=== PATIENT | male | born 1965 | race Caucasian/White ===

== ENCOUNTER 2017-06-17 10:42 | Emergency (ER) | payer MEDICAID, SELFPAY ==
[2017-06-17 10:42] VITALS: BP 152/118; PULSE 89; RESP 16; TEMP 37; O2SAT 98; BMI 34.9
[2017-06-17 10:58] VITALS: PULSE 87; RESP 18; O2SAT 98
--- NOTE | 2017-06-17 10:58 | RAD_ITS ---
STUDY: X-RAY CHEST REASON FOR EXAM: Male, 52 years old. Dizziness and shortness of breath. Syncopal episodes. TECHNIQUE: AP and lateral views of the chest. COMPARISON: Comparison is made with prior study dated April 23, 2017. FINDINGS: EKG electrodes are seen. The lungs are clear and expanded. There is no demonstrated pleural abnormality. There is borderline cardiomegaly. Normal mediastinum and shoaib. Normal visualized pulmonary arteries. Normal visualized aortic arch and descending thoracic aorta. Normal visualized thoracic spine. Normal visualized ribs, clavicles, and shoulders. There is no demonstrated abnormality of the visualized soft tissue structures of the upper abdomen. RAD/Chest 1 View (Portable) IMPRESSION: Borderline cardiomegaly. The lungs are clear. Electronically Signed: Francisco Javier Lockhart MD at 11:30 EST Tel [phone], Service support ,
--- NOTE | 2017-06-17 10:58 | CT_ITS ---
STUDY: CT BRAIN WITHOUT CONTRAST REASON FOR EXAM: Male, 52 years old. Syncope. Dizziness. RADIATION DOSAGE (If Supplied By Facility): CTDIvol = ( 44.99 ) mGy, DLP = ( 812.98 ) mGycm TECHNIQUE: Transaxial CT imaging of the brain was performed without administration of intravenous contrast material. Individualized dose optimization techniques were used for this CT. COMPARISON: Comparison is made with prior study dated November 29, 2016. FINDINGS: Normal soft tissue structures. Normal calvarium. Normal size ventricles and extra-axial spaces for the patient's age. Normal white matter tracts of the cerebral hemispheres. Normal basal ganglia and thalami. Normal brainstem. Normal cerebellum. There is no intracranial hemorrhage. There are no findings of an acute ischemic infarction. Normal visualized paranasal sinuses. CT/Brain/Head without Contrast IMPRESSION: Normal unenhanced CT scan of the brain. Electronically Signed: Francisco Javier Lockhart MD at 12:18 EST Tel [phone], Service support ,
--- NOTE | 2017-06-17 10:59 | EKG12_ITS ---
Test Reason : Blood Pressure : / mmHG Vent. Rate : 089 BPM Atrial Rate : 089 BPM P-R Int : 100 ms QRS Dur : 122 ms QT Int : 374 ms P-R-T Axes : 018 -36 032 degrees QTc Int : 455 ms Sinus rhythm with short SC Left axis deviation Left ventricular hypertrophy with QRS widening Abnormal ECG Confirmed by GEETHA CHAN ([id number]), advertising editor MILTON SANCHEZ ([id number]) on 06/22/2017 1:45:50 PM Referred By: ANI Confirmed By:GEETHA CHAN
[2017-06-17 11:06] LABS: Bedside Glucose 111 mg/dL (70-110)
[2017-06-17 11:17] VITALS: BP 140/90; BP 141/88; BP 145/96; PULSE 82; PULSE 85; PULSE 92
[2017-06-17 11:24] LABS: Absolute Lymphocyte Count 2.34 X10^3/ul (0.83-4.51); Absolute Neutrophil Count 3.3 X10^3/uL (2.0-7.7); Basophil# 0.03 X10^3/uL; Basophil% 0.4 % (0-1); Eosinophil# 0.19 X10^3/uL; Eosinophils% 2.8 % (0-5); Hemoglobin 11.9 g/dl (13.0-16.5); Lymphocyte # 2.34 X10^3/ul (4.0); Lymphocyte % 34.5 % (19-41); Mean Corp Hgb Conc 31.3 g/gl (32-36); Mean Platelet Vol. 8.8 fl (6.2-12.0); Monocyte# 0.93 X10^3/uL; Monocyte% 13.7 % (0-10); Neutrophil # 3.29 X10^3/uL (2.7-7.7); Neutrophil % 48.5 % (47-70); Platelet Count 386 K/mm3 (150-450); RBC Distribution Width CV 14.9 % (11.6-14.6); RBC Distribution Width SD 45.3 fl (35.1-43.9); Red Blood Count 4.58 M/mm3 (4.6-6.2); White Blood Count 6.8 K/mm3 (4.4-11.0)
[2017-06-17 11:25] LABS: POSITIVE COUNT NO; POSITIVE DIFFERENTIAL NO; POSITIVE MORPHOLOGY NO
[2017-06-17 11:37] LABS: Anion Gap 9 (5-15); BUN 15 mg/dL (7-18); BUN/Creat Ratio 16.7 RATIO (10-20); Calcium,Total 8.8 mg/dL (8.5-10.1); Chloride 104 mmol/L (98-107); EST Glomerular Filtration Rate 94 mL/min (>60); Est Glom Filt Rate - Afr Amer 114 mL/min (>60); Estimated Creatinine Clearance 91.83 ml/min; Glucose 104 mg/dL (74-106); Potassium 3.4 mmol/L (3.5-5.1); Sodium Level 141 mmol/L (136-145)
[2017-06-17] MEDS: 0.9% Normal Saline 1,000 ML 150 ML IV (12:45)
--- NOTE | 2017-06-17 12:45 | ED.RN ---
SCANNING NOT WORKING. STRAIGHTEDGE WORKER AWARE.
[2017-06-17 13:18] VITALS: BP 135/81; PULSE 92; RESP 28; O2SAT 96
--- NOTE | 2017-06-17 13:41 | ED.VISSUMM ---
- ER Visit Summary Date of Service: 06/17/17 Chief Complaint: [Syncope] History of Present Illness: The patient is a 52 M [presents to the emergency department with complaint of syncope that occurred today. Patient was going to Dr. Lucio's office to get allergy shots. Patient remembers getting out of the cab and feeling lightheaded and dizzy. Patient was able to go in and sit down and get his shot however after trying to stand he again felt dizzy and passed out for a short time. Patient was caught by 1 of the nurses therefore he did not injure himself. Patient was sent to the ER for further evaluation. Patient does state that he has been not feeling well for the last 2-3 days with cough and congestion and body aches. Patient denies recent travel or surgery. Patient does have a history of coronary artery disease and tells me that he had 4 stents placed a few months ago. Patient states that he has had some nondescript chest discomfort off-and-on for the last week. Patient is currently on Xarelto for history of PEs. Patient states that he has had multiple syncopal episodes over the last couple years he has passed out over 30 times and has had multiple admissions for this and workups.] Physical Examination: [HEENT-PERRLA, EOMI. Cranial nerves II through XII grossly intact. TMs clear. Mucous membranes moist. No adenopathy. Cardiovascular-regular rate and rhythm without murmur or ectopy Lungs-clear to auscultation, chest wall stable without crepitus or subcu emphysema Abdomen-normoactive bowel sounds, soft, nontender, no rebound or rigidity, no peritoneal signs. Neuro dnjg-amdjqn-osal and heel sanders testing within normal limits, negative Romberg, negative for drift, fundi benign Extremities-intact ?4, normal range of motion, normal pulses, atraumatic] Test Results]-orthostatic vital signs were negative. CBC with differential showed a white blood cell count of 6.8, hemoglobin 11.9, hematocrit 38, platelets 386. Chemistries unremarkable. Troponin was 0.03. EKG obtained showed sinus rhythm with rate of 89 bpm with some LVH noted. Chest x-ray was clear. CT scan of the brain without contrast showed nothing acute. Phenobarbital level was 3.0. Emergency Department Course and Treatment: [Patient was given gentle hydration in the emergency department.] Treatment Plan: [Discharged to home in stable condition and patient advised to push fluids. I suspect given some of his symptomatology of cough and runny nose as well as body aches patient may have a viral upper respiratory infection.] Disposition: [Discharged to home in stable condition]. Patient advised to follow-up with primary care physician within next 3-5 days. Patient advised to return if persistent syncopal episodes, chest pain, or condition should worsen in any way. Impression: [Syncope-etiology uncertain-recurrent URI] This note was generated with [employer] dictation software. It may contain incorrect words, spelling, and punctuation that were not noted in review of the chart prior to signing ED Disposition - Plan for ED Patient: Chief Complaint: Syncope Referrals: Robert Hollis DO [Primary Care Provider] -
--- NOTE | 2017-06-17 13:48 | ED.DCSUM_ITS ---
- ER Visit Summary Date of Service: 06/17/17 Chief Complaint: [Syncope] History of Present Illness: The patient is a 52 M [presents to the emergency department with complaint of syncope that occurred today. Patient was going to Dr. Lucio's office to get allergy shots. Patient remembers getting out of the cab and feeling lightheaded and dizzy. Patient was able to go in and sit down and get his shot however after trying to stand he again felt dizzy and passed out for a short time. Patient was caught by 1 of the nurses therefore he did not injure himself. Patient was sent to the ER for further evaluation. Patient does state that he has been not feeling well for the last 2-3 days with cough and congestion and body aches. Patient denies recent travel or surgery. Patient does have a history of coronary artery disease and tells me that he had 4 stents placed a few months ago. Patient states that he has had some nondescript chest discomfort off-and-on for the last week. Patient is currently on Xarelto for history of PEs. Patient states that he has had multiple syncopal episodes over the last couple years he has passed out over 30 times and has had multiple admissions for this and workups.] Physical Examination: [HEENT-PERRLA, EOMI. Cranial nerves II through XII grossly intact. TMs clear. Mucous membranes moist. No adenopathy. Cardiovascular-regular rate and rhythm without murmur or ectopy Lungs-clear to auscultation, chest wall stable without crepitus or subcu emphysema Abdomen-normoactive bowel sounds, soft, nontender, no rebound or rigidity, no peritoneal signs. Neuro wlla-wznwgk-kvtf and heel sanders testing within normal limits, negative Romberg, negative for drift, fundi benign Extremities-intact ?4, normal range of motion, normal pulses, atraumatic] Test Results]-orthostatic vital signs were negative. CBC with differential showed a white blood cell count of 6.8, hemoglobin 11.9, hematocrit 38, platelets 386. Chemistries unremarkable. Troponin was 0.03. EKG obtained showed sinus rhythm with rate of 89 bpm with some LVH noted. Chest x-ray was clear. CT scan of the brain without contrast showed nothing acute. Phenobarbital level was 3.0. Emergency Department Course and Treatment: [Patient was given gentle hydration in the emergency department.] Treatment Plan: [Discharged to home in stable condition and patient advised to push fluids. I suspect given some of his symptomatology of cough and runny nose as well as body aches patient may have a viral upper respiratory infection. ] Disposition: [Discharged to home in stable condition]. Patient advised to follow-up with primary care physician within next 3-5 days. Patient advised to return if persistent syncopal episodes, chest pain, or condition should worsen in any way. Impression: [Syncope-etiology uncertain-recurrent URI] This note was generated with [employer] dictation software. It may contain incorrect words, spelling, and punctuation that were not noted in review of the chart prior to signing ED Disposition - Plan for ED Patient: Chief Complaint: Syncope Referrals: Robert Hollis DO [Primary Care Provider] -
--- NOTE | 2017-06-17 13:48 | ED.DEP ---
ED Disposition - Plan for ED Patient: Chief Complaint: Syncope Instructions: ED Fainting Unkn Cause, ED URI Viral Referrals: Robert Hollis DO [Primary Care Provider] - 3-5 Days
[2017-06-17 13:54] VITALS: BP 137/87; PULSE 80; RESP 14; O2SAT 98
== END 2017-06-17 13:55 | disposition home or self-care (01) ==
PROVIDERS: Emergency Provider Emergency Medicine; Family Provider Family Medicine; PCP Family Medicine
DX: R55 Syncope and collapse (principal); J06.9 Acute upper respiratory infection, unspecified; I25.10 Atherosclerotic heart disease of native coronary artery without angina pectoris; J45.909 Unspecified asthma, uncomplicated; Z79.01 Long term (current) use of anticoagulants; Z79.899 Other long term (current) drug therapy; Z86.73 Personal history of transient ischemic attack (TIA), and cerebral infarction without residual deficits; Z86.711 Personal history of pulmonary embolism; Z95.5 Presence of coronary angioplasty implant and graft
CPT/HCPCS: 70450; 71045; 80048; 80184; 82962; 84484; 85025; 87804; 93005; 96360; 99285; J7030; A4216

== ENCOUNTER → 2017-07-22 10:26 | Outpatient (CLI) | payer MEDICAID, SELFPAY ==
--- NOTE | 2017-07-22 10:27 | RAD_ITS ---
STUDY: X-RAY - LUMBAR SPINE REASON FOR EXAM: Male, 52 years old. Left-sided back pain. TECHNIQUE: 3 view(s) of the lumbar spine were obtained. COMPARISON: None FINDINGS: Normal lumbar lordosis. There is no substantial scoliosis. Bilateral pars defects of L5. 7 mm anterolisthesis of L5 on S1. Normal vertebral bodies and endplates. Moderate degenerative disc disease and loss of disc height at L5-S1. Other disks are normal. The soft tissue structures are unremarkable. RAD/Lumbar Spine 2 or 3 Views IMPRESSION: Bilateral pars defects of L5 and anterolisthesis of L5 on S1. Degenerative disc disease at L5-S1. Electronically Signed: Raghu Rivas MD at 16:52 EDT , Service support ,
== END ==
PROVIDERS: Family Provider Family Medicine; PCP Internal Medicine; Visit Provider Internal Medicine
DX: M54.9 Dorsalgia, unspecified (principal); G89.29 Other chronic pain
CPT/HCPCS: 72100

== ENCOUNTER 2017-07-22 11:00 | Emergency (ER) | payer MEDICAID, SELFPAY ==
[2017-07-22 11:01] VITALS: BP 162/86; PULSE 89; RESP 18; TEMP 37.2; O2SAT 97; BMI 34.2
--- NOTE | 2017-07-22 11:03 | RAD_ITS ---
STUDY: X-RAY CHEST REASON FOR EXAM: Male, 52 years old. Syncopal episode. Hypertension. TECHNIQUE: Single AP portable view of the chest. COMPARISON: 06/17/2017 FINDINGS: Lungs are mildly hypoinflated. Lungs are clear. There is no demonstrated pleural abnormality. There is mild cardiac enlargement. Normal mediastinum and shoaib. Normal visualized pulmonary arteries. Normal visualized aortic arch and descending thoracic aorta. There are diffuse degenerative changes of the visualized thoracic spine. There is degenerative osteoarthritis of the bilateral shoulders. There is no demonstrated abnormality of the visualized soft tissue structures of the upper abdomen. RAD/Chest 1 View (Portable) IMPRESSION: Hypoinflated lungs which are clear. Electronically Signed: Renzo Galdamez DO at 11:23 EDT Tel , Service support ,
--- NOTE | 2017-07-22 11:03 | EKG12_ITS ---
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 Rate : 091 BPM Atrial Rate : 091 BPM P-R Int : 142 ms QRS Dur : 122 ms QT Int : 382 ms P-R-T Axes : 067 -39 075 degrees QTc Int : 469 ms Normal sinus rhythm Left axis deviation Nonspecific ST abnormality Abnormal ECG Confirmed by AYAN CLINE, PONCHO ([id number]), editor in chief newspaper MILTON SANCHEZ ([id number]) on 07/26/2017 1:16:08 PM Referred By: AN/CRISSY Confirmed By:PONCHO BOTELLO MD
[2017-07-22 11:15] VITALS: O2SAT 95
--- NOTE | 2017-07-22 11:19 | ED.RN ---
NIECE CORAL KRAFT NOTIFIED OF PT ADMISSION TO ED FROM RADIOLOGY. THIS FAMILY MEMBER IS PT POA, AND NOTIFICATION WAS MADE AT REQUEST OF PT.
[2017-07-22 11:21] LABS: Absolute Lymphocyte Count 2.39 X10^3/ul (0.83-4.51); Absolute Neutrophil Count 3.6 X10^3/uL (2.0-7.7); Basophil# 0.06 X10^3/uL; Basophil% 0.8 % (0-1); Eosinophil# 0.27 X10^3/uL; Eosinophils% 3.6 % (0-5); Hemoglobin 11.2 g/dl (13.0-16.5); Lymphocyte # 2.39 X10^3/ul (4.0); Mean Corpuscular Hgb 26.9 pg (27.0-32.0); Mean Corpuscular Volume 84.1 fL (80-94); Mean Platelet Vol. 9.3 fl (6.2-12.0); Monocyte# 1.11 X10^3/uL; Monocyte% 14.9 % (0-10); Neutrophil # 3.63 X10^3/uL (2.7-7.7); Neutrophil % 48.6 % (47-70); Platelet Count 411 K/mm3 (150-450); RBC Distribution Width CV 14.4 % (11.6-14.6); RBC Distribution Width SD 43.4 fl (35.1-43.9); Red Blood Count 4.16 M/mm3 (4.6-6.2); White Blood Count 7.5 K/mm3 (4.4-11.0)
[2017-07-22] MEDS: 0.9% Normal Saline 1,000 ML 150 ML IV (11:24)
--- NOTE | 2017-07-22 11:25 | ED.DCSUM_ITS ---
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 radiology history of same for years History of Present Illness: The patient is a 52 M [] has a long history of chronic intermittent dizzy spells, seizure disorder, chronic back pain and leg pain related to prior injury to the back and lower leg, he was in radiology obtaining outpatient lumbar spine x-ray that procedure was done he was sitting at the side of the cot complaint the brass instrument repair technician that he was dizzy so they laid him down call the code team who found him with normal vital signs awake and alert the patient had no LOC did not injure his body or strike anything as technologist were with him throughout. The patient reports he has had these spells chronically he has been extensively evaluated with prior scans blood tests other imaging tests etc. they are not related to his seizure disorder and no clear diagnosis has been established. He did not have a seizure today he assures me and nor did the technologist see any seizure activity he has no description of tongue biting or incontinence he is currently back to his baseline He has chronic back pain his doctors wanted to check the status of his lumbar spine and that is why the lumbar spine test xray was ordered Physical Examination: [] ENT exam is unremarkable no nystagmus the neck is supple the lungs are clear the heart tones are unremarkable abdomen soft nontender is moving all 4 extremities he has chronic pain to the low lumbar back and leg this is related to his chronic condition he did not injure himself anyway by his history and history of technologist who were in the room with him Test Results: [] The patient has had prior evaluation for the dizziness to include prior CT of head negative and cardiology evaluation including nuclear stress test that were negative for workup of the chronic dizziness Emergency Department Course and Treatment: []ekg sinus rhythm no injury pattern we will obtain screening labs NIH is 0 there is no signs of stroke or seizure we will will also check his Dilantin and phenobarbital levels but he states she has been taking them appropriately he has not had a seizure recently Since evaluation here including EKG x-ray labs are unremarkable preliminary review by myself of lumbar spine films show nothing acute Patient's vital signs have remained stable I had a long conversation with him these dizzy spells or chronic, indicates he is taking Dilantin and phenobarbital levels are both 0 he will take those when he gets home, in addition he will follow-up with his family doctors for further management of the chronic dizzy spells he is comfortable with discharge and this plan Treatment Plan: [] Disposition: [] STable home Impression: [] Recurrent dizzy spells etiology unclear history of chronic lumbar back pain This note was generated with Smartzer dictation software. It may contain incorrect words, spelling, and punctuation that were not noted in review of the chart prior to signing ED Disposition - Plan for ED Patient: Chief Complaint: Syncope Referrals: Jennifer Elizondo MD [Primary Care Provider] -
[2017-07-22 11:26] LABS: POSITIVE COUNT NO; POSITIVE DIFFERENTIAL NO; POSITIVE MORPHOLOGY NO
[2017-07-22 11:38] LABS: Anion Gap 7 (5-15); BUN 18 mg/dL (7-18); Calcium,Total 8.4 mg/dL (8.5-10.1); Chloride 107 mmol/L (98-107); Creatinine, Serum 0.86 mg/dL (0.70-1.30); EST Glomerular Filtration Rate 99 mL/min (>60); Est Glom Filt Rate - Afr Amer 120 mL/min (>60); Glucose 111 mg/dL (74-106); Potassium 3.6 mmol/L (3.5-5.1); Sodium Level 142 mmol/L (136-145)
[2017-07-22 11:51] LABS: BNP,B-Type NATRIURETIC PEPTIDE 14.5 pg/mL (0-100)
[2017-07-22 11:52] LABS: Phenytoin (Dilantin) Level < 0.4 mL (10.0-20.0)
[2017-07-22 13:20] VITALS: BP 150/88; PULSE 80; RESP 16; O2SAT 94
--- NOTE | 2017-07-22 13:43 | ED.DEP ---
ED Disposition - Plan for ED Patient: Chief Complaint: Syncope Instructions: ED Fainting Unkn Cause Referrals: Jennifer Elizondo MD [Primary Care Provider] -
[2017-07-22 14:21] VITALS: BP 144/71; PULSE 87; RESP 16; O2SAT 97
--- NOTE | 2017-07-22 14:24 | ED.RN ---
PT DOES NOT HAVE TRANSPORTATION, [facility] CONTACTED TO TRANSPORT PT HOME.
== END 2017-07-22 14:27 | disposition home or self-care (01) ==
PROVIDERS: Emergency Provider Emergency Medicine; Family Provider Internal Medicine; PCP Internal Medicine
DX: R42 Dizziness and giddiness (principal); G89.29 Other chronic pain; M54.5 Low back pain; G40.909 Epilepsy, unspecified, not intractable, without status epilepticus; Z79.01 Long term (current) use of anticoagulants; Z79.899 Other long term (current) drug therapy
CPT/HCPCS: 71045; 72100; 80048; 80184; 80185; 83880; 84484; 85025; 93005; 96360; 96361; 99284; J7030; A4216

== ENCOUNTER 2017-09-13 17:12 | Observation (INO) | payer MEDICAID, SELFPAY ==
[2017-09-13] VITALS (8 sets, daily range): BP systolic 128–161; BP diastolic 77–113; PULSE 84–108; RESP 15–18; TEMP 36.4–37.2; O2SAT 94–98; BMI 34.8; BMI 34.7
--- NOTE | 2017-09-13 17:18 | ED.RN ---
PT USES A CANE TO AMBULATE.
--- NOTE | 2017-09-13 17:48 | EKG12_ITS ---
Test Reason : DIZZINESS Blood Pressure : / mmHG Vent. Rate : 096 BPM Atrial Rate : 096 BPM P-R Int : 142 ms QRS Dur : 116 ms QT Int : 346 ms P-R-T Axes : 042 -47 038 degrees QTc Int : 437 ms Normal sinus rhythm Left anterior fascicular block Abnormal ECG Confirmed by KATERIN CLINE, ZABRINA ([id number]), manager editorial MILTON SANCHEZ ([id number]) on 09/17/2017 10:24:41 AM Referred By: MARIO Confirmed By:ZABRINA CONKLIN MD
--- NOTE | 2017-09-13 17:48 | RAD_ITS ---
STUDY: X-RAY - LUMBAR SPINE REASON FOR EXAM: Male, 52 years old. Weakness, dizziness TECHNIQUE: 3 view(s) of the lumbar spine were obtained. COMPARISON: None FINDINGS: There is a 5 mm anterolisthesis of L5 on S1. There is no substantial scoliosis. There is a normal alignment of the vertebrae. Normal vertebral bodies and endplates. Probable L5 pars defects. Degenerative disc disease L5-S1. The soft tissue structures are unremarkable. RAD/Lumbar Spine 2 or 3 Views IMPRESSION: Grade 1 anterior listhesis of L5 on S1. Degenerative disc disease L5-S1. 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 Electronically Signed: Norris Monge DO at 19:12 EDT , Service support ,
[2017-09-13 18:31] LABS: Absolute Lymphocyte Count 2.45 X10^3/ul (0.83-4.51); Absolute Neutrophil Count 3.7 X10^3/uL (2.0-7.7); Basophil# 0.04 X10^3/uL; Basophil% 0.5 % (0-1); Eosinophil# 0.17 X10^3/uL; Eosinophils% 2.3 % (0-5); Hematocrit 41.2 % (40-54); Hemoglobin 12.8 g/dl (13.0-16.5); Lymphocyte # 2.45 X10^3/ul (4.0); Lymphocyte % 33.1 % (19-41); Mean Corp Hgb Conc 31.1 g/gl (32-36); Mean Corpuscular Hgb 26.2 pg (27.0-32.0); Mean Corpuscular Volume 84.4 fL (80-94); Mean Platelet Vol. 9.1 fl (6.2-12.0); Monocyte# 1.03 X10^3/uL; Monocyte% 13.9 % (0-10); Neutrophil % 50.1 % (47-70); Platelet Count 405 K/mm3 (150-450); RBC Distribution Width CV 15.2 % (11.6-14.6); RBC Distribution Width SD 46.6 fl (35.1-43.9); Red Blood Count 4.88 M/mm3 (4.6-6.2); White Blood Count 7.4 K/mm3 (4.4-11.0)
[2017-09-13 18:32] LABS: POSITIVE COUNT NO; POSITIVE DIFFERENTIAL NO; POSITIVE MORPHOLOGY NO
--- NOTE | 2017-09-13 18:50 | RAD_ITS ---
STUDY: X-RAY CHEST REASON FOR EXAM: Male, 52 years old. Weakness, dizziness, near syncopal episode TECHNIQUE: Frontal and lateral views of the chest. COMPARISON: 07/22/2017 FINDINGS: The lungs are clear and expanded. There is no demonstrated pleural abnormality. Normal size heart. Normal mediastinum and shoaib. Normal visualized pulmonary arteries. Normal visualized aortic arch and descending thoracic aorta. Normal visualized thoracic spine. Normal visualized ribs, clavicles, and shoulders. There is no demonstrated abnormality of the visualized soft tissue structures of the upper abdomen. RAD/Chest PA and Lateral IMPRESSION: No acute cardiopulmonary disease. Electronically Signed: Norris Monge DO at 19:10 EDT , Service support ,
--- NOTE | 2017-09-13 19:21 | HP.PCM_ITS ---
Problem List (1) Syncope and collapse Status: Acute (2) Chest pain Status: Acute Qualifiers: Chest pain type: unspecified Qualified Code(s): R07.9 - Chest pain, unspecified (3) Hypertension Status: Chronic Qualifiers: Hypertension type: essential hypertension Qualified Code(s): I10 - Essential (primary) hypertension (4) Chronic back pain Status: Chronic Qualifiers: Back pain location: back pain in unspecified location Back pain laterality : unspecified Qualified Code(s): M54.9 - Dorsalgia, unspecified; G89.29 - Other chronic pain (5) CVA (cerebral vascular accident) Status: Chronic Qualifiers: CVA mechanism: unspecified Qualified Code(s): I63.9 - Cerebral infarction, unspecified (6) Major depression Status: Chronic Qualifiers: Major depression recurrence: unspecified whether recurrent Active/ Remission status: remission status unspecified Qualified Code(s): F32.9 - Major depressive disorder, single episode, unspecified (7) Lichen simplex chronicus Status: Chronic (8) Anxiety Status: Chronic (9) Pulmonary nodule Status: Chronic (10) Chronic headache Status: Chronic (11) GERD (gastroesophageal reflux disease) Status: Chronic Qualifiers: Esophagitis presence: esophagitis presence not specified Qualified Code(s) : K21.9 - Gastro-esophageal reflux disease without esophagitis (12) Allergic rhinitis Status: Chronic Qualifiers: Allergic rhinitis trigger: unspecified Allergic rhinitis seasonality: unspecified seasonality Qualified Code(s): J30.9 - Allergic rhinitis, unspecified (13) JANELL (obstructive sleep apnea) Status: Chronic (14) Personality disorder Status: Chronic (15) Pulmonary nodules/lesions, multiple Status: Chronic Comment: on CT in June 2015 (16) Seizure disorder Status: Chronic (17) Asthma Status: Chronic Qualifiers: Asthma severity: unspecified severity Asthma persistence: unspecified Asthma complication type: unspecified Qualified Code(s): J45.909 - Unspecified asthma, uncomplicated (18) Restless legs syndrome (RLS) Status: Chronic (19) Pulmonary embolism Status: Chronic Qualifiers: Chronicity: unspecified Acute cor pulmonale presence: without acute cor pulmonale History of Present Illness Date of Admission: 09/13/17 Chief Complaint: Chest pain, Near Syncope The patient is a 52 y/o M w PMHx: HTN, HLD, Asthma, GERD, Allergic Rhinitis, Chronic Back Pain, Known Pulmonary Nodules, Anxiety and Depression/Personality disorder, Obesity, Hx PE, Chronic LH/Dizziness w/ Frequent Near Syncope complaint who presents to the [facility] ED on 09/13/17 with history of increased episodes of lightheadedness and dizziness w/ near syncope w/ now new onset substernal chest tightness without radiation and sensation of sharp needles with events, perhaps worse w/ exertional attempts, but occurs independent also of activity, rates 10/10 when occurs with associated nausea without emesis and diaphoresis. In the ED work-up included T 97.5, heart rate 103, BP 120/96, respiratory rate 15, 94% on room air, positive orthostatic vital signs, CBC with WBC 7.4, hemoglobin 12.8, platelet 405 with increased mono percent otherwise no market shift, pending repeat BMP as initial unusable, chest x-ray with chronic changes. Past Medical History Past Medical History (Chronic Problems): Chronic Problems (Last Reviewed 08/26/17 @ 09:33 by Tamela Paula) History of left heart catheterization (Chronic ~04/14/17) Normal Coronary Arteries @ [facility] Hypertension (Chronic) Generalized hypopigmentation of skin (Chronic) Chronic back pain (Chronic) CVA (cerebral vascular accident) (Chronic) Major depression (Chronic) Paresthesia (Chronic) Hypomagnesemia (Chronic) Lichen simplex chronicus (Chronic) Anxiety (Chronic) Pulmonary nodule (Chronic) Chronic headache (Chronic) GERD (gastroesophageal reflux disease) (Chronic) Hypersomnia (Chronic) Allergic rhinitis (Chronic) Right lumbar radiculopathy (Chronic) Alcohol abuse (Chronic) JANELL (obstructive sleep apnea) (Chronic) Dyspnea on exertion (Chronic) Abnormal chest CT (Chronic) Personality disorder (Chronic) Pulmonary nodules/lesions, multiple (Chronic) on CT in June 2015 Herniated cervical disc without myelopathy (Chronic) Seizure disorder (Chronic) Asthma (Chronic) Restless legs syndrome (RLS) (Chronic) Insomnia (Chronic) Episode of syncope (Chronic) Pulmonary embolism (Chronic) Anxiety disorder (Chronic) Allergies aspirin Allergy (Verified 09/13/17 17:14) Hives Penicillins Allergy (Verified 09/13/17 17:14) Swelling Home Medications: Ambulatory Orders Medication Instructions Recorded Clonazepam [Klonopin] 1 mg PO DAILY 05/05/16 Hydroxychloroquine [Plaquenil] 200 mg PO DAILY 05/05/16 Levetiracetam [Keppra Xr] 500 mg PO DAILY 05/05/16 Omeprazole [Prilosec] 20 mg PO BID 05/05/16 Phenobarbital 16.2 mg PO BID 05/05/16 Rivaroxaban [Xarelto] 15 mg PO DAILY 05/05/16 Ropinirole HCl [Requip Xl] 2 mg PO BID 05/05/16 Trazodone HCl 50 mg PO QHS 05/05/16 Emollient Combination No.101 454 gm TP PRN PRN 11/29/16 [Ceramax] Acetaminophen [Tylenol Extra 500 mg PO Q6H 04/23/17 Strength] Docusate Sodium [Colace] 100 mg PO DAILY 04/23/17 sodium chloride 0.65 % nasal spray 3 spray INTRANASAL Q1-4H PRN #104 06/23/17 aerosol ml mirtazapine 30 mg tablet 30 mg PO QHS 07/09/17 Furosemide [Lasix] 20 mg PO DAILY 07/22/17 Lisinopril [Zestril] 10 mg PO DAILY 07/22/17 ipratropium 20 mcg-albuterol 100 2 puff INHALATION DAILY #4 g 08/26/17 mcg/actuation mist for inhalation mometasone-formoterol HFA 200 2 puff INHALATION DAILY #8.8 g 08/26/17 mcg-5 mcg/actuation aerosol inhaler albuterol sulfate HFA 90 1 puff INHALATION Q4H PRN PRN #6.7 08/28/17 mcg/actuation aerosol inhaler g Surgical History: - - Appendectomy, left hip repair status post fall with fracture, severe head lacerations with notable stitching performed, left hand surgery. Psychiatric History: Anxiety, Depression, - - Unclear personality disorder noted in history. Lives: With Family - Patient notes he lives with his aunt. Smoking Status: Never smoker Tobacco Use: Non-smoker Alcohol: None - Patient denies any history of alcohol or current alcohol use although alcohol abuse is listed in his history prior but adamantly denies. Drugs: None - *Family History Maternal History Items: Heart Disease, Hypertension Paternal History Items: Unknown - Patient notes that his father left when he was 8 weeks- year-old and does not know any of his medical history. Review of Systems Constitutional: Reports: Malaise, Weakness, Fatigue. Denies: Chills, Fever, Weight Change HEENT: Denies: Head Aches, Sinus Congestion, Sinus Drainage Cardiovascular: Reports: Chest Pain, Chest Tightness, Light Headedness, Syncope. Denies: Edema, Heaviness, Palpitations Respiratory: Reports: Shortness of Breath, Shortness of breath at rest, Shortness of breath upon exertion. Denies: Cough, Sputum production Gastrointestinal: Reports: Nausea. Denies: Abdominal Pain, Vomiting Genitourinary: Reports: Dysuria - Notes chronic mild discomfort with urination ongoing for several years. Musculoskeletal: Reports: Back Pain. Denies: Joint Pain, Joint Tenderness Skin: Denies: Rash, Wounds Neurological: Denies: Numbness, Tingling, Focal weakness Psychiatric: Reports: Anxiety, Depression. Denies: Homicidal Ideations, Suicidal Ideations Hematologic/ Lymphatic: Denies: Easy Bruising, Easy Bleeding VTE Information - Inpt Only VTE Present on Admission: No VTE Mechan Device Prophylaxis: SCD's VTE Pharm Prophylaxis ordered?: Yes Patient Problems: Active and Suspected Problems (Last Reviewed 08/26/17 @ 09:33 by Tamela Paula) Chest pain (Acute) Subjective: Seated upright in the ED bed, no acute distress, no current chest discomfort or lightheadedness. Objective: Physical Examination: General: awake, alert, oriented x 3 and cooperative, seated upright in the ED bed in no apparent distress. Skin: normal color, turgor, no icterus, cyanosis, noted hypopigmented regions on skin. HEENT: AT/NC, EOMI, PERRLA, MMM, no carotid bruits or JVD noted. Lungs: Diminished breath sounds, greater bilateral bases, moderate effort, no rales, ronchi or wheezing. Heart: Regular rate and rhythm; no gallop, rub audible. Abdomen: soft, obese, NTTP, ND, normal BS, no HSM. Extremities: no cyanosis, clubbing, mild nonpitting ankle edema. Neurological: patient awake, alert, oriented x 3; cognitive function intact; pupils equally reactive to light and accomodation; cranial nerves II-XII grossly normal, moving all 4 extremities, no focal deficits, strength mild to moderately globally decreased secondary to acute presentation. Psychiatric: affect appears flat, no acute evidence of depressive or anxiety feelings. - Physical Exam Vital Signs Temp Pulse Resp BP Pulse Ox 97.5 F L 88 18 143/77 H 96 09/13/17 17:14 09/13/17 17:54 09/13/17 17:17 09/13/17 17:54 09/13/17 17:53 Oxygen Delivery Method Room Air Weight: 229 lb 4.492 oz Body Mass Index (BMI) 34.8 Finger Stick Blood Glucose 92 Laboratory Tests Past 24 Hrs 09/13/17 09/13/17 09/13/17 16:04 16:04 18:40 WBC 7.4 RBC 4.88 Hgb 12.8 L Hct 41.2 MCV 84.4 MCH 26.2 L MCHC 31.1 L RDW 15.2 H RDW Differential 46.6 H Plt Count 405 MPV 9.1 Immature Gran % (Auto) 0.100 Neut % (Auto) 50.1 Lymph % (Auto) 33.1 [place] % (Auto) 13.9 H Eos % (Auto) 2.3 Baso % (Auto) 0.5 Absolute Neuts (auto) 3.7 Absolute Lymphs (auto) 2.45 Total Counted Not Reportable Sodium Cancelled Pending Potassium Cancelled Pending Chloride Cancelled Pending Carbon Dioxide Cancelled Pending Anion Gap Cancelled Pending BUN Cancelled Pending Creatinine Cancelled Pending Estim Creat Clear Calc Cancelled Est GFR (MDRD) Af Amer Cancelled Pending Est GFR (MDRD) Non-Af Cancelled Pending BUN/Creatinine Ratio Cancelled Pending Glucose Cancelled Pending Calcium Cancelled Pending Troponin I Cancelled Pending Assessment/Plan Active and Suspected Problems (Last Reviewed 08/26/17 @ 09:33 by Tamela Paula) Chest pain (Acute) The patient is a 52 y/o M w PMHx: HTN, HLD, Asthma, GERD, Allergic Rhinitis, Chronic Back Pain, Known Pulmonary Nodules, Anxiety and Depression/Personality disorder, Obesity, Hx PE, Chronic LH/Dizziness w/ Frequent Near Syncope complaint who presents to the [facility] ED on 09/13/17 with history of increased episodes of lightheadedness and dizziness w/ near syncope w/ now new onset substernal chest tightness without radiation and sensation of sharp needles with events, perhaps worse w/ exertional attempts, but occurs independent also of activity, rates 10/10 when occurs with associated nausea without emesis and diaphoresis. (1) Acute on Chronic Near Syncope w/ concurrent Chest Pain: Unclear etiology, likely contributed to secondary to his orthostasis, also notable long-term near syncope history, most recent stress testing 2016 unremarkable and most recent ECHO 2014. EKG in ED w/ sinus rhythm without evidence of acute ischemia, CXR w/ no acute cardiopulmonary findings, initial trop pending as initial lab draw failed, repeat now pending. Will admit to PCU, place on a monitored bed to assure no acute myocardial infarction with serial cardiac enzymes and EKGs. Will maintain on fall precautions, given + admission orthostatic continue hydration and repeat AM orthostatic VS, plan AM stress testing if enzymes remain unremarkable, also obtain ECHO. Mag pending. FLP in AM. Hives allergy with ASA. (2) Chronic Asthma/COPD: ATC duonebs, PRN albuterol, HOB, IS parameters. (3) Hypertension: Continue home regimen including lisinopril, hold Lasix given orthostasis and add back once appropriate, PRN hydralazine. (4) Hyperlipidemia: Not on regimen, AM FLP. (5) Anxiety and Depression/Unclear Personality Disorder: Maintain on home Klonopin, mirtazapine and trazodone regimen. (6) Seizure Disorder: Maintain on home regimen phenobarbital and Keppra with pending level. (7) Obesity: Weight loss and lifestyle changes encouraged. (8) RLS: Maintain on home requip regimen. (9) GERD: PPI. (10) Hx PE: Maintain on home xarelto regimen. (11) ? Hx CVA: Unclear history, ASA allergy, maintain on xarelto, not on statin w/ pending FLP, maintain on ACEI, holding lasix as noted above. (12) DVT Prophylaxis: SCDs, xarelto. Code Visit OBSV E&M: [id number] Initial observation care L3
[2017-09-13 19:26] LABS: Anion Gap 8 (5-15); BUN 17 mg/dL (7-18); Calcium,Total 9.3 mg/dL (8.5-10.1); Chloride 105 mmol/L (98-107); Creatinine, Serum 0.95 mg/dL (0.70-1.30); EST Glomerular Filtration Rate 88 mL/min (>60); Est Glom Filt Rate - Afr Amer 107 mL/min (>60); Glucose 85 mg/dL (74-106); Potassium 4.1 mmol/L (3.5-5.1); Sodium Level 141 mmol/L (136-145)
[2017-09-13 19:34] LABS: Bacteria 0 SEEN /hpf (None Seen); Mucous, Urine 0 SEEN /hpf (<or=2+); Red Blood Cells-Urine 0 SEEN /hpf (0-5); Squamous Epithelial Cells - UA 0 SEEN /hpf (0-5); White Blood Cells 0 SEEN /hpf (0-5)
--- NOTE | 2017-09-13 19:37 | ED.VISSUMM ---
- ER Visit Summary Date of Service: 09/13/17 Chief Complaint: Multiple complaints History of Present Illness: The patient is a 52 M who actually presents with multiple complaints. He states that over the last week he has had intermittent chest tightness and shortness of breath. He has a nonproductive cough. He also complains of intermittently feeling lightheaded and dizzy. He describes this as a near syncope. He has a history of recurrent syncope with multiple prior evaluations for this. He also complains of dysuria urinary frequency and suprapubic abdominal pain. He complains of lower back pain with radiation down both legs as well as numbness down both legs. He has a history of chronic back pain with degenerative disc disease follows with pain management and has had prior epidural injections. Physical Examination: Afebrile vitals unremarkable Moist mucous membranes Heart regular rhythm tachycardia Lungs are clear Abdomen soft nontender nondistended Extremities nontender normal strength and sensation 2+ dorsalis pedis pulses Test Results: EKG shows sinus rhythm at a rate of 96 with a left anterior fascicular block. CBC BMP normal. Urinalysis pending. Troponin negative. Chest x-ray shows no acute process. Lumbar x-rays show grade 1 anterior listhesis of L5 on S1 as well as a probable bilateral L5 pars defect. Emergency Department Course and Treatment: Patient's back pain with radiculopathy is chronic in nature. In regards to his dizziness near syncope this is also a chronic recurrent issue. However when he has presented with syncope previously he has not complained of chest pain or shortness of breath. Given that he does have a history of coronary disease with prior stenting I did feel he needed a cardiac rule out. He was discussed with the hospitalist and admitted. Treatment Plan: [] Disposition: Admit Impression: Chest pain Dysuria Near syncope Lumbar radiculopathy This note was generated with [employer] dictation software. It may contain incorrect words, spelling, and punctuation that were not noted in review of the chart prior to signing ED Disposition - Plan for ED Patient: Chief Complaint: Dizziness Referrals: Jennifer Elizondo MD [Primary Care Provider] -
[2017-09-13 19:51] LABS: Color, Urine Straw (Yellow); Glucose, Dipstick Normal (Normal); Ketone-Dipstick Negative (Negative); Leukocyte Esterase-Dipstick Negative /ul (Negative); Nitrite-Dipstick Negative (Negative); Occult Blood-Urine Negative /ul (Negative); Protein-Dipstick Negative (Negative); Urine Bilirubin Dipstick Negative (Negative); Urine Clarity Clear (Clear); Urine Urobilinogen Normal (Normal)
[2017-09-13 21:52] LABS: Magnesium 2.2 mg/dL (1.6-2.6)
[2017-09-13 22:03] LABS: AST(SGOT) 14 U/L (15-37); Alanine Aminotransfer ALT/SGPT 29 U/L (16-61); Albumin, Serum 3.9 g/dL (3.2-5.0); Alkaline Phosphatase 69 U/L (45-117); Bilirubin, Direct 0.05 mg/dL (0.00-0.30); Globulin 4.1 g/dL (2.2-4.2)
[2017-09-13] MEDS: 0.9% Normal Saline 1,000 ML 125 ML IV (22:16)
[2017-09-13] MEDS: Pantoprazole Sodium 20 MG Tablet PO (23:09)
[2017-09-13] MEDS: traZODone 50 MG Tablet PO (23:09)
[2017-09-13] MEDS: Pramipexole Di-HCl 1 MG Tablet PO (23:09)
[2017-09-13] MEDS: Mirtazapine 30 MG Tablet PO (23:10)
[2017-09-13] MEDS: Morphine 4 MG/ML Syringe IV (23:18)
[2017-09-14] VITALS (9 sets, daily range): BP systolic 112–141; BP diastolic 67–81; PULSE 71–90; RESP 16–18; TEMP 36.4–36.6; O2SAT 93–99
[2017-09-14] MEDS: Morphine 4 MG/ML Syringe IV (03:34)
--- NOTE | 2017-09-14 04:00 | EKG12_ITS ---
Test Reason : AM Blood Pressure : / mmHG Vent. Rate : 076 BPM Atrial Rate : 076 BPM P-R Int : 152 ms QRS Dur : 118 ms QT Int : 396 ms P-R-T Axes : 044 -42 035 degrees QTc Int : 445 ms Normal sinus rhythm Left axis deviation LAHB Abnormal ECG When compared with ECG of 13-SEP-2017 20:56, MANUAL COMPARISON REQUIRED, DATA IS UNCONFIRMED Confirmed by GEETHA CHAN ([id number]), international editorial producer MILTON SANCHEZ ([id number]) on 10/06/2017 7:05:45 PM Referred By: ROBBIN Confirmed By:GEETHA CHAN
--- NOTE | 2017-09-14 04:43 | CPS ---
pt declines use of our cpap unit for this evening. RN notified.
[2017-09-14 05:06] LABS: Hematocrit 37.4 % (40-54); Hemoglobin 11.9 g/dl (13.0-16.5); Mean Corp Hgb Conc 31.8 g/gl (32-36); Mean Corpuscular Hgb 26.8 pg (27.0-32.0); Mean Corpuscular Volume 84.2 fL (80-94); Mean Platelet Vol. 9.1 fl (6.2-12.0); Platelet Count 386 K/mm3 (150-450); RBC Distribution Width CV 14.9 % (11.6-14.6); RBC Distribution Width SD 45.2 fl (35.1-43.9); Red Blood Count 4.44 M/mm3 (4.6-6.2); Scan Indicated on CBC? Y/N NO; White Blood Count 7.5 K/mm3 (4.4-11.0)
[2017-09-14 05:15] LABS: International Normalized Ratio 1.1; Prothrombin Time (Protime)PT. 14.6 SECONDS (11.7-14.9)
[2017-09-14 05:16] LABS: Partial Thromboplast Time 27.4 Seconds (24.1-36.2)
[2017-09-14 05:30] LABS: Anion Gap 8 (5-15); BUN 17 mg/dL (7-18); BUN/Creat Ratio 20.1 RATIO (10-20); Calcium,Total 8.5 mg/dL (8.5-10.1); Chloride 107 mmol/L (98-107); Cholesterol 174 mg/dL (200); Creatinine, Serum 0.84 mg/dL (0.70-1.30); EST Glomerular Filtration Rate 101 mL/min (>60); Est Glom Filt Rate - Afr Amer 122 mL/min (>60); Estimated Creatinine Clearance 98.39 ml/min; Glucose 113 mg/dL (74-106); High Density Lipoprotein 54 mg/dL; Potassium 4.1 mmol/L (3.5-5.1); Sodium Level 143 mmol/L (136-145); Triglycerides 111 mg/dL; Very Low Density Lipoprotein 22 mg/dL (5-40)
[2017-09-14] MEDS: Lisinopril 10 MG Tablet PO (05:49)
[2017-09-14] MEDS: 0.9% Normal Saline 1,000 ML 125 ML IV (05:49)
--- NOTE | 2017-09-14 05:55 | ECHOD_ITS ---
Reason For Study: SOB Procedure This was a 2D Doppler, Color Flow transthoracic echocardiogram. The exam was of fair technical quality due to body habitus. The study was technically difficult. Contrast injection was performed. Exam performed portable in patient room. Left Ventricle Normal LV size. Left ventricular systolic function is normal. The estimated ejection fraction is 60 %. Transmitral doppler flow suggestive of impaired relaxation of left ventricle. No regional wall motion abnormalities noted. Right Ventricle Normal RV size. Normal systolic function. Atria Normal left atrium. Normal right atrium. No doppler evidence for ASD. Mitral Valve There is no mitral annular calcification. Normal mitral valve. Trivial mitral valve insufficiency. Tricuspid Valve Normal tricuspid valve. Trivial tricuspid valve insufficiency. Right ventricular systolic pressure estimated to be 25 mmHg. Aortic Valve Trisinus/trileaflet aortic valve. Normal aortic valve. Pulmonic Valve The pulmonic valve is not well visualized. Great Vessels Normal sized aortic root. Pericardium/Pleural No pericardial effusion. Medication Diluted definity 2ml given slow IV push to enhance endocardial definition. MMode/2D Measurements & Calculations LVIDd: 5.3 cm IVSd: 1.2 cm Ao root diam: 3.4 cm LVIDs: 3.5 cm LVPWd: 1.2 cm LA dimension: 3.8 cm FS: 34.3 % Doppler Measurements & Calculations MV E max tim: 60.1 cm/sec Lat Peak E' Tim: 6.3 cm/sec Med Peak E' Tim: 5.8 cm/sec MV A max tim: 80.7 cm/sec E/E' lat: 9.5 E/E' med: 10.3 MV E/A: 0.74 Ao V2 max: 138.8 cm/sec LV V1 max: 125.6 cm/sec PA V2 max: 116.4 cm/sec Ao max P.7 mmHg LV V1 max P.3 mmHg TR max tim: 236.0 cm/sec TR max P.3 mmHg Interpretation Summary The study was technically difficult. Contrast injection was performed. Left ventricular systolic function is normal. The estimated ejection fraction is 60 %. Trivial mitral valve insufficiency. Trivial tricuspid valve insufficiency. Right ventricular systolic pressure estimated to be 25 mmHg. Transmitral doppler flow suggestive of impaired relaxation of left ventricle Ordering Physician: Loly Gonzalez Referring Physician: Caro Rodriguez Performed By: Tika Hooper RDCS
[2017-09-14] MEDS: Pantoprazole Sodium 20 MG Tablet PO (10:41)
[2017-09-14] MEDS: Docusate Sodium 100 MG Capsule PO (10:41)
[2017-09-14] MEDS: clonazePAM 1 MG Tablet PO (10:41)
[2017-09-14] MEDS: Pramipexole Di-HCl 1 MG Tablet PO (10:41)
[2017-09-14] MEDS: levETIRAcetam 250 MG Tablet PO (10:41)
[2017-09-14] MEDS: oxyCODONE 5 MG Tablet PO (10:43)
[2017-09-14] MEDS: Acetaminophen 325 MG Tablet 650 MG PO (10:44)
--- NOTE | 2017-09-14 10:51 | STRESSREP ---
Stress Test Report Date: 09/14/2017 Procedure: Pharmacologic stress nuclear imaging study Indications: Chest pain Consent: Per the patient Procedure: The patient underwent pharmacologic (Regadenoson) evaluation with a peak heart rate of 113 beats per minute (67 predicted maximal heart rate) and a peak blood pressure of 130/90 mmHg. The baseline ECG demonstrated normal sinus rhythm. The peak pharmacologic ECG demonstrated no obvious ECG changes. There were no cardiac dysrhythmias pretest, during pharmacologic infusion, or recovery. There was no complaint of chest discomfort during pharmacologic infusion or recovery. The examination was discontinued secondary to completion of protocol. Impression: 1. Pharmacologic (Regadenoson) evaluation 2. Peak pharmacologic ECG with no obvious ECG changes. 3. No cardiac dysrhythmias pretest, during pharmacologic infusion, or recovery 4. Nuclear images pending Myocardial perfusion imaging study: Technique: The patient was injected with 13.9 millicuries of technetium 99m Cardiolite and subsequently rest SPECT Cardiolite nuclear imaging was obtained in the horizontal long, vertical long, and short axis views. The patient underwent pharmacologic (Regadenoson) evaluation with a peak heart rate of 113 beats per minute (67 % percent predicted maximal heart rate) and a peak blood pressure of 130/90 mmHg. The patient was injected with 45 millicuries of technetium 99m Cardiolite and subsequently stress SPECT Cardiolite nuclear imaging was obtained in the horizontal long, vertical long, and short axis views. A gated Cardiolite study at peak stress was obtained. Interpretation: Rest and stress SPECT Cardiolite nuclear imaging status post realignment, normalization, and attenuation correction demonstrate relative uniform tracer uptake and myocardial perfusion appearing within normal limits. There is end systolic thickening and brightening. The gated Cardiolite study demonstrates myocardial thickening and inward wall motion. The reported LVEF is 64 %. Impression: 1. Rest and stress SPECT Cardiolite nuclear imaging demonstrate relative uniform tracer uptake and myocardial perfusion appearing within normal limits. 2. The gated Cardiolite study reports an LVEF of 64%. This note was generated with [employer]rada[employer] software. It may contain incorrect words, spelling, and punctuation that were not noted in checking the note before signing.
[2017-09-14] MEDS: Hydroxychloroquine 200 MG Tablet PO (12:45)
[2017-09-14] MEDS: Rivaroxaban 15 MG Tablet PO (12:45)
[2017-09-14] MEDS: Ipratropium/Albuterol Sulfate 3 ML AMPUL.NEB INHALATION (12:55)
--- NOTE | 2017-09-14 14:35 | PCM.DC ---
- Discharge Diagnoses Current Active Problems: Current Active and Chronic Problems (Last Reviewed 08/26/17 @ 09:33 by Tamela Paula) Chest pain (Acute) You will use the following diet at home:: Cardiac - <2 g sodium daily, low cholesterol low fat Your food should be the consistency of: Regular Your liquids should be the consistency of: Regular/Thin Discharge Activity: Return to Normal Activity Additional Instructions: stop baclofen Allergies/Adverse Reactions: Allergies aspirin Allergy (Verified 09/13/17 17:14) Hives Penicillins Allergy (Verified 09/13/17 17:14) Swelling Medications to take at Discharge Clonazepam [Klonopin] 1 mg PO DAILY 05/05/16 Hydroxychloroquine [Plaquenil] 200 mg PO DAILY 05/05/16 Levetiracetam [Keppra Xr] 500 mg PO DAILY 05/05/16 Omeprazole [Prilosec] 20 mg PO BID 05/05/16 Phenobarbital 16.2 mg PO BID 05/05/16 Rivaroxaban [Xarelto] 15 mg PO DAILY 05/05/16 Ropinirole HCl [Requip Xl] 2 mg PO BID 05/05/16 Trazodone HCl 50 mg PO QHS 05/05/16 Emollient Combination No.101 [Ceramax] 454 gm TP PRN PRN 11/29/16 Acetaminophen [Tylenol Extra Strength] 500 mg PO Q6H 04/23/17 Docusate Sodium [Colace] 100 mg PO DAILY 04/23/17 sodium chloride 0.65 % nasal spray aerosol 3 spray INTRANASAL Q1-4H PRN #104 ml 06/23/17 mirtazapine 30 mg tablet 30 mg PO QHS 07/09/17 Furosemide [Lasix] 20 mg PO DAILY 07/22/17 Lisinopril [Zestril] 10 mg PO DAILY 07/22/17 ipratropium 20 mcg-albuterol 100 mcg/actuation mist for inhalation 2 puff INHALATION DAILY #4 g 08/26/17 mometasone-formoterol HFA 200 mcg-5 mcg/actuation aerosol inhaler 2 puff INHALATION DAILY #8.8 g 08/26/17 albuterol sulfate HFA 90 mcg/actuation aerosol inhaler 1 puff INHALATION Q4H PRN PRN #6.7 g 08/28/17 Primary Care Physician: Jennifer Elizondo MD [Primary Care Provider] - Please follow up with your Primary Care Physician in: 1-2 weeks
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
== END 2017-09-14 14:38 | disposition home or self-care (01) ==
LOC: ED 19:40 → PCU 19:49
PROVIDERS: Family Medicine; Admitting Provider Family Medicine; Emergency Provider Emergency Medicine; Family Provider Internal Medicine; PCP Internal Medicine; Visit Provider Internal Medicine
DX: R07.89 Other chest pain (principal); R06.02 Shortness of breath; R55 Syncope and collapse; J44.9 Chronic obstructive pulmonary disease, unspecified; I10 Essential (primary) hypertension; E78.5 Hyperlipidemia, unspecified; K21.9 Gastro-esophageal reflux disease without esophagitis; G25.81 Restless legs syndrome; G40.909 Epilepsy, unspecified, not intractable, without status epilepticus; F41.9 Anxiety disorder, unspecified; F32.9 Major depressive disorder, single episode, unspecified; G47.33 Obstructive sleep apnea (adult) (pediatric); G89.29 Other chronic pain; M54.9 Dorsalgia, unspecified; L28.0 Lichen simplex chronicus; R91.1 Solitary pulmonary nodule; Z79.01 Long term (current) use of anticoagulants; Z79.899 Other long term (current) drug therapy; Z86.711 Personal history of pulmonary embolism; E66.9 Obesity, unspecified; Z68.34 Body mass index [BMI] 34.0-34.9, adult; Z71.3 Dietary counseling and surveillance
CPT/HCPCS: 36415; 71046; 72100; 78452; 80048; 80061; 80076; 80184; 81001; 83735; 84484; 85025; 85027; 85610; 85730; 93005; 93017; 93306; 94640; 96361; 96374; 96376; 97162; 97165; 97802; 99218; 99284; A9500; J7030; Q9957; A4216; G0378; J2785

== ENCOUNTER → 2017-10-19 12:17 | Outpatient (CLI) | payer MEDICAID, SELFPAY ==
--- NOTE | 2017-10-19 12:25 | RAD_ITS ---
STUDY: X-RAY - PELVIS AND LEFT HIP REASON FOR EXAM: Male, 52 years old. Pain history of prior surgery TECHNIQUE: Radiological exam, hip, unilateral, with pelvis when performed; 2 or 3 views. COMPARISON: November 29, 2016 FINDINGS: There is a non-specific bowel gas pattern. Normal visualized soft tissue structures. Normal bilateral iliac wings, sacroiliac joints and visualized sacrum. Normal bilateral superior and inferior pubic rami. Normal pubic symphysis. Normal bilateral ischial tuberosities. There are postsurgical changes status post open reduction internal fixation of old intratrochanteric fracture with fracture fragments in anatomic alignment and position. No change since prior study RAD/Hip 2-3 Views with Pelvis IMPRESSION: Status post ORIF intertrochanteric fracture.. If pain persists MRI may be helpful for further evaluation Electronically Signed: Christiano Wyatt MD at 22:56 EDT , Service support ,
== END ==
PROVIDERS: Family Provider Internal Medicine; PCP Internal Medicine; Visit Provider Nurse Practitioner Family
DX: M25.552 Pain in left hip (principal)
CPT/HCPCS: 73502

== ENCOUNTER → 2017-12-07 09:48 | Outpatient (CLI) | payer MEDICAID, SELFPAY ==
--- NOTE | 2017-12-07 14:19 | PFT ---
INTRODUCTION: The patient is a 52-year-old male that presents for pulmonary function testing secondary to a diagnosis of asthma. Respiratory therapy reports good patient effort. Bronchodilators were used during testing. INTERPRETATION: Forced expiration spirometry demonstrates no evidence of a large airways obstructive ventilatory defect. There is no significant response to aerosolized bronchodilators. Spirograms are of good quality and plateau normally. Body plethysmography was performed and reveals lung volumes to be within normal limits. Diffusing capacity by single breath CO is within normal limits at 81% of predicted. The patient's TLC and DLCO have both improved since PFTs were last completed in 2017. IMPRESSION: These pulmonary function studies are grossly within normal limits.
== END ==
PROVIDERS: Family Provider Internal Medicine; PCP Internal Medicine; Visit Provider Internal Medicine Critical Care Medicine
DX: J45.909 Unspecified asthma, uncomplicated (principal)
CPT/HCPCS: 94060; 94726; 94729

== ENCOUNTER → 2017-12-09 10:38 | Outpatient (CLI) | payer MEDICAID, SELFPAY ==
[2017-12-09 11:26] VITALS: PULSE 77; PULSE 89; PULSE 91; PULSE 92; PULSE 94; O2SAT 97; O2SAT 98
--- NOTE | 2017-12-09 11:35 | CPS ---
Mr. muhammad used a cane for support . He rested from 132 into test until 2 mins then again at 414 to 435. He did not take his inhalers today. I felt he was not as short of breath as he told me.
--- NOTE | 2017-12-10 07:39 | PCM.PSN.6M ---
PSN 6 Minute Walk Test - 6 Minute Walk Test 6 Minute Walk Test: 6 Minute Walk Test PSN:6-Minute Walk Test Start: 12/09/17 11:24 Freq: Status: Active Protocol: [id number].6MINW Document 12/09/17 11:26 FR (Rec: 12/09/17 11:40 FR [id number]) 6 Minute Walk Test Date Performed 12/09/17 Time Performed 11:00 Height 5 ft 8 in Weight: 224 lb Weight in Pounds 224.0 lbs Assistive device used: Cane Pre-test Oxygen Delivery Method Room Air Pulse Ox (%) 97 Pulse Rate (60-100 beats/min) 77 Dyspnea Cely Scale (0-10) 7 Exertion Cely Scale (6-20) 13 1st minute Oxygen Delivery Method Room Air Pulse Ox (%) 98 Pulse Rate (60-100 beats/min) 91 Number of Rests Taken 1 2nd minute Oxygen Delivery Method Room Air Pulse Ox (%) 98 Pulse Rate (60-100 beats/min) 91 3rd minute Oxygen Delivery Method Room Air Pulse Ox (%) 98 Pulse Rate (60-100 beats/min) 91 4th minute Oxygen Delivery Method Room Air Pulse Ox (%) 97 Pulse Rate (60-100 beats/min) 94 5th minute Oxygen Delivery Method Room Air Pulse Ox (%) 97 Pulse Rate (60-100 beats/min) 89 Number of Rests Taken 1 6th minute Oxygen Delivery Method Room Air Pulse Ox (%) 98 Pulse Rate (60-100 beats/min) 92 Dyspnea Cely Scale (0-10) 6.5 Exertion Cely Scale (6-20) 12 Post-test Oxygen Delivery Method Room Air Pulse Ox (%) 98 Pulse Rate (60-100 beats/min) 77 Full Laps Walked 10 Partial Lap, Number of Tiles Walked 18 Total Distance Walked (ft) 608 12/09/17 11:35 Cardiopulmonary Services by Reina Hardy Mr. muhammad used a cane for support . He rested from 132 into test until 2 mins then again at 414 to 435. He did not take his inhalers today. I felt he was not as short of breath as he told me. Initialized on 12/09/17 11:35 - END OF NOTE - Interpretation Interpretation: The patient ambulated 680 feet over the course of 6 minutes beginning on room air with the use of a cane. The patient did take several breaks throughout the test, which likely decreases the sensitivity of detecting exertional hypoxia. Pretesting oxygen saturation was noted to be 97% on room air. With ambulation, the raffi oxygen saturation was 97%. There was no significant exertional oxygen desaturation. - Recommendations Recommendations: There is no indication for the use of supplemental oxygen at this time. However, multiple breaks taken during testing may decrease the sensitivity for detecting exertional hypoxia.
== END ==
PROVIDERS: Family Provider Internal Medicine; PCP Internal Medicine; Visit Provider Internal Medicine Critical Care Medicine
DX: J45.909 Unspecified asthma, uncomplicated (principal)
CPT/HCPCS: 94761

== ENCOUNTER → 2018-01-14 09:27 | Outpatient (CLI) | payer MEDICAID, SELFPAY ==
[2018-01-14 10:52] LABS: BNP,B-Type NATRIURETIC PEPTIDE 2.6 pg/mL (0-100)
== END ==
PROVIDERS: Family Provider Family Medicine; PCP Family Medicine; Visit Provider Nurse Practitioner Family
DX: R06.09 Other forms of dyspnea (principal)
CPT/HCPCS: 36415; 83880

== ENCOUNTER → 2018-02-04 10:16 | Outpatient (CLI) | payer MEDICAID, SELFPAY | PROVIDERS: Family Provider Family Medicine; PCP Family Medicine; Visit Provider Family Medicine | DX: R73.01 Impaired fasting glucose (principal); M47.16 Other spondylosis with myelopathy, lumbar region; Z51.81 Encounter for therapeutic drug level monitoring | CPT/HCPCS: 36415; 83036 ==

== ENCOUNTER 2018-03-31 14:00 | Outpatient (RCR) | payer MEDICAID, SELFPAY ==
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
--- NOTE | 2018-03-31 14:20 | HP.PTDCSUM ---
HP - PT D/C Summary It has been my pleasure to treat LORENZA LEWIS under orders from SRI GrantC, for the diagnosis of DEGENERATION OF DISC INTERVERTBRAL,STENOSIS,LEFT HIP PAIN for a total of 25 visit(s). Discharge Date: 03/31/18 Please see the following information for a summary of their discharge status. - Subjective Subjective: Doing better less pain - Pain Bilateral Back Pain Intensity (Out of 10): 2 Left Hip Pain Intensity (Out of 10): 2 R Hip Pain Intensity (Out of 10): 2 - Overall Improvement % Improvement: 60 - Objective Objective/Function: POSTURE: mild foward posture. GAIT: reciprocal pattern normal gigi. MMT: quads/hams/hip 4/5,ankle 4/5. LUMBAR ROM: flexion min loss,min/mod loss extension. side glides min. -SLR - Goals Goal 1:: Independant with Aquatic PT Goal Progress: Goal Met Goal 2:: Decrease pain hip and back by 60% or greater to improve function with ADL'S Goal Progress: Goal Met Goal 3:: Patient incraese strength BLE by 1/2 grade to improve function with ADL'S Goal Progress: Goal Met Goal 4:: Patient improve lumbar owestry score by 5-10 points to improve QOL. Goal Progress: Goal Met Goal 5:: Patient improve ability to perform ADL'S and husework tasks with min limiations Goal Progress: Goal Met Goal 6:: Patient ambulate further distance in community with less pain greater tnan 15 min Goal Progress: Progressing - Plan Plan: D/C - D/C Information If there are questions or concerns regarding this patient's physical therapy, please feel free to call me at [phone]. Thank you for the referral of this patient. Sincerely, Fermin Valdivia, PT,
== END 2018-03-31 19:00 | disposition home or self-care (01) ==
LOC: PT 14:00
PROVIDERS: Family Provider Internal Medicine; PCP Internal Medicine; Visit Provider Nurse Practitioner Family
DX: M51.37 Other intervertebral disc degeneration, lumbosacral region (principal); M48.07 Spinal stenosis, lumbosacral region; M54.17 Radiculopathy, lumbosacral region; M47.817 Spondylosis without myelopathy or radiculopathy, lumbosacral region; M46.96 Unspecified inflammatory spondylopathy, lumbar region; M25.552 Pain in left hip
CPT/HCPCS: 97113; 97162; 97530

== ENCOUNTER 2018-04-06 15:09 | Emergency (ER) | payer MEDICAID, SELFPAY ==
[2018-04-06 15:10] VITALS: BP 159/92; PULSE 101; RESP 18; TEMP 36.3; O2SAT 95; BMI 34.0
--- NOTE | 2018-04-06 15:30 | CT_ITS ---
STUDY: CT BRAIN WITHOUT CONTRAST REASON FOR EXAM: Male, 53 years old. Numbness. RADIATION DOSAGE (If Supplied By Facility): CTDIvol = ( 60.81 ) mGy, DLP = ( 1044.28 ) mGycm TECHNIQUE: Transaxial CT imaging of the brain was performed without administration of intravenous contrast material. Individualized dose optimization techniques were used for this CT. COMPARISON: June 17, 2017. FINDINGS: Normal soft tissue structures. Normal calvarium. Normal size ventricles and extra-axial spaces for the patient's age. Normal white matter tracts of the cerebral hemispheres. Normal basal ganglia and thalami. Normal brainstem. Normal cerebellum. There is no intracranial hemorrhage. There are no findings of an acute ischemic infarction. Normal visualized paranasal sinuses. CT/Brain/Head without Contrast IMPRESSION: Normal unenhanced CT scan of the brain. There is no interval change. Electronically Signed: Ede Araiza DO at 16:17 EST Tel [phone], Service support ,
--- NOTE | 2018-04-06 15:30 | EKG12_ITS ---
Test Reason : CP Blood Pressure : / mmHG Vent. Rate : 097 BPM Atrial Rate : 097 BPM P-R Int : 148 ms QRS Dur : 120 ms QT Int : 366 ms P-R-T Axes : 054 -64 037 degrees QTc Int : 464 ms Normal sinus rhythm Left anterior fascicular block Cannot rule out Inferior infarct , age undetermined Abnormal ECG Confirmed by AYAN CLINE, PONCHO ([id number]), fashion editor MILTON SANCHEZ ([id number]) on 04/08/2018 9:13:21 AM Referred By: DANIEL Confirmed By:PONCHO BOTELLO MD
[2018-04-06 15:58] LABS: Absolute Lymphocyte Count 2.49 X10^3/ul (0.83-4.51); Absolute Neutrophil Count 4.7 X10^3/uL (2.0-7.7); Basophil# 0.05 X10^3/uL; Basophil% 0.6 % (0-1); Eosinophil# 0.32 X10^3/uL; Eosinophils% 3.6 % (0-5); Lymphocyte # 2.49 X10^3/ul (4.0); Lymphocyte % 28.2 % (19-41); Mean Corp Hgb Conc 31.6 g/gl (32-36); Mean Corpuscular Hgb 28.4 pg (27.0-32.0); Mean Corpuscular Volume 89.8 fL (80-94); Monocyte% 14.7 % (0-10); Neutrophil # 4.66 X10^3/uL (2.7-7.7); Neutrophil % 52.8 % (47-70); Platelet Count 389 K/mm3 (150-450); RBC Distribution Width CV 14.1 % (11.6-14.6); Red Blood Count 4.23 M/mm3 (4.6-6.2); White Blood Count 8.8 K/mm3 (4.4-11.0)
[2018-04-06 16:00] LABS: POSITIVE COUNT NO; POSITIVE DIFFERENTIAL NO; POSITIVE MORPHOLOGY NO
--- NOTE | 2018-04-06 16:00 | RAD_ITS ---
STUDY: X-RAY CHEST REASON FOR EXAM: Male, 53 years old. Weeks. Shortness of breath. Comment tingling in the left side of the chest. Dizziness. History of [place] and seizure disorder. TECHNIQUE: PA and lateral views of the chest. COMPARISON: September 13, 2017. FINDINGS: Telemetry wires overlie the chest. There is mildly decreased inspiratory effort with minimal bibasilar atelectasis. No focal consolidation or mass. There is no demonstrated pleural abnormality. There is borderline cardiomegaly. Normal mediastinum and shoaib. Normal visualized pulmonary arteries. Normal visualized aortic arch and descending thoracic aorta. Normal visualized thoracic spine. Normal visualized ribs, clavicles, and shoulders. There is no demonstrated abnormality of the visualized soft tissue structures of the upper abdomen. RAD/Chest PA and Lateral IMPRESSION: Borderline cardiomegaly with bibasilar atelectasis. There is no other interval change. Electronically Signed: Ede Araiza DO at 16:23 EST Tel [phone], Service support ,
[2018-04-06] MEDS: 0.9% Normal Saline 1,000 ML 1000 ML IV (16:16)
[2018-04-06 16:17] VITALS: BP 130/66; BP 137/76; PULSE 87; PULSE 89
[2018-04-06 16:17] LABS: ALB/GLOB Ratio 0.9 RATIO (0.9-2.4); AST(SGOT) 27 U/L (15-37); Alanine Aminotransfer ALT/SGPT 31 U/L (16-61); Albumin, Serum 3.5 g/dL (3.2-5.0); Alkaline Phosphatase 51 U/L (45-117); Anion Gap 8 (5-15); BUN 20 mg/dL (7-18); BUN/Creat Ratio 18.7 RATIO (10-20); Calcium,Total 8.4 mg/dL (8.5-10.1); Chloride 104 mmol/L (98-107); Creatinine, Serum 1.07 mg/dL (0.70-1.30); EST Glomerular Filtration Rate 77 mL/min (>60); Est Glom Filt Rate - Afr Amer 93 mL/min (>60); Estimated Creatinine Clearance 76.36 ml/min; Glucose 134 mg/dL (74-106); Potassium 3.9 mmol/L (3.5-5.1); Protein, Total 7.5 g/dL (6.4-8.2); Sodium Level 138 mmol/L (136-145)
--- NOTE | 2018-04-06 16:41 | ED.VISSUMM ---
- ER Visit Summary Date of Service: 04/06/18 Chief Complaint: Lightheadedness. History of Present Illness: The patient is a [address] Hollis. He reports that he feels lightheaded and dizzy. He has a difficult time differentiating between vertigo and lightheadedness. States this started at 5:00 this morning. Is increased with standing. He has not passed out. On review of systems he complains of chills, chest pain, shortness of breath, cough for the past 3-4 days, dysuria for a while frequency, generalized weakness. And paresthesias in his arms and legs bilaterally left greater than right. Physical Examination: Vitals: Stable. Afebrile. General: Well-nourished and well-developed. Head: Normocephalic atraumatic. Neck: Supple, no lymphadenopathy. No JVD. Nontender. Cardiovascular: Regular rate and rhythm. No murmurs. Respiratory: No respiratory distress. Clear to auscultation bilaterally. Abdominal: Soft, mild diffuse tenderness palpation, nondistended, normal bowel sounds. No guarding, rebound, or peritoneal signs. Back: Nontender. Extremities: Nontender, no edema. Skin: Normal color, no rash. Neurologic: Alert and oriented ?3. Cranial nerves II through XII are intact. Normal strength and sensation. Psych: Depressed affect. Test Results: EKG is sinus at 97 with a left anterior fascicular block. Its unchanged from August of this year. Troponin is negative. UA is normal. Chem-7 more for CO2 of 20, glucose 134, calcium 8.4. CBC is more for an H&H 12.03.0, monocytes 15. Phenobarbital level is 4.9. Influenza is negative. Chest x-ray shows borderline cardiomegaly with bibasilar atelectasis. CT brain is normal. Emergency Department Course and Treatment: Reviewing the patient's prior visits. It appears she was admitted for something very similar to this in August. At that time he had a negative stress echo. He had a heart catheterization in March that was negative. He was given Antivert p.o. and feels much improved. Treatment Plan: Patient be discharged with Antivert. Instructed follow-up his primary care physician 1-2 days not improving. Return to the emergency department for any worsening symptoms. Disposition: To home in improved and stable condition. Impression: 1. Vertigo. This note was generated with [employer] dictation software. It may contain incorrect words, spelling, and punctuation that were not noted in review of the chart prior to signing ED Disposition - Plan for ED Patient: Disposition: Home or Assisted Living Chief Complaint: Weakness Instructions: ED Dizziness [facility] Prescriptions: Meclizine HCl [Antivert] 25 mg PO 4X/DAY PRN PRN #20 tablet PRN Reason: Dizziness Referrals: Robert Hollis [Primary Care Provider] - 1-2 Days if not improving
[2018-04-06 16:55] LABS: Bacteria 0 SEEN /hpf (None Seen); Mucous, Urine 0 SEEN /hpf (<or=2+)
[2018-04-06] MEDS: Meclizine HCl 25 MG Tablet 50 MG PO (16:55)
[2018-04-06 17:03] LABS: Color, Urine Yellow (Yellow); Glucose, Dipstick Normal (Normal); Ketone-Dipstick Negative (Negative); Leukocyte Esterase-Dipstick Negative /ul (Negative); Nitrite-Dipstick Negative (Negative); Occult Blood-Urine Negative /ul (Negative); Protein-Dipstick Negative (Negative); Urine Bilirubin Dipstick Negative (Negative); Urine Clarity Clear (Clear); Urine Urobilinogen Normal (Normal)
[2018-04-06 17:37] VITALS: BP 130/84; PULSE 83; RESP 20; O2SAT 97
[2018-04-06 17:38] LABS: Red Blood Cells-Urine 0-5 SEEN /hpf (0-5); Squamous Epithelial Cells - UA 0-5 SEEN /hpf (0-5); Transitional Epithelial - Ur 0 SEEN /hpf (0-5)
[2018-04-06 17:39] LABS: White Blood Cells 0-5 SEEN /hpf (0-5)
[2018-04-06 18:12] VITALS: BP 129/74; PULSE 82; RESP 18; TEMP 36.6; O2SAT 97
--- OUTSIDE RECORDS SUMMARY | 2018-05-23 21:07 | XMS RPT_ITS ---
:1965 Author Organization OHIP Support Name Relationship Address Phone SOVEL, LEWIS Unavailable Unavailable Unavailable SOVEL, LEWIS Unavailable Unavailable Unavailable SOVEL, LEWIS Unavailable Unavailable Unavailable SOVEL, LEWIS Unavailable Unavailable Unavailable D Unavailable Unavailable Unavailable SOVEL, LEWIS Unavailable [address] + [place] [address] KRAFT, CORAL Unavailable [address] + [place] [address] D Unavailable Unavailable Unavailable SOVEL, LEWIS Unavailable [address] + [place] [address] KRAFT, CORAL Unavailable [address] + [place] [address] SOVEL, LEWIS Unavailable Unavailable Unavailable SOVEL, LEWIS Unavailable Unavailable Unavailable SOVEL, LEWIS Unavailable Unavailable Unavailable SOVEL, LEWIS Unavailable Unavailable Unavailable D Unavailable Unavailable Unavailable SOVEL, LEWIS Unavailable [address] + [place] [address] KRAFT, CORAL Unavailable [address] + [place] [address] D Unavailable Unavailable Unavailable SOVEL, LEWIS Unavailable [address] + [place] [address] KRAFT, CORAL Unavailable [address] [address] [address] + [place] [address] D Unavailable Unavailable Unavailable SOVEL, LEWIS Unavailable [address] + [place] [address] KRAFT, CORAL Unavailable [address] + [place] [address] D Unavailable Unavailable Unavailable SOVEL, LEWIS Unavailable [address] + [place] [address] KRAFT, CORAL Unavailable [address] + [place] [address] D Unavailable Unavailable Unavailable SOVEL, LEWIS Unavailable [address] + [place] [address] KRAFT, CORAL Unavailable [address] + [place] [address] D Unavailable Unavailable Unavailable SOVEL, LEWIS Unavailable [address] + [place] [address] KRAFT, CORAL Unavailable [address] + [place] [address] D Unavailable Unavailable Unavailable SOVEL, LEWIS Unavailable [address] + [place] [address] KRAFT, CORAL Unavailable [address] + [place] [address] D Unavailable Unavailable Unavailable SOVEL, LEWIS Unavailable [address] + [place] [address] KRAFT, CORAL Unavailable [address] + [place] [address] D Unavailable Unavailable Unavailable SOVEL, LEWIS Unavailable [address] + [place] [address] KRAFT, CORAL Unavailable [address] + [place] [address] D Unavailable Unavailable Unavailable SOVEL, LEWIS Unavailable [address] + [place] [address] KRAFT, CORAL Unavailable [address] + [place] [address] D Unavailable Unavailable Unavailable SOVEL, LEWIS Unavailable [address] + [place] [address] KRAFT, CORAL Unavailable [address] + [place] [address] D Unavailable Unavailable Unavailable SOVEL, LEWIS Unavailable [address] + [place] [address] KRAFT, CORAL Unavailable [address] + [place] [address] D Unavailable Unavailable Unavailable SOVEL, LEWIS Unavailable [address] + [place] [address] KRAFT, CORAL Unavailable [address] + [place] [address] D Unavailable Unavailable Unavailable SOVEL, LEWIS Unavailable [address] + [place] [address] KRAFT, CORAL Unavailable [address] + [place] [address] D Unavailable Unavailable Unavailable SOVEL, LEWIS Unavailable [address] + [place] [address] KRAFT, CORAL Unavailable [address] + [place] [address] D Unavailable Unavailable Unavailable SOVEL, LEWIS Unavailable [address] + [place] [address] KRAFT, CORAL Unavailable [address] + [place] [address] D Unavailable Unavailable Unavailable SOVEL, LEWIS Unavailable [address] + [place] [address] KRAFT, CORAL Unavailable [address] + [place] [address] D Unavailable Unavailable Unavailable SOVEL, LEWIS Unavailable [address] + [place] [address] KRAFT, CORAL Unavailable [address] + [place] [address] D Unavailable Unavailable Unavailable SOVEL, LEWIS Unavailable [address] + [place] [address] KRAFT, CORAL Unavailable [address] + [place] [address] D Unavailable Unavailable Unavailable SOVEL, LEWIS Unavailable [address] + [place] [address] KRAFT, CORAL Unavailable [address] + [place] [address] D Unavailable Unavailable Unavailable SOVEL, LEWIS Unavailable [address] + [place] [address] KRAFT, CORAL Unavailable [address] + [place] [address] D Unavailable Unavailable Unavailable SOVEL, LEWIS Unavailable [address] + [place] [address] KRAFT, CORAL Unavailable [address] + [place] [address] D Unavailable Unavailable Unavailable SOVEL, LEWIS Unavailable [address] + [place] [address] RKAFT, CORAL Unavailable [address] + [place] [address] D Unavailable Unavailable Unavailable SOVEL, LEWIS Unavailable [address] + [place] [address] KRAFT, CORAL Unavailable [address] + [place] [address] D Unavailable Unavailable Unavailable SOVEL, LEWIS Unavailable [address] + [place] [address] KRAFT, CORAL Unavailable [address] + [place] [address] WALKER SHAR Unavailable Unavailable + D Unavailable Unavailable Unavailable SOVEL, LEWIS Unavailable [address] + [place] [address] KRAFT, CORAL Unavailable [address] + [place] [address] D Unavailable Unavailable Unavailable SOVEL, LEWIS Unavailable [address] + [place] [address] KRAFT, CORAL Unavailable [address] + [place] [address] Care Team Providers Name Role Phone MD TRION JAMES Attending Unavailable [facility] Referring Unavailable [facility] Primary Care Unavailable TRINO JAMES Attending Unavailable CHRISTINA BEY) Attending Unavailable CHRISTINA BEY) Referring Unavailable CHRISTINA BEY) Attending Unavailable CHRISTINA BEY) Referring Unavailable CHRISTINA BEY) Attending Unavailable CHRISTINA BEY) Referring Unavailable Martha Perdomo Attending Unavailable *SELF, REFERRED Referring Unavailable UNKNOWN, PCP Primary Care Unavailable Dr. Steffi Beaver Attending Unavailable Martha Perdomo Referring Unavailable UNKNOWN, PCP Primary Care Unavailable YADIRA LUND Attending Unavailable *SELF, REFERRED Referring Unavailable UNKNOWN, PCP Primary Care Unavailable Martha Perdomo Attending Unavailable *SELF, REFERRED Referring Unavailable UNKNOWN, PCP Primary Care Unavailable Pravin Pollard Attending Unavailable Oleghe, Efewongbe Primary Care Unavailable Bunny, Robert Primary Care Unavailable Bridget Cao Attending Unavailable Cole Berkowitz Attending Unavailable Bunny, Robert Referring Unavailable Oleghe, Efewongbe Attending Unavailable Bunny, Robert Primary Care Unavailable Oleghe, Efewongbe Referring Unavailable Zulema Membreno Attending Unavailable Javier Gutierrez Attending Unavailable Ubnny, Robert Referring Unavailable Bunny, Robert Primary Care Unavailable Rajiv Gilman Attending Unavailable Bunny, Robert Primary Care Unavailable Oleghe, Efewongbe Attending Unavailable Bunny, Robert Primary Care Unavailable Janeth Linares Attending Unavailable Oleghe, Efewongbe Primary Care Unavailable Robert Hayward HARP REGULATOR-C Attending Unavailable Oleghe, Efewongbe Referring Unavailable Oleghe, Efewongbe Attending Unavailable Bunny, Robert Referring Unavailable Oleghe, Efewongbe Attending Unavailable Oleghe, Efewongbe Referring Unavailable Oleghe, Efewongbe Primary Care Unavailable Lisa, Loly Admitting Unavailable Christopher Pyle Attending Unavailable Loly Gonzalez Attending Unavailable Oleghe, Efewongbe Primary Care Unavailable Loly Gonzalez Admitting Unavailable Oleghe, Efewongbe Primary Care Unavailable Christopher Pyle Consulting Unavailable Christopher Pyle Attending Unavailable Oleghe, Efewongbe Attending Unavailable Oleghe, Efewongbe Referring Unavailable Oleghe, Efewongbe Primary Care Unavailable Daniel Orellana Attending Unavailable Ariana Oglesby HARP REGULATOR-C Attending Unavailable Ariana Oglesby HARP REGULATOR-C Referring Unavailable Oleghe, Efewongbe Primary Care Unavailable Radha Portillo Attending Unavailable Daniel Orellana Attending Unavailable Daniel Lange Referring Unavailable Oleghe, Efewongbe Attending Unavailable Oleghe, Efewongbe Referring Unavailable Oleghe, Efewongbe Primary Care Unavailable Cole Berkowitz Attending Unavailable Woo, Cole Referring Unavailable Oleghe, Efewongbe Primary Care Unavailable [place] Attending Unavailable Woo, Cole Referring Unavailable Oleghe, Efewongbe Primary Care Unavailable Prebish, Ariana HARP REGULATOR-C Attending Unavailable Prebish, Ariana HARP REGULATOR-C Referring Unavailable Oleghe, Efewongbe Primary Care Unavailable Concetta Troncoso Attending Unavailable Robert Hollis Referring Unavailable Esau Tate D.O. Attending Unavailable [place]oo[place] Referring Unavailable Esau Tate D.O. Attending Unavailable Cole Berkowitz Referring Unavailable Christina Camejo Attending Unavailable Oleghe, Efewongbe Referring Unavailable Christina Camejo Attending Unavailable BunnyRobert islas Primary Care Unavailable Robert Hollis Attending Unavailable BunnyRobert islas Primary Care Unavailable PROBLEMS PROBLEMS DATE TYPE CONDITION / CODE ATTENDING STATUS SOURCE 04/01/2018 Unknown M51.37 - Other Prebish, Ariana Active [place] intervertebral disc HARP REGULATOR-C Community degeneration, Hospital lumbosacral region / Repository M51.37(ICD-10) 02/04/2018 Unknown R73.01 - Impaired Robert Hollis Active [facility] [facility] fasting glucose / Community R73.01(ICD-10) Hospital Repository 02/04/2018 Unknown Z51.81 - Encounter Robert Hollis Active [facility] [facility] for therapeutic drug Community level monitoring / Hospital Z51.81(ICD-10) Repository 02/04/2018 Unknown 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 Community uncomplicated / Hospital J45.909(ICD-10) Repository 10/19/2017 Unknown M25.552 - Pain in Prebish, Ariana Active [facility] left hip / HARP REGULATOR-C Community M25.552(ICD-10) Hospital Repository 10/18/2017 Unknown R07.9 - Chest pain, [place], Active [place] unspecified / Daniel Community R07.9(ICD-10) Hospital Repository 10/26/2017 Unknown I10 - Essential [place], Active [facility] [facility] (primary) [facility] hypertension / Hospital I10(ICD-10) Repository 10/26/2017 Unknown R07.89 - Other chest [place], Active [place] pain / [facility] R07.89(ICD-10) Hospital Repository 10/26/2017 Unknown R06.02 - Shortness [place], Active [place] of breath / [facility] R06.02(ICD-10) Hospital Repository 10/26/2017 Unknown R55 - Syncope and [place], Active [place] collapse / [facility] R55(ICD-10) Hospital Repository 07/14/2017 Unknown Z79.899 - Other long Matt, [place] Active [place] term (current) drug [facility] therapy / Hospital Z79.899(ICD-10) Repository 07/09/2017 Unknown M54.9 - Dorsalgia, Oleghe, Active [place] unspecified / [facility] M54.9(ICD-10) Hospital Repository 07/09/2017 Unknown G89.29 - Other Oleghe, Active [place] chronic pain / [facility] G89.29(ICD-10) Hospital Repository 07/09/2017 Unknown M54.5 - Low back Oleghe, Active [place] pain / M54.5(ICD-10) [facility] Hospital Repository 06/23/2017 Unknown G47.33 - Obstructive WooCole [place] Active [place] sleep apnea (adult) Community (pediatric) / Hospital G47.33(ICD-10) Repository 06/23/2017 Unknown R04.0 - Epistaxis / Cole Berkowitz Active [place] R04.0(ICD-10) [facility] Hospital Repository 12/07/2016 Active Atherosclerotic TRINO JAMES Active [facility] Other [place] coronary [place] artery without Repository angina pectoris / I25.10(ICD-10) 12/07/2016 Active Syncope and collapse TRINO JAMES Active [facility] / R55(ICD-10) Clinic Other [place] Repository 08/03/2014 Active Cerebral infarction, TRINO JAMES Active [facility] unspecified / Clinic Other I63.9(ICD-10) [place] Repository 08/03/2014 Active Essential (primary) JAMES, TRINO Active [place] hypertension / Clinic Other I10(ICD-10) [place] Repository 06/01/2017 Active Mixed hyperlipidemia TRINO JAMES Active [place] / E78.2(ICD-10) Clinic Other [place] Repository 06/01/2017 Active Unspecified TRINO JAMES Active [place] convulsions / Clinic Other R56.9(ICD-10) [place] Repository 06/01/2017 Active Obstructive sleep ERIKA TRINO Active [place] apnea (adult) Clinic Other (pediatric) / [place] G47.33(ICD-10) Repository 06/01/2017 Active 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 Cardiovascular Services [address] [place] [address] 12 Lead EKG 04/06/18 1522 MR#: [id number] Acct: [id number] Name: LORENZA CORREA Rep #: [id number] : 1965 53 From: Javier Gutierrez MD Attending Dr: Status: DEP ER Ordering Dr: Rajiv Gilman MD Date: 04/06/18 Location: ED Sex: M C Admitted: Test Reason : CP Blood Pressure : / mmHG Vent. Rate : 097 BPM Atrial Rate : 097 BPM P-R Int : 148 ms QRS Dur : 120 ms QT Int : 366 ms P-R-T Axes : 054 -64 037 degrees QTc Int : 464 ms Normal sinus rhythm Left anterior fascicular block Cannot rule out Inferior infarct , age undetermined Abnormal ECG Confirmed by JAVIER GUTIERREZ MD ([id number]), fashion editor MILTON SANCHEZ ([id number]) on 04/08/2018 9:13:21 AM Referred By: SL Confirmed By:JAVIER GUTIERREZ MD 04/08/18 0913 Date Javier Gutierrez MD CC: Robert Hollis; Robert Hollis DO; Rajiv Gilman MD Signed EMERGENCY DEPARTMENT Observed: 04/07/2018 Status: F Source: EXETER SUMMARY 1:05 AM [facility] REPOSITORY [facility] Medical Records Department [address] [place] [address] Emergency Department Summary 04/06/18 1641 MR#: [id number] Acct: [id number] Name: LORENZA CORREA Rep #: [id number] : 1965 53 From: Rajiv Gilman MD PCP: Robert Hollis Status: DEP ER - ER Visit Summary Date of Service: 04/06/18 Chief Complaint: Lightheadedness. History of Present Illness: The patient is a [address] Hollis. He reports that he feels lightheaded and dizzy. He has a difficult time differentiating between vertigo and lightheadedness. States this started at 5:00 this morning. Is increased with standing. He has not passed out. On review of systems he complains of chills, chest pain, shortness of breath, cough for the past 3-4 days, dysuria for a while frequency, generalized weakness. And paresthesias in his arms and legs bilaterally left greater than right. Physical Examination: Vitals: Stable. Afebrile. General: Well-nourished and well-developed. Head: Normocephalic atraumatic. Neck: Supple, no lymphadenopathy. No JVD. Nontender. Cardiovascular: Regular rate and rhythm. No murmurs. Respiratory: No respiratory distress. Clear to auscultation bilaterally. Abdominal: Soft, mild diffuse tenderness palpation, nondistended, normal bowel sounds. No guarding, rebound, or peritoneal signs. Back: Nontender. Extremities: Nontender, no edema. Skin: Normal color, no rash. Neurologic: Alert and oriented 3. Cranial nerves II through XII are intact. Normal strength and sensation. Psych: Depressed affect. Test Results: EKG is sinus at 97 with a left anterior fascicular block. Its unchanged from August of this year. Troponin is negative. UA is normal. Chem- 7 more for CO2 of 20, glucose 134, calcium 8.4. CBC is more for an H AND H 12.03.0, monocytes 15. Phenobarbital level is 4.9. Influenza is negative. Chest x-ray shows borderline cardiomegaly with bibasilar atelectasis. CT brain is normal. Emergency Department Course and Treatment: Reviewing the patient's prior visits. It appears she was admitted for something very similar to this in August. At that time he had a negative stress echo. He had a heart catheterization in March that was negative. He was given Antivert p.o. and feels much improved. Treatment Plan: Patient be discharged with Antivert. Instructed follow-up his primary care physician 1-2 days not improving. Return to the emergency department for any worsening symptoms. Disposition: To home in improved and stable condition. Impression: 1. Vertigo. This note was generated with [employer] dictation software. It may contain incorrect words, spelling, and punctuation that were not noted in review of the chart prior to signing ED Disposition - Plan for ED Patient: Disposition: Home or Assisted Living Chief Complaint: Weakness Instructions: ED Dizziness [facility] Prescriptions: Meclizine HCl [Antivert] 25 mg PO 4X/DAY PRN PRN #20 tablet PRN Reason: Dizziness Referrals: Robert Hollis [Primary Care Provider] - 1-2 Days if not improving What to do if you have Problems For any increased pain, shortness of breath, bleeding, nausea or vomiting, chest pain, or any unexpected problems, contact your Primary Care Provider. Call [facility] ([phone]) or report to the closest Emergency Room. Call 911 if necessary. 04/07/18 0105 <Electronically signed by Rajiv Gilman MD> Date Rajiv Gilman MD Cosigner Signature (If Indicated): Date CC: Robert Hollis; Robert Hollis DO URINALYSIS, COMPLETE Collected: 04/06/2018 Status: F Source: EXETER 4:50 PM [facility] REPOSITORY Order Comment: How was Urine Obtained? CLEAN CATCH TYPE CODE TESTS RESULT OUT OF REFERENCE UNITS RANGE LAB L400.3000 Yellow COLOR Normal Yellow LAB L400.3050 Clear CLARITY Normal Clear LAB L400.3200 Normal mg/dl GLUCOSE, UR Normal Normal LAB L400.3300 Negative mg/dL BILIRUBIN Normal URINE Negative LAB L400.3400 Negative mg/dl KETONE UR Normal Negative LAB L400.3465 1.002-1.030 SP.GR. Normal DIPSTX 1.010 LAB L400.3550 5.0 - 8.0 pH UR Normal 7.0 LAB L400.3600 Negative mg/dl PROT DIPSTX Normal Negative LAB L400.3700 Normal mg/dl UROBILI Normal Normal LAB L400.3750 Negative NITRITE UR Normal Negative LAB L400.3780 Negative /ul OCCULT Normal BLOOD-UR Negative LAB L400.3800 Negative /ul LEUK Normal ESTERASE Negative LAB L400.4050 0-5 /hpf WBC Normal 0-5 SEEN LAB L400.4100 0-5 /hpf RBC-UA Normal 0-5 SEEN LAB L400.4150 0-5 /hpf SQUAM EPI Normal 0-5 SEEN LAB L400.4300 None Seen /hpf BACTERIA Normal 0 SEEN LAB L400.4350 <or=2+ /hpf MUCUS, Normal URINE 0 SEEN LAB L400.4200 0-5 /hpf Normal TRANSITIONAL EP 0 SEEN Performed By: #### L400.0001 #### [facility] [address] [place], [place], [id number] Observed: 04/06/2018 Status: F Source: [place] INFLUENZA A+B (RAPID 3:44 PM [facility]) REPOSITORY FLU A/B Rapid Negative test results should be confirmed by culture. Order Rapid Viral Culture for Influenzae A+B ([id number]) if clinically indicated. Influenza Ag, Direct Presumptive NEGATIVE for Influenza A/B Antigen (See Note) Performed By: #### M101.0101 #### [facility] [address] [place], [place], [address] BRAIN/HEAD WITHOUT Observed: 04/06/2018 Status: F Source: [place] CONTRAST 3:32 PM [facility] REPOSITORY [facility] Imaging Services [address] [place] [address] Brain/Head without Contrast MR#: [id number] Acct: [id number] Name: LORENZA CORREA Rep #: [id number] : 1965 M 53 From: Ede Araiza DO PCP: Robert Hollis Status: REG ER Study: Brain/Head without Contrast Date of Exam: 04/06/18 Exam# [id number] Ordering Dr: Rajiv Gilman MD STUDY: CT BRAIN WITHOUT CONTRAST REASON FOR EXAM: Male, 53 years old. Numbness. RADIATION DOSAGE (If Supplied By Facility): CTDIvol = ( 60.81 ) mGy, DLP = ( 1044.28 ) mGycm TECHNIQUE: Transaxial CT imaging of the brain was performed without administration of intravenous contrast material. Individualized dose optimization techniques were used for this CT. COMPARISON: June 17, 2017. FINDINGS: Normal soft tissue structures. Normal calvarium. Normal size ventricles and extra-axial spaces for the patient's age. Normal white matter tracts of the cerebral hemispheres. Normal basal ganglia and thalami. Normal brainstem. Normal cerebellum. There is no intracranial hemorrhage. There are no findings of an acute ischemic infarction. Normal visualized paranasal sinuses. CT/Brain/Head without Contrast IMPRESSION: Normal unenhanced CT scan of the brain. There is no interval change. Electronically Signed: Ede Araiza DO at 16:17 EST Tel [phone], Service support , CC: Robert Hollis; Rajiv Gilman MD Ecdis N Navigation Operator: Signed CHEST PA AND LATERAL Observed: 04/06/2018 Status: F Source: [place] 3:32 PM [facility]PITAL REPOSITORY [facility] Imaging Services [address] [place] [address] Chest PA and Lateral MR#: [id number] Acct: [id number] Name: LORENZA CORREA Rep #: [id number] : 1965 M 53 From: Ede Araiza DO PCP: Robert Hollis Status: REG ER Study: Chest PA and Lateral Date of Exam: 04/06/18 Exam# [id number] Ordering Dr: Rajiv Gilman MD STUDY: X-RAY CHEST REASON FOR EXAM: Male, 53 years old. Weeks. Shortness of breath. Comment tingling in the left side of the chest. Dizziness. History of [place] and seizure disorder. TECHNIQUE: PA and lateral views of the chest. COMPARISON: September 13, 2017. FINDINGS: Telemetry wires overlie the chest. There is mildly decreased inspiratory effort with minimal bibasilar atelectasis. No focal consolidation or mass. There is no demonstrated pleural abnormality. There is borderline cardiomegaly. Normal mediastinum and shoaib. Normal visualized pulmonary arteries. Normal visualized aortic arch and descending thoracic aorta. Normal visualized thoracic spine. Normal visualized ribs, clavicles, and shoulders. There is no demonstrated abnormality of the visualized soft tissue structures of the upper abdomen. RAD/Chest PA and Lateral IMPRESSION: Borderline cardiomegaly with bibasilar atelectasis. There is no other interval change. Electronically Signed: Ede Araiza DO at 16:23 EST Tel [phone], Service support , CC: Robert Hollis; Rajiv Gilman MD Ecdis N Navigation Operator: Signed CBC W/DIFF, AUTOMATED Collected: 04/06/2018 Status: F Source: [place] 3:25 PM [facility] REPOSITORY TYPE CODE TESTS RESULT OUT OF RANGE REFERENCE UNITS LAB L100.1000 4.4-11.0 K/mm3 Normal WBC 8.8 LAB L100.1200 4.6-6.2 M/mm3 Low RBC 4.23 LAB L100.1300 13.0-16.5 g/dl Low HGB 12.0 LAB L100.1400 40-54 % Low HCT 38.0 LAB L100.1500 80-94 fL Normal MCV 89.8 LAB L100.1600 27.0-32.0 pg Normal MCH 28.4 LAB L100.1700 32-36 g/gl Low MCHC 31.6 LAB L100.1810 11.6-14.6 % Normal RDW CV 14.1 LAB L100.1820 35.1-43.9 fl High RDW SD 46.0 LAB L100.1900 150-450 K/mm3 Normal PLT 389 LAB L100.2000 6.2-12.0 fl Normal MPV 9.0 LAB L100.2100 47-70 % Normal NEUT% 52.8 LAB L100.2200 19-41 % Normal LY% 28.2 LAB L100.2300 0-10 % High MONO% 14.7 LAB L100.2400 0-5 % Normal EO% 3.6 LAB L100.2500 0-1 % Normal BASO% 0.6 LAB L100.2550 0.0-0.9 % Normal IM GRAN % 0.100 Result Comment: IG% - Immature Granulocytes (promyelocytes, myelocytes and metamyelocytes) > 1% indicates that a LEFT SHIFT is Present. LAB L100.2620 2.0-7.7 X10 3/uL Normal Absolute Neut 4.7 LAB L100.2720 0.83-4.51 X10 3/ul Normal Absolute Lymph 2.49 Performed By: #### L100.0100 #### [facility] [address] [place], [address] COMPREHENSIVE METABOLIC Collected: 04/06/2018 Status: F Source: [facility] 3:25 PM [facility] REPOSITORY TYPE CODE TESTS RESULT OUT OF RANGE REFERENCE UNITS LAB L501.0100 74-106 mg/dL High GLU 134 Result Comment: Fasting Glucose result greater than or equal to 126 mg/dL suggests DIABETES MELLITUS per A.D.A. criteria. Please note revised GLUCOSE reference range effective 2017. LAB L501.1000 7-18 mg/dL High BUN 20 LAB L501.1100 0.70-1.30 mg/dL Normal CREAT,SERUM 1.07 Result Comment: The validity of the calculated GFR AND GFRAA in patients over 70 years has not been determined. Clinical correlation is essential. LAB L501.1110 >60 mL/min Normal EST GFR 77 Result Comment: Non- GFR Calc LAB L501.1115 >60 mL/min Normal EST GFR - AA 93 Result Comment: GFR Calc LAB L501.1255 ml/min Normal Estimated CRCL 76.36 LAB L501.1300 10-20 RATIO Normal BUN/CRE 18.7 LAB L501.1500 6.4-8. g/dL Normal 2 T PROT 7.5 LAB L501.1800 3.2-5. g/dL Normal 0 ALB 3.5 LAB L501.1950 2.2-4. g/dL Normal 2 GLOB 4.0 LAB L501.2000 0.9-2. RATIO Normal 4 A/G 0.9 LAB L501.2200 8.5-10 mg/dL Low .1 CA 8.4 LAB L501.4100 15-37 U/L Normal AST 27 Result Comment: Moderate Hemolysis, Result may be falsely increased. LAB L501.4305 45-117 U/L Normal ALK P 51 LAB L501.4405 16-61 U/L Normal ALT 31 LAB L501.4600 0.20-1.00 mg/dL Normal T BILI 0.20 LAB L501.5300 136-145 mmol/L Normal NA 138 LAB L501.5600 3.5-5.1 mmol/L Normal K 3.9 Result Comment: Moderate Hemolysis, Result may be falsely increased. LAB L501.5900 98-107 mmol/L Normal CL 104 LAB L501.6100 21.0-32.0 mmol/L Normal CO2 26.0 LAB L501.6200 5-15 Normal 8 GAP Performed By: #### L500.4050, L501.4010 #### [facility] [address] [place], [address] TROPONIN-I Collected: 04/06/2018 Status: F Source: [place] 3:25 PM [facility] REPOSITORY TYPE CODE TESTS RESULT OUT OF RANGE REFERENCE UNITS LAB L501.4010 <0.045 ng/mL Normal < 0.015 TROPONIN-I Result Comment: TROPONIN-I EXPECTED VALUES <0.045 Negative 0.045 - 0.590 Consistent with Cardiac Damage > OR = 0.600 Critical Value Not every elevated troponin is indicative of AZ. These values should be used with clinical judgement in examining the patient's clinical picture for diagnosis. To establish a diagnosis of AZ versus myocardial injury, there must be a demonstrated rise and/or fall in the troponin values, in addition to ischemic symptoms, EKG changes, new regional wall motion abnormality, and/or angiographical evidence. PLEASE NOTE: REFERENCE RANGES EDITED 17 Performed By: #### L500.4050, L501.4010 #### [facility] [address] [place], [address] PHENOBARBITAL Collected: 04/06/2018 Status: F Source: [place] 3:25 PM [facility] REPOSITORY TYPE CODE TESTS RESULT OUT OF REFERENCE UNITS RANGE LAB L501.8500 10.0-40.0 ug/mL Low PHENOBARB 4.9 Performed By: #### L501.8500 #### [facility] [address] [place], [address] PT D/C SUMMARY (1) Observed: 03/31/2018 Status: F Source: [place] 3:00 PM [facility] REPOSITORY [facility] [facility] [place], [place] [id number] Fax REHABILITATION SERVICES DISCHARGE SUMMARY MR#: [id number] Acct: [id number] Name: LORENZA CORREA Rep #: [id number] : 1965 53 From: Fermin Valdivia PT, Cert. T, OCS Referring Dr.: Ariana Oglesby Status: REG RCR Insurance: [facility] SELF PAY INSURANCE HP - PT D/C Summary It has been my pleasure to treat LORENZA CORREA under orders from JULIETH Grant, for the diagnosis of DEGENERATION OF DISC INTERVERTBRAL,STENOSIS,LEFT HIP PAIN for a total of 25 visit(s). Discharge Date: 03/31/18 Please see the following information for a summary of their discharge status. - Subjective Subjective: Doing better less pain - Pain Bilateral Back Pain Intensity (Out of 10): 2 Left Hip Pain Intensity (Out of 10): 2 R Hip Pain Intensity (Out of 10): 2 - Overall Improvement % Improvement: 60 - Objective Objective/Function: POSTURE: mild foward posture. GAIT: reciprocal pattern normal gigi. MMT: quads/hams/hip 4/5,ankle 4/5. LUMBAR ROM: flexion min loss,min/mod loss extension. side glides min. -SLR - Goals Goal 1:: Independant with Aquatic PT Goal Progress: Goal Met Goal 2:: Decrease pain hip and back by 60% or greater to improve function with ADL'S Goal Progress: Goal Met Goal 3:: Patient incraese strength BLE by 1/2 grade to improve function with ADL'S Goal Progress: Goal Met Goal 4:: Patient improve lumbar owestry score by 5-10 points to improve QOL. Goal Progress: Goal Met Goal 5:: Patient improve ability to perform ADL'S and husework tasks with min limiations Goal Progress: Goal Met Goal 6:: Patient ambulate further distance in community with less pain greater tnan 15 min Goal Progress: Progressing - Plan Plan: D/C - D/C Information If there are questions or concerns regarding this patient's physical therapy, please feel free to call me at [phone]. Thank you for the referral of this patient. Sincerely, Fermin Valdivia PT, <Electronically signed by Fermin Valdivia PT, Cert. MDT, OCS> 03/31/18 1500 CC: Jennifer Elizondo MD; Ariana CLANCY Prebish LIU Signed DERMATOPATHOLOGY Observed: 03/30/2018 Status: F Source: [place] 12:00 AM [facility] REPOSITORY Pathologist: STEFFI BEAVER MD Date of Procedure: 03/30/2018 Date Received: 03/31/2018 Date Reported 04/01/2018 Submitting Physician: MARTHA PERDOMO CNP Location: [facility] FINAL DIAGNOSIS SKIN, RIGHT THIGH, PUNCH BIOPSY: PSORIASIFORM HYPERPLASIA, SEE NOTE. Note: Microscopic examination reveals a specimen that extends into the subcutaneous fat. There is fairly diffuse parakeratosis with serum crust. There is moderate regular acanthosis of the epidermis with diminishment of the granular layer, thinning of the suprapapillary plate and dilation of the superficial dermal blood vessels with a mild perivascular lymphocytic infiltrate. These findings are suggestive of psoriasis or a psoriasiform keratosis. Nummular dermatitis is less likely. Electronically Signed Out by STEFFI BEAVER M.D. Electronically Signed Out By STEFFI BEAVER MD/[facility] Clinical History: Nummular Eczema vs BP vs ACLE. Punch Biopsy. ([facility]). Specimens Submitted As: A: SKIN, RIGHT THIGH Gross Description: Received in formalin is a rivera-brown, cylindrical piece of skin measuring [id number]. The specimen is inked and embedded in toto. dcp/03/31/2018 Performed By: #### D #### Dermatopathology DERMATOPATHOLOGY Observed: 03/30/2018 Status: F Source: [place] 12:00 [facility] REPOSITORY Pathologist: OG ELIZABETH MD Date of Procedure: 03/30/2018 Date Received: 03/31/2018 Date Reported Submitting Physician: MARTHA PERDOMO CNP Location: [facility] FINAL DIAGNOSIS Addendum/Procedures: Immunofluorescence Date Ordered: 03/30/2018 Status: Signed Out Date Complete: 04/04/2018 Date Reported: 04/05/2018 Interpretation NEGATIVE DIRECT IMMUNOFLUORESCENCE TO ALL REACTANTS USED. Results-Comments Multiple cryostat-cut sections are stained with FITC-conjugated antisera specific for IgG, IgM,IgA, C3, and fibrinogen. Electronically Signed Out By OG ELIZABETH MD/[facility] By the signature on this report, the individual or group listed as making the Final Interpretation/Diagnosis certifies that they have reviewed this case. Clinical History: Nummular eczema vs. BP vs. ACLE. Punch Biopsy Specimens Submitted As: A: SKIN, RIGHT THIGH Gross Description: {Not Entered} ink/04/04/2018 Performed By: #### D #### Dermatopathology PROGRESS Observed: 03/09/2018 Status: COMPLETED Source: [place] 12:55 PM [facility] REPOSITORY HNO ID: [id number] Author: Christina Bey Service: (none) Author Type: Physician Type: Progress Notes Filed: 03/09/2018 1:17 PM Note Text: Department of Dermatology Christina Bey MD 03/09/2018 Last visit in Dermatology: 12/01/2017 Assessment/Plan Problem List Items Addressed This Visit None Visit Diagnoses Atopic neurodermatitis - Primary Relevant Medications dupilumab (DUPIXENT) 300 mg/2 mL injection dupilumab (DUPIXENT) 300 mg/2 mL injection Little response to Eucrisa, topical steroids (betamethasone diproprionate, clobetasol, fluocinonide), intralesional steroids, calcipotriene and tacrolimus This is quite severe and persistent. Discussed treatment options. Signed Prescriptions Disp Refills dupilumab (DUPIXENT) 300 mg/2 mL injection 3 Syringe 0 Sig: Inject subcutaneously 2 syringes on day 1, then inject 1 syringe on day 14. dupilumab (DUPIXENT) 300 mg/2 mL injection 2 Syringe 11 Sig: Inject 2 mL subcutaneously every 2 weeks. Follow-up as noted below or as needed. Chief Complaint: Patient presents with: Follow Up: atopic neurodermatitis Subjective and Objective HPI: Lorenza Correa is a 53 year old male who presents for: F/u atopic neurodermatitis -- not much improvement with the addition of the Eucrisa. Still pruritic, still sometimes gets serous exudate. Distributed on the bilateral upper extremities and bilateral thighs, scalp and chest, abdomen. Hx of asthma, bronchitis, seasonal allergies, and multiple rashes/sensitive skin as a child. Lesions of particular concern?: No. PAST MEDICAL HISTORY Diagnosis Date - Abdominal pain - Asthma - Coronary artery disease - Epilepsy ([facility]) Lifelong - Esophagitis, unspecified - Family history of epilepsy - GERD (gastroesophageal reflux disease) - HTN (hypertension) 08/03/2014 - AZ (myocardial infarction) ([facility]) 2008 - disorder - Seizures ([facility]) - Stroke ([facility]) - Syncope - Traumatic brain injury ([facility]) Current Outpatient Prescriptions on File Prior to Visit: crisaborole (EUCRISA) 2 % oint Apply 1 application to affected area twice daily. betamethasone dipropionate 0.05 % ointment Apply 1 application to affected area once daily. calcipotriene (DOVONEX) 0.005 % oint Apply 1 application to affected area once daily. ketoconazole (NIZORAL) 2 % shampoo Apply 1 application to affected area once daily as needed. For the scalp azithromycin (ZITHROMAX) 250 mg tablet clonazePAM (KLONOPIN) 1 mg tablet STOOL SOFTENER 100 mg capsule fludrocortisone (FLORINEF) 0.1 mg tablet promethazine (PHENERGAN) 25 mg tablet predniSONE (DELTASONE) 20 mg tablet Benzonatate 200 mg capsule Take 200 mg by mouth once daily. doxycycline monohydrate (MONODOX) 100 mg capsule Take 100 mg by mouth once daily. NYAMYC powder SUMAtriptan (IMITREX) 100 mg tablet Take 100 mg by mouth as needed. tacrolimus (PROTOPIC) 0.1 % ointment Apply 1 application to affected area twice daily. Capsaicin (ARTHRITIS PAIN RELIEF) 0.1 % crea Apply 1 application to affected area twice daily. Use this cream to selected few itching areas as directed. gabapentin (NEURONTIN) 800 mg tablet Take 800 mg by mouth once daily. hydroxychloroquine (PLAQUENIL) 200 mg tablet Take 200 mg by mouth twice daily. COMBIVENT RESPIMAT 20-100 mcg/actuation mist levETIRAcetam ER (KEPPRA XR) 750 mg 24 hr tablet metoprolol tartrate, short acting, (LOPRESSOR) 25 mg tablet Take 25 mg by mouth once daily. DULERA 200-5 mcg/actuation inhaler PHENobarbital 16.2 mg tablet Take 16.2 mg by mouth twice daily. XARELTO 15 mg tablet Take 15 mg by mouth once daily. rOPINIRole (REQUIP) 2 mg tablet Take 2 mg by mouth once daily. traZODone (DESYREL) 50 mg tablet oxyCODONE-acetaminophen (PERCOCET) 5-325 mg tablet Take 1- 2 tablets every 4-6 hours as needed for pain mupirocin (BACTROBAN) 2 % cream Apply 1 application to affected area twice daily. emollient combination no.101 (CERAMAX) crea Apply 1 application to affected area twice daily. triamcinolone acetonide (KENALOG) 0.1 % cream APPLY TO ITCHY AREAS ON BODY TWICE DAILY WEDNESDAY THROUGH WEDNESDAY WITH WEEKENDS OFF hydrocortisone 2.5 % cream Apply to itchy areas on face twice a day Wednesday - Wednesday and weekends off omeprazole (PRILOSEC) 20 mg capsule Take 1 capsule by mouth twice daily. hydrOXYzine HCl (ATARAX) 10 mg tablet Take 1 tablet at bedtime as needed for itching clonazePAM (KLONOPIN) 0.5 mg tablet Take 1 tablet by mouth twice daily. OLANZapine (ZYPREXA) 2.5 mg tablet Take 2.5 mg by mouth daily at bedtime. metoprolol succinate XL, long acting, (TOPROL XL) 25 mg 24 hr tablet Take 25 mg by mouth once daily. MESALAMINE (ASACOL HD ORAL) Take 800 mg by mouth twice daily as needed. divalproex DR (DEPAKOTE) 500 mg EC tablet Take 1 tablet by mouth once daily. busPIRone (BUSPAR) 15 mg tablet Take 1 tablet by mouth twice daily as needed (headache/migraine). albuterol 90 mcg/actuation Aero Inhale 2 Puffs as instructed twice daily. mesalamine (ASACOL) 400 mg EC tablet Take 1 tablet by mouth four times daily. No current facility-administered medications on file prior to visit. ROS: General: Does the patient feel generally well? Yes Skin: Any other skin lesions of concern? No Any other ongoing rashes or itching? No Physical Exam: The patient appeared generally well. No acute distress and non-toxic. Alert and oriented. Positive findings: Plaques of excoriated, acute and subacute eczematous dermatitis: Superior chest, right abdomen, left lateral elbow, right lateral elbow, right thigh. TNTC white scars at sites of previous inflammation. Moderate erythema and scaling of the face, forehead and scalp. The remainder of the exam was otherwise unremarkable and included: scalp, face, eyes and eyelids, lips, neck and chest, abdomen, bilateral upper extremities, bilateral lower extremities. Intake information obtained by Deanna Obrien LPN Attending signature: Christina Bey MD This note is completed at 1:12 PM on 03/09/2018 and reflects the services provided at the time of the appointment. I agree with the Chief Complaint, ROS, and Past Histories independently gathered by the clinical fire support specialist and the remaining scribed note accurately describes my personal service to the patient. CNOV Observed: 03/09/2018 Status: COMPLETED Source: [place] 12:45 PM [facility] RE[facility] Office Visit (DERM[facility]) LORENZA CORREA ([id number]) 1965 M Date Time Provider Department 03/09/18 12:45 PM CHRISTINA BEY During your visit today, we recorded the following information about you: Christina Bey MD 03/09/2018 1:17 PM Signed Department of Dermatology Christina Bey MD 03/09/2018 Last visit in Dermatology: 12/01/2017 Assessment/Plan Problem List Items Addressed This Visit None Visit Diagnoses Atopic neurodermatitis - Primary Relevant Medications dupilumab (DUPIXENT) 300 mg/2 mL injection dupilumab (DUPIXENT) 300 mg/2 mL injection Little response to Eucrisa, topical steroids (betamethasone diproprionate, clobetasol, fluocinonide), intralesional steroids, calcipotriene and tacrolimus This is quite severe and persistent. Discussed treatment options. Signed Prescriptions Disp Refills dupilumab (DUPIXENT) 300 mg/2 mL injection 3 Syringe 0 Sig: Inject subcutaneously 2 syringes on day 1, then inject 1 syringe on day 14. dupilumab (DUPIXENT) 300 mg/2 mL injection 2 Syringe 11 Sig: Inject 2 mL subcutaneously every 2 weeks. Follow-up as noted below or as needed. Chief Complaint: Patient presents with: Follow Up: atopic neurodermatitis Subjective and Objective HPI: Lorenza Correa is a 53 year old male who presents for: F/u atopic neurodermatitis -- not much improvement with the addition of the Eucrisa. Still pruritic, still sometimes gets serous exudate. Distributed on the bilateral upper extremities and bilateral thighs, scalp and chest, abdomen. Hx of asthma, bronchitis, seasonal allergies, and multiple rashes/sensitive skin as a child. Lesions of particular concern?: No. PAST MEDICAL HISTORY Diagnosis Date - Abdominal pain - Asthma - Coronary artery disease - Epilepsy ([facility]) Lifelong - Esophagitis, unspecified - Family history of epilepsy - GERD (gastroesophageal reflux disease) - HTN (hypertension) 08/03/2014 - AZ (myocardial infarction) ([facility]) 2008 - disorder - Seizures ([facility]) - Stroke ([facility]) - Syncope - Traumatic brain injury ([facility]) Current Outpatient Prescriptions on File Prior to Visit: crisaborole (EUCRISA) 2 % oint Apply 1 application to affected area twice daily. betamethasone dipropionate 0.05 % ointment Apply 1 application to affected area once daily. calcipotriene (DOVONEX) 0.005 % oint Apply 1 application to affected area once daily. ketoconazole (NIZORAL) 2 % shampoo Apply 1 application to affected area once daily as needed. For the scalp azithromycin (ZITHROMAX) 250 mg tablet clonazePAM (KLONOPIN) 1 mg tablet STOOL SOFTENER 100 mg capsule fludrocortisone (FLORINEF) 0.1 mg tablet promethazine (PHENERGAN) 25 mg tablet predniSONE (DELTASONE) 20 mg tablet Benzonatate 200 mg capsule Take 200 mg by mouth once daily. doxycycline monohydrate (MONODOX) 100 mg capsule Take 100 mg by mouth once daily. NYAMYC powder SUMAtriptan (IMITREX) 100 mg tablet Take 100 mg by mouth as needed. tacrolimus (PROTOPIC) 0.1 % ointment Apply 1 application to affected area twice daily. Capsaicin (ARTHRITIS PAIN RELIEF) 0.1 % crea Apply 1 application to affected area twice daily. Use this cream to selected few itching areas as directed. gabapentin (NEURONTIN) 800 mg tablet Take 800 mg by mouth once daily. hydroxychloroquine (PLAQUENIL) 200 mg tablet Take 200 mg by mouth twice daily. COMBIVENT RESPIMAT 20-100 mcg/actuation mist levETIRAcetam ER (KEPPRA XR) 750 mg 24 hr tablet metoprolol tartrate, short acting, (LOPRESSOR) 25 mg tablet Take 25 mg by mouth once daily. DULERA 200-5 mcg/actuation inhaler PHENobarbital 16.2 mg tablet Take 16.2 mg by mouth twice daily. XARELTO 15 mg tablet Take 15 mg by mouth once daily. rOPINIRole (REQUIP) 2 mg tablet Take 2 mg by mouth once daily. traZODone (DESYREL) 50 mg tablet oxyCODONE-acetaminophen (PERCOCET) 5-325 mg tablet Take 1- 2 tablets every 4-6 hours as needed for pain mupirocin (BACTROBAN) 2 % cream Apply 1 application to affected area twice daily. emollient combination no.101 (CERAMAX) crea Apply 1 application to affected area twice daily. triamcinolone acetonide (KENALOG) 0.1 % cream APPLY TO ITCHY AREAS ON BODY TWICE DAILY WEDNESDAY THROUGH WEDNESDAY WITH WEEKENDS OFF hydrocortisone 2.5 % cream Apply to itchy areas on face twice a day Wednesday - Wednesday and weekends off omeprazole (PRILOSEC) 20 mg capsule Take 1 capsule by mouth twice daily. hydrOXYzine HCl (ATARAX) 10 mg tablet Take 1 tablet at bedtime as needed for itching clonazePAM (KLONOPIN) 0.5 mg tablet Take 1 tablet by mouth twice daily. OLANZapine (ZYPREXA) 2.5 mg tablet Take 2.5 mg by mouth daily at bedtime. metoprolol succinate XL, long acting, (TOPROL XL) 25 mg 24 hr tablet Take 25 mg by mouth once daily. MESALAMINE (ASACOL HD ORAL) Take 800 mg by mouth twice daily as needed. divalproex DR (DEPAKOTE) 500 mg EC tablet Take 1 tablet by mouth once daily. busPIRone (BUSPAR) 15 mg tablet Take 1 tablet by mouth twice daily as needed (headache/migraine). albuterol 90 mcg/actuation Aero Inhale 2 Puffs as instructed twice daily. mesalamine (ASACOL) 400 mg EC tablet Take 1 tablet by mouth four times daily. No current facility-administered medications on file prior to visit. ROS: General: Does the patient feel generally well? Yes Skin: Any other skin lesions of concern? No Any other ongoing rashes or itching? No Physical Exam: The patient appeared generally well. No acute distress and non-toxic. Alert and oriented. Positive findings: Plaques of excoriated, acute and subacute eczematous dermatitis: Superior chest, right abdomen, left lateral elbow, right lateral elbow, right thigh. TNTC white scars at sites of previous inflammation. Moderate erythema and scaling of the face, forehead and scalp. The remainder of the exam was otherwise unremarkable and included: scalp, face, eyes and eyelids, lips, neck and chest, abdomen, bilateral upper extremities, bilateral lower extremities. Intake information obtained by Deanna Obrien LPN Attending signature: Christina Bey MD This note is completed at 1:12 PM on 03/09/2018 and reflects the services provided at the time of the appointment. I agree with the Chief Complaint, ROS, and Past Histories independently gathered by the clinical fire support specialist and the remaining scribed note accurately describes my personal service to the patient. Referring Provider: CHRISTINA BEY [[id number]] Allergies As of Date: 03/09/2018 Noted Allergy Reaction ASA (SALICYLATES) 11/23/2005 4 - Hives 7 - Swelling PENICILLINS 11/23/2005 7 - Swelling Date Reviewed: 03/09/2018 Reviewed by: Deanna Obrien LPN - Fully Assessed Reason for Visit: Follow Up [171] Cmt: atopic neurodermatitis Primary Visit Diagnosis:Atopic neurodermatitis [L20.81] Order(s):dupilumab (DUPIXENT) 300 mg/2 mL injectionInject subcutaneously 2 syringes on day 1, then inject 1 syringe on day 14.Disp: 3 SyringeRfl: 0 dupilumab (DUPIXENT) 300 mg/2 mL injectionInject 2 mL subcutaneously every 2 weeks.Disp: 2 SyringeRfl: 11 Prescriptions as of 03/09/2018 Sig: DUPILUMAB 300 MG/2 ML SUBCUTA* Inject subcutaneously 2 syrin* DUPILUMAB 300 MG/2 ML SUBCUTA* Inject 2 mL subcutaneously ev* CRISABOROLE 2 % TOPICAL OINTM* Apply 1 application to affect* BETAMETHASONE DIPROPIONATE 0.* Apply 1 application to affect* CALCIPOTRIENE 0.005 % TOPICAL* Apply 1 application to affect* KETOCONAZOLE 2 % SHAMPOO Apply 1 application to affect* AZITHROMYCIN 250 MG TABLET CLONAZEPAM 1 MG TABLET STOOL SOFTENER 100 MG CAPSULE FLUDROCORTISONE 0.1 MG TABLET PROMETHAZINE 25 MG TABLET PREDNISONE 20 MG TABLET BENZONATATE 200 MG CAPSULE Take 200 mg by mouth once nicholas* DOXYCYCLINE MONOHYDRATE 100 M* Take 100 mg by mouth once nicholas* NYAMYC 100,000 UNIT/GRAM TOPI* SUMATRIPTAN 100 MG TABLET Take 100 mg by mouth as neede* TACROLIMUS 0.1 % TOPICAL OINT* Apply 1 application to affect* CAPSAICIN 0.1 % TOPICAL CREAM Apply 1 application to affect* GABAPENTIN 800 MG TABLET Take 800 mg by mouth once nicholas* HYDROXYCHLOROQUINE 200 MG TAB* Take 200 mg by mouth twice da* COMBIVENT RESPIMAT 20 MCG-100* LEVETIRACETAM ER 750 MG TABLE* METOPROLOL TARTRATE 25 MG TAB* Take 25 mg by mouth once delma* DULERA 200 MCG-5 MCG/ACTUATIO* PHENOBARBITAL 16.2 MG TABLET Take 16.2 mg by mouth twice d* XARELTO 15 MG TABLET Take 15 mg by mouth once delma* ROPINIROLE 2 MG TABLET Take 2 mg by mouth once daily. TRAZODONE 50 MG TABLET OXYCODONE-ACETAMINOPHEN 5 MG-* Take 1-2 tablets every 4-6 ho* MUPIROCIN 2 % TOPICAL CREAM Apply 1 application to affect* EMOLLIENT COMBINATION NO.101 * Apply 1 application to affect* TRIAMCINOLONE ACETONIDE 0.1 %* APPLY TO ITCHY AREAS ON BODY * HYDROCORTISONE 2.5 % TOPICAL * Apply to itchy areas on face * OMEPRAZOLE 20 MG CAPSULE,FIORDALIZA* Take 1 capsule by mouth twice* HYDROXYZINE HCL 10 MG TABLET Take 1 tablet at bedtime as n* CLONAZEPAM 0.5 MG TABLET Take 1 tablet by mouth twice * OLANZAPINE 2.5 MG TABLET Take 2.5 mg by mouth daily at* METOPROLOL SUCCINATE ER 25 MG* Take 25 mg by mouth once delma* ASACOL HD ORAL Take 800 mg by mouth twice da* DIVALPROEX 500 MG TABLET,FIORDALIZA* Take 1 tablet by mouth once d* BUSPIRONE 15 MG TABLET Take 1 tablet by mouth twice * ALBUTEROL 90 MCG/ACTUATION AE* Inhale 2 Puffs as instructed * MESALAMINE 400 MG TABLET,FIORDALIZA* Take 1 tablet by mouth four t* Problem List As Of Date 03/09/2018 Noted Resolved Dysphagia, unspecified [R13.10] INVALID FOR* Esophagitis, unspecified [K20.9] INVALID FOR* Acute gastritis without mention of hemorrhage [*INVALID FOR* Seizure disorder [G40.909] INVALID FOR* Anxiety [F41.9] INVALID FOR* Headache [R51] INVALID FOR* More... Chronic migraine [G43.709] INVALID FOR* Chronic daily headache [R51] INVALID FOR* Medication overuse headache [G44.40] INVALID FOR* Abdominal pain [R10.9] HTN (hypertension) [I10] INVALID FOR* Asthma [J45.909] INVALID FOR* Stroke (cerebrum) (HCC) [I63.9] INVALID FOR* Abdominal pain, unspecified site [R10.9] INVALID FOR* Syncope [R55] [place] (myocardial infarction) (HCC) [I21.9] INVALID FOR* Coronary artery disease [I25.10] Prescriptions ordered this encounter Disp Refills Start End DUPILUMAB 300 MG/2 ML SUBCUTANEOUS S* 3 Sy* 0 03/09/2018 Cmt: Initiation dose. Sig: Inject subcutaneously 2 syringes on day 1, then inject 1 syringe on day 14. DUPILUMAB 300 MG/2 ML SUBCUTANEOUS S* 2 Sy* 11 03/09/2018 Route: SUBCUTANEOUS Sig: Inject 2 mL subcutaneously every 2 weeks. Disposition: Return in about 3 months (around 06/09/2018) for EST appt or , MD USE appt -- f/u atopic dermatitis. Follow-up and Disposition History Recorded Encounter Status:Closed by CHRISTINA BEY MD on 03/09/18 HEMOGLOBIN A1C Collected: 02/04/2018 Status: F Source: ALBERTO 10:19 AM [facility] REPOSITORY TYPE CODE TESTS RESULT OUT OF RANGE REFERENCE UNITS LAB L501.9985 4.2-6.3 % Normal HGB A1C 6.0 Performed By: #### L501.9985 #### [facility] [place], [address] MISCELLANEOUS LAB Collected: 02/04/2018 Status: F Source: ALBERTO PROCEDURE 10:19 AM [facility] REPOSITORY Order Comment: Test(s) Ordered: [id number] TYPE CODE TESTS RESULT OUT OF RANGE REFERENCE UNITS LAB L801.1541 Normal [facility] TEST Result Comment: TEST RESULT UNITS REF INTERVAL Drug Screen 16 w/Conf, WB AMPHETAMINES, [place] Negative ng/mL Cutoff:50 BARBITURATES, IA ++POSITIVE++ ug/mL Cutoff:0.1 BENZODIAZEPINES, [place] Negative ng/mL Cutoff:20 COCAINE/METABOLITE,IA Negative ng/mL Cutoff:25 PHENCYCLIDINE, IA Negative ng/mL Cutoff:8 THC (MARIJUANA) MTB,IA Negative ng/mL Cutoff:5 OPIATES, IA Negative ng/mL Cutoff:5 OXYCODONES, IA Negative ng/mL Cutoff:5 METHADONE, IA Negative ng/mL Cutoff:25 FENTANYL, IA Negative ng/mL Cutoff:1.0 BUPRENORPHINE, IA Negative ng/mL Cutoff:1.0 PROPOXYPHENE, IA Negative ng/mL Cutoff:50 MEPERIDINE, IA Negative ng/mL Cutoff:100 TRAMADOL, IA Negative ng/mL Cutoff:50 GABAPENTIN, IA Negative ug/mL Cutoff:1.0 CARISOPRODOL, IA Negative ug/mL Cutoff:0.5 This test was developed and its performance characteristics determined by [facility]. It has not been cleared or approved by the Food and Drug Administration. BARBITURATES,MS,WB/SP RFX Barbiturates Confirmation Positive Amobarbital Negative ug/mL Butabarbital Negative ug/mL Butalbital Negative ug/mL Pentobarbital Negative ug/mL Phenobarbital 1.4 ug/mL Secobarbital Negative ug/mL Confirmation threshold: 0.2 ug/mL TESTING PERFORMED AT [facility]. ORIGINAL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 Difficulty, ear pain, nose bleed, mouth pain, nasal congestion, nasal discharge, post nasal drip, sinus pain, sinus pressure, sore throat or other Cardio Cardiovascular: Positive edema Location: lower extremity (+1); negative chest pain, chest pain at rest, chest pain with activity, irregular heart rhythm, shortness of breath when lying down, palpitations, murmur or other Resp Respiratory: Positive as per HPI, shortness of breath, wheezing, cough cough: Positive productive color: Positive yellow and chest tightness; negative pain with cough, chest congestion, pain on inspiration, inhalers, increase use of rescue inhalers, snoring, apnea or other Gastro Gastrointestional: Positive loose stool; negative bloody stools, change in appetite, difficulty swallowing, reflux, hematemesis, melena stool, constipation or other Genitourinary: Negative blood in urine, nocturia, pain with urination or other Musc Musculoskeletal: Negative body pain, back pain, neck pain or other Skin/Breast Skin/Breast: Negative dry skin, itching, rash, unusual bruising, breast lump or other Neuro Neurological: Negative restless legs, confusion, weakness or other Psych Psychocological: Negative abnormal sleep pattern, anxiety, thoughts of hurting self/others, hopelessness or other Lymph Lymphatic: Negative easy bleeding, easy bruising, swollen lymph nodes or other Exam Const Constitutional: Positive conversant, cooperative, in no acute respiratory distress, healthy appearing, well developed, well nourished and good hygiene Head Head: Positive normocephalic and atraumatic; negative cyanosis of lips/distal nose Eyes Eye: Positive clear conjunctiva; negative nystagmus or scleral abnormality Ears Ear: Positive hearing normal; negative hard of hearing Nose Nose: Positive external nose normal; negative epistaxis Mouth Mouth: Positive oral mucosae normal and poor dentition; negative post nasal drip or oral thrush present Neck Neck: Positive normal visual inspection, full ROM and trachea midline; negative lymphadenopathy, JVD or tender Chest Wall Chest: Positive normal inspection of the chest and symmetric chest movement; negative increased A/P diameter Resp lung sounds: Positive clear to auscultation, good air exchange, normal expiratory time and normal respiratory effort; negative diminished, wheezes, rhonchi, rales, dullness to percussion or wheeze present on forced exhalation Cardio Cardiac: Positive regular rate and regular rhythm; negative murmur GI GI: Positive normal to inspection; negative distended Genitourinary: Positive deferred Musc Musculoskeletal: Positive ROM normal and using an assistive device for ambulation (cane); negative kyphosis or scoliosis Skin Pulmonary Skin Exam: Positive intact; negative rash Pulses Pulse: Yes radial pulses present Extremities Extremities: Yes capillary refill normal, No clubbing, Yes edema Location: lower extremity (+1) location: Bilateral Neuro Neurologic: Yes conversant, Yes understands questions, Yes cooperative Lymph Lymphatic: No lymphadenopathy Psych Appearance: Positive grossly normal, eye contact and well kempt Mental Status: Positive mental status grossly normal Affect: Positive normal affect Coding Level of Care Code Off vis,est,level 3 Diagnoses Asthma, unspecified asthma severity, unspecified whether complicated, unspecified whether persistent J45.909 Asthma severity: unspecified severity Asthma complication type: unspecified Asthma persistence: unspecified JANELL (obstructive sleep apnea) G47.33 12/15/17 1011 <Electronically signed by Concetta CLANCY> Date Concetta CLANCY Cosigner Signature: Date (if applicable) CC: Robert Hollis DO 6 MINUTE WALK TEST Observed: 12/10/2017 Status: F Source: [place] 7:41 AM [facility] REPOSITORY [facility] Pulmonary Services/Neurology [address] [place] [address] MR#: [id number] Acct: [id number] Name: LORENZA CORREA Rep #: [id number] : 1965 52 From: Esau Tate DO Referring Dr: Cole Berkowitz MD Date: Ordering Dr: Sex: M C Location: PSN PSN 6 Minute Walk Test - 6 Minute Walk Test 6 Minute Walk Test: 6 Minute Walk Test PSN:6-Minute Walk Test Start: 12/09/17 11:24 Freq: Status: Active Protocol: [id number] Document 12/09/17 11:26 FR (Rec: 12/09/17 11:40 FR [id number]) 6 Minute Walk Test Date Performed 12/09/17 Time Performed 11:00 Height 5 ft 8 in Weight: 224 lb Weight in Pounds 224.0 lbs Assistive device used: Cane Pre-test Oxygen Delivery Method Room Air Pulse Ox (%) 97 Pulse Rate (60-100 beats/min) 77 Dyspnea Cely Scale (0-10) 7 Exertion Cely Scale (6-20) 13 1st minute Oxygen Delivery Method Room Air Pulse Ox (%) 98 Pulse Rate (60-100 beats/min) 91 Number of Rests Taken 1 2nd minute Oxygen Delivery Method Room Air Pulse Ox (%) 98 Pulse Rate (60-100 beats/min) 91 3rd minute Oxygen Delivery Method Room Air Pulse Ox (%) 98 Pulse Rate (60-100 beats/min) 91 4th minute Oxygen Delivery Method Room Air Pulse Ox (%) 97 Pulse Rate (60-100 beats/min) 94 5th minute Oxygen Delivery Method Room Air Pulse Ox (%) 97 Pulse Rate (60-100 beats/min) 89 Number of Rests Taken 1 6th minute Oxygen Delivery Method Room Air Pulse Ox (%) 98 Pulse Rate (60-100 beats/min) 92 Dyspnea Cely Scale (0-10) 6.5 Exertion Cely Scale (6-20) 12 Post-test Oxygen Delivery Method Room Air Pulse Ox (%) 98 Pulse Rate (60-100 beats/min) 77 Full Laps Walked 10 Partial Lap, Number of Tiles Walked 18 Total Distance Walked (ft) 608 12/09/17 11:35 Cardiopulmonary Services by Reina Hardy Mr. correa used a cane for support . He rested from 132 into test until 2 mins then again at 414 to 435. He did not take his inhalers today. I felt he was not as short of breath as he told me. Initialized on 12/09/17 11:35 - END OF NOTE - Interpretation Interpretation: The patient ambulated 680 feet over the course of 6 minutes beginning on room air with the use of a cane. The patient did take several breaks throughout the test, which likely decreases the sensitivity of detecting exertional hypoxia. Pretesting oxygen saturation was noted to be 97% on room air. With ambulation, the raffi oxygen saturation was 97%. There was no significant exertional oxygen desaturation. - Recommendations Recommendations: There is no indication for the use of supplemental oxygen at this time. However, multiple breaks taken during testing may decrease the sensitivity for detecting exertional hypoxia. 12/10/17 0741 <Electronically signed by Esau Tate DO> Date Esau Tate DO CC: Date Dictated: 12/10/17 0739 Date Transcribed: 12/10/17738 Ecdis N Navigation Operator: Esau Tate DO Signed PULMONARY FUNCTION Observed: 12/07/2017 Status: F Source: EXETER TEST 2:21 PM [facility] REPOSITORY [facility] Pulmonary Services/Neurology [address] [place] [address] MR#: [id number] Acct: [id number] Name: LORENZA CORREA Rep #: [id number] : 1965 52 From: Esau Tate DO Referring Dr: Cole Berkowitz MD Status: REG CLI Ordering Dr: Date: Location: [facility] Sex: M C INTRODUCTION: The patient is a 52-year-old male that presents for pulmonary function testing secondary to a diagnosis of asthma. Respiratory therapy reports good patient effort. Bronchodilators were used during testing. INTERPRETATION: Forced expiration spirometry demonstrates no evidence of a large airways obstructive ventilatory defect. There is no significant response to aerosolized bronchodilators. Spirograms are of good quality and plateau normally. Body plethysmography was performed and reveals lung volumes to be within normal limits. Diffusing capacity by single breath CO is within normal limits at 81% of predicted. The patient's TLC and DLCO have both improved since PFTs were last completed in 2017. IMPRESSION: These pulmonary function studies are grossly within normal limits. 12/07/17 1421 <Electronically signed by Esau Tate DO> Date Esau Tate DO CC: Cole Berkowitz MD; Jennifer Elizondo MD Date Dictated: 12/07/17 141 Date Transcribed: 12/07/171418 Ecdis N Navigation Operator: JOSE Signed CNOV Observed: 12/01/2017 Status: COMPLETED Source: [place] [address]:20 PM [facility] REPOSITORY Office Visit (DERMST) LORENZA CORREA ([id number]) 1965 M Date Time Provider Department 12/01/17 1:20 PM CHRISTINA BEY) DERMST During your visit today, we recorded the following information about you: Christina Bey MD 12/19/2017 3:43 PM Signed Department of Dermatology Christina Bey MD 12/01/2017 Last visit in Dermatology: 08/25/2017 Assessment/Plan Problem List Items Addressed This Visit None Visit Diagnoses Atopic neurodermatitis - Primary Administrations This Visit triamcinolone acetonide 40 mg injection (KENALOG 40) Admin Date 12/01/2017 Action Given Dose 30 mg Route INTRALESIONAL Administered By Christina Camarillo) Sotero Signed Prescriptions Disp Refills crisaborole (EUCRISA) 2 % oint 60 g 3 Sig: Apply 1 application to affected area twice daily. triamcinolone acetonide 40 mg injection (KENALOG 40) Follow-up as noted below or as needed. Chief Complaint: Patient presents with: Follow Up: sores on legs, and arms, and back of neck- no improvement Subjective and Objective HPI: Lorenza Correa is a 52 year old male who presents for: followup of sores on the neck, bilateral upper extremities, bilateral lower extremities. No change from previous visit with the Dovonex and betamethasone dipropionate. The scalp might be a little better with the use of Nizoral shampoo. No inciting factors. No associated Symptoms. Lesions of particular concern?: No. PAST MEDICAL HISTORY Diagnosis Date - Abdominal pain - Asthma - Coronary artery disease - Epilepsy (HCC) Lifelong - Esophagitis, unspecified - Family history of epilepsy - GERD (gastroesophageal reflux disease) - HTN (hypertension) 08/03/2014 - [place] (myocardial infarction) ([facility]) 2008 - disorder - Seizures ([facility]) - Stroke ([facility]) - Syncope - Traumatic brain injury ([facility]) Current Outpatient Prescriptions on File Prior to Visit: betamethasone dipropionate 0.05 % ointment Apply 1 application to affected area once daily. calcipotriene (DOVONEX) 0.005 % oint Apply 1 application to affected area once daily. ketoconazole (NIZORAL) 2 % shampoo Apply 1 application to affected area once daily as needed. For the scalp azithromycin (ZITHROMAX) 250 mg tablet clonazePAM (KLONOPIN) 1 mg tablet STOOL SOFTENER 100 mg capsule fludrocortisone (FLORINEF) 0.1 mg tablet promethazine (PHENERGAN) 25 mg tablet predniSONE (DELTASONE) 20 mg tablet Benzonatate 200 mg capsule Take 200 mg by mouth once daily. doxycycline monohydrate (MONODOX) 100 mg capsule Take 100 mg by mouth once daily. NYAMYC powder SUMAtriptan (IMITREX) 100 mg tablet Take 100 mg by mouth as needed. tacrolimus (PROTOPIC) 0.1 % ointment Apply 1 application to affected area twice daily. Capsaicin (ARTHRITIS PAIN RELIEF) 0.1 % crea Apply 1 application to affected area twice daily. Use this cream to selected few itching areas as directed. gabapentin (NEURONTIN) 800 mg tablet Take 800 mg by mouth once daily. hydroxychloroquine (PLAQUENIL) 200 mg tablet Take 200 mg by mouth twice daily. COMBIVENT RESPIMAT 20-100 mcg/actuation mist levETIRAcetam ER (KEPPRA XR) 750 mg 24 hr tablet metoprolol tartrate, short acting, (LOPRESSOR) 25 mg tablet Take 25 mg by mouth once daily. DULERA 200-5 mcg/actuation inhaler PHENobarbital 16.2 mg tablet Take 16.2 mg by mouth twice daily. XARELTO 15 mg tablet Take 15 mg by mouth once daily. rOPINIRole (REQUIP) 2 mg tablet Take 2 mg by mouth once daily. traZODone (DESYREL) 50 mg tablet oxyCODONE-acetaminophen (PERCOCET) 5-325 mg tablet Take 1- 2 tablets every 4-6 hours as needed for pain mupirocin (BACTROBAN) 2 % cream Apply 1 application to affected area twice daily. emollient combination no.101 (CERAMAX) crea Apply 1 application to affected area twice daily. triamcinolone acetonide (KENALOG) 0.1 % cream APPLY TO ITCHY AREAS ON BODY TWICE DAILY WEDNESDAY THROUGH WEDNESDAY WITH WEEKENDS OFF hydrocortisone 2.5 % cream Apply to itchy areas on face twice a day Wednesday - Wednesday and weekends off omeprazole (PRILOSEC) 20 mg capsule Take 1 capsule by mouth twice daily. hydrOXYzine HCl (ATARAX) 10 mg tablet Take 1 tablet at bedtime as needed for itching clonazePAM (KLONOPIN) 0.5 mg tablet Take 1 tablet by mouth twice daily. OLANZapine (ZYPREXA) 2.5 mg tablet Take 2.5 mg by mouth daily at bedtime. metoprolol succinate XL, long acting, (TOPROL XL) 25 mg 24 hr tablet Take 25 mg by mouth once daily. MESALAMINE (ASACOL HD ORAL) Take 800 mg by mouth twice daily as needed. divalproex DR (DEPAKOTE) 500 mg EC tablet Take 1 tablet by mouth once daily. busPIRone (BUSPAR) 15 mg tablet Take 1 tablet by mouth twice daily as needed (headache/migraine). albuterol 90 mcg/actuation Aero Inhale 2 Puffs as instructed twice daily. mesalamine (ASACOL) 400 mg EC tablet Take 1 tablet by mouth four times daily. furosemide (LASIX) 40 mg tablet Take 40 mg by mouth twice daily. No current facility-administered medications on file prior to visit. ROS: General: Does the patient feel generally well? Yes Skin: Any other skin lesions of concern? No Any other ongoing rashes or itching? No Physical Exam: The patient appeared generally well. No acute distress and non-toxic. Alert and oriented. Positive findings: Multiple excoriated nodules on bilateral upper extremities, distal legs, posterior neck. No active vesicles or pustules noted. The remainder of the exam was otherwise unremarkable and included: head, eyes and eyelids, lips, neck, back, chest, abdomen, bilateral upper extremities, bilateral lower extremities Procedure/Biopsy today: No. Patient intake questions wee completed by Horacio Lynch LPN. Attending signature: Christina Bey MD This note is completed at 3:42 PM on 12/19/2017 and reflects the services provided at the time of the appointment. I agree with the Chief Complaint, ROS, and Past Histories independently gathered by the clinical fire support specialist and the remaining scribed note accurately describes my personal service to the patient. Referring Provider: CHRISTINA BEY) [[id number]] Allergies As of Date: 12/01/2017 Noted Allergy Reaction ASA (SALICYLATES) 11/23/2005 4 - Hives 7 - Swelling PENICILLINS 11/23/2005 7 - Swelling Date Reviewed: 12/01/2017 Reviewed by: Horacio Lynch LPN - Fully Assessed Reason for Visit: Follow Up [171] Cmt: sores on legs, and arms, and back of neck- no improvement Primary Visit Diagnosis:Atopic neurodermatitis [L20.81] Order(s):crisaborole (EUCRISA) 2 % ointApply 1 application to affected area twice daily.Disp: 60 gRfl: 3 [] triamcinolone acetonide 40 mg injection (KENALOG 40)Disp: Rfl: Prescriptions as of 12/01/2017 Sig: BETAMETHASONE DIPROPIONATE 0.* Apply 1 application to affect* CALCIPOTRIENE 0.005 % TOPICAL* Apply 1 application to affect* KETOCONAZOLE 2 % SHAMPOO Apply 1 application to affect* AZITHROMYCIN 250 MG TABLET CLONAZEPAM 1 MG TABLET STOOL SOFTENER 100 MG CAPSULE FLUDROCORTISONE 0.1 MG TABLET PROMETHAZINE 25 MG TABLET PREDNISONE 20 MG TABLET BENZONATATE 200 MG CAPSULE Take 200 mg by mouth once nicholas* DOXYCYCLINE MONOHYDRATE 100 M* Take 100 mg by mouth once nicholas* NYAMYC 100,000 UNIT/GRAM TOPI* SUMATRIPTAN 100 MG TABLET Take 100 mg by mouth as neede* TACROLIMUS 0.1 % TOPICAL OINT* Apply 1 application to affect* CAPSAICIN 0.1 % TOPICAL CREAM Apply 1 application to affect* GABAPENTIN 800 MG TABLET Take 800 mg by mouth once nicholas* HYDROXYCHLOROQUINE 200 MG TAB* Take 200 mg by mouth twice da* COMBIVENT RESPIMAT 20 MCG-100* LEVETIRACETAM ER 750 MG TABLE* METOPROLOL TARTRATE 25 MG TAB* Take 25 mg by mouth once delma* DULERA 200 MCG-5 MCG/ACTUATIO* PHENOBARBITAL 16.2 MG TABLET Take 16.2 mg by mouth twice d* XARELTO 15 MG TABLET Take 15 mg by mouth once delma* ROPINIROLE 2 MG TABLET Take 2 mg by mouth once daily. TRAZODONE 50 MG TABLET OXYCODONE-ACETAMINOPHEN 5 MG-* Take 1-2 tablets every 4-6 ho* MUPIROCIN 2 % TOPICAL CREAM Apply 1 application to affect* EMOLLIENT COMBINATION NO.101 * Apply 1 application to affect* TRIAMCINOLONE ACETONIDE 0.1 %* APPLY TO ITCHY AREAS ON BODY * HYDROCORTISONE 2.5 % TOPICAL * Apply to itchy areas on face * OMEPRAZOLE 20 MG CAPSULE,FIORDALIZA* Take 1 capsule by mouth twice* HYDROXYZINE HCL 10 MG TABLET Take 1 tablet at bedtime as n* CLONAZEPAM 0.5 MG TABLET Take 1 tablet by mouth twice * OLANZAPINE 2.5 MG TABLET Take 2.5 mg by mouth daily at* METOPROLOL SUCCINATE ER 25 MG* Take 25 mg by mouth once delma* ASACOL HD ORAL Take 800 mg by mouth twice da* DIVALPROEX 500 MG TABLET,FIORDALIZA* Take 1 tablet by mouth once d* BUSPIRONE 15 MG TABLET Take 1 tablet by mouth twice * ALBUTEROL 90 MCG/ACTUATION AE* Inhale 2 Puffs as instructed * MESALAMINE 400 MG TABLET,FIORDALIZA* Take 1 tablet by mouth four t* CRISABOROLE 2 % TOPICAL OINTM* Apply 1 application to affect* Problem List As Of Date 12/01/2017 Noted Resolved Dysphagia, unspecified [R13.10] INVALID FOR* Esophagitis, unspecified [K20.9] INVALID FOR* Acute gastritis without mention of hemorrhage [*INVALID FOR* Seizure disorder [G40.909] INVALID FOR* Anxiety [F41.9] INVALID FOR* Headache [R51] INVALID FOR* More... Chronic migraine [G43.709] INVALID FOR* Chronic daily headache [R51] INVALID FOR* Medication overuse headache [G44.40] INVALID FOR* Abdominal pain [R10.9] HTN (hypertension) [I10] INVALID FOR* Asthma [J45.909] INVALID FOR* Stroke (cerebrum) ([facility]) [I63.9] INVALID FOR* Abdominal pain, unspecified site [R10.9] INVALID FOR* Syncope [R55] [place] (myocardial infarction) ([facility]) [I21.9] INVALID FOR* Coronary artery disease [I25.10] Prescriptions ordered this encounter Disp Refills Start End TRIAMCINOLONE ACETONIDE 10 MG/ML TYLER* 12/01/2017 12/01/2017 Route: INTRALESIONA CRISABOROLE 2 % TOPICAL OINTMENT 60 g 3 12/01/2017 Route: TOPICAL Sig: Apply 1 application to affected area twice daily. TRIAMCINOLONE ACETONIDE 40 MG/ML TYLER* 12/01/2017 12/01/2017 Route: INTRALESIONA Medications Discontinued During This Encounter furosemide (LASIX) 40 mg tablet 10/20/2016 12/01/2017 Class: Historical Med Route: ORAL Sig: Take 40 mg by mouth twice daily. Disc: Reason for discontinue is not on file. triamcinolone acetonide 20 mg inject* 12/01/2017 12/01/2017 Route: INTRALESIONAL Sig: Disc: Reason for discontinue is not on file. Disposition: Return in about 3 months (around 03/03/2018) for follow up- MD use or access slot. Follow-up and Disposition History Recorded Encounter Status:Closed by CHRISTINA BEY MD on 12/19/17 PROGRESS Observed: 12/01/2017 Status: COMPLETED Source: [place] 1:08 PM [facility] REPOS[facility] O ID: [id number] Author: Christina Camarillo) Sotero Service: (none) Author Type: Physician Type: Progress Notes Filed: 12/19/2017 3:43 PM Note Text: Department of Dermatology Christina Bey MD 12/01/2017 Last visit in Dermatology: 08/25/2017 Assessment/Plan Problem List Items Addressed This Visit None Visit Diagnoses Atopic neurodermatitis - Primary Administrations This Visit triamcinolone acetonide 40 mg injection (KENALOG 40) Admin Date 12/01/2017 Action Given Dose 30 mg Route INTRALESIONAL Administered By Christina Camarillo) Sotero Signed Prescriptions Disp Refills crisaborole (EUCRISA) 2 % oint 60 g 3 Sig: Apply 1 application to affected area twice daily. triamcinolone acetonide 40 mg injection (KENALOG 40) Follow-up as noted below or as needed. Chief Complaint: Patient presents with: Follow Up: sores on legs, and arms, and back of neck- no improvement Subjective and Objective HPI: Lorenza Correa is a 52 year old male who presents for: followup of sores on the neck, bilateral upper extremities, bilateral lower extremities. No change from previous visit with the Dovonex and betamethasone dipropionate. The scalp might be a little better with the use of Nizoral shampoo. No inciting factors. No associated Symptoms. Lesions of particular concern?: No. PAST MEDICAL HISTORY Diagnosis Date - Abdominal pain - Asthma - Coronary artery disease - Epilepsy ([facility]) Lifelong - Esophagitis, unspecified - Family history of epilepsy - GERD (gastroesophageal reflux disease) - HTN (hypertension) 08/03/2014 - [place] (my[place] infarction) ([facility]) 2008 - disorder - Seizures ([facility]) - Stroke ([facility]) - Syncope - Traumatic brain injury ([facility]) Current Outpatient Prescriptions on File Prior to Visit: betamethasone dipropionate 0.05 % ointment Apply 1 application to affected area once daily. calcipotriene (DOVONEX) 0.005 % oint Apply 1 application to affected area once daily. ketoconazole (NIZORAL) 2 % shampoo Apply 1 application to affected area once daily as needed. For the scalp azithromycin (ZITHROMAX) 250 mg tablet clonazePAM (KLONOPIN) 1 mg tablet STOOL SOFTENER 100 mg capsule fludrocortisone (FLORINEF) 0.1 mg tablet promethazine (PHENERGAN) 25 mg tablet predniSONE (DELTASONE) 20 mg tablet Benzonatate 200 mg capsule Take 200 mg by mouth once daily. doxycycline monohydrate (MONODOX) 100 mg capsule Take 100 mg by mouth once daily. NYAMYC powder SUMAtriptan (IMITREX) 100 mg tablet Take 100 mg by mouth as needed. tacrolimus (PROTOPIC) 0.1 % ointment Apply 1 application to affected area twice daily. Capsaicin (ARTHRITIS PAIN RELIEF) 0.1 % crea Apply 1 application to affected area twice daily. Use this cream to selected few itching areas as directed. gabapentin (NEURONTIN) 800 mg tablet Take 800 mg by mouth once daily. hydroxychloroquine (PLAQUENIL) 200 mg tablet Take 200 mg by mouth twice daily. COMBIVENT RESPIMAT 20-100 mcg/actuation mist levETIRAcetam ER (KEPPRA XR) 750 mg 24 hr tablet metoprolol tartrate, short acting, (LOPRESSOR) 25 mg tablet Take 25 mg by mouth once daily. DULERA 200-5 mcg/actuation inhaler PHENobarbital 16.2 mg tablet Take 16.2 mg by mouth twice daily. XARELTO 15 mg tablet Take 15 mg by mouth once daily. rOPINIRole (REQUIP) 2 mg tablet Take 2 mg by mouth once daily. traZODone (DESYREL) 50 mg tablet oxyCODONE-acetaminophen (PERCOCET) 5-325 mg tablet Take 1- 2 tablets every 4-6 hours as needed for pain mupirocin (BACTROBAN) 2 % cream Apply 1 application to affected area twice daily. emollient combination no.101 (CERAMAX) crea Apply 1 application to affected area twice daily. triamcinolone acetonide (KENALOG) 0.1 % cream APPLY TO ITCHY AREAS ON BODY TWICE DAILY WEDNESDAY THROUGH WEDNESDAY WITH WEEKENDS OFF hydrocortisone 2.5 % cream Apply to itchy areas on face twice a day Wednesday - Wednesday and weekends off omeprazole (PRILOSEC) 20 mg capsule Take 1 capsule by mouth twice daily. hydrOXYzine HCl (ATARAX) 10 mg tablet Take 1 tablet at bedtime as needed for itching clonazePAM (KLONOPIN) 0.5 mg tablet Take 1 tablet by mouth twice daily. OLANZapine (ZYPREXA) 2.5 mg tablet Take 2.5 mg by mouth daily at bedtime. metoprolol succinate XL, long acting, (TOPROL XL) 25 mg 24 hr tablet Take 25 mg by mouth once daily. MESALAMINE (ASACOL HD ORAL) Take 800 mg by mouth twice daily as needed. divalproex DR (DEPAKOTE) 500 mg EC tablet Take 1 tablet by mouth once daily. busPIRone (BUSPAR) 15 mg tablet Take 1 tablet by mouth twice daily as needed (headache/migraine). albuterol 90 mcg/actuation Aero Inhale 2 Puffs as instructed twice daily. mesalamine (ASACOL) 400 mg EC tablet Take 1 tablet by mouth four times daily. furosemide (LASIX) 40 mg tablet Take 40 mg by mouth twice daily. No current facility-administered medications on file prior to visit. ROS: General: Does the patient feel generally well? Yes Skin: Any other skin lesions of concern? No Any other ongoing rashes or itching? No Physical Exam: The patient appeared generally well. No acute distress and non-toxic. Alert and oriented. Positive findings: Multiple excoriated nodules on bilateral upper extremities, distal legs, posterior neck. No active vesicles or pustules noted. The remainder of the exam was otherwise unremarkable and included: head, eyes and eyelids, lips, neck, back, chest, abdomen, bilateral upper extremities, bilateral lower extremities Procedure/Biopsy today: No. Patient intake questions wee completed by Horacio Lynch LPN. Attending signature: Christina Bey MD This note is completed at 3:42 PM on 12/19/2017 and reflects the services provided at the time of the appointment. I agree with the Chief Complaint, ROS, and Past Histories independently gathered by the clinical fire support specialist and the remaining scribed note accurately describes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 pharmacologic infusion, or recovery. There was no complaint of chest discomfort during pharmacologic infusion or recovery. The examination was discontinued secondary to completion of protocol. Impression: 1. Pharmacologic (Regadenoson) evaluation 2. Peak pharmacologic ECG with no obvious ECG changes. 3. No cardiac dysrhythmias pretest, during pharmacologic infusion, or recovery 4. Nuclear images pending Myocardial perfusion imaging study: Technique: The patient was injected with 13.9 millicuries of technetium 99m Cardiolite and subsequently rest SPECT Cardiolite nuclear imaging was obtained in the horizontal long, vertical long, and short axis views. The patient underwent pharmacologic (Regadenoson) evaluation with a peak heart rate of 113 beats per minute (67 % percent predicted maximal heart rate) and a peak blood pressure of 130/90 mmHg. The patient was injected with 45 millicuries of technetium 99m Cardiolite and subsequently stress SPECT Cardiolite nuclear imaging was obtained in the horizontal long, vertical long, and short axis views. A gated Cardiolite study at peak stress was obtained. Interpretation: Rest and stress SPECT Cardiolite nuclear imaging status post realignment, normalization, and attenuation correction demonstrate relative uniform tracer uptake and myocardial perfusion appearing within normal limits. There is end systolic thickening and brightening. The gated Cardiolite study demonstrates myocardial thickening and inward wall motion. The reported LVEF is 64 %. Impression: 1. Rest and stress SPECT Cardiolite nuclear imaging demonstrate relative uniform tracer uptake and myocardial perfusion appearing within normal limits. 2. The gated Cardiolite study reports an LVEF of 64%. This note was generated with Fusion [employer] software. It may contain incorrect words, spelling, and punctuation that were not noted in checking the note before signing. 09/14/17 1056 <Electronically signed by Daniel Orellana MD> Date Daniel Orellana MD CC: Christopher Pyle MD; Jennifer Elizondo MD Date Dictated: 09/14/171050 Date Transcribed: 09/14/171050 Ecdis N Navigation Operator: PM Signed CBC-COMPLETE BLOOD CNT Collected: 09/14/2017 Status: F Source: ALBERTO NO DIFF 4:49 AM [facility] REPOSITORY TYPE CODE TESTS RESULT OUT OF RANGE REFERENCE UNITS LAB L100.1000 4.4-11.0 K/mm3 Normal WBC 7.5 LAB L100.1200 4.6-6.2 M/mm3 Low RBC 4.44 LAB L100.1300 13.0-16.5 g/dl Low HGB 11.9 LAB L100.1400 40-54 % Low HCT 37.4 LAB L100.1500 80-94 fL Normal MCV 84.2 LAB L100.1600 27.0-32.0 pg Low MCH 26.8 LAB L100.1700 32-36 g/gl Low MCHC 31.8 LAB L100.1810 11.6-14.6 % High RDW CV 14.9 LAB L100.1820 35.1-43.9 fl High RDW SD 45.2 LAB L100.1900 150-450 K/mm3 Normal PLT 386 LAB L100.2000 6.2-12.0 fl Normal MPV 9.1 Performed By: #### L100.0500 #### [facility] [address] [place], [address] PROTHROMBIN TIME W/INR Collected: 09/14/2017 Status: F Source: ALBERTO 4:49 AM [facility] REPOSITORY TYPE CODE TESTS RESULT OUT OF RANGE REFERENCE UNITS LAB L300.4150 11.7-14.9 SECONDS Normal PROTIME 14.6 LAB L300.4200 Normal INR 1.1 Performed By: #### L300.3900, L300.4310 #### [facility] [address] [place], [place], [address] PARTIAL THROMBOPLAST Collected: 09/14/2017 Status: F Source: ALBERTO TIME 4:49 AM [facility] REPOSITORY TYPE CODE TESTS RESULT OUT OF RANGE REFERENCE UNITS LAB L300.4310 24.1-36.2 Seconds Normal PTT 27.4 Performed By: #### L300.3900, L300.4310 #### [facility] [address] [place], [address] BASIC METABOLIC Collected: 09/14/2017 Status: F Source: ALBERTO PROFILE (BMP) 4:49 AM [facility] REPOSITORY TYPE CODE TESTS RESULT OUT OF RANGE REFERENCE UNITS LAB L501.0100 74-106 mg/dL High GLU 113 Result Comment: Fasting Glucose result from 100 to 125 mg/dL suggests IMPAIRED HOMEOSTASIS per A.D.A. criteria. Please note revised GLUCOSE reference range effective 2017. LAB L501.1000 7-18 mg/dL Normal BUN 17 LAB L501.1100 0.70-1.30 mg/dL Normal CREAT,SERUM 0.84 Result Comment: The validity of the calculated GFR AND GFRAA in patients over 70 years has not been determined. Clinical correlation is essential. LAB L501.1110 >60 mL/min Normal EST GFR 101 Result Comment: Non- GFR Calc LAB L501.1115 >60 mL/min Normal EST GFR - AA 122 Result Comment: GFR Calc LAB L501.1255 ml/min Normal Estimated CRCL 98.39 LAB L501.1300 10-20 RATIO High BUN/CRE 20.1 LAB L501.2200 8.5-10 mg/dL Normal .1 CA 8.5 LAB L501.5300 136-14 mmol/L Normal 5 NA 143 LAB L501.5600 3.5-5. mmol/L Normal 1 K 4.1 Result Comment: Slight Hemolysis, Result may be falsely increased. LAB L501.5900 98-107 mmol/L Normal CL 107 LAB L501.6100 21.0-32.0 mmol/L Normal CO2 28.0 LAB L501.6200 5-15 Normal 8 GAP Performed By: #### L500.2500, L500.4100 #### [facility] [address] [place], [address] LIPID PROFILE Collected: 09/14/2017 Status: F Source: ALBERTO 4:49 AM [facility] REPOSITORY TYPE CODE TESTS RESULT OUT OF RANGE REFERENCE UNITS LAB L501.4900 200 mg/dL Normal CHOL 174 Result Comment: <200 mg/dL Desirable 200-240 mg/dL Borderline >240 mg/dL High Risk LAB L501.5000 mg/dL Normal TRIG 111 Result Comment: The drugs N-Acetylcysteine and Metamizole may falsely depress this assay. Serum Triglycerides Reference Interval Normal <150 mg/dL Borderline high 150 - 199 mg/dL High 200 - 499 mg/dL Very High > or = 500 mg/dL LAB L501.6400 mg/dL Normal HDL 54 Result Comment: The drugs N-Acetylcysteine and Metamizole may falsely depress this assay. Reference Range HDL <40 mg/dL Low HDL Cholesterol HDL >or= 60 mg/dL High HDL Cholesterol LAB L501.6500 0-130 mg/dL Normal LDL 98 LAB L501.6600 5-40 mg/dL Normal VLDL 22 Performed By: #### L500.2500, L500.4100 #### [facility] [address] [place], [address] TROPONIN-I Collected: 09/14/2017 Status: F Source: ALBERTO 1:10 AM [facility] REPOSITORY Order Comment: 'TROP' Serial specimen #1, #2 or #3: 3 'TROP' Serial specimen #1, #2, #3, or #4: 3 TYPE CODE TESTS RESULT OUT OF RANGE REFERENCE UNITS LAB L501.4010 <0.045 ng/mL Normal 0.032 TROPONIN-I Result Comment: TROPONIN-I EXPECTED VALUES <0.045 Negative 0.045 - 0.590 Consistent with Cardiac Damage > OR = 0.600 Critical Value Not every elevated troponin is indicative of AZ. These values should be used with clinical judgement in examining the patient's clinical picture for diagnosis. To establish a diagnosis of AZ versus myocardial injury, there must be a demonstrated rise and/or fall in the troponin values, in addition to ischemic symptoms, EKG changes, new regional wall motion abnormality, and/or angiographical evidence. PLEASE NOTE: REFERENCE RANGES EDITED 17 Performed By: #### L501.4010 #### [facility] [address] [place], [address] PHENOBARBITAL Collected: 09/13/2017 Status: F Source: EXETER 10:10 PM [facility] REPOSITORY TYPE CODE TESTS RESULT OUT OF REFERENCE UNITS RANGE LAB L501.8500 10.0-40.0 ug/mL Low PHENOBARB 2.5 Performed By: #### L501.8500 #### [facility] [address] [place], [address] TROPONIN-I Collected: 09/13/2017 Status: F Source: EXETER 10:10 PM [facility] REPOSITORY Order Comment: 'TROP' Serial specimen #1, #2 or #3: 2 'TROP' Serial specimen #1, #2, #3, or #4: 2 TYPE CODE TESTS RESULT OUT OF RANGE REFERENCE UNITS LAB L501.4010 <0.045 ng/mL Normal 0.037 TROPONIN-I Result Comment: TROPONIN-I EXPECTED VALUES <0.045 Negative 0.045 - 0.590 Consistent with Cardiac Damage > OR = 0.600 Critical Value Not every elevated troponin is indicative of AZ. These values should be used with clinical judgement in examining the patient's clinical picture for diagnosis. To establish a diagnosis of AZ versus myocardial injury, there must be a demonstrated rise and/or fall in the troponin values, in addition to ischemic symptoms, EKG changes, new regional wall motion abnormality, and/or angiographical evidence. PLEASE NOTE: REFERENCE RANGES EDITED 17 Performed By: #### L501.4010 #### [facility] [address] [place], [address] EMERGENCY DEPARTMENT Observed: 09/13/2017 Status: F Source: EXETER SUMMARY 7:39 PM [facility] REPOSITORY [facility] Medical Records Department [address] [place] [address] Emergency Department Summary 09/13/171936 MR#: [id number] Acct: [id number] Name: LORENZA CORREA Rep #: [id number] : 1965 52 From: Sohan Pedraza MD PCP: Jennifer Elizondo MD Status: REG ER - ER Visit Summary Date of Service: 09/13/17 Chief Complaint: Multiple complaints History of Present Illness: The patient is a 52 M who actually presents with multiple complaints. He states that over the last week he has had intermittent chest tightness and shortness of breath. He has a nonproductive cough. He also complains of intermittently feeling lightheaded and dizzy. He describes this as a near syncope. He has a history of recurrent syncope with multiple prior evaluations for this. He also complains of dysuria urinary frequency and suprapubic abdominal pain. He complains of lower back pain with radiation down both legs as well as numbness down both legs. He has a history of chronic back pain with degenerative disc disease follows with pain management and has had prior epidural injections. Physical Examination: Afebrile vitals unremarkable Moist mucous membranes Heart regular rhythm tachycardia Lungs are clear Abdomen soft nontender nondistended Extremities nontender normal strength and sensation 2+ dorsalis pedis pulses Test Results: EKG shows sinus rhythm at a rate of 96 with a left anterior fascicular block. CBC BMP normal. Urinalysis pending. Troponin negative. Chest x-ray shows no acute process. Lumbar x-rays show grade 1 anterior listhesis of L5 on S1 as well as a probable bilateral L5 pars defect. Emergency Department Course and Treatment: Patient's back pain with radiculopathy is chronic in nature. In regards to his dizziness near syncope this is also a chronic recurrent issue. However when he has presented with syncope previously he has not complained of chest pain or shortness of breath. Given that he does have a history of coronary disease with prior stenting I did feel he needed a cardiac rule out. He was discussed with the hospitalist and admitted. Treatment Plan: [] Disposition: Admit Impression: Chest pain Dysuria Near syncope Lumbar radiculopathy This note was generated with Fusion [employer] software. It may contain incorrect words, spelling, and punctuation that were not noted in review of the chart prior to signing ED Disposition - Plan for ED Patient: Chief Complaint: Dizziness Referrals: Jennifer Elizondo MD [Primary Care Provider] - What to do if you have Problems For any increased pain, shortness of breath, bleeding, nausea or vomiting, chest pain, or any unexpected problems, contact your Primary Care Provider. Call [facility] ([phone]) or report to the closest Emergency Room. Call 911 if necessary. 09/13/171938 <Electronically signed by Sohan Pedraza MD> Date Sohan Pedraza MD Cosigner Signature (If Indicated): Date CC: Jennifer Elizondo MD HISTORY AND PHYSICAL Observed: 09/13/2017 Status: F Source: EXETER EXAM 7:29 PM [facility] REPOSITORY [facility] Medical Records Department [address] [place] [address] History and Physical 09/13/17 190 MR#: [id number] Acct: [id number] Name: LORENZA CORREA Rep #: [id number] : 1965 52 From: Loly Gonzalez PCP: Jennifer Elizondo MD Status: REG ER Y Location: ED Problem List (1) Syncope and collapse Status: Acute (2) Chest pain Status: Acute Qualifiers: Chest pain type: unspecified Qualified Code(s): R07.9 - Chest pain, unspecified (3) Hypertension Status: Chronic Qualifiers: Hypertension type: essential hypertension Qualified Code(s): I10 - Essential (primary) hypertension (4) Chronic back pain Status: Chronic Qualifiers: Back pain location: back pain in unspecified location Back pain laterality: unspecified Qualified Code(s): M54.9 - Dorsalgia, unspecified; G89.29 - Other chronic pain (5) CVA (cerebral vascular accident) Status: Chronic Qualifiers: CVA mechanism: unspecified Qualified Code(s): I63.9 - Cerebral infarction, unspecified (6) Major depression Status: Chronic Qualifiers: Major depression recurrence: unspecified whether recurrent Active/Remission status: remission status unspecified Qualified Code(s): F32.9 - Major depressive disorder, single episode, unspecified (7) Lichen simplex chronicus Status: Chronic (8) Anxiety Status: Chronic (9) Pulmonary nodule Status: Chronic (10) Chronic headache Status: Chronic (11) GERD (gastroesophageal reflux disease) Status: Chronic Qualifiers: Esophagitis presence: esophagitis presence not specified Qualified Code(s): K21.9 - Gastro-esophageal reflux disease without esophagitis (12) Allergic rhinitis Status: Chronic Qualifiers: Allergic rhinitis trigger: unspecified Allergic rhinitis seasonality: unspecified seasonality Qualified Code(s): J30.9 - Allergic rhinitis, unspecified (13) JANELL (obstructive sleep apnea) Status: Chronic (14) Personality disorder Status: Chronic (15) Pulmonary nodules/lesions, multiple Status: Chronic Comment: on CT in June 2015 (16) Seizure disorder Status: Chronic (17) Asthma Status: Chronic Qualifiers: Asthma severity: unspecified severity Asthma persistence: unspecified Asthma complication type: unspecified Qualified Code(s): J45.909 - Unspecified asthma, uncomplicated (18) Restless legs syndrome (RLS) Status: Chronic (19) Pulmonary embolism Status: Chronic Qualifiers: Chronicity: unspecified Acute cor pulmonale presence: without acute cor pulmonale History of Present Illness Date of Admission: 09/13/17 Chief Complaint: Chest pain, Near Syncope The patient is a 52 y/o M w PMHx: HTN, HLD, Asthma, GERD, Allergic Rhinitis, Chronic Back Pain, Known Pulmonary Nodules, Anxiety and Depression/Personality disorder, Obesity, Hx PE, Chronic LH/Dizziness w/ Frequent Near Syncope complaint who presents to the [facility] ED on 09/13/17 with history of increased episodes of lightheadedness and dizziness w/ near syncope w/ now new onset substernal chest tightness without radiation and sensation of sharp needles with events, perhaps worse w/ exertional attempts, but occurs independent also of activity, rates 10/10 when occurs with associated nausea without emesis and diaphoresis. In the ED work-up included T 97.5, heart rate 103, BP 120/96, respiratory rate 15, 94% on room air, positive orthostatic vital signs, CBC with WBC 7.4, hemoglobin 12.8, platelet 405 with increased mono percent otherwise no market shift, pending repeat BMP as initial unusable, chest x-ray with chronic changes. Past Medical History Past Medical History (Chronic Problems): Chronic Problems (Last Reviewed 08/26/17 @ 09:33 by Tamela Paula) History of left heart catheterization (Chronic 04/14/17) Normal Coronary Arteries @ [facility] Hypertension (Chronic) Generalized hypopigmentation of skin (Chronic) Chronic back pain (Chronic) CVA (cerebral vascular accident) (Chronic) Major depression (Chronic) Paresthesia (Chronic) Hypomagnesemia (Chronic) Lichen simplex chronicus (Chronic) Anxiety (Chronic) Pulmonary nodule (Chronic) Chronic headache (Chronic) GERD (gastroesophageal reflux disease) (Chronic) Hypersomnia (Chronic) Allergic rhinitis (Chronic) Right lumbar radiculopathy (Chronic) Alcohol abuse (Chronic) JANELL (obstructive sleep apnea) (Chronic) Dyspnea on exertion (Chronic) Abnormal chest CT (Chronic) Personality disorder (Chronic) Pulmonary nodules/lesions, multiple (Chronic) on CT in June 2015 Herniated cervical disc without myelopathy (Chronic) Seizure disorder (Chronic) Asthma (Chronic) Restless legs syndrome (RLS) (Chronic) Insomnia (Chronic) Episode of syncope (Chronic) Pulmonary embolism (Chronic) Anxiety disorder (Chronic) Allergies aspirin Allergy (Verified 09/13/17 17:14) Hives Penicillins Allergy (Verified 09/13/17 17:14) Swelling Home Medications: Ambulatory Orders Medication Instructions Recorded Clonazepam [Klonopin] 1 mg PO DAILY 05/05/16 Hydroxychloroquine [Plaquenil] 200 mg PO DAILY 05/05/16 Levetiracetam [Keppra Xr] 500 mg PO DAILY 05/05/16 Surgical History: - - Appendectomy, left hip repair status post fall with fracture, severe head lacerations with notable stitching performed, left hand surgery. Psychiatric History: Anxiety, Depression, - - Unclear personality disorder noted in history. Lives: With Family - Patient notes he lives with his aunt. Smoking Status: Never smoker Tobacco Use: Non-smoker Alcohol: None - Patient denies any history of alcohol or current alcohol use although alcohol abuse is listed in his history prior but adamantly denies. Drugs: None - *Family History Maternal History Items: Heart Disease, Hypertension Paternal History Items: Unknown - Patient notes that his father left when he was 7 [id number] and does not know any of his medical history. Review of Systems Constitutional: Reports: Malaise, Weakness, Fatigue. Denies: Chills, Fever, Weight Change HEENT: Denies: Head Aches, Sinus Congestion, Sinus Drainage Cardiovascular: Reports: Chest Pain, Chest Tightness, Light Headedness, Syncope. Denies: Edema, Heaviness, Palpitations Respiratory: Reports: Shortness of Breath, Shortness of breath at rest, Shortness of breath upon exertion. Denies: Cough, Sputum production Gastrointestinal: Reports: Nausea. Denies: Abdominal Pain, Vomiting Genitourinary: Reports: Dysuria - Notes chronic mild discomfort with urination ongoing for several years. Musculoskeletal: Reports: Back Pain. Denies: Joint Pain, Joint Tenderness Skin: Denies: Rash, Wounds Neurological: Denies: Numbness, Tingling, Focal weakness Psychiatric: Reports: Anxiety, Depression. Denies: Homicidal Ideations, Suicidal Ideations Hematologic/ Lymphatic: Denies: Easy Bruising, Easy Bleeding VTE Information - Inpt Only VTE Present on Admission: No VTE Mechan Device Prophylaxis: SCD's VTE Pharm Prophylaxis ordered?: Yes Patient Problems: Active and Suspected Problems (Last Reviewed 08/26/17 @ 09:33 by Tamela Paula) Chest pain (Acute) Subjective: Seated upright in the ED bed, no acute distress, no current chest discomfort or lightheadedness. Objective: Physical Examination: General: awake, alert, oriented x 3 and cooperative, seated upright in the ED bed in no apparent distress. Skin: normal color, turgor, no icterus, cyanosis, noted hypopigmented regions on skin. HEENT: AT/NC, EOMI, PERRLA, MMM, no carotid bruits or JVD noted. Lungs: Diminished breath sounds, greater bilateral bases, moderate effort, no rales, ronchi or wheezing. Heart: Regular rate and rhythm; no gallop, rub audible. Abdomen: soft, obese, NTTP, ND, normal BS, no HSM. Extremities: no cyanosis, clubbing, mild nonpitting ankle edema. Neurological: patient awake, alert, oriented x 3; cognitive function intact; pupils equally reactive to light and accomodation; cranial nerves II-XII grossly normal, moving all 4 extremities, no focal deficits, strength mild to moderately globally decreased secondary to acute presentation. Psychiatric: affect appears flat, no acute evidence of depressive or anxiety feelings. - Physical Exam Vital Signs Temp Pulse Resp BP Pulse Ox 97.5 F L 88 18 143/77 H 96 09/13/17 17:14 09/13/17 17:54 09/13/17 17:17 09/13/17 17:54 09/13/17 17:53 Oxygen Delivery Method Room Air Weight: 229 lb 4.492 oz Body Mass Index (BMI) 34.8 Finger Stick Blood Glucose 92 Laboratory Tests Past 24 Hrs WBC 7.4 RBC 4.88 Hgb 12.8 L Hct 41.2 MCV 84.4 MCH 26.2 L MCHC 31.1 L RDW 15.2 H RDW Differential 46.6 H Assessment/Plan Active and Suspected Problems (Last Reviewed 08/26/17 @ 09:33 by Tamela Paula) Chest pain (Acute) The patient is a 52 y/o M w PMHx: HTN, HLD, Asthma, GERD, Allergic Rhinitis, Chronic Back Pain, Known Pulmonary Nodules, Anxiety and Depression/Personality disorder, Obesity, Hx PE, Chronic LH/Dizziness w/ Frequent Near Syncope complaint who presents to the [facility] ED on 09/13/17 with history of increased episodes of lightheadedness and dizziness w/ near syncope w/ now new onset substernal chest tightness without radiation and sensation of sharp needles with events, perhaps worse w/ exertional attempts, but occurs independent also of activity, rates 10/10 when occurs with associated nausea without emesis and diaphoresis. (1) Acute on Chronic Near Syncope w/ concurrent Chest Pain: Unclear etiology, likely contributed to secondary to his orthostasis, also notable long-term near syncope history, most recent stress testing 2016 unremarkable and most recent ECHO 2014. EKG in ED w/ sinus rhythm without evidence of acute ischemia, CXR w/ no acute cardiopulmonary findings, initial trop pending as initial lab draw failed, repeat now pending. Will admit to PCU, place on a monitored bed to assure no acute myocardial infarction with serial cardiac enzymes and EKGs. Will maintain on fall precautions, given + admission orthostatic continue hydration and repeat AM orthostatic VS, plan AM stress testing if enzymes remain unremarkable, also obtain ECHO. Mag pending. FLP in AM. Hives allergy with ASA. (2) Chronic Asthma/COPD: ATC duonebs, PRN albuterol, HOB, IS parameters. (3) Hypertension: Continue home regimen including lisinopril, hold Lasix given orthostasis and add back once appropriate, PRN hydralazine. (4) Hyperlipidemia: Not on regimen, AM FLP. (5) Anxiety and Depression/Unclear Personality Disorder: Maintain on home Klonopin, mirtazapine and trazodone regimen. (6) Seizure Disorder: Maintain on home regimen phenobarbital and Keppra with pending level. (7) Obesity: Weight loss and lifestyle changes encouraged. (8) RLS: Maintain on home requip regimen. (9) GERD: PPI. (10) Hx PE: Maintain on home xarelto regimen. (11) ? Hx CVA: Unclear history, ASA allergy, maintain on xarelto, not on statin w/ pending FLP, maintain on ACEI, holding lasix as noted above. (12) DVT Prophylaxis: SCDs, xarelto. Code Visit OBSV E AND M: [id number] Initial observation care L3 09/13/171928 <Electronically signed by Loly Gonzalez > Date Loly Gonzalez Cosigner Signature: Date (if applicable) CC: Loly Gonzalez; Jennifer Elizondo MD Signed URINALYSIS, COMPLETE Collected: 09/13/2017 Status: F Source: ALBERTO 7:25 PM [facility] REPOSITORY Order Comment: Order Date: 09/13/17 How was Urine Obtained? CLEAN CATCH TYPE CODE TESTS RESULT OUT OF RANGE REFERENCE UNITS LAB L400.3000 Yellow COLOR Normal Straw LAB L400.3050 Clear Normal CLARITY Clear LAB L400.3200 Normal mg/dl Normal GLUCOSE, UR Normal LAB L400.3300 Negative mg/dL Normal BILIRUBIN URINE Negative LAB L400.3400 Negative mg/dl Normal KETONE UR Negative LAB L400.3465 1.002-1.030 Normal SP.GR. DIPSTX 1.010 LAB L400.3550 5.0 - 8.0 pH UR Normal 7.0 LAB L400.3600 Negative mg/dl PROT Normal DIPSTX Negative LAB L400.3700 Normal mg/dl Normal UROBILI Normal LAB L400.3750 Negative Normal NITRITE UR Negative LAB L400.3780 Negative /ul Normal OCCULT BLOOD-UR Negative LAB L400.3800 Negative /ul LEUK Normal ESTERASE Negative LAB L400.4050 0-5 /hpf WBC 0 Normal SEEN LAB L400.4100 0-5 /hpf 0 Normal RBC-UA SEEN LAB L400.4150 0-5 /hpf SQUAM 0 Normal EPI SEEN LAB L400.4300 None Seen /hpf 0 Normal BACTERIA SEEN LAB L400.4350 <or=2+ /hpf 0 Normal MUCUS, URINE SEEN Performed By: #### L400.0001 #### [facility] [address] [place], [place], [address] BASIC METABOLIC Collected: 09/13/2017 Status: F Source: EXETER PROFILE (BMP) 6:40 PM [facility] REPOSITORY Order Comment: REDRAW. PREVIOUS SPECIMEN REJECTED DUE TO HEMOLYZED SPECIMEN. 09/13/17 1834 Rosita Chung. 'TROP' Serial specimen #1, #2, #3, or #4: 1 TYPE CODE TESTS RESULT OUT OF RANGE REFERENCE UNITS LAB L501.0100 74-106 mg/dL Normal GLU 85 Result Comment: Please note revised GLUCOSE reference range effective 2017. LAB L501.1000 7-18 mg/dL Normal BUN 17 LAB L501.1100 0.70-1.30 mg/dL Normal CREAT,SERUM 0.95 Result Comment: The validity of the calculated GFR AND GFRAA in patients over 70 years has not been determined. Clinical correlation is essential. LAB L501.1110 >60 mL/min Normal EST GFR 88 Result Comment: Non- GFR Calc LAB L501.1115 >60 mL/min Normal EST GFR - AA 107 Result Comment: GFR Calc LAB L501.1255 ml/min Normal Estimated CRCL 87.00 LAB L501.1300 10-20 RATIO Normal BUN/CRE 18.0 LAB L501.2200 8.5-10 mg/dL Normal .1 CA 9.3 LAB L501.5300 136-14 mmol/L Normal 5 NA 141 LAB L501.5600 3.5-5. mmol/L Normal 1 K 4.1 LAB L501.5900 98-107 mmol/L Normal CL 105 LAB L501.6100 21.0-3 mmol/L Normal 2.0 CO2 28.0 LAB L501.6200 5-15 Normal GAP 8 Performed By: #### L500.2500, L501.4010 #### [facility] [address] [place], [address] TROPONIN-I Collected: 09/13/2017 Status: F Source: EXETER 6:40 PM [facility] REPOSITORY Order Comment: REDRAW. PREVIOUS SPECIMEN REJECTED DUE TO HEMOLYZED SPECIMEN. 09/13/17 183 Rosita Chung. 'TROP' Serial specimen #1, #2, #3, or #4: 1 TYPE CODE TESTS RESULT OUT OF RANGE REFERENCE UNITS LAB L501.4010 <0.045 ng/mL Normal 0.032 TROPONIN-I Result Comment: TROPONIN-I EXPECTED VALUES <0.045 Negative 0.045 - 0.590 Consistent with Cardiac Damage > OR = 0.600 Critical Value Not every elevated troponin is indicative of AZ. These values should be used with clinical judgement in examining the patient's clinical picture for diagnosis. To establish a diagnosis of AZ versus myocardial injury, there must be a demonstrated rise and/or fall in the troponin values, in addition to ischemic symptoms, EKG changes, new regional wall motion abnormality, and/or angiographical evidence. PLEASE NOTE: REFERENCE RANGES EDITED 17 Performed By: #### L500.2500, L501.4010 #### [facility] [address] [place], [address] MAGNESIUM Collected: 09/13/2017 Status: F Source: EXETER 6:40 PM [facility] REPOSITORY TYPE CODE TESTS RESULT OUT OF RANGE REFERENCE UNITS LAB L501.5200 1.6-2.6 mg/dL Normal MG 2.2 Performed By: #### L501.5200 #### [facility] [address] [place], [address] LIVER PROFILE Collected: 09/13/2017 Status: F Source: EXETER 6:40 PM [facility] REPOSITORY TYPE CODE TESTS RESULT OUT OF RANGE REFERENCE UNITS LAB L501.1500 6.4-8.2 g/dL Normal T PROT 8.0 LAB L501.1800 3.2-5.0 g/dL Normal ALB 3.9 LAB L501.1950 2.2-4.2 g/dL Normal GLOB 4.1 LAB L501.4100 15-37 U/L Low AST 14 LAB L501.4305 45-117 U/L Normal ALK P 69 LAB L501.4405 16-61 U/L Normal ALT 29 LAB L501.4600 0.20-1.00 mg/dL Low T BILI 0.10 LAB L501.4700 0.00-0.30 mg/dL Normal D BILI 0.05 Performed By: #### L500.3400 #### [facility] [address] [facility] [place], [address] CHEST PA AND LATERAL Observed: 09/13/2017 Status: F Source: EXETER 5:49 PM [facility] REPOSITORY [facility] Imaging Services [address] [place] [address] Chest PA and Lateral MR#: [id number] Acct: [id number] Name: LORENZA CORREA Rep #: [id number] : 1965 M 52 From: Norris Monge PCP: Jennifer Elizondo MD Status: REG ER Study: Chest PA and Lateral Date of Exam: 09/13/17 Exam# [id number] Ordering Dr: Sohan Pedraza MD STUDY: X-RAY CHEST REASON FOR EXAM: Male, 52 years old. Weakness, dizziness, near syncopal episode TECHNIQUE: Frontal and lateral views of the chest. COMPARISON: 07/22/2017 FINDINGS: The lungs are clear and expanded. There is no demonstrated pleural abnormality. Normal size heart. Normal mediastinum and shoaib. Normal visualized pulmonary arteries. Normal visualized aortic arch and descending thoracic aorta. Normal visualized thoracic spine. Normal visualized ribs, clavicles, and shoulders. There is no demonstrated abnormality of the visualized soft tissue structures of the upper abdomen. RAD/Chest PA and Lateral IMPRESSION: No acute cardiopulmonary disease. Electronically Signed: Norris Monge DO at 19:10 EDT , Service support , CC: Jennifer Elizondo MD; Sohan Pedraza MD Ecdis N Navigation Operator: Signed LUMBAR SPINE 2 OR 3 Observed: 09/13/2017 Status: F Source: EXETER VIEWS 5:49 PM [facility] REPOSITORY [facility] Imaging Services [address] [place] [id number] Lumbar Spine 2 or 3 Views MR#: [id number] Acct: [id number] Name: LORENZA CORREA Rep #: [id number] : 1965 M 52 From: Norris Monge PCP: Jennifer Elizondo MD Status: REG ER Study: Lumbar Spine 2 or 3 Views Date of Exam: 09/13/17 Exam# [id number] Ordering Dr: Sohan Pedraza MD STUDY: X-RAY - LUMBAR SPINE REASON FOR EXAM: Male, 52 years old. Weakness, dizziness TECHNIQUE: 3 view(s) of the lumbar spine were obtained. COMPARISON: None FINDINGS: There is a 5 mm anterolisthesis of L5 on S1. There is no substantial scoliosis. There is a normal alignment of the vertebrae. Normal vertebral bodies and endplates. Probable L5 pars defects. Degenerative disc disease L5-S1. The soft tissue structures are unremarkable. RAD/Lumbar Spine 2 or 3 Views IMPRESSION: Grade 1 anterior listhesis of L5 on S1. Degenerative disc disease L5-S1. 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 Electronically Signed: Norris MongeDO at 19:12 EDT , Service support , CC: Jennifer Elizondo MD; Sohan Pedraza MD Ecdis N Navigation Operator: Signed CBC W/DIFF, AUTOMATED Collected: 09/13/2017 Status: F Source: ALBERTO 4:04 PM [facility] REPOSITORY TYPE CODE TESTS RESULT OUT OF RANGE REFERENCE UNITS LAB L100.1000 4.4-11.0 K/mm3 Normal WBC 7.4 LAB L100.1200 4.6-6.2 M/mm3 Normal RBC 4.88 LAB L100.1300 13.0-16.5 g/dl Low HGB 12.8 LAB L100.1400 40-54 % Normal HCT 41.2 LAB L100.1500 80-94 fL Normal MCV 84.4 LAB L100.1600 27.0-32.0 pg Low MCH 26.2 LAB L100.1700 32-36 g/gl Low MCHC 31.1 LAB L100.1810 11.6-14.6 % High RDW CV 15.2 LAB L100.1820 35.1-43.9 fl High RDW SD 46.6 LAB L100.1900 150-450 K/mm3 Normal PLT 405 LAB L100.2000 6.2-12.0 fl Normal MPV 9.1 LAB L100.2100 47-70 % Normal NEUT% 50.1 LAB L100.2200 19-41 % Normal LY% 33.1 LAB L100.2300 0-10 % High MONO% 13.9 LAB L100.2400 0-5 % Normal EO% 2.3 LAB L100.2500 0-1 % Normal BASO% 0.5 LAB L100.2550 0.0-0.9 % Normal IM GRAN % 0.100 Result Comment: IG% - Immature Granulocytes (promyelocytes, myelocytes and metamyelocytes) > 1% indicates that a LEFT SHIFT is Present. LAB L100.2620 2.0-7.7 X10 3/uL Normal Absolute Neut 3.7 LAB L100.2720 0.83-4.51 X10 3/ul Normal Absolute Lymph 2.45 Performed By: #### L100.0100 #### [facility] [address] [place], [address] INTERNAL MEDICINE Observed: 08/26/2017 Status: F Source: EXETER OFFICE VISIT 11:10 AM [facility] REPOSITORY [facility] [address] [place] [address] [place] [address] OFFICE VISIT Date of Service: 08/26/17 MR#: [id number] Acct: [id number] Name: LORENZA CORREA Rep #: [id number] : 1965 Provider: Jennifer Elizondo MD Age/Sex: 52/M Location: [facility] Status: Signed Intake Vital Signs08/26/17 Blood Pressure 148/82 08/26/17 Height 5 ft 8 in 08/26/17 Weight: 239 lb 08/26/17 Body Mass Index (BMI) 36.3 08/26/17 Blood Pressure 155/81 Intake Visit Reasons: 1 MO F/U Chief Complaint: 1 month check Is patient in pain?: Yes (Left hip) Pain scale (1-10): 7 Allergies aspirin Allergy (Verified 08/26/17 09:29) Hives Penicillins Allergy (Verified 08/26/17 09:29) Swelling Medications Albuterol Inhaler [Ventolin Hfa (SP)] 1 puff INHALATION Q4H PRN PRN 05/05/16 [History Confirmed 08/26/17] Clonazepam [Klonopin] 1 mg PO DAILY 05/05/16 [History Confirmed 08/26/17] Hydroxychloroquine [Plaquenil] 200 mg PO DAILY 05/05/16 [History Confirmed 08/26/17] Levetiracetam [Keppra Xr] 500 mg PO DAILY 05/05/16 [History Confirmed 08/26/17] Omeprazole [Prilosec] 20 mg PO BID 05/05/16 [History Confirmed 08/26/17] Phenobarbital 16.2 mg PO BID 05/05/16 [History Confirmed 08/26/17] Rivaroxaban [Xarelto] 15 mg PO DAILY 05/05/16 [History Confirmed 08/26/17] Ropinirole HCl [Requip Xl] 2 mg PO BID 05/05/16 [History Confirmed 08/26/17] Trazodone HCl 50 mg PO QHS 05/05/16 [History Confirmed 08/26/17] Emollient Combination No.101 [Ceramax] 454 gm TP PRN PRN 11/29/16 [History Confirmed 08/26/17] Acetaminophen [Tylenol Extra Strength] 500 mg PO Q6H 04/23/17 [History Confirmed 08/26/17] Docusate Sodium [Colace] 100 mg PO DAILY 04/23/17 [History Confirmed 08/26/17] sodium chloride 0.65 % nasal spray aerosol 3 spray INTRANASAL Q1-4H PRN #104 ml 06/23/17 [Rx Confirmed 08/26/17] mirtazapine 30 mg tablet 30 mg PO QHS 07/09/17 [History Confirmed 08/26/17] Furosemide [Lasix] 20 mg PO DAILY 07/22/17 [History Confirmed 08/26/17] Lisinopril [Zestril] 10 mg PO DAILY 07/22/17 [History Confirmed 08/26/17] ipratropium 20 mcg-albuterol 100 mcg/actuation mist for inhalation 2 puff INHALATION DAILY #4 g 08/26/17 [Rx Confirmed 08/26/17] mometasone-formoterol HFA 200 mcg-5 mcg/actuation aerosol inhaler 2 puff INHALATION DAILY #8.8 g 08/26/17 [Rx Confirmed 08/26/17] [facility] Medical History Hypertension (Chronic) CVA (cerebral vascular accident) (Chronic) Major depression (Chronic) Paresthesia (Chronic) Hypomagnesemia (Chronic) Lichen simplex chronicus (Chronic) Anxiety (Chronic) Pulmonary nodule (Chronic) Chronic headache (Chronic) GERD (gastroesophageal reflux disease) (Chronic) Hypersomnia (Chronic) Allergic rhinitis (Chronic) Right lumbar radiculopathy (Chronic) Bilateral leg edema (Acute) Impaired fasting glucose (Acute) Peripheral neuropathy (Acute) Alcohol abuse (Chronic) JANELL (obstructive sleep apnea) (Chronic) Dyspnea on exertion (Chronic) Abnormal chest CT (Chronic) Personality disorder (Chronic) Pulmonary nodules/lesions, multiple (Chronic) Herniated cervical disc without myelopathy (Chronic) Seizure disorder (Chronic) Seizures (Acute) Asthma (Chronic) Syncope and collapse (Chronic) Dizziness (Acute) Restless legs syndrome (RLS) (Chronic) Insomnia (Chronic) Episode of syncope (Chronic) Shortness of breath (Acute) Pulmonary embolism (Chronic) Anxiety disorder (Chronic) Angioplasty/Stents to RLE (Chronic) PVD (peripheral vascular disease) (Chronic) Skull fracture (Resolved) CAD (coronary artery disease) (Ruled-out) Surgical History History of left heart catheterization (Chronic 04/14/17) ORIF Left Femur (Chronic) Hx of appendectomy (Resolved) Family History Mother Heart disease Hypertension Lung cancer Laryngeal cancer Father Lung cancer Laryngeal cancer Bipolar 1 disorder Brother Bleeding disorder Sister Asthma Breast cancer Social History Smoking Status: Never smoker second hand exposure: No alcohol intake: never substance use type: does not use caffeine: Yes Type: coffee Number of servings: 3 what type of physical activity do you participate in: walking frequency: 1-2 times per week HPI HPI Chief Complaint: 1 month check Details: LORENZA CORREA, is a 52 M who presents to the office today for follow-up of his chronic conditions. Is a past medical history as listed above. The patient states that he was recently seen by his fitness sales consultant and his furosemide, Florinef, and metoprolol was discontinued from his medication regimen. He states that since the medication adjustments, he has had no dizzy spells whatsoever and no presyncopal episodes. In regards to his PTSD, he continues to see the counseling center. Regarding his chronic back pain that radiates into his left hip and leg, he is currently seeing Dr. Nguyễn in pain management and receiving injections. He does also state that he followed up with a vocational training instructor at the [facility] in [place] who took multiple skin biopsies and is treating him with prescription creams. Regarding his seizure history, he continues to follow-up with Dr. ferrera denies any recent seizure activity. He states that he is taking has phenobarbital appropriately. He does state that he continues to follow-up with his bath mix operator as well and is however requesting a refill of his Dulera and ipratropium. He denies any worsening shortness of breath, recent steroid treatments other than his injections, or hospitalizations. He was seen in the emergency department in June after becoming dizzy in the radiology department getting his lumbar x-ray, but has had no dizziness since. ROS Const Constitutional: No chills, fatigue, fever(s), frequent falls, malaise, weakness, sleep problems or change in appetite Eyes Eyes: No blurry vision, change in vision, double vision, discharge or visual disturbances ENT ENT: No abnormal hearing, ear pain, ear pressure, tinnitus or dizziness/vertigo Resp Respiratory: No cough, shortness of breath or wheezing Cardio Cardiology: Positive for shortness of breath; no chest pain at rest, chest pain with exertion, dyspnea on exertion, generalized swelling, irregular heart rhythm, lightheadedness, orthopnea, fast heart rate or palpitations Gastro GI: No abdominal pain, change in bowel habits, constipation, diarrhea, nausea/dyspepsia or vomiting Genitourinary Male: No difficulty urinating, burning urination, painful urination, urinary incontinence, urinary frequency, urinary urgency, urinary hesitancy, urinary retention, blood in urine, Frequent nighttime urination/ nocturia, sexual problems, testicle lump or testicle pain Musc Musculoskeletal: Positive for joint pain (Left hip AND leg); no numbness or tingling Skin Skin: Positive for lesions (Specialist took biopsy); no change in skin color, itching, rash or wounds Breast Breast: No breast lump or breast pain Neuro Neurology: No frequent falls, weakness, abnormal hearing, unsteady gait/balance, dizziness, loss of vision, memory loss, numbness, tingling or visual disturbances Psych Psychiatric: No memory loss, No anxiety, No change in appetite, No depression, No Thoughts of harming yourself/Others Endo Endocrine: No fatigue, heat intolerance, increased thirst/drinking, increased hunger or increased urination Aller/Imm Allergy/Immunologic: No wheezing, itchy eyes or seasonal allergy symptoms Marco Antonio/Lymp Hematologic/Lymphatic: No easy bleeding, easy bruising or enlarged lymph nodes Exam Const General: cooperative, no acute distress Orientation: alert, awake, oriented x3 HENMT Head: atraumatic, normocephalic Ears: hearing grossly normal bilaterally Resp Effort AND Inspection: normal respiratory effort, able to speak in complete sentences Auscultation: Bilateral: Clear to Auscultation Cardio Rate: regular rate Rhythm: regular rhythm Heart Sounds: S1 normal, S2 normal GI Inspection: obesity Palpation: soft, no hepatosplenomegaly Skin Other: Multiple scabbed over open areas on bilateral upper arms Neuro General: alert, awake, oriented x3, CN's II-XI intact bilaterally Psych Appearance: grossly normal Mood: congruent mood Affect: normal affect Assessment AND Plan Problems 1. HTN (hypertension) I10 2. Chronic back pain M54.9; G89.29 3. JANELL (obstructive sleep apnea) G47.33 4. Seizure disorder G40.909 5. Dizziness R42 6. Anxiety disorder F41.9 Plan Hypertension the patient's blood pressure is somewhat elevated today in the office. Given patient's recent medication adjustments, instructed patient to keep a log of his blood pressures and to call us in 2 weeks with his blood pressure readings. Discussed lifestyle changes. Dizziness patient states that his dizziness has completely resolved since the medication adjustments. Chronic back pain patient will continue seeing pain management for this. Anxiety disorder defer to the counseling center, well controlled at this time. Seizure disorder patient to follow-up with his neurologist next month, reports compliance with his medications and denies any recent seizure activity JANELL patient to continue following up with his bath mix operator, no acute complaints at this time. Asthma deferred to pulmonology, refills given of his maintenance inhalers Dragon disclaimer Medications New: Changed: Plan Detail Follow Up 3 months or sooner if needed Coding Level of Care Code Off vis,est,level 3 Diagnoses HTN (hypertension) I10 Chronic back pain M54.9; G89.29 JANELL (obstructive sleep apnea) G47.33 Seizure disorder G40.909 Dizziness R42 Anxiety disorder F41.9 08/26/17 1110 <Electronically signed by Robert CLANCY> Date Robert CLANCY Cosigner Signature: Date (if applicable) CC: PROGRESS Observed: 08/25/2017 Status: COMPLETED Source: [place] 11:09 AM [facility] REPOSITORY O ID: [id number] Author: Christina Camarillo) Sotero Service: (none) Author Type: Physician Type: Progress Notes Filed: 08/25/2017 12:11 PM Note Text: Department of Dermatology Christina Bey MD 08/25/2017 Last visit in Dermatology: 05/05/2017 Assessment/Plan Problem List Items Addressed This Visit None Visit Diagnoses Atopic neurodermatitis - Primary Signed Prescriptions Disp Refills betamethasone dipropionate 0.05 % ointment 45 g 2 Sig: Apply 1 application to affected area once daily. COMPA: No calcipotriene (DOVONEX) 0.005 % oint 60 g 2 Sig: Apply 1 application to affected area once daily. COMPA: No ketoconazole (NIZORAL) 2 % shampoo 120 mL 6 Sig: Apply 1 application to affected area once daily as needed. For the scalp COMPA: No triamcinolone acetonide 8 mg injection (KENALOG 10) The risks of atrophy and hypopigmentation were discussed, and a total of 0.8cc of Kenalog 10 mg/cc was injected intralesionally. The patient tolerated this well. Follow-up as noted below or as needed. Christina Bey MD This note is completed at 12:10 PM on 08/25/2017 and reflects the services provided at the time of the appointment. I agree with the Chief Complaint, ROS, and Past Histories independently gathered by the clinical fire support specialist and the remaining scribed note accurately describes my personal service to the patient. E-visit Recommended Follow Up: Follow up eVisit not offered. Patient not appropriate for eVisit based on diagnosis. Chief Complaint: Patient presents with: Follow Up: sores on arms and legs have not improved. Subjective and Objective HPI: Lorenza Correa is a 52 year old male who presents for: Follow up for atopic neurodermatitis/prurigo nodulars. He reports the lesions he has had for years have remained present, but improved. He did develop one new patch to the right thigh that has been present for 3 weeks. It has been tender to touch, sometimes bleeding, and intermittently itchy. This area is described as more severe than the other areas- worse with pressure when laying on that side in bed. He has been using betamethasone and calcipotriene cream to this area as well as the other areas and he report these creams have improved his lesions and alleviated the pain and itching. He also reports using ketoconazole shampoo for his scalp- works well for him and he is requesting a refill of this medication. PAST MEDICAL HISTORY Diagnosis Date - Abdominal pain - Asthma - Coronary artery disease - Epilepsy ([facility]) Lifelong - Esophagitis, unspecified - Family history of epilepsy - GERD (gastroesophageal reflux disease) - HTN (hypertension) 08/03/2014 - AZ (myocardial infarction) ([facility]) 2008 - disorder - Seizures ([facility]) - Stroke ([facility]) - Syncope - Traumatic brain injury ([facility]) Current Outpatient Prescriptions on File Prior to Visit: azithromycin (ZITHROMAX) 250 mg tablet clonazePAM (KLONOPIN) 1 mg tablet STOOL SOFTENER 100 mg capsule fludrocortisone (FLORINEF) 0.1 mg tablet promethazine (PHENERGAN) 25 mg tablet predniSONE (DELTASONE) 20 mg tablet ketoconazole (NIZORAL) 2 % shampoo Apply 1 application to affected area once daily as needed. For the scalp calcipotriene (DOVONEX) 0.005 % oint Apply 1 application to affected area once daily. betamethasone dipropionate 0.05 % ointment Apply 1 application to affected area once daily. Benzonatate 200 mg capsule Take 200 mg by mouth once daily. doxycycline monohydrate (MONODOX) 100 mg capsule Take 100 mg by mouth once daily. NYAMYC powder SUMAtriptan (IMITREX) 100 mg tablet Take 100 mg by mouth as needed. tacrolimus (PROTOPIC) 0.1 % ointment Apply 1 application to affected area twice daily. Capsaicin (ARTHRITIS PAIN RELIEF) 0.1 % crea Apply 1 application to affected area twice daily. Use this cream to selected few itching areas as directed. gabapentin (NEURONTIN) 800 mg tablet Take 800 mg by mouth once daily. hydroxychloroquine (PLAQUENIL) 200 mg tablet Take 200 mg by mouth twice daily. COMBIVENT RESPIMAT 20-100 mcg/actuation mist levETIRAcetam ER (KEPPRA XR) 750 mg 24 hr tablet DULERA 200-5 mcg/actuation inhaler PHENobarbital 16.2 mg tablet Take 16.2 mg by mouth twice daily. XARELTO 15 mg tablet Take 15 mg by mouth once daily. rOPINIRole (REQUIP) 2 mg tablet Take 2 mg by mouth once daily. traZODone (DESYREL) 50 mg tablet oxyCODONE-acetaminophen (PERCOCET) 5-325 mg tablet Take 1- 2 tablets every 4-6 hours as needed for pain mupirocin (BACTROBAN) 2 % cream Apply 1 application to affected area twice daily. emollient combination no.101 (CERAMAX) crea Apply 1 application to affected area twice daily. triamcinolone acetonide (KENALOG) 0.1 % cream APPLY TO ITCHY AREAS ON BODY TWICE DAILY WEDNESDAY THROUGH WEDNESDAY WITH WEEKENDS OFF hydrocortisone 2.5 % cream Apply to itchy areas on face twice a day Wednesday - Wednesday and weekends off omeprazole (PRILOSEC) 20 mg capsule Take 1 capsule by mouth twice daily. hydrOXYzine HCl (ATARAX) 10 mg tablet Take 1 tablet at bedtime as needed for itching clonazePAM (KLONOPIN) 0.5 mg tablet Take 1 tablet by mouth twice daily. OLANZapine (ZYPREXA) 2.5 mg tablet Take 2.5 mg by mouth daily at bedtime. MESALAMINE (ASACOL HD ORAL) Take 800 mg by mouth twice daily as needed. divalproex DR (DEPAKOTE) 500 mg EC tablet Take 1 tablet by mouth once daily. busPIRone (BUSPAR) 15 mg tablet Take 1 tablet by mouth twice daily as needed (headache/migraine). albuterol 90 mcg/actuation Aero Inhale 2 Puffs as instructed twice daily. mesalamine (ASACOL) 400 mg EC tablet Take 1 tablet by mouth four times daily. furosemide (LASIX) 20 mg tablet levETIRAcetam XR (KEPPRA XR) 500 mg 24 hr tablet lisinopril (ZESTRIL, PRINIVIL) 10 mg tablet mirtazapine (REMERON) 30 mg tablet mupirocin (BACTROBAN) 2 % ointment predniSONE (DELTASONE) 10 mg tablet triamcinolone (KENALOG) 0.1 % lotion PREDNISONE ORAL Take by mouth. furosemide (LASIX) 40 mg tablet Take 40 mg by mouth twice daily. oxyCODONE-acetaminophen (PERCOCET) 7.5-325 mg tablet metoprolol tartrate, short acting, (LOPRESSOR) 25 mg tablet Take 25 mg by mouth once daily. metoprolol succinate XL, long acting, (TOPROL XL) 25 mg 24 hr tablet Take 25 mg by mouth once daily. levETIRAcetam 500 mg tablet Take 1 tablet by mouth twice daily. (Patient not taking: Reported on 08/25/2017 ) No current facility-administered medications on file prior to visit. ROS: General: Does the patient feel generally well? Yes Skin: Any other skin lesions of concern? No Any other ongoing rashes or itching? No Physical Exam: The patient appeared generally well. No acute distress and non-toxic. Alert and oriented. Positive findings: Scattered excoriated, lchenified papules on the bilateral upper and lower extremities. A few excoriated, inflammatory papules of the scalp. No alopecia. No scarring. The remainder of the exam was otherwise unremarkable and included: face, eyes and eyelids, lips, neck, bilateral lower extremities, bilateral upper extremities, and scalp. Procedure/Biopsy today: No. Attending signature: Christina Bey MD CNOV Observed: 08/25/2017 Status: COMPLETED Source: [place] 10:25 AM [facility] REPOSITORY Office Visit (DERMST) LORENZA CORREA ([id number]) 1965 M Date Time Provider Department 08/25/17 10:25 AM CHRISTINA BEY) DERMST During your visit today, we recorded the following information about you: Christina Bey MD 08/25/2017 12:11 PM Signed Department of Dermatology Christina Bey MD 08/25/2017 Last visit in Dermatology: 05/05/2017 Assessment/Plan Problem List Items Addressed This Visit None Visit Diagnoses Atopic neurodermatitis - Primary Signed Prescriptions Disp Refills betamethasone dipropionate 0.05 % ointment 45 g 2 Sig: Apply 1 application to affected area once daily. COMPA: No calcipotriene (DOVONEX) 0.005 % oint 60 g 2 Sig: Apply 1 application to affected area once daily. COMPA: No ketoconazole (NIZORAL) 2 % shampoo 120 mL 6 Sig: Apply 1 application to affected area once daily as needed. For the scalp COMPA: No triamcinolone acetonide 8 mg injection (KENALOG 10) The risks of atrophy and hypopigmentation were discussed, and a total of 0.8cc of Kenalog 10 mg/cc was injected intralesionally. The patient tolerated this well. Follow-up as noted below or as needed. Christina Bey MD This note is completed at 12:10 PM on 08/25/2017 and reflects the services provided at the time of the appointment. I agree with the Chief Complaint, ROS, and Past Histories independently gathered by the clinical fire support specialist and the remaining scribed note accurately describes my personal service to the patient. E-visit Recommended Follow Up: Follow up eVisit not offered. Patient not appropriate for eVisit based on diagnosis. Chief Complaint: Patient presents with: Follow Up: sores on arms and legs have not improved. Subjective and Objective HPI: Lorenza Correa is a 52 year old male who presents for: Follow up for atopic neurodermatitis/prurigo nodulars. He reports the lesions he has had for years have remained present, but improved. He did develop one new patch to the right thigh that has been present for 3 weeks. It has been tender to touch, sometimes bleeding, and intermittently itchy. This area is described as more severe than the other areas- worse with pressure when laying on that side in bed. He has been using betamethasone and calcipotriene cream to this area as well as the other areas and he report these creams have improved his lesions and alleviated the pain and itching. He also reports using ketoconazole shampoo for his scalp- works well for him and he is requesting a refill of this medication. PAST MEDICAL HISTORY Diagnosis Date - Abdominal pain - Asthma - Coronary artery disease - Epilepsy (HCC) Lifelong - Esophagitis, unspecified - Family history of epilepsy - GERD (gastroesophageal reflux disease) - HTN (hypertension) 08/03/2014 - [place] (myocardial infarction) ([facility]) 2008 - disorder - Seizures ([facility]) - Stroke ([facility]) - Syncope - Traumatic brain injury ([facility]) Current Outpatient Prescriptions on File Prior to Visit: azithromycin (ZITHROMAX) 250 mg tablet clonazePAM (KLONOPIN) 1 mg tablet STOOL SOFTENER 100 mg capsule fludrocortisone (FLORINEF) 0.1 mg tablet promethazine (PHENERGAN) 25 mg tablet predniSONE (DELTASONE) 20 mg tablet ketoconazole (NIZORAL) 2 % shampoo Apply 1 application to affected area once daily as needed. For the scalp calcipotriene (DOVONEX) 0.005 % oint Apply 1 application to affected area once daily. betamethasone dipropionate 0.05 % ointment Apply 1 application to affected area once daily. Benzonatate 200 mg capsule Take 200 mg by mouth once daily. doxycycline monohydrate (MONODOX) 100 mg capsule Take 100 mg by mouth once daily. NYAMYC powder SUMAtriptan (IMITREX) 100 mg tablet Take 100 mg by mouth as needed. tacrolimus (PROTOPIC) 0.1 % ointment Apply 1 application to affected area twice daily. Capsaicin (ARTHRITIS PAIN RELIEF) 0.1 % crea Apply 1 application to affected area twice daily. Use this cream to selected few itching areas as directed. gabapentin (NEURONTIN) 800 mg tablet Take 800 mg by mouth once daily. hydroxychloroquine (PLAQUENIL) 200 mg tablet Take 200 mg by mouth twice daily. COMBIVENT RESPIMAT 20-100 mcg/actuation mist levETIRAcetam ER (KEPPRA XR) 750 mg 24 hr tablet DULERA 200-5 mcg/actuation inhaler PHENobarbital 16.2 mg tablet Take 16.2 mg by mouth twice daily. XARELTO 15 mg tablet Take 15 mg by mouth once daily. rOPINIRole (REQUIP) 2 mg tablet Take 2 mg by mouth once daily. traZODone (DESYREL) 50 mg tablet oxyCODONE-acetaminophen (PERCOCET) 5-325 mg tablet Take 1- 2 tablets every 4-6 hours as needed for pain mupirocin (BACTROBAN) 2 % cream Apply 1 application to affected area twice daily. emollient combination no.101 (CERAMAX) crea Apply 1 application to affected area twice daily. triamcinolone acetonide (KENALOG) 0.1 % cream APPLY TO ITCHY AREAS ON BODY TWICE DAILY WEDNESDAY THROUGH WEDNESDAY WITH WEEKENDS OFF hydrocortisone 2.5 % cream Apply to itchy areas on face twice a day Wednesday - Wednesday and weekends off omeprazole (PRILOSEC) 20 mg capsule Take 1 capsule by mouth twice daily. hydrOXYzine HCl (ATARAX) 10 mg tablet Take 1 tablet at bedtime as needed for itching clonazePAM (KLONOPIN) 0.5 mg tablet Take 1 tablet by mouth twice daily. OLANZapine (ZYPREXA) 2.5 mg tablet Take 2.5 mg by mouth daily at bedtime. MESALAMINE (ASACOL HD ORAL) Take 800 mg by mouth twice daily as needed. divalproex DR (DEPAKOTE) 500 mg EC tablet Take 1 tablet by mouth once daily. busPIRone (BUSPAR) 15 mg tablet Take 1 tablet by mouth twice daily as needed (headache/migraine). albuterol 90 mcg/actuation Aero Inhale 2 Puffs as instructed twice daily. mesalamine (ASACOL) 400 mg EC tablet Take 1 tablet by mouth four times daily. furosemide (LASIX) 20 mg tablet levETIRAcetam XR (KEPPRA XR) 500 mg 24 hr tablet lisinopril (ZESTRIL, PRINIVIL) 10 mg tablet mirtazapine (REMERON) 30 mg tablet mupirocin (BACTROBAN) 2 % ointment predniSONE (DELTASONE) 10 mg tablet triamcinolone (KENALOG) 0.1 % lotion PREDNISONE ORAL Take by mouth. furosemide (LASIX) 40 mg tablet Take 40 mg by mouth twice daily. oxyCODONE-acetaminophen (PERCOCET) 7.5-325 mg tablet metoprolol tartrate, short acting, (LOPRESSOR) 25 mg tablet Take 25 mg by mouth once daily. metoprolol succinate XL, long acting, (TOPROL XL) 25 mg 24 hr tablet Take 25 mg by mouth once daily. levETIRAcetam 500 mg tablet Take 1 tablet by mouth twice daily. (Patient not taking: Reported on 08/25/2017 ) No current facility-administered medications on file prior to visit. ROS: General: Does the patient feel generally well? Yes Skin: Any other skin lesions of concern? No Any other ongoing rashes or itching? No Physical Exam: The patient appeared generally well. No acute distress and non-toxic. Alert and oriented. Positive findings: Scattered excoriated, lchenified papules on the bilateral upper and lower extremities. A few excoriated, inflammatory papules of the scalp. No alopecia. No scarring. The remainder of the exam was otherwise unremarkable and included: face, eyes and eyelids, lips, neck, bilateral lower extremities, bilateral upper extremities, and scalp. Procedure/Biopsy today: No. Attending signature: Christina Bey MD Referring Provider: CHRISTINA BEY) [[id number]] Allergies As of Date: 08/25/2017 Noted Allergy Reaction ASA (SALICYLATES) 11/23/2005 4 - Hives 7 - Swelling PENICILLINS 11/23/2005 7 - Swelling Date Reviewed: 08/25/2017 Reviewed by: Horacio Lynch LPN - Fully Assessed Reason for Visit: Follow Up [171] Cmt: sores on arms and legs have not improved. 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 For the scalpDisp: 120 mLRfl: 6 [] triamcinolone acetonide 8 mg injection (KENALOG 10)Disp: Rfl: Prescriptions as of 08/25/2017 Sig: BETAMETHASONE DIPROPIONATE 0.* Apply 1 application to affect* CALCIPOTRIENE 0.005 % TOPICAL* Apply 1 application to affect* KETOCONAZOLE 2 % SHAMPOO Apply 1 application to affect* AZITHROMYCIN 250 MG TABLET CLONAZEPAM 1 MG TABLET STOOL SOFTENER 100 MG CAPSULE FLUDROCORTISONE 0.1 MG TABLET PROMETHAZINE 25 MG TABLET PREDNISONE 20 MG TABLET BENZONATATE 200 MG CAPSULE Take 200 mg by mouth once nicholas* DOXYCYCLINE MONOHYDRATE 100 M* Take 100 mg by mouth once nicholas* NYAMYC 100,000 UNIT/GRAM TOPI* SUMATRIPTAN 100 MG TABLET Take 100 mg by mouth as neede* TACROLIMUS 0.1 % TOPICAL OINT* Apply 1 application to affect* CAPSAICIN 0.1 % TOPICAL CREAM Apply 1 application to affect* GABAPENTIN 800 MG TABLET Take 800 mg by mouth once nicholas* HYDROXYCHLOROQUINE 200 MG TAB* Take 200 mg by mouth twice da* COMBIVENT RESPIMAT 20 MCG-100* LEVETIRACETAM ER 750 MG TABLE* DULERA 200 MCG-5 MCG/ACTUATIO* PHENOBARBITAL 16.2 MG TABLET Take 16.2 mg by mouth twice d* XARELTO 15 MG TABLET Take 15 mg by mouth once delma* ROPINIROLE 2 MG TABLET Take 2 mg by mouth once daily. TRAZODONE 50 MG TABLET OXYCODONE-ACETAMINOPHEN 5 MG-* Take 1-2 tablets every 4-6 ho* MUPIROCIN 2 % TOPICAL CREAM Apply 1 application to affect* EMOLLIENT COMBINATION NO.101 * Apply 1 application to affect* TRIAMCINOLONE ACETONIDE 0.1 %* APPLY TO ITCHY AREAS ON BODY * HYDROCORTISONE 2.5 % TOPICAL * Apply to itchy areas on face * OMEPRAZOLE 20 MG CAPSULE,FIORDALIZA* Take 1 capsule by mouth twice* HYDROXYZINE HCL 10 MG TABLET Take 1 tablet at bedtime as n* CLONAZEPAM 0.5 MG TABLET Take 1 tablet by mouth twice * OLANZAPINE 2.5 MG TABLET Take 2.5 mg by mouth daily at* ASACOL HD ORAL Take 800 mg by mouth twice da* DIVALPROEX 500 MG TABLET,FIORDALIZA* Take 1 tablet by mouth once d* BUSPIRONE 15 MG TABLET Take 1 tablet by mouth twice * ALBUTEROL 90 MCG/ACTUATION AE* Inhale 2 Puffs as instructed * MESALAMINE 400 MG TABLET,FIORDALIZA* Take 1 tablet by mouth four t* FUROSEMIDE 40 MG TABLET Take 40 mg by mouth twice nicholas* METOPROLOL TARTRATE 25 MG TAB* Take 25 mg by mouth once delma* METOPROLOL SUCCINATE ER 25 MG* Take 25 mg by mouth once delma* Medication notes this encounter CLONAZEPAM 1 MG TABLET >> Horacio Lynch LPN 08/25/2017 11:14 AM >> HORACIO LYNCH LPN WedAugust 25, 2017 11:14 AM Problem List As Of Date 08/25/2017 Noted Resolved Dysphagia, unspecified [R13.10] INVALID FOR* Esophagitis, unspecified [K20.9] INVALID FOR* Acute gastritis without mention of hemorrhage [*INVALID FOR* Seizure disorder [G40.909] INVALID FOR* Anxiety [F41.9] INVALID FOR* Headache [R51] INVALID FOR* More... Chronic migraine [G43.709] INVALID FOR* Chronic daily headache [R51] INVALID FOR* Medication overuse headache [G44.40] INVALID FOR* Abdominal pain [R10.9] HTN (hypertension) [I10] INVALID FOR* Asthma [J45.909] INVALID FOR* Stroke (cerebrum) (HCC) [I63.9] INVALID FOR* Abdominal pain, unspecified site [R10.9] INVALID FOR* Syncope [R55] [place] (myocardial infarction) (HCC) [I21.9] INVALID FOR* Coronary artery disease [I25.10] Prescriptions ordered this encounter Disp Refills Start End BETAMETHASONE DIPROPIONATE 0.05 % TO* 45 g 2 08/25/2017 Route: TOPICAL Sig: Apply 1 application to affected area once daily. CALCIPOTRIENE 0.005 % TOPICAL OINTME* 60 g 2 08/25/2017 Route: TOPICAL Sig: Apply 1 application to affected area once daily. KETOCONAZOLE 2 % SHAMPOO 120 * 6 08/25/2017 Route: TOPICAL Sig: Apply 1 application to affected area once daily as needed. For the scalp TRIAMCINOLONE ACETONIDE 10 MG/ML TYLER* 08/25/2017 08/25/2017 Route: INTRALESIONA TRIAMCINOLONE ACETONIDE 10 MG/ML TYLER* 08/25/2017 08/25/2017 Route: INTRALESIONA Medications Discontinued During This Encounter betamethasone dipropionate 0.05 % oi* 45 g 2 05/05/2017 08/25/2017 Route: TOPICAL Sig: Apply 1 application to affected area once daily. Disc: Reason for discontinue is not on file. calcipotriene (DOVONEX) 0.005 % oint 60 g 2 05/05/2017 08/25/2017 Route: TOPICAL Sig: Apply 1 application to affected area once daily. Disc: Reason for discontinue is not on file. ketoconazole (NIZORAL) 2 % shampoo 120 * 6 05/05/2017 08/25/2017 Route: TOPICAL Sig: Apply 1 application to affected area once daily as needed. For the scalp Disc: Reason for discontinue is not on file. triamcinolone (KENALOG) 0.1 % lotion 03/03/2017 08/25/2017 Class: Historical Med Sig: Disc: Course of therapy completed PREDNISONE ORAL 08/25/2017 Class: Historical Med Route: ORAL Sig: Take by mouth. Disc: Course of therapy completed predniSONE (DELTASONE) 10 mg tablet 04/30/2017 08/25/2017 Class: Historical Med Sig: Disc: Course of therapy completed oxyCODONE-acetaminophen (PERCOCET) 7* 12/04/2016 08/25/2017 Class: Historical Med Sig: Disc: Course of therapy completed mupirocin (BACTROBAN) 2 % ointment 2017 08/25/2017 Class: Historical Med Sig: Disc: Course of therapy completed mirtazapine (REMERON) 30 mg tablet 05/13/2017 08/25/2017 Class: Historical Med Sig: Disc: Course of therapy completed lisinopril (ZESTRIL, PRINIVIL) 10 mg* 05/16/2017 08/25/2017 Class: Historical Med Sig: Disc: Course of therapy completed levETIRAcetam XR (KEPPRA XR) 500 mg * 05/13/2017 08/25/2017 Class: Historical Med Sig: Disc: Course of therapy completed levETIRAcetam 500 mg tablet 60 t* 0 11/30/2013 08/25/2017 Route: ORAL Sig: Take 1 tablet by mouth twice daily. Patient not taking: Reported on 08/25/2017 Disc: Course of therapy completed furosemide (LASIX) 20 mg tablet 03/17/2017 08/25/2017 Class: Historical Med Sig: Disc: Course of therapy completed triamcinolone acetonide 3 mg injecti* 08/25/2017 08/25/2017 Route: INTRALESIONAL Sig: Disc: Reason for discontinue is not on file. Disposition: Return in about 3 months (around 11/25/2017) for prurigo MD mahin USE appt. Follow-up and Disposition History Recorded Encounter Status:Closed by CHRISTINA BEY MD on 08/25/17 12 LEAD ELECTROCARDIOGRAM Observed: 07/26/2017 Status: F Source: [place] 1:16 PM [facility] REPOSITORY 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 Rate : 091 BPM Atrial Rate : 091 BPM P-R Int : 142 ms QRS Dur : 122 ms QT Int : 382 ms P-R-T Axes : 067 -39 075 degrees QTc Int : 469 ms Normal sinus rhythm Left axis deviation Nonspecific ST abnormality Abnormal ECG Confirmed by JAVIER GUTIERREZ MD ([id number]), fashion editor MILTON SANCHEZ ([id number]) on 07/26/2017 1:16:08 PM Referred By: ARMANDO Confirmed By:JAVIER GUTIERREZ MD 07/26/17 1316 Date Javier Gutierrez MD CC: MD Carlyle Linares; Jennifer Elizondo MD Signed EMERGENCY DEPARTMENT Observed: 07/22/2017 Status: F Source: [place] SUMMARY 5:01 PM [facility] REPOSITORY [facility] Medical Records Department [address] [place] [address] Emergency Department Summary 07/22/17 1122 MR#: [id number] Acct: [id number] Name: LORENZA CORREA Rep #: [id number] : 1965 52 From: Janeth Linares MD PCP: Jennifer Elizondo MD Status: DEP ER 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 radiology history of same for years History of Present Illness: The patient is a 52 M [] has a long history of chronic intermittent dizzy spells, seizure disorder, chronic back pain and leg pain related to prior injury to the back and lower leg, he was in radiology obtaining outpatient lumbar spine x-ray that procedure was done he was sitting at the side of the cot complaint the civil laboratory technician that he was dizzy so they laid him down call the code team who found him with normal vital signs awake and alert the patient had no LOC did not injure his body or strike anything as technologist were with him throughout. The patient reports he has had these spells chronically he has been extensively evaluated with prior scans blood tests other imaging tests etc. they are not related to his seizure disorder and no clear diagnosis has been established. He did not have a seizure today he assures me and nor did the technologist see any seizure activity he has no description of tongue biting or incontinence he is currently back to his baseline He has chronic back pain his doctors wanted to check the status of his lumbar spine and that is why the lumbar spine test xray was ordered Physical Examination: [] ENT exam is unremarkable no nystagmus the neck is supple the lungs are clear the heart tones are unremarkable abdomen soft nontender is moving all 4 extremities he has chronic pain to the low lumbar back and leg this is related to his chronic condition he did not injure himself anyway by his history and history of technologist who were in the room with him Test Results: [] The patient has had prior evaluation for the dizziness to include prior CT of head negative and cardiology evaluation including nuclear stress test that were negative for workup of the chronic dizziness Emergency Department Course and Treatment: []ekg sinus rhythm no injury pattern we will obtain screening labs NIH is 0 there is no signs of stroke or seizure we will will also check his Dilantin and phenobarbital levels but he states she has been taking them appropriately he has not had a seizure recently Since evaluation here including EKG x-ray labs are unremarkable preliminary review by myself of lumbar spine films show nothing acute Patient's vital signs have remained stable I had a long conversation with him these dizzy spells or chronic, indicates he is taking Dilantin and phenobarbital levels are both 0 he will take those when he gets home, in addition he will follow-up with his family doctors for further management of the chronic dizzy spells he is comfortable with discharge and this plan Treatment Plan: [] Disposition: [] STable home Impression: [] Recurrent dizzy spells etiology unclear history of chronic lumbar back pain This note was generated with [employer] dictation software. It may contain incorrect words, spelling, and punctuation that were not noted in review of the chart prior to signing ED Disposition - Plan for ED Patient: Chief Complaint: Syncope Referrals: Jennifer Elizondo MD [Primary Care Provider] - What to do if you have Problems For any increased pain, shortness of breath, bleeding, nausea or vomiting, chest pain, or any unexpected problems, contact your Primary Care Provider. Call [facility] [employer] Registry ([phone]) or report to the closest Emergency Room. Call 911 if necessary. 07/22/17 1701 <Electronically signed by Janeth Linares MD> Date Janeth Linares MD Cosigner Signature (If Indicated): Date CC: Jennifer Elizondo MD DISCHARGE INSTRUCTION Observed: 07/22/2017 Status: F Source: [place] 1:43 PM [facility] REPOSITORY [facility] Medical Records Department [address] [place] [id number] Discharge Instruction 07/22/17 1343 MR#: [id number] Acct: [id number] Name: LORENZA CORREA Rep #: [id number] : 1965 52 From: Janeth Linares MD PCP: Jennifer Elizondo MD Status: REG ER ED Disposition - Plan for ED Patient: Chief Complaint: Syncope Instructions: ED Fainting Unkn Cause Referrals: Jennifer Elizondo MD [Primary Care Provider] - What to do if you have Problems For any increased pain, shortness of breath, bleeding, nausea or vomiting, chest pain, or any unexpected problems, contact your Primary Care Provider. Call [facility] ([phone]) or report to the closest Emergency Room. Call 911 if necessary. 07/22/17 1343 <Electronically signed by Janeth Linares MD> Date Janeth Linares MD Cosigner Signature (If Indicated): Date CC: Jennifer Elizondo MD CBC W/DIFF, AUTOMATED Collected: 07/22/2017 Status: F Source: [place] 11:05 AM [facility] REPOSITORY TYPE CODE TESTS RESULT OUT OF RANGE REFERENCE UNITS LAB L100.1000 4.4-11.0 K/mm3 Normal WBC 7.5 LAB L100.1200 4.6-6.2 M/mm3 Low RBC 4.16 LAB L100.1300 13.0-16.5 g/dl Low HGB 11.2 LAB L100.1400 40-54 % Low HCT 35.0 LAB L100.1500 80-94 fL Normal MCV 84.1 LAB L100.1600 27.0-32.0 pg Low MCH 26.9 LAB L100.1700 32-36 g/gl Normal MCHC 32.0 LAB L100.1810 11.6-14.6 % Normal RDW CV 14.4 LAB L100.1820 35.1-43.9 fl Normal RDW SD 43.4 LAB L100.1900 150-450 K/mm3 Normal PLT 411 LAB L100.2000 6.2-12.0 fl Normal MPV 9.3 LAB L100.2100 47-70 % Normal NEUT% 48.6 LAB L100.2200 19-41 % Normal LY% 32.0 LAB L100.2300 0-10 % High MONO% 14.9 LAB L100.2400 0-5 % Normal EO% 3.6 LAB L100.2500 0-1 % Normal BASO% 0.8 LAB L100.2550 0.0-0.9 % Normal IM GRAN % 0.100 Result Comment: IG% - Immature Granulocytes (promyelocytes, myelocytes and metamyelocytes) > 1% indicates that a LEFT SHIFT is Present. LAB L100.2620 2.0-7.7 X10 3/uL Normal Absolute Neut 3.6 LAB L100.2720 0.83-4.51 X10 3/ul Normal Absolute Lymph 2.39 Performed By: #### L100.0100 #### [facility] [address] [place], [address] BASIC METABOLIC Collected: 07/22/2017 Status: F Source: [place]ET[place] PROFILE (BMP) 11:05 AM [facility] REPOSITORY Order Comment: 'TROP' Serial specimen #1, #2, #3, or #4: 1 TYPE CODE TESTS RESULT OUT OF RANGE REFERENCE UNITS LAB L501.0100 74-106 mg/dL High GLU 111 Result Comment: Fasting Glucose result from 100 to 125 mg/dL suggests IMPAIRED HOMEOSTASIS per A.D.A. criteria. Please note revised GLUCOSE reference range effective 2017. LAB L501.1000 7-18 mg/dL Normal BUN 18 LAB L501.1100 0.70-1.30 mg/dL Normal CREAT,SERUM 0.86 Result Comment: The validity of the calculated GFR AND GFRAA in patients over 70 years has not been determined. Clinical correlation is essential. LAB L501.1110 >60 mL/min Normal EST GFR 99 Result Comment: Non- GFR Calc LAB L501.1115 >60 mL/min Normal EST GFR - AA 120 Result Comment: GFR Calc LAB L501.1255 ml/min Normal Estimated CRCL 96.10 LAB L501.1300 10-20 RATIO High BUN/CRE 21.0 LAB L501.2200 8.5-10 mg/dL Low .1 CA 8.4 LAB L501.5300 136-14 mmol/L Normal 5 NA 142 LAB L501.5600 3.5-5. mmol/L Normal 1 K 3.6 LAB L501.5900 98-107 mmol/L Normal CL 107 LAB L501.6100 21.0-3 mmol/L Normal 2.0 CO2 28.0 LAB L501.6200 5-15 Normal GAP 7 Performed By: #### L500.2500, L501.4010 #### [facility] [address] [place], [address] TROPONIN-I Collected: 07/22/2017 Status: F Source: [place] 11:05 AM [facility] REPOSITORY Order Comment: 'TROP' Serial specimen #1, #2, #3, or #4: 1 TYPE CODE TESTS RESULT OUT OF RANGE REFERENCE UNITS LAB L501.4010 <0.06 ng/mL Normal 0.02 TROPONIN-I Result Comment: TROPONIN-I EXPECTED VALUES <0.05 NEGATIVE 0.06 - 0.59 AT RISK OF [place] > OR = 0.60 SUGGEST [place] Performed By: #### L500.2500, L501.4010 #### [facility] [address] [place], [address] BNP,B-TYPE NATRIURETIC Collected: 07/22/2017 Status: F Source: [place] PEPTIDE 11:05 AM [facility] REPOSITORY TYPE CODE TESTS RESULT OUT OF RANGE REFERENCE UNITS LAB L503.6620 0-100 pg/mL Normal B-TYPE 14.5 SUZANNA PEP Performed By: #### L503.6620 #### [facility] [address] [place], [address] PHENYTOIN (DILANTIN) Collected: 07/22/2017 Status: F Source: [place] LEVEL 11:05 AM [facility] REPOSITORY TYPE CODE TESTS RESULT OUT OF REFERENCE UNITS RANGE LAB L501.7700 10.0-20.0 mL Low PHENYTOIN < 0.4 Performed By: #### L501.7700, L501.8500 #### [facility] [address] [place], [address] PHENOBARBITAL Collected: 07/22/2017 Status: F Source: [place] 11:05 AM [facility] REPOSITORY TYPE CODE TESTS RESULT OUT OF REFERENCE UNITS RANGE LAB L501.8500 10.0-40.0 ug/mL Low PHENOBARB < 2.1 Performed By: #### L501.7700, L501.8500 #### [facility] [address] [place], [address] CHEST 1 VIEW Observed: 07/22/2017 Status: F Source: [place] (PORTABLE) 11:04 AM [facility] REPOSITORY [facility] Imaging Services [address] [place] [address] Chest 1 View (Portable) MR#: [id number] Acct: [id number] Name: LORENZA CORREA Rep #: [id number] : 1965 M 52 From: Renzo Galdamez DO PCP: Jennifer Elizondo MD Status: REG ER Study: Chest 1 View (Portable) Date of Exam: 07/22/17 Exam# [id number] Ordering Dr: Janeth Linares MD STUDY: X-RAY CHEST REASON FOR EXAM: Male, 52 years old. Syncopal episode. Hypertension. TECHNIQUE: Single AP portable view of the chest. COMPARISON: 06/17/2017 FINDINGS: Lungs are mildly hypoinflated. Lungs are clear. There is no demonstrated pleural abnormality. There is mild cardiac enlargement. Normal mediastinum and shoaib. Normal visualized pulmonary arteries. Normal visualized aortic arch and descending thoracic aorta. There are diffuse degenerative changes of the visualized thoracic spine. There is degenerative osteoarthritis of the bilateral shoulders. There is no demonstrated abnormality of the visualized soft tissue structures of the upper abdomen. RAD/Chest 1 View (Portable) IMPRESSION: Hypoinflated lungs which are clear. Electronically Signed: Renzo Galdamez DO at 11:23 EDT Tel , Service support , CC: MD Carlyle Linares; Jennifer Elizondo MD Ecdis N Navigation Operator: Signed LUMBAR SPINE 2 OR 3 Observed: 07/22/2017 Status: F Source: [place] VIEWS 10:27 AM [facility] REPOSITORY [facility] Imaging Services [address] [place] [address] Lumbar Spine 2 or 3 Views MR#: [id number] Acct: [id number] Name: LORENZA CORREA Rep #: [id number] : 1965 M 52 From: Raghu Rivas MD PCP: Jennifer Elizondo MD Status: REG CLI Study: Lumbar Spine 2 or 3 Views Date of Exam: 07/22/17 Exam# [id number] Ordering Dr: Jennifer Elizondo MD STUDY: X-RAY - LUMBAR SPINE REASON FOR EXAM: Male, 52 years old. Left-sided back pain. TECHNIQUE: 3 view(s) of the lumbar spine were obtained. COMPARISON: None FINDINGS: Normal lumbar lordosis. There is no substantial scoliosis. Bilateral pars defects of L5. 7 mm anterolisthesis of L5 on S1. Normal vertebral bodies and endplates. Moderate degenerative disc disease and loss of disc height at L5-S1. Other disks are normal. The soft tissue structures are unremarkable. RAD/Lumbar Spine 2 or 3 Views IMPRESSION: Bilateral pars defects of L5 and anterolisthesis of L5 on S1. Degenerative disc disease at L5-S1. Electronically Signed: Raghu Rivas MD at 16:52 EDT , Service support , CC: Jennifer Elizondo MD Ecdis N Navigation Operator: Signed INTERNAL MEDICINE Observed: 07/14/2017 Status: F Source: AL[place]ERTO OFFICE VISIT 1:47 PM [facility] REPOSITORY [facility] [place] [address] [place] [address] OFFICE VISIT Date of Service: 07/09/17 MR#: [id number] Acct: [id number] Name: LORENZA CORREA Rep #: [id number] : 1965 Provider: Jennifer Elizondo MD Age/Sex: 52/M Location: [facility] Status: Signed Intake Vital Signs07/09/17 Height 5 ft 8 in Intake Visit Reasons: EST CARE NEW PCP Chief Complaint: establish care Is patient in pain?: Yes (left side pain) Pain scale (1-10): 7 Allergies aspirin Allergy (Verified 06/23/17 08:46) Hives Penicillins Allergy (Verified 06/23/17 08:46) Swelling Medications Albuterol Inhaler [Ventolin Hfa (SP)] 1 puff INHALATION Q4H PRN PRN 05/05/16 [History Confirmed 06/23/17] Benzonatate 200 mg PO BID 05/05/16 [History Confirmed 06/23/17] Clonazepam [Klonopin] 1 mg PO DAILY 05/05/16 [History Confirmed 06/23/17] Hydroxychloroquine [Plaquenil] 200 mg PO DAILY 05/05/16 [History Confirmed 06/23/17] Ibuprofen [Motrin] 800 mg PO TID PRN PRN 05/05/16 [History Confirmed 06/23/17] Ipratropium/Albuterol Respimat [Combivent Respimat Inhal [place]] 2 puff INHALATION DAILY 05/05/16 [History Confirmed 06/23/17] Levetiracetam [Keppra Xr] 500 mg PO DAILY 05/05/16 [History Confirmed 06/23/17] Metoprolol Succinate 12.5 mg PO DAILY 05/05/16 [History Confirmed 06/23/17] Mometasone/Formoterol [Dulera 200 Mcg/5 Mcg Inhaler] 8.8 gm IH DAILY 05/05/16 [History Confirmed 06/23/17] Omeprazole [Prilosec] 20 mg PO BID 05/05/16 [History Confirmed 06/23/17] Phenobarbital 16.2 mg PO BID 05/05/16 [History Confirmed 06/23/17] Polyethylene Glycol 3350 [Purelax] 17 gm PO DAILY 05/05/16 [History Confirmed 06/23/17] Rivaroxaban [Xarelto] 15 mg PO DAILY 05/05/16 [History Confirmed 06/23/17] Ropinirole HCl [Requip Xl] 2 mg PO BID 05/05/16 [History Confirmed 06/23/17] Trazodone HCl 50 mg PO QHS 05/05/16 [History Confirmed 06/23/17] Emollient Combination No.101 [Ceramax] 454 gm TP PRN PRN 11/29/16 [History Confirmed 06/23/17] Fludrocortisone Acetate [Florinef] 0.1 mg PO DAILY@0800 11/29/16 [History Confirmed 06/23/17] Acetaminophen [Tylenol Extra Strength] 500 mg PO Q6H 04/23/17 [History Confirmed 06/23/17] Docusate Sodium [Colace] 100 mg PO DAILY 04/23/17 [History Confirmed 06/23/17] sodium chloride 0.65 % nasal spray aerosol 3 spray INTRANASAL Q1-4H PRN #104 ml 06/23/17 [Rx Confirmed 06/23/17] mirtazapine 30 mg tablet 30 mg PO QHS 07/09/17 [History Confirmed 07/09/17] prednisone 20 mg tablet 20 mg PO QDAY 07/09/17 [History Confirmed 07/09/17] PFSH Medical History Hypertension (Chronic) CVA (cerebral vascular accident) (Chronic) Major depression (Chronic) Paresthesia (Chronic) Hypomagnesemia (Chronic) Lichen simplex chronicus (Chronic) Anxiety (Chronic) Pulmonary nodule (Chronic) Chronic headache (Chronic) GERD (gastroesophageal reflux disease) (Chronic) Hypersomnia (Chronic) Allergic rhinitis (Chronic) Right lumbar radiculopathy (Chronic) Bilateral leg edema (Acute) Impaired fasting glucose (Acute) Peripheral neuropathy (Acute) Alcohol abuse (Chronic) JANELL (obstructive sleep apnea) (Chronic) Dyspnea on exertion (Chronic) Abnormal chest CT (Chronic) Personality disorder (Chronic) Pulmonary nodules/lesions, multiple (Chronic) Herniated cervical disc without myelopathy (Chronic) Seizure disorder (Chronic) Seizures (Acute) Asthma (Chronic) Syncope and collapse (Chronic) Dizziness (Acute) Restless legs syndrome (RLS) (Chronic) Insomnia (Chronic) Episode of syncope (Chronic) Shortness of breath (Acute) Pulmonary embolism (Chronic) Anxiety disorder (Chronic) Skull fracture (Resolved) CAD (coronary artery disease) (Ruled-out) Surgical History History of left heart catheterization (Chronic 04/14/17) ORIF Left Femur (Chronic) Hx of appendectomy (Resolved) Family History Mother Heart disease Hypertension Lung cancer Laryngeal cancer Father Lung cancer Laryngeal cancer Bipolar 1 disorder Brother Bleeding disorder Sister Asthma Breast cancer Social History Smoking Status: Never smoker second hand exposure: No alcohol intake: never substance use type: does not use caffeine: Yes Type: coffee Number of servings: 3 what type of physical activity do you participate in: walking frequency: 1-2 times per week HPI HPI Chief Complaint: establish care Details: LORENZA CORREA, is a 52yo M who presents to the office today to establish care. He has a complex and extensive PMH. He currently follows up with Dr. Berkowitz and is scheduled to follow up with Dr. Gutierrez on the 14 of July. He currently is most concerned about his back and left hip pain which has been ongoing for about a year. He is status post ORIF of his left femur after a fall. He does not currently follow up with pain management. He also reports recurrent seizures and ? Syncopal episodes which is been ongoing for several years. Patient states that no diagnosis has been main concern is his recurrent syncopal episodes. He however states that he has a diagnosis of epilepsy. He follows up with Dr. Ferrera. ROS Const Constitutional: Positive for chills and frequent falls; no weight change, body ache, fatigue, fever(s), change in appetite, snoring or weakness Eyes Eyes: No change in vision, eye pain, light sensitivity or blurry vision ENT ENT: Positive for neck pain; no abnormal hearing, ear pain, tinnitus or nasal congestion Resp Respiratory: Positive for wheezing; no snoring or shortness of breath Cardio Cardiology: No chest pain with exertion, shortness of breath, dyspnea on exertion, palpitations, orthopnea or lightheadedness Gastro GI: Positive for heartburn; no abdominal pain, change in bowel habits, constipation, vomiting, nausea/dyspepsia or cramping Musc Musculoskeletal: Positive for neck pain, joint pain, back pain, numbness and tingling (fingers and toes); no abnormal walking or limited range of motion Skin Skin: No redness, dry skin, itching, lesions, wounds or rash Neuro Neurology: Positive for frequent falls, numbness, tingling (fingers and toes) and fainting; no weakness, abnormal hearing, abnormal walking, abnormal speech or memory loss Psych Psychiatric: No change in appetite, No memory loss, Positive for anxiety, No depression, No Thoughts of harming yourself/Others Endo Endocrine: No fatigue, cold intolerance, increased thirst/drinking, heat intolerance, flushing or increased hunger Aller/Imm Allergy/Immunologic: Positive for wheezing; no itchy eyes, hives or seasonal allergy symptoms Marco Antonio/Lymp Hematologic/Lymphatic: No easy bleeding, easy bruising or enlarged lymph nodes Exam Const General: cooperative, no acute distress Orientation: alert, awake, oriented x3 HENMT Head: atraumatic, normocephalic Ears: hearing grossly normal bilaterally Resp Effort AND Inspection: normal respiratory effort, able to speak in complete sentences Auscultation: Bilateral: Clear to Auscultation Cardio Rate: regular rate Rhythm: regular rhythm Heart Sounds: S1 normal, S2 normal GI Inspection: obesity Palpation: soft, no hepatosplenomegaly Neuro General: alert, awake, oriented x3, CN's II-XI intact bilaterally Psych Appearance: grossly normal Mood: congruent mood Affect: normal affect Assessment AND Plan 1. Chronic back pain M54.9; G89.29 Plan Said to have worsened since the fall in 2015. Had been managed at the [facility]. Currently not in physical therapy or following up with a painter ordnance. X-ray of the lumbar spine ordered. Referral to pain management given. Will follow Orders Orders: Referrals: 2. Generalized hypopigmentation of skin L81.8 Plan Chronic hypopigmentation said to have been ongoing for 14 years. Patient states that he has had several biopsies done. Scheduled to follow-up with a new vocational training instructor in [place]. Will obtain records. 3. Syncope and collapse R55 Plan Patient reports several syncopal episodes. Per patient no known abnormality has been detected. Follows up with Dr. Ferrera. Also currently on fludrocortisone. Blood pressure and heart rate are within normal. Will obtain records from prior physicians. Will follow. This note was generated with [employer] dictation software. It may contain incorrect words, spelling, and punctuation that were not noted in checking the note before signing. Plan Detail Other Orders Referrals: Follow Up 1 Month Coding Level of Care Code Off vis,new,level 4 Diagnoses Chronic back pain M54.9; G89.29 Generalized hypopigmentation of skin L81.8 Syncope and collapse R55 07/14/17 1347 <Electronically signed by Jennifer Elizondo MD> Date Jennifer Salas Signature: Date (if applicable) CC: CARDIOLOGY VISIT Observed: 07/14/2017 Status: F Source: EXETER REPORT 11:57 AM [facility] REPOSITORY [facility] [address] [place] [address] OFFICE VISIT Date of Service: 07/14/17 MR#: [id number] Acct: [id number] Name: LORENZA CORREA Rep #: [id number] : 1965 Provider: Javier Gutierrez MD Age/Sex: 52/M [place] [facility]: Signed HPI HPI Chief Complaint: Initial evaluation Details: LORENZA CORREA, is a 52 M who presents to the office today for initial evaluation. He presents with a multitude of problems including chest discomfort shortness of breath presyncope and pedal edema. He has apparently had these problems for a while as well as palpitations and he has been evaluated extensively. I see that he had an echocardiogram performed in 2015 which demonstrated normal ejection fraction of 65% with no regional wall motion normalities and no significant valvular problems. There was trivial mitral regurgitation and mild tricuspid regurgitation noted. He also underwent head upright tilt table study which did not demonstrate any significant abnormality. He did not pass out or have any syncopal episodes. He also underwent a 30 day event monitor in April of this year there was no evidence of sinus node dysfunction or conduction system disease there were no atrial or ventricular ectopy is noted. He subsequently underwent a cardiac catheterization after Lexiscan stress test had been performed showing small fixed defects in the anterior inferior wall in the cardiac catheterization demonstrated complete normal left ventricular ejection fraction normal left main coronary artery normal left circumflex and right coronary artery were noted. He is noted to be on a beta-brad as well as a diuretic at this particular time. There is an unclear history for hypertension. He has had previous pulmonary embolism in the past and is on a factor Xa inhibitor. His physical exam today demonstrates clear lung snow regular rate and rhythm and no pedal edema his electrocardiograms have been evaluated and reviewed and noted to be with sinus rhythm only. Intake Vital Signs07/14/17 Height 5 ft 8 in Intake Visit Reasons: Transfer from Dr Ferraro Allergies aspirin Allergy (Verified 07/14/17 10:43) Hives Penicillins Allergy (Verified 07/14/17 10:43) Swelling Medications Albuterol Inhaler [Ventolin Hfa (SP)] 1 puff INHALATION Q4H PRN PRN 05/05/16 [History Confirmed 07/14/17] Benzonatate 200 mg PO BID 05/05/16 [History Confirmed 07/14/17] Clonazepam [Klonopin] 1 mg PO DAILY 05/05/16 [History Confirmed 07/14/17] Hydroxychloroquine [Plaquenil] 200 mg PO DAILY 05/05/16 [History Confirmed 07/14/17] Ibuprofen [Motrin] 800 mg PO TID PRN PRN 05/05/16 [History Confirmed 07/14/17] Ipratropium/Albuterol Respimat [Combivent Respimat Inhal [place]] 2 puff INHALATION DAILY 05/05/16 [History Confirmed 07/14/17] Levetiracetam [Keppra Xr] 500 mg PO DAILY 05/05/16 [History Confirmed 07/14/17] Metoprolol Succinate 12.5 mg PO DAILY 05/05/16 [History Confirmed 07/14/17] Mometasone/Formoterol [Dulera 200 Mcg/5 Mcg Inhaler] 8.8 gm IH DAILY 05/05/16 [History Confirmed 07/14/17] Omeprazole [Prilosec] 20 mg PO BID 05/05/16 [History Confirmed 07/14/17] Phenobarbital 16.2 mg PO BID 05/05/16 [History Confirmed 07/14/17] Polyethylene Glycol 3350 [Purelax] 17 gm PO DAILY 05/05/16 [History Confirmed 07/14/17] Rivaroxaban [Xarelto] 15 mg PO DAILY 05/05/16 [History Confirmed 07/14/17] Ropinirole HCl [Requip Xl] 2 mg PO BID 05/05/16 [History Confirmed 07/14/17] Trazodone HCl 50 mg PO QHS 05/05/16 [History Confirmed 07/14/17] Emollient Combination No.101 [Ceramax] 454 gm TP PRN PRN 11/29/16 [History Confirmed 07/14/17] Fludrocortisone Acetate [Florinef] 0.1 mg PO DAILY@0800 11/29/16 [History Confirmed 07/14/17] Acetaminophen [Tylenol Extra Strength] 500 mg PO Q6H 04/23/17 [History Confirmed 07/14/17] Docusate Sodium [Colace] 100 mg PO DAILY 04/23/17 [History Confirmed 07/14/17] sodium chloride 0.65 % nasal spray aerosol 3 spray INTRANASAL Q1-4H PRN #104 ml 06/23/17 [Rx Confirmed 07/14/17] mirtazapine 30 mg tablet 30 mg PO QHS 07/09/17 [History Confirmed 07/14/17] prednisone 20 mg tablet 20 mg PO QDAY 07/09/17 [History Confirmed 07/14/17] PFS Medical History Hypertension (Chronic) CVA (cerebral vascular accident) (Chronic) Major depression (Chronic) Paresthesia (Chronic) Hypomagnesemia (Chronic) Lichen simplex chronicus (Chronic) Anxiety (Chronic) Pulmonary nodule (Chronic) Chronic headache (Chronic) GERD (gastroesophageal reflux disease) (Chronic) Hypersomnia (Chronic) Allergic rhinitis (Chronic) Right lumbar radiculopathy (Chronic) Bilateral leg edema (Acute) Impaired fasting glucose (Acute) Peripheral neuropathy (Acute) Alcohol abuse (Chronic) JANELL (obstructive sleep apnea) (Chronic) Dyspnea on exertion (Chronic) Abnormal chest CT (Chronic) Personality disorder (Chronic) Pulmonary nodules/lesions, multiple (Chronic) Herniated cervical disc without myelopathy (Chronic) Seizure disorder (Chronic) Seizures (Acute) Asthma (Chronic) Syncope and collapse (Chronic) Dizziness (Acute) Restless legs syndrome (RLS) (Chronic) Insomnia (Chronic) Episode of syncope (Chronic) Shortness of breath (Acute) Pulmonary embolism (Chronic) Anxiety disorder (Chronic) Angioplasty/Stents to RLE (Chronic) PVD (peripheral vascular disease) (Chronic) Skull fracture (Resolved) CAD (coronary artery disease) (Ruled-out) Surgical History History of left heart catheterization (Chronic 04/14/17) ORIF Left Femur (Chronic) Hx of appendectomy (Resolved) Family History Mother Heart disease Hypertension Lung cancer Laryngeal cancer Father Lung cancer Laryngeal cancer Bipolar 1 disorder Brother Bleeding disorder Sister Asthma Breast cancer Social History Smoking Status: Never smoker second hand exposure: No alcohol intake: never substance use type: does not use caffeine: Yes Type: coffee Number of servings: 3 what type of physical activity do you participate in: walking frequency: 1-2 times per week ROS Const Const: Positive for fatigue; negative for weakness, difficulty sleeping, frequent falls, headache(s) or excessive sweating Eyes Eyes: Negative for loss of peripheral vision, transient loss of vision, blurry vision or double vision ENT ENT: Positive for dizziness; negative for headache(s), Nosebleed/epistaxis or balance problems Cardio Chest Pain: No Edema: None Muscle aches with walking: None Resp Respiratory: Positive for SOB with activity and SOB at rest; negative for SOB orthopnea\SOB lying down or paroxysmal nocturnal dyspnea Additional Details: Using CPAP GI GI: Negative nausea or heartburn : Negative for hematuria Musc Musc: Negative for muscle aches/ myalgia, muscle weakness, joint pain or balance problems Skin Skin: Negative non-healing lesions, unusual bruising or rash Neuro Neuro: Positive for dizziness and lightheadedness; negative for weakness, frequent falls, blurry vision, headache(s), orthostatic symptoms or double vision Marco Antonio Hematologic/Lymphatic: Negative for easy bruising Endo Endo: Positive for fatigue; negative for excessive sweating or increased thirst/drinking Psych Psych: Negative for anxiety or depression Allergy Allergy/Immunology: Negative for hives, Negative for rash Cardiology Exam Const Appearance: cooperative, healthy appearing, well developed, well groomed and no acute distress Nutritional Appearance: well nourished and average body habitus Orientation: alert, awake and oriented x3 Head Head: normal to inspection, normocephalic and atraumatic Ears: hearing grossly normal bilaterally and external ears normal Nose: external nose normal, nasal mucous membranes and turbinates normal, nares normal, septum normal, no nasal discharge Face and Sinus: face symmetric Mouth: oral mucosae normal, tongue normal, oropharynx normal and moist mucous membranes Teeth and gingiva: dentition normal Throat: posterior oropharynx normal, tonsils normal and uvula midline Eyes General: appearance normal, both eyes and all related structures Eyelids: eyelids normal Conjunctivae: conjunctivae normal Pupils: PERRL, normal by confrontation and accommodation normal EOM: EOM intact bilaterally Neck Neck: normal visual inspection, trachea midline and no JVD JVD: +5 Carotids: normal carotid upstroke and bounding pulses Chest Chest inspection: normal inspection of the chest, symmetric chest movement and normal respiratory effort Auscultation: Bilateral: Clear to Auscultation Cardio Palpation: normal PMI Rate: regular rate Rhythm: regular rhythm Heart sounds: S1 normal, S2 normal and normal, physiologic split S2; negative rub, gallop or murmur GI GI: normal to inspection, soft, no hepatosplenomegaly and bowel sounds present Neuro General: alert, awake, oriented x3, no focal sensory deficit, gait normal and moves all extremities Skin Skin: no rashes or lesions noted Extremities Pulses: Normal: Right Femoral Pulse, Left Femoral Pulse, Right Dorsalis Pedis Pulse, Left Dorsalis Pedis Pulse, Right Posterior Tibial Pulse, Left Posterior Tibial Pulse, Right Radial Pulse, Left Radial Pulse Lower Extremity Edema: None: Bilateral Musculoskel Musculoskeletal: No joint tenderness Psych Psychological: normal affect Assessment AND Plan 1. Hypertension I10 Plan It is not entirely clear to me whether he has hypertension or not. From the history as well as examine his blood pressure. He is certainly on a lot of medication including a very small dose of a beta-brad and the diuretic. My recommendation at this time is for us to discontinue his antihypertensive medications especially the metoprolol and the Lasix. I am also suggesting that we discontinue the fludrocortisone. I do not think that there are any further tests that I would like to perform at this time. He tells me that he would visit you in the next month and if you could review some of his other medications and reduce the number of medications I will be most grateful. 2. Polypharmacy Z79.899 Plan He certainly is taking lots of medications and I think we have a problem with polypharmacy here. I am recommending that we discontinue many of his medications after reviewing it if no side effects will be anticipated. I have discussed the above with him he understands and agrees to proceed. At this time I would like to wait and see him again in approximately 6 months. I spent over 30 minutes reviewing his medications and his history. Thank you for allowing me to participate in his care. Plan Detail Follow Up 6 Months (jhr) Coding Level of Care Code Off vis,new,level 4 Diagnoses Hypertension I10 Polypharmacy Z79.899 Coding Level of Care Code Off vis,new,level 4 Diagnoses Hypertension I10 Polypharmacy Z79.899 07/14/17 1157 <Electronically signed by Javier Gutierrez MD> Date Javier Gutierrez MD Cosigner Signature: Date (if applicable) CC: Jennifer Elizondo MD PULMONARY VISIT REPORT Observed: 06/23/2017 Status: F Source: EXETER 4:46 PM [facility] REPOSITORY [facility] of [address] [place] [address] OFFICE VISIT Date of Service: 06/23/17 MR#: [id number] Acct: [id number] Name: LORENZA CORREA Rep #: [id number] : 1965 Provider: Cole Berkowitz MD Age/Sex: 52/M Location: [facility] Status: Signed Assessment AND Plan 1. JANELL (obstructive sleep apnea) G47.33 Plan Patient with a history of obstructive sleep apnea and does report compliance with supplemental CPAP therapy. However, patient's on and review of compliance shows no attempts at wearing the mask of the last 30 days. This would likely account for patient's daytime hypersomnolence. Did ask patient [facility] be sure there is not any difficulty with communication. Clinical suspicion is for noncompliance. If patient is using machine and persists in being tired, this is likely secondary to medication effect and would require a review. Encourage compliance. Await results of CPAP eval Orders Orders: 2. Asthma J45.909 Plan Patient's previous pulmonary function tests would not account for the reported symptoms of dyspnea on exertion. Patient does have some lower extremity edema. Some concern for possible exertional hypoxemia. Will obtain a complete pulmonary function test and walking oximetry prior to next visit for quantification and clarification of lung function. No change in medications at this time. Continue current therapy Orders Orders: 3. Epistaxis R04.0 Plan Patient is reporting epistaxis. Patient does have multiple reasons for being on anticoagulant therapy. After review of the risks, benefits alternatives, patient has decided to continue with anticoagulation. Patient will attempt a nasal saline to see if this will help resolve his issue without cessation of anticoagulation. Previous CBC was not very impressive for significant blood loss. Initiate nasal saline. Medications New: Plan Detail Follow Up 6 Months (CSM) HPI 3 M FU: Details: Patient is a 52-year-old male, currently under the care of Dr. Hollis, who presents for evaluation secondary to dizziness and shortness of breath on exertion. Patient reports that he was recently seen in the emergency room secondary to becoming lightheaded and having an episode of syncope while at the ENT office for routine allergy shots. Patient was treated in the emergency room and discharged directly. Patient was not given any clear etiology for his event. Patient states he has been evaluated by other physicians and noted to have orthostatic hypotension. Patient reports he has been compliant with his BiPAP therapy. However, patient's compliance report reports no usage over the last 30 days. Patient believes his machine is functioning appropriately, but states that he has been wearing it every night for approximately 6-8 hours per night. Patient denies any pain at the interface site or complications such as epistaxis, dry mouth or hoarseness. Patient does report that he is significantly sedated during the day. Patient continues to report difficulties with dyspnea on exertion, pleuritic type chest pain and cough. Patient states the cough is typically nonproductive. Patient denies any diurnal variation. Patient feels this grossly unchanged compared to previous. Patient will see Dr. Gutierrez in June. Patient does state that his blood pressure can drop from time to time. Patient states that his salt and fluid intake is stable. Documentation reviewed Rapid influenza from 04/23/2017 was negative. ER summary from 04/23/2017 was reviewed. Patient was reportedly dehydrated at that time, given Phenergan and IV fluids with improvement. Patient is also had a chest x-ray completed on 122 that shows no acute infiltrates. Intake Vital Signs06/23/17 Height 5 ft 8 in 06/23/17 Weight: 106.594 kg Intake Visit Reasons: 3 M FU [facility] V[facility]: [facility] Accompanied by: Self Allergies aspirin Allergy (Verified 06/23/17 08:46) Hives Penicillins Allergy (Verified 06/23/17 08:46) Swelling Medications Albuterol Inhaler [Ventolin Hfa (SP)] 1 puff INHALATION Q4H PRN PRN 05/05/16 [History Confirmed 06/23/17] Benzonatate 200 mg PO BID 05/05/16 [History Confirmed 06/23/17] Clonazepam [Klonopin] 1 mg PO DAILY 05/05/16 [History Confirmed 06/23/17] Hydroxychloroquine [Plaquenil] 200 mg PO DAILY 05/05/16 [History Confirmed 06/23/17] Ibuprofen [Motrin] 800 mg PO TID PRN PRN 05/05/16 [History Confirmed 06/23/17] Ipratropium/Albuterol Respimat [Combivent Respimat Inhal [place]] 2 puff INHALATION DAILY 05/05/16 [History Confirmed 06/23/17] Levetiracetam [Keppra Xr] 500 mg PO DAILY 05/05/16 [History Confirmed 06/23/17] Metoprolol Succinate 12.5 mg PO DAILY 05/05/16 [History Confirmed 06/23/17] Mometasone/Formoterol [Dulera 200 Mcg/5 Mcg Inhaler] 8.8 gm IH DAILY 05/05/16 [History Confirmed 06/23/17] Omeprazole [Prilosec] 20 mg PO BID 05/05/16 [History Confirmed 06/23/17] Phenobarbital 16.2 mg PO BID 05/05/16 [History Confirmed 06/23/17] Polyethylene Glycol 3350 [Purelax] 17 gm PO DAILY 05/05/16 [History Confirmed 06/23/17] Rivaroxaban [Xarelto] 15 mg PO DAILY 05/05/16 [History Confirmed 06/23/17] Ropinirole HCl [Requip Xl] 2 mg PO BID 05/05/16 [History Confirmed 06/23/17] Trazodone HCl 50 mg PO QHS 05/05/16 [History Confirmed 06/23/17] Emollient Combination No.101 [Ceramax] 454 gm TP PRN PRN 11/29/16 [History Confirmed 06/23/17] Fludrocortisone Acetate [Florinef] 0.1 mg PO DAILY@0800 11/29/16 [History Confirmed 06/23/17] Acetaminophen [Tylenol Extra Strength] 500 mg PO Q6H 04/23/17 [History Confirmed 06/23/17] Docusate Sodium [Colace] 100 mg PO DAILY 04/23/17 [History Confirmed 06/23/17] sodium chloride 0.65 % nasal spray aerosol 3 spray INTRANASAL Q1-4H PRN #104 ml 06/23/17 [Rx Confirmed 06/23/17] PFSH Medical History CAD (coronary artery disease) (Chronic) CVA (cerebral vascular accident) (Chronic) Major depression (Chronic) Paresthesia (Chronic) Hypomagnesemia (Chronic) Lichen simplex chronicus (Chronic) Anxiety (Chronic) Pulmonary nodule (Chronic) Chronic headache (Chronic) GERD (gastroesophageal reflux disease) (Chronic) Hypersomnia (Chronic) Allergic rhinitis (Chronic) Right lumbar radiculopathy (Chronic) Bilateral leg edema (Acute) Impaired fasting glucose (Acute) Peripheral neuropathy (Acute) Alcohol abuse (Chronic) JANELL (obstructive sleep apnea) (Chronic) Dyspnea on exertion (Chronic) Abnormal chest CT (Chronic) Personality disorder (Chronic) Pulmonary nodules/lesions, multiple (Chronic) Herniated cervical disc without myelopathy (Chronic) Seizure disorder (Chronic) Seizures (Acute) Asthma (Chronic) Syncope and collapse (Acute) Dizziness (Acute) Restless legs syndrome (RLS) (Chronic) Insomnia (Chronic) Episode of syncope (Chronic) Shortness of breath (Acute) Pulmonary embolism (Chronic) Anxiety disorder (Chronic) Surgical History History of skull fracture (Resolved) History of appendectomy (Resolved) Family History Mother Heart disease Hypertension Lung cancer Laryngeal cancer Father Lung cancer Laryngeal cancer Bipolar 1 disorder Brother Bleeding disorder Sister Asthma Social History Smoking Status: Never smoker second hand exposure: No alcohol intake: never substance use type: does not use caffeine: Yes Type: coffee Number of servings: 3 what type of physical activity do you participate in: walking frequency: 1-2 times per week Review of Systems Const CONSTITUTIONAL: Positive anorexia, body ache, chills, night sweats and fatigue; negative daytime sleepiness, fever(s), oral thrush, stops breathing during sleep, weight loss, sleeping in chair, weight loss, weight gain, frequent colds, seasonal allergies, other, headache(s) or orthopnea EETM Ear Nose Throat Mouth: Positive hard of hearing, dry mouth in morning, change in vision, eye pain, nose bleed (from blowing nose), nasal congestion and sinus pressure; negative hearing normal, hoarseness, itchy eyes, swallowing Difficulty, ear pain, headache(s), mouth pain, nasal discharge, post nasal drip, sinus pain, sore throat or other Cardio Cardiovascular: Positive palpitations; negative chest pain, chest pain at rest, chest pain with activity, irregular heart rhythm, edema, shortness of breath when lying down, murmur or other Resp Respiratory: Positive as per HPI, shortness of breath shortness of breath: Positive with activity and other (and at rest), wheezing, cough cough: Positive productive color: Positive thick and yellow, increase use of rescue inhalers and apnea; negative pain with cough, chest congestion, chest tightness, pain on inspiration, inhalers, snoring or other Gastro Gastrointestional: Negative bloody stools, change in appetite, difficulty swallowing, reflux, hematemesis, melena stool, loose stool, constipation or other Genitourinary: Negative blood in urine, nocturia, pain with urination or other Musc Musculoskeletal: Positive body pain, back pain and neck pain; negative other Skin/Breast Skin/Breast: Positive dry skin; negative itching, rash, unusual bruising, breast lump or other Neuro Neurological: Positive restless legs and weakness; negative confusion or other Psych Psychocological: Positive abnormal sleep pattern; negative anxiety, thoughts of hurting self/others, hopelessness or other Lymph Lymphatic: Negative easy bleeding, easy bruising, swollen lymph nodes or other Exam Const Constitutional: Positive conversant, cooperative, in no acute respiratory distress, well nourished, good hygiene, obese, appears older than stated age and poor hygiene; negative wearing supplemental oxygen or ill appearing Head Head: Positive normocephalic and atraumatic; negative cyanosis of lips/distal nose, microcephalic, macrocephalic, frontal sinus tenderness or maxillary sinus tenderness Eyes Eye: Positive clear conjunctiva; negative nystagmus or scleral abnormality Ears Ear: Positive hard of hearing and external ears normal; negative hearing normal Nose Nose: Positive epistaxis (from blowing nose), external nose normal, septum normal and no nasal discharge; negative nasal polyp Mouth Mouth: Positive oral mucosae normal, poor dentition, posterior oropharynx is adequate and no lesions; negative post nasal drip or oral thrush present Mallampati Score: II: Mallampati Score Neck Neck: Positive normal visual inspection, thick neck, full ROM and trachea midline; negative lymphadenopathy or JVD Chest Wall Chest: Positive normal inspection of the chest; negative increased A/P diameter, symmetric chest movement, crepitus or tenderness Resp lung sounds: Positive clear to auscultation, diminished, prolonged expiratory time and normal respiratory effort; negative wheezes, rhonchi or rales Cardio Cardiac: Positive regular rate, regular rhythm, S1 normal and S2 normal; negative murmur, rub or gallop GI GI: Positive obese, normal to inspection and normal bowel sounds; negative distended or ascites Genitourinary: Positive deferred Musc Musculoskeletal: Positive steady gait and ROM normal; negative using an assistive device for ambulation, kyphosis or scoliosis Skin Pulmonary Skin Exam: Positive intact, lesion (Scattered healed scars noted throughout upper extremities) and ulcers (Punctate ulcers with excoriations of upper extremities); negative rash Pulses Pulse: Yes radial pulses present, Yes pulses normal x4 extremities Extremities Extremities: Yes capillary refill normal, No clubbing, No cyanosis, Yes edema Location: lower extremity location: Bilateral leg swelling: pitting pitting: +2 Neuro Neurologic: Yes conversant, Yes no focal neuro deficits, Yes cooperative, Yes understands questions, No tremor Lymph Lymphatic: No lymphadenopathy, No tenderness, No cervical adenopathy, No axillary adenopathy Psych Appearance: Positive grossly normal, eye contact (Poor) and disheveled Mental Status: Positive mental status grossly normal Mood: Positive paranoid Affect: Positive indifferent Coding Level of Care Code Off vis,est,level 4 Diagnoses JANELL (obstructive sleep apnea) G47.33 Asthma J45.909 Epistaxis R04.0 06/23/17 6486 <Electronically signed by Cole Berkowitz MD> Date Cole Salas Signature: Date (if applicable) CC: Robert Hollis DO 12 LEAD ELECTROCARDIOGRAM Observed: 06/22/2017 Status: F Source: ALBERTO 1:46 PM [facility] HOSPITAL REPOSITORY [facility] Cardiovascular Services [address] [place] [address] 12 Lead EKG 06/17/17 1109 MR#: [id number] Acct: [id number] Name: LORENZA CORREA Rep #: [id number] : 1965 52 From: Sky Chan MD Attending Dr: Status: DEP ER Ordering Dr: Bridget Cao DO Date: 06/17/17 Location: ED Sex: M C Admitted: Test Reason : Blood Pressure : / mmHG Vent. Rate : 089 BPM Atrial Rate : 089 BPM P-R Int : 100 ms QRS Dur : 122 ms QT Int : 374 ms P-R-T Axes : 018 -36 032 degrees QTc Int : 455 ms Sinus rhythm with short WI Left axis deviation Left ventricular hypertrophy with QRS widening Abnormal ECG Confirmed by SKY CHAN ([id number]), fashion editor MILTON SANCHEZ ([id number]) on 06/22/2017 1:45:50 PM Referred By: ANI Confirmed By:SKY CHAN 06/22/17 5750 Date Sky Chan MD CC: Robert Hollis DO; Bridget Cao DO Signed DISCHARGE INSTRUCTION Observed: 06/17/2017 Status: F Source: ALBERTO 1:49 PM [facility] HOSPITAL REPOSITORY [facility] Medical Records Department [address] [place] [address] Discharge Instruction 06/17/17 1348 MR#: [id number] Acct: [id number] Name: LORENZA CORREA Rep #: [id number] : 1965 52 From: Bridget Cao DO PCP: Robert Hollis DO Status: REG ER ED Disposition - Plan for ED Patient: Chief Complaint: Syncope Instructions: ED Fainting Unkn Cause, ED URI Viral Referrals: Robert Hollis DO [Primary Care Provider] - 3-5 Days What to do if you have Problems For any increased pain, shortness of breath, bleeding, nausea or vomiting, chest pain, or any unexpected problems, contact your Primary Care Provider. Call [facility] ([phone]) or report to the closest Emergency Room. Call 911 if necessary. 06/17/17 1349 <Electronically signed by Bridget Cao DO> Date Bridget Cao DO Cosigner Signature (If Indicated): Date CC: Robert Hollis DO EMERGENCY DEPARTMENT Observed: 06/17/2017 Status: F Source: EXETER SUMMARY 1:48 PM [facility] REPOSITORY [facility] Medical Records Department [address] [place] [address] Emergency Department Summary 06/17/17 1341 MR#: [id number] Acct: [id number] Name: LORENZA CORREA Rep #: [id number] : 1965 52 From: Bridget Cao DO PCP: Robert Hollis DO Status: REG ER - ER Visit Summary Date of Service: 06/17/17 Chief Complaint: [Syncope] History of Present Illness: The patient is a 52 M [presents to the emergency department with complaint of syncope that occurred today. Patient was going to Dr. Lucio's office to get allergy shots. Patient remembers getting out of the cab and feeling lightheaded and dizzy. Patient was able to go in and sit down and get his shot however after trying to stand he again felt dizzy and passed out for a short time. Patient was caught by 1 of the nurses therefore he did not injure himself. Patient was sent to the ER for further evaluation. Patient does state that he has been not feeling well for the last 2-3 days with cough and congestion and body aches. Patient denies recent travel or surgery. Patient does have a history of coronary artery disease and tells me that he had 4 stents placed a few months ago. Patient states that he has had some nondescript chest discomfort off-and-on for the last week. Patient is currently on Xarelto for history of PEs. Patient states that he has had multiple syncopal episodes over the last couple years he has passed out over 30 times and has had multiple admissions for this and workups.] Physical Examination: [CLIVE-RENEE, PATRIAMI. Cranial nerves II through XII grossly intact. TMs clear. Mucous membranes moist. No adenopathy. Cardiovascular-regular rate and rhythm without murmur or ectopy Lungs-clear to auscultation, chest wall stable without crepitus or subcu emphysema Abdomen-normoactive bowel sounds, soft, nontender, no rebound or rigidity, no peritoneal signs. Neuro igbi-jrzlxr-fhyr and heel sanders testing within normal limits, negative Romberg, negative for drift, fundi benign Extremities-intact 4, normal range of motion, normal pulses, atraumatic] Test Results]-orthostatic vital signs were negative. CBC with differential showed a white blood cell count of 6.8, hemoglobin 11.9, hematocrit 38, platelets 386. Chemistries unremarkable. Troponin was 0.03. EKG obtained showed sinus rhythm with rate of 89 bpm with some LVH noted. Chest x-ray was clear. CT scan of the brain without contrast showed nothing acute. Phenobarbital level was 3.0. Emergency Department Course and Treatment: [Patient was given gentle hydration in the emergency department.] Treatment Plan: [Discharged to home in stable condition and patient advised to push fluids. I suspect given some of his symptomatology of cough and runny nose as well as body aches patient may have a viral upper respiratory infection.] Disposition: [Discharged to home in stable condition]. Patient advised to follow-up with primary care physician within next 3-5 days. Patient advised to return if persistent syncopal episodes, chest pain, or condition should worsen in any way. Impression: [Syncope-etiology uncertain-recurrent URI] This note was generated with [employer] dictation software. It may contain incorrect words, spelling, and punctuation that were not noted in review of the chart prior to signing ED Disposition - Plan for ED Patient: Chief Complaint: Syncope Referrals: Robert Hollis, DO [Primary Care Provider] - What to do if you have Problems For any increased pain, shortness of breath, bleeding, nausea or vomiting, chest pain, or any unexpected problems, contact your Primary Care Provider. Call [facility] ([phone]) or report to the closest Emergency Room. Call 911 if necessary. 06/17/17 1348 <Electronically signed by Bridget Cao DO> Date Bridget Cao DO Cosigner Signature (If Indicated): Date CC: Robert Hollis DO CBC W/DIFF, AUTOMATED Collected: 06/17/2017 Status: F Source: EXETER 11:10 AM [facility] REPOSITORY TYPE CODE TESTS RESULT OUT OF RANGE REFERENCE UNITS LAB L100.1000 4.4-11.0 K/mm3 Normal WBC 6.8 LAB L100.1200 4.6-6.2 M/mm3 Low RBC 4.58 LAB L100.1300 13.0-16.5 g/dl Low HGB 11.9 LAB L100.1400 40-54 % Low HCT 38.0 LAB L100.1500 80-94 fL Normal MCV 83.0 LAB L100.1600 27.0-32.0 pg Low MCH 26.0 LAB L100.1700 32-36 g/gl Low MCHC 31.3 LAB L100.1810 11.6-14.6 % High RDW CV 14.9 LAB L100.1820 35.1-43.9 fl High RDW SD 45.3 LAB L100.1900 150-450 K/mm3 Normal PLT 386 LAB L100.2000 6.2-12.0 fl Normal MPV 8.8 LAB L100.2100 47-70 % Normal NEUT% 48.5 LAB L100.2200 19-41 % Normal LY% 34.5 LAB L100.2300 0-10 % High MONO% 13.7 LAB L100.2400 0-5 % Normal EO% 2.8 LAB L100.2500 0-1 % Normal BASO% 0.4 LAB L100.2550 0.0-0.9 % Normal IM GRAN % 0.100 Result Comment: IG% - Immature Granulocytes (promyelocytes, myelocytes and metamyelocytes) > 1% indicates that a LEFT SHIFT is Present. LAB L100.2620 2.0-7.7 X10 3/uL Normal Absolute Neut 3.3 LAB L100.2720 0.83-4.51 X10 3/ul Normal Absolute Lymph 2.34 Performed By: #### L100.0100 #### [facility] [address] [place], [address] BASIC METABOLIC Collected: 06/17/2017 Status: F Source: EXETER PROFILE (BMP) 11:10 AM [facility] REPOSITORY Order Comment: 'TROP' Serial specimen #1, #2, #3, or #4: 1 TYPE CODE TESTS RESULT OUT OF RANGE REFERENCE UNITS LAB L501.0100 74-106 mg/dL Normal GLU 104 Result Comment: Fasting Glucose result from 100 to 125 mg/dL suggests IMPAIRED HOMEOSTASIS per A.D.A. criteria. Please note revised GLUCOSE reference range effective 2017. LAB L501.1000 7-18 mg/dL Normal BUN 15 LAB L501.1100 0.70-1.30 mg/dL Normal CREAT,SERUM 0.90 Result Comment: The validity of the calculated GFR AND GFRAA in patients over 70 years has not been determined. Clinical correlation is essential. LAB L501.1110 >60 mL/min Normal EST GFR 94 Result Comment: Non- GFR Calc LAB L501.1115 >60 mL/min Normal EST GFR - AA 114 Result Comment: GFR Calc LAB L501.1255 ml/min Normal Estimated CRCL 91.83 LAB L501.1300 10-20 RATIO Normal BUN/CRE 16.7 LAB L501.2200 8.5-10 mg/dL Normal .1 CA 8.8 LAB L501.5300 136-14 mmol/L Normal 5 NA 141 LAB L501.5600 3.5-5. mmol/L Low 1 K 3.4 LAB L501.5900 98-107 mmol/L Normal CL 104 LAB L501.6100 21.0-3 mmol/L Normal 2.0 CO2 28.0 LAB L501.6200 5-15 Normal GAP 9 Performed By: #### L500.2500, L501.4010 #### [facility] [address] [place], [address] TROPONIN-I Collected: 06/17/2017 Status: F Source: EXETER 11:10 AM [facility] REPOSITORY Order Comment: 'TROP' Serial specimen #1, #2, #3, or #4: 1 TYPE CODE TESTS RESULT OUT OF RANGE REFERENCE UNITS LAB L501.4010 <0.06 ng/mL Normal 0.03 TROPONIN-I Result Comment: TROPONIN-I EXPECTED VALUES <0.05 NEGATIVE 0.06 - 0.59 AT RISK OF [place] > OR = 0.60 SUGGEST [place] Performed By: #### L500.2500, L501.4010 #### [facility] [facility]. [place], [place], [address] Observed: 06/17/2017 Status: F Source: EXETER INFLUENZA A+B (RAPID 11:10 AM [facility] Order Date: 06/17/17 Has pt arrived? Y FLU A/B Rapid Negative test results should be confirmed by culture. Order Rapid Viral Culture for Influenzae A+B ([id number]) if clinically indicated. Influenza Ag, Direct Presumptive NEGATIVE for Influenza A/B Antigen (See Note) Performed By: #### M101.0101 #### [facility] [address] [facility] [place], [place], [address] PHENOBARBITAL Collected: 06/17/2017 Status: F Source: EXETER 11:10 AM [facility] REPOSITORY TYPE CODE TESTS RESULT OUT OF REFERENCE UNITS RANGE LAB L501.8500 10.0-40.0 ug/mL Low PHENOBARB 3.0 Performed By: #### L501.8500 #### [facility] [address] [place], [address] CHEST 1 VIEW Observed: 06/17/2017 Status: F Source: ALBERTO (PORTABLE) 11:00 AM [facility] REPOSITORY [facility] Imaging Services [address] [place] [address] Chest 1 View (Portable) MR#: [id number] Acct: [id number] Name: LORENZA CORREA Rep #: [id number] : 1965 M 52 From: Francisco Javier Lockhart MD PCP: Robert Hollis DO Status: REG ER Study: Chest 1 View (Portable) Date of Exam: 06/17/17 Exam# [id number] Ordering Dr: Bridget Cao DO STUDY: X-RAY CHEST REASON FOR EXAM: Male, 52 years old. Dizziness and shortness of breath. Syncopal episodes. TECHNIQUE: AP and lateral views of the chest. COMPARISON: Comparison is made with prior study dated April 23, 2017. FINDINGS: EKG electrodes are seen. The lungs are clear and expanded. There is no demonstrated pleural abnormality. There is borderline cardiomegaly. Normal mediastinum and shoaib. Normal visualized pulmonary arteries. Normal visualized aortic arch and descending thoracic aorta. Normal visualized thoracic spine. Normal visualized ribs, clavicles, and shoulders. There is no demonstrated abnormality of the visualized soft tissue structures of the upper abdomen. RAD/Chest 1 View (Portable) IMPRESSION: Borderline cardiomegaly. The lungs are clear. Electronically Signed: Francisco Javier Lockhart MD at 11:30 EST Tel [phone], Service support , CC: Robert Hollis DO; Bridget Cao DO Ecdis N Navigation Operator: Signed BRAIN/HEAD WITHOUT Observed: 06/17/2017 Status: F Source: [place] CONTRAST 11:00 AM [facility] REPOSITORY [facility] Imaging Services [address] [place] [address] Brain/Head without Contrast MR#: [id number] Acct: [id number] Name: LORENZA CORREA Rep #: [id number] : 1965 M 52 From: Francisco Javier Lockhart MD PCP: Robert Hollis DO Status: REG ER Study: Brain/Head without Contrast Date of Exam: 06/17/17 Exam# [id number] Ordering Dr: Bridget Cao DO STUDY: CT BRAIN WITHOUT CONTRAST REASON FOR EXAM: Male, 52 years old. Syncope. Dizziness. RADIATION DOSAGE (If Supplied By Facility): CTDIvol = ( 44.99 ) mGy, DLP = ( 812.98 ) mGycm TECHNIQUE: Transaxial CT imaging of the brain was performed without administration of intravenous contrast material. Individualized dose optimization techniques were used for this CT. COMPARISON: Comparison is made with prior study dated November 29, 2016. FINDINGS: Normal soft tissue structures. Normal calvarium. Normal size ventricles and extra-axial spaces for the patient's age. Normal white matter tracts of the cerebral hemispheres. Normal basal ganglia and thalami. Normal brainstem. Normal cerebellum. There is no intracranial hemorrhage. There are no findings of an acute ischemic infarction. Normal visualized paranasal sinuses. CT/Brain/Head without Contrast IMPRESSION: Normal unenhanced CT scan of the brain. Electronically Signed: Francisco Javier Lockhart MD at 12:18 EST Tel [phone], Service support , CC: Robert Hollis DO; Bridget Cao DO Ecdis N Navigation Operator: Signed BEDSIDE GLUCOSE Collected: 06/17/2017 Status: F Source: [place] 10:51 AM [facility] REPOSITORY TYPE CODE TESTS RESULT OUT OF REFERENCE UNITS RANGE LAB L501.080 70-110 mg/dL High BEDSIDE GLU 111 Result Comment: MANAGEMENT OF PATIENT CARE PER NURSING PROTOCOL Performed By: #### L501.080 #### [facility] Point of Care [address] [place] [address] CNOV Observed: 06/01/2017 Status: COMPLETED Source: [place] 2:30 PM [facility] OTHER [facility]AMPUS REPOSITORY Office Visit (AGCARDHWG) LORENZA CORREA ([id number]) 1965 M Date Time Provider Department 06/01/17 2:30 PM TRINO JAMES AGCARDHWG During your visit today, we recorded the following information about you: Pulse Respiration Blood pressure Weight 86/minute 18/minute 128/82 106.7 kg Height 1.727 m Trino James MD, [facility] 06/01/2017 2:52 PM Signed PRIMARY CARE PHYSICIAN: Eben Miguel MD REFERRING PHYSICIAN: Robert Hollis CHIEF COMPLAINT: Patient presents with: CARD Follow Up 6 Month HISTORY OF PRESENT ILLNESS: Mr. Correa is a 52 year old male who presents today for follow up. I had seen him 6 months ago for cardiac evaluation of syncope. Patient has a h/o traumatic brain injury and seizure disorder. He has a h/o migraine and has had passing out spells. He sees a neurologist and has been referred here to exclude cardiac etiology. He has multiple episodes of syncope. He has his migrainous headache, and then all of a sudden his legs give out and he passes out. He feels lightheaded and dizzy and passes out. No palpitations. These episodes have been going on for a year and a half. Can even occur 2-3 times a day to more than a month apart. Different from his grand mal seizures. He has had orthostatic symptoms and for that he takes florinef. He continues to have LH and dizziness and migraine and a couple of episodes of syncope as well. He was also seen at [facility] last month for LH and dizziness and migraine and exertional shortness of breath. He was discharged from the ER after 6 hours. He had some X rays done Last visit had ordered an echo and an event recorder and both tests were unremarkable. Also, had asked to stop florinef as he was on metoprolol and his BP was running high and he was not orthostatic. He denies chest pain, resting shortness of breath, orthopnea, cough, edema, palpitations, PND. PAST CARDIAC HISTORY: Syncope- non cardiac HTN Hchol [place] 2008, no PCI CVA, ? has left sided numbness DVT/? PE Migraine PAST MEDICAL HISTORY Diagnosis Date - Abdominal pain - Asthma - Coronary artery disease - Epilepsy (HCC) Lifelong - Esophagitis, unspecified - Family history of epilepsy - GERD (gastroesophageal reflux disease) - HTN (hypertension) 08/03/2014 - [place] (myocardial infarction) 2008 - disorder - Seizures (HCC) - Stroke (HCC) - Syncope - Traumatic brain injury (HCC) PAST SURGICAL HISTORY Procedure Laterality Date - APPENDECTOMY age 5 - COLONOSCOP W/ OR W/O [facility] SPEC 08/09/14 Colonoscopy - COLONOSCOPY 2008 - EGD W/O OR W/BRUSH/WASH 06/05/10 EGD - EGD W/O OR W/BRUSH/WASH 04/30/2011 EGD - EGD W/O OR W/BRUSH/WASH 08/09/14 EGD - LAP, REVISION ADRIAN FUNDOPLASTY 08/05/10 - PAST SURGICAL HISTORY OF laceration repair, groin - PAST SURGICAL HISTORY OF repair of lac to head. - PAST SURGICAL HISTORY OF left hand repair of lac and tendon repair. SOCIAL HISTORY Social History Substance Use Topics - Smoking status: Never Smoker - Smokeless tobacco: Never Used - Alcohol use No FAMILY HISTORY Problem Relation Age of Onset - Cancer Mother - Emphysema Mother ALLERGIES: ALLERGIES Allergen Reactions - Asa [Salicylates] Hives, Swelling - Penicillins Swelling MEDICATIONS: azithromycin (ZITHROMAX) 250 mg tablet clonazePAM (KLONOPIN) 1 mg tablet STOOL SOFTENER 100 mg capsule fludrocortisone (FLORINEF) 0.1 mg tablet furosemide (LASIX) 20 mg tablet levETIRAcetam XR (KEPPRA XR) 500 mg 24 hr tablet lisinopril (ZESTRIL, PRINIVIL) 10 mg tablet mirtazapine (REMERON) 30 mg tablet mupirocin (BACTROBAN) 2 % ointment predniSONE (DELTASONE) 10 mg tablet promethazine (PHENERGAN) 25 mg tablet predniSONE (DELTASONE) 20 mg tablet triamcinolone (KENALOG) 0.1 % lotion PREDNISONE ORAL Take by mouth. ketoconazole (NIZORAL) 2 % shampoo Apply 1 application to affected area once daily as needed. For the scalp calcipotriene (DOVONEX) 0.005 % oint Apply 1 application to affected area once daily. betamethasone dipropionate 0.05 % ointment Apply 1 application to affected area once daily. Benzonatate 200 mg capsule Take 200 mg by mouth once daily. doxycycline monohydrate (MONODOX) 100 mg capsule Take 100 mg by mouth once daily. furosemide (LASIX) 40 mg tablet Take 40 mg by mouth twice daily. NYAMYC powder oxyCODONE-acetaminophen (PERCOCET) 7.5-325 mg tablet SUMAtriptan (IMITREX) 100 mg tablet Take 100 mg by mouth as needed. tacrolimus (PROTOPIC) 0.1 % ointment Apply 1 application to affected area twice daily. Capsaicin (ARTHRITIS PAIN RELIEF) 0.1 % crea Apply 1 application to affected area twice daily. Use this cream to selected few itching areas as directed. gabapentin (NEURONTIN) 800 mg tablet Take 800 mg by mouth once daily. hydroxychloroquine (PLAQUENIL) 200 mg tablet Take 200 mg by mouth twice daily. COMBIVENT RESPIMAT 20-100 mcg/actuation mist levETIRAcetam ER (KEPPRA XR) 750 mg 24 hr tablet metoprolol tartrate, short acting, (LOPRESSOR) 25 mg tablet Take 25 mg by mouth once daily. DULERA 200-5 mcg/actuation inhaler PHENobarbital 16.2 mg tablet Take 16.2 mg by mouth twice daily. XARELTO 15 mg tablet Take 15 mg by mouth once daily. rOPINIRole (REQUIP) 2 mg tablet Take 2 mg by mouth once daily. traZODone (DESYREL) 50 mg tablet oxyCODONE-acetaminophen (PERCOCET) 5-325 mg tablet Take 1- 2 tablets every 4-6 hours as needed for pain mupirocin (BACTROBAN) 2 % cream Apply 1 application to affected area twice daily. emollient combination no.101 (CERAMAX) crea Apply 1 application to affected area twice daily. triamcinolone acetonide (KENALOG) 0.1 % cream APPLY TO ITCHY AREAS ON BODY TWICE DAILY WEDNESDAY THROUGH WEDNESDAY WITH WEEKENDS OFF hydrocortisone 2.5 % cream Apply to itchy areas on face twice a day Wednesday - Wednesday and weekends off omeprazole (PRILOSEC) 20 mg capsule Take 1 capsule by mouth twice daily. hydrOXYzine HCl (ATARAX) 10 mg tablet Take 1 tablet at bedtime as needed for itching clonazePAM (KLONOPIN) 0.5 mg tablet Take 1 tablet by mouth twice daily. OLANZapine (ZYPREXA) 2.5 mg tablet Take 2.5 mg by mouth daily at bedtime. metoprolol succinate XL, long acting, (TOPROL XL) 25 mg 24 hr tablet Take 25 mg by mouth once daily. MESALAMINE (ASACOL HD ORAL) Take 800 mg by mouth twice daily as needed. divalproex DR (DEPAKOTE) 500 mg EC tablet Take 1 tablet by mouth once daily. levETIRAcetam 500 mg tablet Take 1 tablet by mouth twice daily. busPIRone (BUSPAR) 15 mg tablet Take 1 tablet by mouth twice daily as needed (headache/migraine). albuterol 90 mcg/actuation Aero Inhale 2 Puffs as instructed twice daily. mesalamine (ASACOL) 400 mg EC tablet Take 1 tablet by mouth four times daily. REVIEW OF SYSTEMS: GENERAL: Negative for: Weight loss or gain, Fever or Chills, Weakness and Sleep difficulties and Fatigue. HEENT: Negative for: Headache, Impaired Vision, Glasses, Hearing Impairment, Ringing in Ears, Nosebleeds, Poor dental care, Bleeding Gums, Dentures NECK: Negative for: Swelling, Pain, Stiffness RESPIRATORY: Negative for: Cough, Blood in Sputum, Shortness of breath, Wheezing, Apnea CARDIOVASCULAR: As noted in HPI GASTROINTESTINAL: Negative for: Trouble swallowing, Heartburn, Change in bowel habits, Blood in stool, Dark black stools MUSCULOSKELETAL: Negative for: Muscle or joint pain, Stiffness , Joint swelling NEUROLOGIC/PSYCHIATRIC: Positive for tremor, syncope, seizure SKIN:Positive for skin lesions HEMATOLOGICAL/LYMPHATIC: Negative for: Easy bruising , Easy bleeding ENDOCRINE: Negative for: Heat or cold intolerance, Excessive sweating, Frequent urination, Frequent thirst PHYSICAL EXAMINATION: BP 128/82 Pulse 86 Resp 18 Ht 5' 8ANDquot; (1.73m) Wt 235 lb 3.2 oz (106.7kg) SpO2 97[room air]% BMI 35.77 kg/(m2). General: Well appearing, in no acute distress. Skin: No clubbing, no cyanosis. Eyes: No conjunctival pallor or scleral icterus Oropharynx: Mucous membranes are moist Neck: No jugular venous distention, no carotid bruits, carotids have a normal upstroke, no palpable thyromegaly. Lungs: Clear to auscultation bilaterally, no wheezing or rhonchi. Heart: Regular rhythm, PMI not displaced, S1, S2 normal, no S3, no S4, no heaves, no rub and no murmur. Abdomen: Soft, nontender, bowel sounds normal, no palpable organomegaly, no bruits. Extremities: No peripheral edema . Grade 2/4 distal pulses bilaterally. Neuro: Oriented to person, place and time, alert, cooperative, uses a cane CARDIOVASCULAR MEDICINE TESTING: Electrocardiogram: 12/07/2016: NSR, left axis deviation I have personally reviewed the Electrocardiogram. Event recorder- 12/2016-01/2017: Unremarkable Normal LHC and RHC at [facility] Echo 12/2016: Final Impressions: Tricuspid Valve Structurally normal tricuspid valve with trivial tricuspid regurgitation. Mild pulmonary hypertension. Right ventricular systolic pressure is estimated at 45 mmHg. Left Atrium The left atrium appears borderline normal in size. Left atrium measures 23 cm2 by planimetry in the apical 4-chamber view. Right Atrium Borderline Normal right atrial size. The right atrium measures 23 cm2 by planimetry in the apical 4- chamber view. Left Ventricle Normal left ventricular size and systolic function. No regional wall motion abnormalities. LVEF is 56% by 4 chamber Modified Mcdaniel's Method. Stage I diastolic dysfunction: Abnormal relaxation with normal filling pressures. The pulmonary vein flow is normal. Component Latest Ref Rng ANDamp; Units 05/13/2016 05/16/2016 05/18/2016 Sodium 136 - 145 mEq/L 140 137 Potassium 3.5 - 5.1 mEq/L 3.9 4.0 Chloride 98 - 107 mEq/L 103 100 CO2 21 - 32 mEq/L 25 27 Glucose 70 - 99 mg/dL 97 93 BUN 7 - 18 mg/dL 21 (H) 22 (H) Creatinine 0.67 - 1.17 mg/dL 0.99 0.96 Calcium 8.5 - 10.1 mg/dL 9.1 9.2 Albumin 3.4 - 5.0 g/dL 2.8 (L) 3.2 (L) Protein, Total 6.4 - 8.2 g/dL 7.4 7.3 AST 9 - 37 U/L 67 (H) 17 ALT 12 - 78 U/L 139 (H) 56 Alkaline Phosphatase 46 - 116 U/L 194 (H) 156 (H) Bilirubin, Total 0.2 - 1.0 mg/dL 0.8 0.4 Anion Gap 8 - 16 16 14 WBC 4.23 - 9.07 thou/cmm 8.66 RBC 4.63 - 6.08 mil/cmm 3.30 (L) HGB 13.7 - 17.5 g/dL 9.1 (L) Hematocrit 40.1 - 51.0 % 30.5 (L) MCV 79.0 - 92.2 fl 92.4 (H) MCH 25.7 - 32.2 pg 27.6 MCHC 32.3 - 36.5 % 29.8 (L) RDW 11.6 - 14.4 % 17.8 (H) RDW-SD 35.1 - 43.9 fl 58.4 (H) Platelet Count 163 - 337 thou/cmm 791 (H) MPV 9.4 - 12.4 fl 9.1 (L) Direct Bilirubin 0.00 - 0.20 mg/dL 0.18 Cholesterol Bld 0 - 199 mg/dL 164 Triglyceride 0 - 149 mg/dL 137 HDL Cholesterol ANDgt;40 mg/dL 49 CHOL/HDL 2.1 - 7.3 3.3 LDL Calculated mg/dL 88 VLDL Cholesterol ANDlt;50 Desired mg/dL 27 LDL/HDL 1.1 - 4.8 1.8 eGFR ANDgt;60mL/min/1.73m2 ANDgt;60 ANDgt;60 CBC done at OSH in 09/2016 showed mild anemia, improved from before IMPRESSION: Mr. Correa is a 52 year old male here for cardiac follow up PLAN AND RECOMMENDATIONS: 1. Syncope, unspecified syncope type - ICD9: 780.2, ICD10: R55 (primary diagnosis) Non cardiac- negative cardiac w/u ? neurological with his underlying TBI, seizure disorder There has been a concern for orthostatic hypotension and he takes florinef for that, he is also on metoprolol. He is also on lasix 40 mg twice a day for edema. Currently he has no edema. Florinef will cause fluid retention. Recommend stopping florinef and cutting down lasix Will see him as needed 2. Coronary artery disease without angina pectoris, unspecified vessel or lesion type, unspecified whether [place] or transplanted heart - ICD9: 414.00, ICD10: I25.10 Normal cath at [place]-reviewed the report- scanned Echo shows normal LV fn Takes Xarelto for DVT, not on asa, on low dose beta brad, not on a stain 3. Essential hypertension - ICD9: 401.9, ICD10: I10 - good control - Recommended regular aerobic exercise. - Recommend home blood pressure monitoring, to bring results in on next visit - Goal of BP ANDlt;130/80 4. Mixed hyperlipidemia - ICD9: 272.2, ICD10: E78.2 Lipid panel was reasonable off stain, but given his h/o CVA, consider statin 5. Cerebrovascular accident (CVA), unspecified mechanism (HCC) - ICD9: 434.91, ICD10: I63.9 As per neuro 6. Traumatic brain injury, with LOC of 30 min or less, subsequent encounter - ICD9: V58.89, ICD10: S06.9X1D 7. Seizure (HCC) - ICD9: 780.39, ICD10: R56.9 8. JANELL on CPAP - ICD9: 327.23, V46.8, ICD10: G47.33, Z99.89 Trino James MD, [facility] Josefina Higuera LPN 06/01/2017 2:38 PM Signed is here for a six month follow up. Patient c/o occasional SOB, increased fatigue, and chest discomfort. Referring Provider: SELF [[id number]] Allergies As of Date: 06/01/2017 Noted Allergy Reaction ASA (SALICYLATES) 11/23/2005 4 - Hives 7 - Swelling PENICILLINS 11/23/2005 7 - Swelling Date Reviewed: 06/01/2017 Reviewed by: Trino James - Fully Assessed Reason for Visit: CARD Follow Up 6 Month [1231] Primary Visit Diagnosis:Syncope, unspecified syncope type [R55] Other Visit Diagnoses:Coronary artery disease without angina pectoris, unspecified vessel or lesion type, unspecified whether [place] or transplanted heart [I25.10] Essential hypertension [I10] Mixed hyperlipidemia [E78.2] Cerebrovascular accident (CVA), unspecified mechanism (HCC) [I63.9] Seizure (HCC) [R56.9] JANELL on CPAP [G47.33, Z99.89] Prescriptions as of 06/01/2017 Sig: AZITHROMYCIN 250 MG TABLET STOOL SOFTENER 100 MG CAPSULE FLUDROCORTISONE 0.1 MG TABLET PROMETHAZINE 25 MG TABLET PREDNISONE 20 MG TABLET KETOCONAZOLE 2 % SHAMPOO Apply 1 application to affect* CALCIPOTRIENE 0.005 % TOPICAL* Apply 1 application to affect* BETAMETHASONE DIPROPIONATE 0.* Apply 1 application to affect* BENZONATATE 200 MG CAPSULE Take 200 mg by mouth once nicholas* DOXYCYCLINE MONOHYDRATE 100 M* Take 100 mg by mouth once nicholas* FUROSEMIDE 40 MG TABLET Take 40 mg by mouth twice nicholas* NYAMYC 100,000 UNIT/GRAM TOPI* SUMATRIPTAN 100 MG TABLET Take 100 mg by mouth as neede* TACROLIMUS 0.1 % TOPICAL OINT* Apply 1 application to affect* CAPSAICIN 0.1 % TOPICAL CREAM Apply 1 application to affect* GABAPENTIN 800 MG TABLET Take 800 mg by mouth once nicholas* HYDROXYCHLOROQUINE 200 MG TAB* Take 200 mg by mouth twice da* COMBIVENT RESPIMAT 20 MCG-100* LEVETIRACETAM ER 750 MG TABLE* METOPROLOL TARTRATE 25 MG TAB* Take 25 mg by mouth once delma* DULERA 200 MCG-5 MCG/ACTUATIO* PHENOBARBITAL 16.2 MG TABLET Take 16.2 mg by mouth twice d* XARELTO 15 MG TABLET Take 15 mg by mouth once delma* ROPINIROLE 2 MG TABLET Take 2 mg by mouth once daily. TRAZODONE 50 MG TABLET OXYCODONE-ACETAMINOPHEN 5 MG-* Take 1-2 tablets every 4-6 ho* MUPIROCIN 2 % TOPICAL CREAM Apply 1 application to affect* EMOLLIENT COMBINATION NO.101 * Apply 1 application to affect* TRIAMCINOLONE ACETONIDE 0.1 %* APPLY TO ITCHY AREAS ON BODY * HYDROCORTISONE 2.5 % TOPICAL * Apply to itchy areas on face * OMEPRAZOLE 20 MG CAPSULE,FIORDALIZA* Take 1 capsule by mouth twice* HYDROXYZINE HCL 10 MG TABLET Take 1 tablet at bedtime as n* CLONAZEPAM 0.5 MG TABLET Take 1 tablet by mouth twice * OLANZAPINE 2.5 MG TABLET Take 2.5 mg by mouth daily at* METOPROLOL SUCCINATE ER 25 MG* Take 25 mg by mouth once delma* ASACOL HD ORAL Take 800 mg by mouth twice da* DIVALPROEX 500 MG TABLET,FIORDALIZA* Take 1 tablet by mouth once d* LEVETIRACETAM 500 MG TABLET Take 1 tablet by mouth twice * BUSPIRONE 15 MG TABLET Take 1 tablet by mouth twice * ALBUTEROL 90 MCG/ACTUATION AE* Inhale 2 Puffs as instructed * MESALAMINE 400 MG TABLET,FIORDALIZA* Take 1 tablet by mouth four t* CLONAZEPAM 1 MG TABLET FUROSEMIDE 20 MG TABLET LEVETIRACETAM ER 500 MG TABLE* LISINOPRIL 10 MG TABLET MIRTAZAPINE 30 MG TABLET MUPIROCIN 2 % TOPICAL OINTMENT PREDNISONE 10 MG TABLET TRIAMCINOLONE ACETONIDE 0.1 %* PREDNISONE ORAL Take by mouth. OXYCODONE-ACETAMINOPHEN 7.5 M* Medication notes this encounter CLONAZEPAM 1 MG TABLET >> Josefina Higuera LPN 06/01/2017 2:28 PM >> JOSEFINA HIGUERA Jun 01, 2017 2:28 PM Patient states no longer taking FUROSEMIDE 20 MG TABLET >> Josefina Higuera LPN 06/01/2017 2:29 PM >> JOSEFINA HIGUERA Jun 01, 2017 2:29 PM Patient states no longer taking LEVETIRACETAM ER 500 MG TABLET,EXTENDED RELEASE 24 HR >> Josefina Higuera LPN 06/01/2017 2:30 PM >> JOSEFINA HIGUERA Jun 01, 2017 2:30 PM Patient states no longer taking LISINOPRIL 10 MG TABLET >> Josefina Higuera LPN 06/01/2017 2:32 PM >> JOSEFINA HIGUERA Jun 01, 2017 2:32 PM Patient states no longer taking MIRTAZAPINE 30 MG TABLET >> Josefina Higuera LPN 06/01/2017 2:34 PM >> JOSEFINA HIGUERA Jun 01, 2017 2:34 PM Patient states no longer taking MUPIROCIN 2 % TOPICAL OINTMENT >> Josefina Higuera LPN 06/01/2017 2:35 PM >> JOSEFINA HIGUERA Jun 01, 2017 2:35 PM No longer using PREDNISONE 10 MG TABLET >> Josefina Higuera LPN 06/01/2017 2:36 PM >> JOSEFINA HIGUERA Jun 01, 2017 2:36 PM Patient states no longer taking TRIAMCINOLONE ACETONIDE 0.1 % LOTION >> Josefina Higuera LPN 06/01/2017 2:37 PM >> JOSEFINA HIGUERA Jun 01, 2017 2:37 PM No longer using PREDNISONE ORAL >> Josefina Higuera LPN 06/01/2017 2:36 PM >> JOSEFINA HIGUERA Jun 01, 2017 2:36 PM Patient states no longer taking OXYCODONE-ACETAMINOPHEN 7.5 MG-325 MG TABLET >> Josefina Higuera LPN 06/01/2017 2:35 PM >> JOSEFINA HIGUERA Jun 01, 2017 2:35 PM Patient states no longer taking Problem List As Of Date 06/01/2017 Noted Resolved Dysphagia, unspecified [R13.10] INVALID FOR* Esophagitis, unspecified [K20.9] INVALID FOR* Acute gastritis without mention of hemorrhage [*INVALID FOR* Seizure disorder [G40.909] INVALID FOR* Anxiety [F41.9] INVALID FOR* Headache [R51] INVALID FOR* More... Chronic migraine [G43.709] INVALID FOR* Chronic daily headache [R51] INVALID FOR* Medication overuse headache [G44.40] INVALID FOR* Abdominal pain [R10.9] HTN (hypertension) [I10] INVALID FOR* Asthma [J45.909] INVALID FOR* Stroke (cerebrum) ([facility]) [I63.9] INVALID FOR* Abdominal pain, unspecified site [R10.9] INVALID FOR* Syncope [R55] [place] (myocardial infarction) ([facility]) [I21.9] INVALID FOR* Coronary artery disease [I25.10] Visit Notes: >> Josefina Farooq Jun 01, 2017 2:37 PM Status: Signed is here for a six month follow up. Patient c/o occasional SOB, increased fatigue, and chest discomfort. Disposition: Return if symptoms worsen or fail to improve. Follow-up and Disposition History Recorded Letter Text Encounter Status:Closed by TRINO JAMES on 06/01/17 PROGRESS Observed: 06/01/2017 Status: COMPLETED Source: [place] 2:08 PM CLINIC OTHER CAMPUS REPOSITORY HNO ID: [id number] Author: Trino James Service: (none) Author Type: Physician Type: Progress Notes Filed: 06/01/2017 2:52 PM Note Text: PRIMARY CARE PHYSICIAN: Eben Miguel MD REFERRING PHYSICIAN: Robert Hollis CHIEF COMPLAINT: Patient presents with: CARD Follow Up 6 Month HISTORY OF PRESENT ILLNESS: Mr. Correa is a 52 year old male who presents today for follow up. I had seen him 6 months ago for cardiac evaluation of syncope. Patient has a h/o traumatic brain injury and seizure disorder. He has a h/o migraine and has had passing out spells. He sees a neurologist and has been referred here to exclude cardiac etiology. He has multiple episodes of syncope. He has his migrainous headache, and then all of a sudden his legs give out and he passes out. He feels lightheaded and dizzy and passes out. No palpitations. These episodes have been going on for a year and a half. Can even occur 2-3 times a day to more than a month apart. Different from his grand mal seizures. He has had orthostatic symptoms and for that he takes florinef. He continues to have LH and dizziness and migraine and a couple of episodes of syncope as well. He was also seen at [facility] last month for LH and dizziness and migraine and exertional shortness of breath. He was discharged from the ER after 6 hours. He had some X rays done Last visit had ordered an echo and an event recorder and both tests were unremarkable. Also, had asked to stop florinef as he was on metoprolol and his BP was running high and he was not orthostatic. He denies chest pain, resting shortness of breath, orthopnea, cough, edema, palpitations, PND. PAST CARDIAC HISTORY: Syncope- non cardiac HTN Hchol [place] 2008, no PCI CVA, ? has left sided numbness DVT/? PE Migraine PAST MEDICAL HISTORY Diagnosis Date - Abdominal pain - Asthma - Coronary artery disease - Epilepsy (HCC) Lifelong - Esophagitis, unspecified - Family history of epilepsy - GERD (gastroesophageal reflux disease) - HTN (hypertension) 08/03/2014 - [place] (myocardial infarction) 2008 - disorder - Seizures (HCC) - Stroke (HCC) - Syncope - Traumatic brain injury (HCC) PAST SURGICAL HISTORY Procedure Laterality Date - APPENDECTOMY age 5 - COLONOSCOP W/ OR W/O BRSH SPEC 08/09/14 Colonoscopy - COLONOSCOPY 2008 - EGD W/O OR W/BRUSH/WASH 06/05/10 EGD - EGD W/O OR W/BRUSH/WASH 04/30/2011 EGD - EGD W/O OR W/BRUSH/WASH 08/09/14 EGD - LAP, REVISION ADRIAN FUNDOPLASTY 08/05/10 - PAST SURGICAL HISTORY OF laceration repair, groin - PAST SURGICAL HISTORY OF repair of lac to head. - PAST SURGICAL HISTORY OF left hand repair of lac and tendon repair. SOCIAL HISTORY Social History Substance Use Topics - Smoking status: Never Smoker - Smokeless tobacco: Never Used - Alcohol use No FAMILY HISTORY Problem Relation Age of Onset - Cancer Mother - Emphysema Mother ALLERGIES: ALLERGIES Allergen Reactions - Asa [Salicylates] Hives, Swelling - Penicillins Swelling MEDICATIONS: azithromycin (ZITHROMAX) 250 mg tablet clonazePAM (KLONOPIN) 1 mg tablet STOOL SOFTENER 100 mg capsule fludrocortisone (FLORINEF) 0.1 mg tablet furosemide (LASIX) 20 mg tablet levETIRAcetam XR (KEPPRA XR) 500 mg 24 hr tablet lisinopril (ZESTRIL, PRINIVIL) 10 mg tablet mirtazapine (REMERON) 30 mg tablet mupirocin (BACTROBAN) 2 % ointment predniSONE (DELTASONE) 10 mg tablet promethazine (PHENERGAN) 25 mg tablet predniSONE (DELTASONE) 20 mg tablet triamcinolone (KENALOG) 0.1 % lotion PREDNISONE ORAL Take by mouth. ketoconazole (NIZORAL) 2 % shampoo Apply 1 application to affected area once daily as needed. For the scalp calcipotriene (DOVONEX) 0.005 % oint Apply 1 application to affected area once daily. betamethasone dipropionate 0.05 % ointment Apply 1 application to affected area once daily. Benzonatate 200 mg capsule Take 200 mg by mouth once daily. doxycycline monohydrate (MONODOX) 100 mg capsule Take 100 mg by mouth once daily. furosemide (LASIX) 40 mg tablet Take 40 mg by mouth twice daily. NYAMYC powder oxyCODONE-acetaminophen (PERCOCET) 7.5-325 mg tablet SUMAtriptan (IMITREX) 100 mg tablet Take 100 mg by mouth as needed. tacrolimus (PROTOPIC) 0.1 % ointment Apply 1 application to affected area twice daily. Capsaicin (ARTHRITIS PAIN RELIEF) 0.1 % crea Apply 1 application to affected area twice daily. Use this cream to selected few itching areas as directed. gabapentin (NEURONTIN) 800 mg tablet Take 800 mg by mouth once daily. hydroxychloroquine (PLAQUENIL) 200 mg tablet Take 200 mg by mouth twice daily. COMBIVENT RESPIMAT 20-100 mcg/actuation mist levETIRAcetam ER (KEPPRA XR) 750 mg 24 hr tablet metoprolol tartrate, short acting, (LOPRESSOR) 25 mg tablet Take 25 mg by mouth once daily. DULERA 200-5 mcg/actuation inhaler PHENobarbital 16.2 mg tablet Take 16.2 mg by mouth twice daily. XARELTO 15 mg tablet Take 15 mg by mouth once daily. rOPINIRole (REQUIP) 2 mg tablet Take 2 mg by mouth once daily. traZODone (DESYREL) 50 mg tablet oxyCODONE-acetaminophen (PERCOCET) 5-325 mg tablet Take 1- 2 tablets every 4-6 hours as needed for pain mupirocin (BACTROBAN) 2 % cream Apply 1 application to affected area twice daily. emollient combination no.101 (CERAMAX) crea Apply 1 application to affected area twice daily. triamcinolone acetonide (KENALOG) 0.1 % cream APPLY TO ITCHY AREAS ON BODY TWICE DAILY WEDNESDAY THROUGH WEDNESDAY WITH WEEKENDS OFF hydrocortisone 2.5 % cream Apply to itchy areas on face twice a day Wednesday - Wednesday and weekends off omeprazole (PRILOSEC) 20 mg capsule Take 1 capsule by mouth twice daily. hydrOXYzine HCl (ATARAX) 10 mg tablet Take 1 tablet at bedtime as needed for itching clonazePAM (KLONOPIN) 0.5 mg tablet Take 1 tablet by mouth twice daily. OLANZapine (ZYPREXA) 2.5 mg tablet Take 2.5 mg by mouth daily at bedtime. metoprolol succinate XL, long acting, (TOPROL XL) 25 mg 24 hr tablet Take 25 mg by mouth once daily. MESALAMINE (ASACOL HD ORAL) Take 800 mg by mouth twice daily as needed. divalproex DR (DEPAKOTE) 500 mg EC tablet Take 1 tablet by mouth once daily. levETIRAcetam 500 mg tablet Take 1 tablet by mouth twice daily. busPIRone (BUSPAR) 15 mg tablet Take 1 tablet by mouth twice daily as needed (headache/migraine). albuterol 90 mcg/actuation Aero Inhale 2 Puffs as instructed twice daily. mesalamine (ASACOL) 400 mg EC tablet Take 1 tablet by mouth four times daily. REVIEW OF SYSTEMS: GENERAL: Negative for: Weight loss or gain, Fever or Chills, Weakness and Sleep difficulties and Fatigue. HEENT: Negative for: Headache, Impaired Vision, Glasses, Hearing Impairment, Ringing in Ears, Nosebleeds, Poor dental care, Bleeding Gums, Dentures NECK: Negative for: Swelling, Pain, Stiffness RESPIRATORY: Negative for: Cough, Blood in Sputum, Shortness of breath, Wheezing, Apnea CARDIOVASCULAR: As noted in HPI GASTROINTESTINAL: Negative for: Trouble swallowing, Heartburn, Change in bowel habits, Blood in stool, Dark black stools MUSCULOSKELETAL: Negative for: Muscle or joint pain, Stiffness , Joint swelling NEUROLOGIC/PSYCHIATRIC: Positive for tremor, syncope, seizure SKIN:Positive for skin lesions HEMATOLOGICAL/LYMPHATIC: Negative for: Easy bruising , Easy bleeding ENDOCRINE: Negative for: Heat or cold intolerance, Excessive sweating, Frequent urination, Frequent thirst PHYSICAL EXAMINATION: BP 128/82 Pulse 86 Resp 18 Ht 5' 8 (1.73m) Wt 235 lb 3.2 oz (106.7kg) SpO2 97[room air]% BMI 35.77 kg/(m2). General: Well appearing, in no acute distress. Skin: No clubbing, no cyanosis. Eyes: No conjunctival pallor or scleral icterus Oropharynx: Mucous membranes are moist Neck: No jugular venous distention, no carotid bruits, carotids have a normal upstroke, no palpable thyromegaly. Lungs: Clear to auscultation bilaterally, no wheezing or rhonchi. Heart: Regular rhythm, PMI not displaced, S1, S2 normal, no S3, no S4, no heaves, no rub and no murmur. Abdomen: Soft, nontender, bowel sounds normal, no palpable organomegaly, no bruits. Extremities: No peripheral edema . Grade 2/4 distal pulses bilaterally. Neuro: Oriented to person, place and time, alert, cooperative, uses a cane CARDIOVASCULAR MEDICINE TESTING: Electrocardiogram: 12/07/2016: NSR, left axis deviation I have personally reviewed the Electrocardiogram. Event recorder- 12/2016-01/2017: Unremarkable Normal LHC and RHC at [facility] Echo 12/2016: Final Impressions: Tricuspid Valve Structurally normal tricuspid valve with trivial tricuspid regurgitation. Mild pulmonary hypertension. Right ventricular systolic pressure is estimated at 45 mmHg. Left Atrium The left atrium appears borderline normal in size. Left atrium measures 23 cm2 by planimetry in the apical 4-chamber view. Right Atrium Borderline Normal right atrial size. The right atrium measures 23 cm2 by planimetry in the apical 4-chamber view. Left Ventricle Normal left ventricular size and systolic function. No regional wall motion abnormalities. LVEF is 56% by 4 chamber Modified Mcdaniel's Method. Stage I diastolic dysfunction: Abnormal relaxation with normal filling pressures. The pulmonary vein flow is normal. Component Latest Ref Rng AND Units 05/13/2016 05/16/2016 05/18/2016 Sodium 136 - 145 mEq/L 140 137 Potassium 3.5 - 5.1 mEq/L 3.9 4.0 Chloride 98 - 107 mEq/L 103 100 CO2 21 - 32 mEq/L 25 27 Glucose 70 - 99 mg/dL 97 93 BUN 7 - 18 mg/dL 21 (H) 22 (H) Creatinine 0.67 - 1.17 mg/dL 0.99 0.96 Calcium 8.5 - 10.1 mg/dL 9.1 9.2 Albumin 3.4 - 5.0 g/dL 2.8 (L) 3.2 (L) Protein, Total 6.4 - 8.2 g/dL 7.4 7.3 AST 9 - 37 U/L 67 (H) 17 ALT 12 - 78 U/L 139 (H) 56 Alkaline Phosphatase 46 - 116 U/L 194 (H) 156 (H) Bilirubin, Total 0.2 - 1.0 mg/dL 0.8 0.4 Anion Gap 8 - 16 16 14 WBC 4.23 - 9.07 thou/cmm 8.66 RBC 4.63 - 6.08 mil/cmm 3.30 (L) HGB 13.7 - 17.5 g/dL 9.1 (L) Hematocrit 40.1 - 51.0 % 30.5 (L) MCV 79.0 - 92.2 fl 92.4 (H) MCH 25.7 - 32.2 pg 27.6 MCHC 32.3 - 36.5 % 29.8 (L) RDW 11.6 - 14.4 % 17.8 (H) RDW-SD 35.1 - 43.9 fl 58.4 (H) Platelet Count 163 - 337 thou/cmm 791 (H) MPV 9.4 - 12.4 fl 9.1 (L) Direct Bilirubin 0.00 - 0.20 mg/dL 0.18 Cholesterol Bld 0 - 199 mg/dL 164 Triglyceride 0 - 149 mg/dL 137 HDL Cholesterol >40 mg/dL 49 CHOL/HDL 2.1 - 7.3 3.3 LDL Calculated mg/dL 88 VLDL Cholesterol <50 Desired mg/dL 27 LDL/HDL 1.1 - 4.8 1.8 eGFR >60mL/min/1.73m2 >60 >60 CBC done at OSH in 09/2016 showed mild anemia, improved from before IMPRESSION: Mr. Correa is a 52 year old male here for cardiac follow up PLAN AND RECOMMENDATIONS: 1. Syncope, unspecified syncope type - ICD9: 780.2, ICD10: R55 (primary diagnosis) Non cardiac- negative cardiac w/u ? neurological with his underlying TBI, seizure disorder There has been a concern for orthostatic hypotension and he takes florinef for that, he is also on metoprolol. He is also on lasix 40 mg twice a day for edema. Currently he has no edema. Florinef will cause fluid retention. Recommend stopping florinef and cutting down lasix Will see him as needed 2. Coronary artery disease without angina pectoris, unspecified vessel or lesion type, unspecified whether [place] or transplanted heart - ICD9: 414.00, ICD10: I25.10 Normal cath at [place]-reviewed the report- scanned Echo shows normal LV fn Takes Xarelto for DVT, not on asa, on low dose beta brad, not on a stain 3. Essential hypertension - ICD9: 401.9, ICD10: I10 - good control - Recommended regular aerobic exercise. - Recommend home blood pressure monitoring, to bring results in on next visit - Goal of BP <130/80 4. Mixed hyperlipidemia - ICD9: 272.2, ICD10: E78.2 Lipid panel was reasonable off stain, but given his h/o CVA, consider statin 5. Cerebrovascular accident (CVA), unspecified mechanism (HCC) - ICD9: 434.91, ICD10: I63.9 As per neuro 6. Traumatic brain injury, with LOC of 30 min or less, subsequent encounter - ICD9: V58.89, ICD10: S06.9X1D 7. Seizure (HCC) - ICD9: 780.39, ICD10: R56.9 8. JANELL on CPAP - ICD9: 327.23, V46.8, ICD10: G47.33, Z99.89 Trino James MD, [facility] ALLERGIES ALLERGIES DATE TYPE / CODE NAME / CODE REACTION SEVERITY SOURCE 04/06/2018 Drug Penicillins/G62197 Swelling Unknown [place] Allergy/416 0476(RXNORM) [facility] 888280([facility] ED CT) Repository 04/06/2018 Drug aspirin/[id number] Hives Unknown [place] Allergy/416 (RXNORM) [facility] 583868([facility] ED CT) Repository 11/23/2005 Drug SALICYLATES HIVES [facility] Class/05844 Other [place] 1003(SNOMED Repository CT) 11/23/2005 Drug PENICILLINS SWELLING [facility] Class/89962 Other [place] 1003(SNOMED Repository CT) NG/[id number] SALICYLATES [facility] 6([facility] Repository NG/04556592 PENICILLINS [facility] 6([facility] CT) Repository ENCOUNTERS ENCOUNTERS ADMIT/DISCHARGE ACCOUNT NUMBER ADMITTING ENCOUNTER LOCATION SOURCE CLASS 04/20/2018 [id number] Ambulatory [facility] Repository 04/18/2018 [id number] Ambulatory [facility] Repository 04/06/2018/04/06/20 [id number] Emergency Alberto Alberto 18 [facility] ding:ED Repository 03/31/2018/03/31/20 [id number] Ambulatory [address] ding:PT Repository 03/30/2018 [id number] Ambulatory [facility] Repository 03/30/2018 [id number] Ambulatory [facility] Repository 03/09/2018/03/10/20 [id number] Ambulatory [address] Repository 02/04/2018 [id number] Ambulatory [facility] ding:BFHLAB Repository 01/14/2018 [id number] Ambulatory [facility] ding:LAB Repository 01/14/2018/01/15/20 [id number] Ambulatory BMSBuilding: [place]to 18 [facility] Repository 12/15/2017/12/16/19 [id number] Ambulatory BMSBuilding: [place] 18 [facility] [place] 12/10/2017 [id number] Ambulatory BMSBuilding: [place] [facility] Repository 12/09/2017 [id number] Ambulatory [facility] ding:PSN Repository 12/07/2017 [id number] Ambulatory [facility] ding:PSN Repository 12/07/2017 [id number] [facility] 12/01/2017/12/21/19 [id number] Ambulatory [address] Repository 11/08/2017/11/09/19 [id number] Ambulatory BMSBuilding: [place] 18 [facility] Repository 10/21/2017 [id number] Ambulatory BMSBuilding: [place] [facility] Repository 10/19/2017 [id number] Ambulatory [facility] ding:RAD Repository 09/28/2017/09/29/19 [id number] Ambulatory BMSBuilding: [place] 18 [facility] Repository 09/14/2017/09/15/19 [id number] Ambulatory BMSBuilding: [place] 18 [facility] Repository 09/13/2017/09/15/19 [id number] Loly Gonzalez Ambulatory [address] ding:PCURoom Repository : RPD853Uwl: 1 09/13/2017 [id number] Loly Gonzalez Ambulatory BMSBuilding: [place] BMS.[facility] Repository 09/13/2017/09/15/19 [id number] Ambulatory BMSBuilding: [place] 18 [facility] Repository 09/13/2017 [id number] Ambulatory BMSBuilding: [place] BMS.[facility] Repository 08/26/2017/08/27/19 [id number] Ambulatory BMSBuilding: [place] 18 BMS.[facility] Repository 08/25/2017/08/27/19 [id number] Ambulatory [address] Main [place] Repository 08/20/2017 [id number] Ambulatory BMSBuilding: [place] BMS.[facility] Repository 08/10/2017 [id number] Ambulatory BMSBuilding: [place] BMS.[facility] Repository 07/22/2017/07/23/19 [id number] Emergency [address] ding:ED Repository 07/22/2017 [id number] Ambulatory [facility] ding:RAD Repository 07/14/2017/07/15/19 [id number] Ambulatory BMSBuilding: [place] 18 B[facility] Repository 07/13/2017 [id number] Ambulatory BMSBuilding: [place] BMS.[facility] Repository 07/09/2017/07/10/19 [id number] Ambulatory BMSBuilding: [place] 18 [facility] Repository 06/29/2017 [id number] [facility] ng:H.SD 06/23/2017/06/23/19 [id number] Ambulatory BMSBuilding: [place] 18 [facility] [place] 06/17/2017/06/17/19 [id number] Emergency [address] ding:ED Repository 06/01/2017/06/01/19 [id number] Ambulatory [address] Other [place] Repository 06/01/2017/06/01/19 [id number] Ambulatory [address] MEDICAL Repository CENTERBuildi ng:AGCARDHWG PAYERS PAYERS ENCOUNTER GUARANTOR PAYER SUBSCRIBER SOURCE 04/20/2018 LORENZA MILLERB: Primary LORENZA MILLERB: Brick N Insurance:[facility] [id number] [facility] Number: [place], [place] [id number] [place], [place] [address]Fdz: (330) Date:Plan 87673Kfa: (HP) Name:Health [phone] () [address] [place] [address] [id number]: 04/18/2018 LORENZA MILLERB: Primary LORENZA MILLERB: Brick N Insurance:[facility] [id number] [place] [address] Number: [place], [place] [id number] [place], [place] [address]Nin: (330) Date:Plan 46840Kfu: (HP) Name:Health [phone] () [address] [place] [address] [id number]: 04/06/2018 LORENZA W Primary LORENZA W Alberto [id number] N Insurance:CARESOURCEP ROGERSDOB: [facility] Number: [id number] [place], [place] [id number] Repository [address]Fyl: (330) Date:2018-04-06 O [phone] () [address]ATTN: [place] [address]NV: 04/06/2018 Secondary NOT GIVENUNK [place] Insurance:SELF PAY [facility] Number: Effective Repository Date:2018-04-06 03/31/2018 LORENZA W Primary LORENZA W [place] [id number] N Insurance:CARESOURCEP ROGERSDOB: [facility] Number: [id number] [place], [place] [id number] Repository [address]Pbi: (330) Date:2012-10-24 O [phone] () [address]ATTN: [place] [address]AY: 03/31/2018 Secondary NOT GIVENUNK [place] Insurance:SELF PAY [facility]: Effective Repository Date:2017-12-07 03/30/2018 LORENZA ANGELAB: Primary LORENZA ROGERSDOB: Brick N Insurance:[employer] [id number] [facility] Number: [place], [place] [id number] RoadWOOST[place], [place] [address]Hkw: (330) Date:Plan 27898Zsr: (HP) Name:HealthP [phone] () [address] [place] [address] [id number]: 03/30/2018 LORENZA ROGERSDOB: Primary LORENZA ROGERSDOB: Brick N [facility] [id number] [facility] Number: [place], [place] [id number] [place], [place] [address]Asy: (330) Date:Plan 514[address]Fft: (HP) Name:HealthP [phone] () [address] [place] [address] [id number]: 02/04/2018 LORENZA W Primary LORENZA W [place] [id number] N Insurance:CARESOURCEP ROGERSDOB: [facility] Number: [id number] [place], [place] [id number] Repository [address]Zia: (330) Date:2018-02-04 O [phone] (HP) [address]ATTN: [place] [address]EO: 02/04/2018 Secondary NOT GIVENUNK [place] Insurance:SELF PAY [facility] Number: Effective Repository Date:2018-02-04 01/14/2018 LORENZA Negron Primary LORENZA Negron [place] [id number] N Insurance:CARESOURCEP ROGERSDOB: [facility] Number: [id number] Springs, [place] [id number] Repository [address]Gik: (330) Date:2018-01-14P O [phone] () [address]ATTN: [place] [address]XP: 01/14/2018 Secondary NOT GIVENUNK [place] Insurance:SELF PAY [facility] Number: Effective Repository Date:2018-01-14 01/14/2018 LORENZA Negron Primary LORENZA Negron [place] [id number] N Insurance:CARESOURCEP ROGERSDOB: [facility] Number: [id number] Springs, [place] [id number] Repository [address]Umt: (330) Date:2017-07-14P O [phone] () [address]ATTN: [place] [address]NF: 01/14/2018 Secondary NOT GIVENUNK Alber[place] Insurance:SELF PAY [facility] Number: Effective Repository Date:2018-01-14 12/15/2017 LORENZA Negron Primary LORENZA Negron Alberto [id number] N Insurance:CARESOURCEP ROGERSDOB: [facility] Number: [id number] [place], [place] [id number] Repository [address]Sxn: (330) Date:2017-06-23P O [phone] () [address]ATTN: [place] [address]AE: 12/15/2017 Secondary NOT GIVENUNK Alber[place] Insurance:SELF PAY [facility] Number: Effective Repository Date:2017-12-07 12/10/2017 LORENZA Negron Primary LORENZA Negron [place] [id number] N Insurance:CARESOURCEP ROGERSDOB: [facility] Number: [id number] [place], [place] [id number] Repository [address]Nrj: (330) Date:2017-06-23P O [phone] () [address]ATTN: [place] [address]AR: 12/10/2017 Secondary NOT GIVENUNK Alber[place] Insurance:SELF PAY [facility] Number: Effective Repository Date:2017-12-10 12/09/2017 LORENZA Negron Primary LORENZA Negron Alberto [id number] N Insurance:CARESOURCEP ROGERSDOB: [facility] Number: [id number] Springs, [place] [id number] Repository [address]Hsj: (330) Date:2017-06-23P O [phone] () [address]ATTN: [place] [address]RL: 12/09/2017 Secondary NOT GIVENUNK [place] Insurance:SELF PAY [facility] Number: Effective Repository Date:2017-06-23 12/07/2017 LORENZA Negron Primary LORENZA Negron [place] [id number] N Insurance:CARESOURCEP ROGERSDOB: [facility] Number: [id number] Springs, [place] [id number] Repository [address]Sam: (330) Date:2017-06-23P O [phone] () [address]ATTN: [place] [address]LR: 12/07/2017 Secondary NOT GIVENUNK Alber[place] Insurance:SELF PAY [facility] Number: Effective Repository Date:2017-06-23 12/07/2017 LORENZA Negron Primary LORENZA Negron [place] [id number] N Insurance:CARESOURCEP ROGERSDOB: [facility] Number: [id number] Springs, [place] [id number] Repository [address]Vnq: (330) Date:2017-06-23P O [phone] () [address]ATTN: [place] [address]ZZ: 12/07/2017 Secondary NOT GIVENUNK Alber[place] Insurance:SELF PAY [facility] Number: Effective Repository Date:2017-12-07 11/08/2017 LORENZA Negron Primary LORENZA Negron [place] [id number] N Insurance:CARESOURCEP ROGERSDOB: [facility] Number: [id number] [place], [place] [id number] Repository [address]Omn: (330) Date:2017-10-07P O [phone] () [address]ATTN: [place] [address]QE: 11/08/2017 Secondary NOT GIVENUNK Alber[place] Insurance:SELF PAY [facility] Number: Effective Repository Date:2017-11-03 10/21/2017 LORENZA Negron Primary LORENZA W Alber[place] [id number] N Insurance:CARESOURCEP ROGERSDOB: [facility] Number: [id number] Springs, [place] [id number] Repository [address]Uru: (330) Date:2017-10-21P O [phone] () [address]ATTN: [place] [address]IQ: 10/21/2017 Secondary NOT GIVENUNK Alber[place] Insurance:SELF PAY [facility] Number: Effective Repository Date:2017-10-21 10/19/2017 LORENZA Negron Primary LORENZA Negron Alberto [id number] N Insurance:CARESOURCEP ROGERSDOB: [facility] Number: [id number] Springs, [place] [id number] Repository [address]Uwo: (330) Date:2017-10-19P O [phone] () [address]ATTN: [place] [address]AS: 10/19/2017 Secondary NOT GIVENUNK [place] Insurance:SELF PAY [facility] Number: Effective Repository Date:2017-10-19 09/28/2017 LORENZA Negron Primary LORENZA Negron Alberto [id number] N Insurance:CARESOURCEP ROGERSDOB: [facility] Number: [id number] Springs, [place] [id number] Repository [address]Ehg: Date:2017-10-07P O [phone] [address]ATTN: CLAIMS -2 (HP) [place] [address]PK: 09/28/2017 Secondary NOT GIVENUNK [place] Insurance:SELF PAY [facility] Number: Effective Repository Date:2017-10-07 09/14/2017 LORENZA Negron Primary LORENZA Negron Alberto [id number] N Insurance:CARESOURCEP ROGERSDOB: [facility] Number: [id number] Springs, [place] [id number] Repository [address]Mhv: (330) Date:2017-09-13P O [phone] (HP) [address]ATTN: [place] [address]AS: 09/14/2017 Secondary NOT GIVENUNK Alber[place] Insurance:SELF PAY [facility] Number: Effective Repository Date:2017-09-14 09/13/2017 LORENZA Negron Primary LORENZA Negron Alberto [id number] N Insurance:CARESOURCEP ROGERSDOB: [facility] Number: [id number] [place], [place] [id number] Repository [address]Cgu: Date:2017-09-13P O [phone] [address]ATTN: CLAIMS -2 (HP) [place] [address]PY: 09/13/2017 Secondary NOT GIVENUNK Alber[place] Insurance:SELF PAY [facility] Number: Effective Repository Date:2017-09-13 09/13/2017 LORENZA Negron Primary LORENZA Negron [place] [id number] N Insurance:CARESOURCEP ROGERSDOB: [facility] Number: [id number] [place], [place] [id number] Repository [address]Hkr: Date:2017-09-13P O [phone]~330 [address]ATTN: CLAIMS -2 (HP) [place] [address]WL: 09/13/2017 Secondary NOT GIVENUNK [place] Insurance:SELF PAY [facility] Number: Effective Repository Date:2017-09-13 09/13/2017 LORENZA Negron Primary LORENZA Negron Alberto [id number] N Insurance:CARESOURCEP ROGERSDOB: [facility] Number: [id number] Springs, [place] [id number] Repository [address]Igl: (330) Date:2017-09-13P O [phone] () [address]ATTN: [place] [address]JO: 09/13/2017 Secondary NOT GIVENUNK [place] Insurance:SELF PAY [facility] Number: Effective Repository Date:2017-09-13 09/13/2017 LORENZA Negron Primary LORENZA Negron [place] [id number] N Insurance:CARESOURCEP ROGERSDOB: [facility] Number: [id number] [place], [place] [id number] Repository [address]Ksg: Date:2017-09-13P O [phone] [address]ATTN: CLAIMS -2 (HP) [place] [address]AL: 09/13/2017 Secondary NOT GIVENUNK [place] Insurance:SELF PAY [facility] Number: Effective Repository Date:2017-09-13 08/26/2017 LORENZA Negron Primary LORENZA Negron Alberto [id number] N Insurance:CARESOURCEP ROGERSDOB: [facility] Number: [id number] [place], [place] [id number] Repository [address]Itk: Date:2017-08-20P O [phone] [address]ATTN: CLAIMS -2 (HP) [place] [address]HV: 08/26/2017 Secondary NOT GIVENUNK [place] Insurance:SELF PAY [facility] Number: Effective Repository Date:2017-08-26 08/20/2017 LORENZA Negron Primary LORENZA Negron Alber[place] [id number] N Insurance:CARESOURCEP ROGERSDOB: [facility] Number: [id number] [place], [place] [id number] Repository [address]Vhz: Date:2017-07-09P O [phone] [address]ATTN: CLAIMS -2 (HP) [place] [address]JZ: 08/20/2017 Secondary NOT GIVENUNK [place] Insurance:SELF PAY [facility] Number: Effective Repository Date:2017-07-09 08/10/2017 LORENZA Negron Primary LORENZA Negron Alberto [id number] N Insurance:CARESOURCEP ROGERSDOB: [facility] Number: [id number] [place], [place] [id number] Repository [address]Nhf: Date:2017-07-22P O [phone] [address]ATTN: CLAIMS -2 (HP) [place] [address]VE: 08/10/2017 Secondary NOT GIVENUNK [place] Insurance:SELF PAY [facility] Number: Effective Repository Date:2017-07-23 07/22/2017 LORENZA Negron Primary LORENZA Negron Alberto [id number] N Insurance:CARESOURCEP ROGERSDOB: [facility] Number: [id number], [place] [id number] Repository [address]Eej: Date:2017-07-22P O [phone]~330 [address]ATTN: CLAIMS -2 (HP) [place] [address]XZ: 07/22/2017 Secondary NOT GIVENUNK [place] Insurance:SELF PAY [facility] Number: Effective Repository Date:2017-07-22 07/22/2017 LORENZA Negron Primary LORENZA Negron [place] [id number] N Insurance:CARESOURCEP ROGERSDOB: [facility] Number: [id number] [place], [place] [id number] Repository [address]Rgj: Date:2017-07-22P O [phone]~330 [address]ATTN: CLAIMS -2 (HP) [place] [address]TG: 07/22/2017 Secondary NOT GIVENUNK [place] Insurance:SELF PAY [facility] Number: Effective Repository Date:2017-07-22 07/14/2017 LORENZA Negron Primary LORENZA Negron [place] [id number] N Insurance:CARESOURCEP ROGERSDOB: [facility] Number: [id number] Springs, [place] [id number] Repository [address]Vwy: Date:2017-06-17P O [phone]~330 [address]ATTN: CLAIMS -2 (HP) [place] [address]HH: 07/14/2017 Secondary NOT GIVENUNK [place] Insurance:SELF PAY [facility] Number: Effective Repository Date:2017-07-14 07/13/2017 LORENZA Negron Primary LORENZA Negron [place] [id number] N Insurance:CARESOURCEP ROGERSDOB: [facility] Number: [id number] Springs, [place] [id number] Repository [address]Yzk: Date:2017-07-13P O [phone]~330 [address]ATTN: CLAIMS -2 (HP) [place] [address]FV: 07/13/2017 Secondary NOT GIVENUNK [place] Insurance:SELF PAY [facility] Number: Effective Repository Date:2017-07-13 07/09/2017 LORENZA W Primary LORENZA W [place] [id number] N Insurance:CARESOURCEP ROGERSDOB: [facility] Number: [id number] [place], [place] [id number] Repository [address]98[address]Lpt: Date:2017-06-17P O [phone]~330 [address]ATTN: CLAIMS -2 (HP) [place] [address]YE: 07/09/2017 Secondary NOT GIVENUNK [place] Insurance:SELF PAY [facility] Number: Effective Repository Date:2017-06-17 06/29/2017 LORENZA W Primary LORENZA Negron [facility] [id number] N Insurance:CARESOURCEP [facility] Number: Repository [place], [place] [id number]: (330) Date:2017-06-25P.O. [phone] () [address] [place] [address]BV: 06/23/2017 LORENZA W Primary LORENZA W [place] [id number] N Insurance:CARESOURCEP ROGERSDOB: [facility] Number: [id number] [place], [place] [id number] Repository [address]Yuo: (330) Date:2017-04-05P O [phone] () [address]ATTN: [place] [address]GW: 06/23/2017 Secondary NOT GIVENUNK [place] Insurance:SELF PAY [facility] Number: Effective Repository Date:2017-04-05 06/17/2017 Lorenza W Primary Lorenza W Alberto [id number] N Insurance:CARESOURCEP RogersDOB: [facility] Number: [id number], [place] [id number] Repository [address]Snf: (330) Date:2017-06-17P O [phone] () [address]ATTN: [place] [address]JZ: 06/17/2017 Secondary NOT GIVENUNK [place] Insurance:SELF PAY [facility] Number: Effective Repository Date:2017-06-17 06/01/2017 LORENZA Silva TOA BAJAB: Insurance[facility]: [facility] N MEDICAIDPolicy [id number] Repository [facility] Number: [place], [place] [id number] [address]Dtf: [phone]) Date: [phone] ()
== END 2018-04-06 18:21 | disposition home or self-care (01) ==
LOC: ED 15:41
PROVIDERS: Emergency Provider Emergency Medicine; Family Provider Family Medicine; PCP Family Medicine
DX: R42 Dizziness and giddiness (principal); R07.9 Chest pain, unspecified; I44.4 Left anterior fascicular block; R20.2 Paresthesia of skin; R53.1 Weakness; R30.0 Dysuria; R35.0 Frequency of micturition; R05 Cough; R06.02 Shortness of breath; G43.909 Migraine, unspecified, not intractable, without status migrainosus; R56.9 Unspecified convulsions; G25.81 Restless legs syndrome; G47.33 Obstructive sleep apnea (adult) (pediatric); M54.9 Dorsalgia, unspecified; G89.29 Other chronic pain; F32.9 Major depressive disorder, single episode, unspecified; Z79.01 Long term (current) use of anticoagulants; Z79.899 Other long term (current) drug therapy; Z86.711 Personal history of pulmonary embolism; Z87.820 Personal history of traumatic brain injury
CPT/HCPCS: 70450; 71046; 80053; 80184; 81001; 84484; 85025; 87804; 93005; 96360; 99285; J7030; A4216

== ENCOUNTER → 2018-06-07 11:48 | Outpatient (CLI) | payer MEDICAID, SELFPAY ==
[2018-06-07 11:11] VITALS: BMI 37.2
[2018-06-07 12:02] LABS: Basophil# 0.04 X10^3/uL; Basophil% 0.5 % (0-1); Eosinophil# 0.35 X10^3/uL; Eosinophils% 4.2 % (0-5); Hematocrit 37.6 % (40-54); Hemoglobin 11.9 g/dl (13.0-16.5); Mean Corp Hgb Conc 31.6 g/gl (32-36); Mean Corpuscular Hgb 28.6 pg (27.0-32.0); Mean Corpuscular Volume 90.4 fL (80-94); Mean Platelet Vol. 8.9 fl (6.2-12.0); Monocyte# 0.96 X10^3/uL; Monocyte% 11.6 % (0-10); Neutrophil # 4.03 X10^3/uL (2.7-7.7); Neutrophil % 48.6 % (47-70); Platelet Count 313 K/mm3 (150-450); RBC Distribution Width CV 14.7 % (11.6-14.6); RBC Distribution Width SD 47.8 fl (35.1-43.9); Red Blood Count 4.16 M/mm3 (4.6-6.2); White Blood Count 8.3 K/mm3 (4.4-11.0)
[2018-06-07 12:03] LABS: POSITIVE COUNT NO; POSITIVE DIFFERENTIAL NO; POSITIVE MORPHOLOGY NO
[2018-06-07 12:24] LABS: ALB/GLOB Ratio 0.8 RATIO (0.9-2.4); AST(SGOT) 16 U/L (15-37); Alanine Aminotransfer ALT/SGPT 28 U/L (16-61); Albumin, Serum 3.5 g/dL (3.2-5.0); Alkaline Phosphatase 48 U/L (45-117); Anion Gap 6 (5-15); BUN 16 mg/dL (7-18); BUN/Creat Ratio 16.7 RATIO (10-20); Calcium,Total 8.8 mg/dL (8.5-10.1); Chloride 104 mmol/L (98-107); Creatinine, Serum 0.96 mg/dL (0.70-1.30); EST Glomerular Filtration Rate 87 mL/min (>60); Est Glom Filt Rate - Afr Amer 105 mL/min (>60); Globulin 4.2 g/dL (2.2-4.2); Glucose 80 mg/dL (74-106); Lipase 37 U/L (73-393); Potassium 4.4 mmol/L (3.5-5.1); Protein, Total 7.7 g/dL (6.4-8.2); Sodium Level 138 mmol/L (136-145)
== END ==
PROVIDERS: Family Provider Family Medicine; PCP Family Medicine; Referring Provider Internal Medicine Critical Care Medicine; Visit Provider Internal Medicine Critical Care Medicine
DX: K52.9 Noninfective gastroenteritis and colitis, unspecified (principal); R10.30 Lower abdominal pain, unspecified
CPT/HCPCS: 36415; 80053; 83690; 85025

== ENCOUNTER 2018-06-21 14:52 | Emergency (ER) | payer MEDICAID, SELFPAY ==
[2018-06-07 11:11] VITALS: BMI 37.2
[2018-06-21] VITALS (7 sets, daily range): BP systolic 103–160; BP diastolic 72–102; PULSE 81–105; RESP 15–24; TEMP 36.9; O2SAT 92–97; BMI 34.2
--- NOTE | 2018-06-21 15:13 | RAD_ITS ---
STUDY: X-RAY CHEST REASON FOR EXAM: Male, 53 years old. 3 day history of cough and vomiting. TECHNIQUE: Single AP portable view of the chest. COMPARISON: Comparison is made with prior study dated April 06, 2018. FINDINGS: EKG electrodes are seen. Mild increased linear markings at the lung bases suggest improving atelectasis and/or scarring. There is no demonstrated pleural abnormality. There is moderate cardiac enlargement. Normal mediastinum and shoaib. Normal visualized pulmonary arteries. Normal visualized aortic arch and descending thoracic aorta. Normal visualized thoracic spine. Normal visualized ribs, clavicles, and shoulders. There is no demonstrated abnormality of the visualized soft tissue structures of the upper abdomen. RAD/Chest 1 View (Portable) IMPRESSION: Cardiomegaly. Stable mild increased linear markings at the lung bases suggesting linear atelectasis and/or scarring. Electronically Signed: Francisco Javier Lockhart, at 15:42 EST , Service support ,
--- NOTE | 2018-06-21 15:13 | EKG12_ITS ---
Test Reason : FATIGUE Blood Pressure : / mmHG Vent. Rate : 092 BPM Atrial Rate : 092 BPM P-R Int : 150 ms QRS Dur : 126 ms QT Int : 370 ms P-R-T Axes : 046 -49 056 degrees QTc Int : 457 ms Normal sinus rhythm Left axis deviation Non-specific intra-ventricular conduction block Abnormal ECG Confirmed by AYAN CLINE, PONCHO ([id number]), senior editor CATRACHITO STACY ([id number]) on 06/23/2018 3:45:26 PM Referred By: AN Confirmed By:PONCHO BOTELLO MD
[2018-06-21 15:44] LABS: Absolute Lymphocyte Count 2.23 X10^3/ul (0.83-4.51); Absolute Neutrophil Count 3.3 X10^3/uL (2.0-7.7); Basophil# 0.05 X10^3/uL; Basophil% 0.8 % (0-1); Eosinophil# 0.32 X10^3/uL; Eosinophils% 4.8 % (0-5); Hematocrit 36.8 % (40-54); Hemoglobin 11.8 g/dl (13.0-16.5); Lymphocyte # 2.23 X10^3/ul (4.0); Lymphocyte % 33.5 % (19-41); Mean Corp Hgb Conc 32.1 g/gl (32-36); Mean Corpuscular Volume 90.4 fL (80-94); Mean Platelet Vol. 9.3 fl (6.2-12.0); Monocyte# 0.71 X10^3/uL; Monocyte% 10.7 % (0-10); Neutrophil # 3.34 X10^3/uL (2.7-7.7); Platelet Count 382 K/mm3 (150-450); RBC Distribution Width CV 14.6 % (11.6-14.6); RBC Distribution Width SD 47.7 fl (35.1-43.9); Red Blood Count 4.07 M/mm3 (4.6-6.2); White Blood Count 6.7 K/mm3 (4.4-11.0)
--- NOTE | 2018-06-21 15:47 | ED.VIS.GEN ---
History of Present Illness Chief Complaint: Fatigue Detail of Chief Complaint: Fatigue vomiting diarrhea Informant: Patient Limited by: - - Patient is not a good informant. He need to be redirected. He denied things which are clearly documented as problems and disease states on past medical history. Onset: Days Timing: Intermittent Quality: Please read narrative Location: Please read narrative Current Severity: Chest discomfort associated with activity Maximum Severity: Patient unable to quantify Worsened by: Chest pain worse with activity abdominal pain with nausea and vomiting no Relieved by: Rest with regards to chest pain Associated Symptoms: Please read narrative Narrative: Patient is a middle-aged male who looks much older than reported age. He has multiple medical problems who presents with chief complaint of abdominal pain with nausea and vomiting. Emesis is brown to coffee-ground in appearance. He is on Xarelto for pulmonary embolus. He denies bruising easily. He denies blood in his urine. He denies black or maroon stool. With regards to the chest pain mid chest unable to qualitate or quantify the pain. It is related to activity. Uncertain whether he does or does not get better with rest. He states if he goes up before steps at his residence he gets chest pain with shortness of breath. The shortness of breath dissipates with time. He denies history of coronary disease. He denied history of alcohol use and is clearly documented patient has prior history of alcohol use. He also denied any abdominal surgery and there is a scar secondary to appendectomy and he also has a scar secondary to open reduction internal fixation of lower extremity fracture. Prior similar symptoms: No Recent Illness/Hospitalization: No Past Medical History - Allergies and Home Meds Allergies/Adverse Reactions: Allergies aspirin Allergy (Verified 06/21/18 14:56) Hives Penicillins Allergy (Verified 06/21/18 14:56) Swelling Primary Care Physician: Robert Hollis DO [Primary Care Provider] - Prior records reviewed: Yes Past Medical History: - - Hypertension, CVA, pulmonary embolus, seizure disorder, obstructive sleep apnea, peripheral neuropathy Surgical History: - - Appendectomy, left hip repair status post fall with fracture, severe head lacerations with notable stitching performed, left hand surgery. Lives: With Family Smoking Status: Never smoker Alcohol: Occasional Drugs: None - Family History Paternal Family History: Family History (Last Reviewed 06/07/18 @ 11:10 by Joseifna Sexton) Mother Heart disease Hypertension Lung cancer Laryngeal cancer Father Lung cancer Laryngeal cancer Bipolar 1 disorder Brother Bleeding disorder Sister Asthma Breast cancer Family History: Reports: Unknown - Patient notes that his father left when he was 7 [id number] and does not know any of his medical history. Maternal Family History: Family History (Last Reviewed 06/07/18 @ 11:10 by Josefina Sexton) Mother Heart disease Hypertension Lung cancer Laryngeal cancer Father Lung cancer Laryngeal cancer Bipolar 1 disorder Brother Bleeding disorder Sister Asthma Breast cancer Family History: Reports: Heart Disease, Hypertension Review of Systems General: Reports: Chills - 101.1 ?F, Fever, Malaise, Sweats. Denies: Weight loss Eyes: Reports: Visual changes - bilaterally, Blurred Vision - bilaterally, Diplopia ENT: Denies: Bilateral ear pain, Rhinorrhea, Sore throat Cardiovascular: Reports: Chest pain, Palpitations Respiratory: Reports: Dyspnea, Dyspnea on exertion, Paroxysmal nocturnal dyspnea. Denies: Orthopnea Gastrointestinal: Reports: Abdominal pain, Nausea, Vomiting, Diarrhea. Denies: Melena, Hematochezia Genitourinary: Denies: Dysuria, Hematuria, Frequency Musculoskeletal: Denies: Myalgias, Arthralgias, Back pain, Extremity Pain Skin: Denies: Rash, Wounds Neurological: Reports: Weakness, Parasthesia. Denies: Headache, Numbness Endocrine: Reports: Polyuria. Denies: Cold intolerance Hematologic: Denies: Easy bruising, Easy bleeding Physical Exam Vital Signs/Narrative: Vital Signs Temp Pulse Resp BP Pulse Ox 06/21/18 14:53 98.4 F 105 H 20 H 160/102 H 96 Inital Vital Signs reviewed: Yes General: Well nourished, Well developed, Unkempt Head: Normocephalic, Atraumatic Eyes: Perrl, EOMI. Negative for: Pale conjunctiva, Scleral icterus ENT: No rhinorrhea, TM's clear, Dry mucous membranes, Nasal congestion. Negative for: Sinus tenderness Neck: Supple, Nontender, No lymphadenopathy, No JVD Cardiovascular: Regular rhythm, No murmurs, Normal S1, Normal S2, Tachycardia Respiratory: No distress, CTA bilaterally, Chest nontender Abdomen: Soft, No masses, Tender, Guarding, Hypoactive bowel sounds. Negative for: Nontender, Nondistended, Normal bowel sounds, Hepatomegaly, Splenomegaly, Ventral hernia, Inguinal hernia, Umbilical hernia Back: Nontender, Normal Inspection Extremities: Nontender. Negative for: Tenderness, Calf Tenderness Skin: No rash, Pallor, Trauma, - - Patient has abrasions to upper extremity Neurological: Alert, Oriented x3, Cranial nerves II-XII grossly intact, Normal Strength, Normal Sensation. Negative for: Normal Gait Diagnostic/Tx/Re-eval Chest X-Ray - ED: 2 View, Read by ED Physician, Unchanged, No Acute Disease, Chronic Changes, Cardiomegaly CBC is remarkable for hemoglobin 11.8 hematocrit of 36.8. Coags normal. Glucose 135. Troponin normal. - EKG Initial EKG Interpretation: Sinus Rhythm, - - Ventricular rate 92. VT interval is normal. There is a nonspecific intraventricular conduction delay with a prolonged QRS complex. [place] to left. Prior: Unchanged - Medical Decision Making With patient complain of orthostatic symptoms around coffee-ground emesis will obtain CBC to assess H&H, BMP to assess BUN to creatinine ratio as well as electrolytes and renal function. Will have NG placed to assess for active bleeding. If there is evidence of active bleeding will obtain type and screen. EKG and troponin were obtained to assess his complaint of chest pain and dyspnea on exertion. Chest x-ray was obtained to assess for cause of dyspnea i.e. pneumonia, CHF etc. Patient's NG was irrigated 7 several times with no blood or coffee-ground emesis noted. NG was pulled. Patient was reassessed at 2145. He states he feels markedly better. Plan is to discharge to home. ED Disposition - Plan for ED Patient: Disposition: Home or Assisted Living Diagnosis: Chest pain at rest, Abdominal pain of unknown cause, Nausea and vomiting, Hyperglycemia due to type 2 diabetes mellitus Instructions: ED Chest Pain NonCardiac, ED Nausea Vomiting Referrals: Robert Hollis DO [Primary Care Provider] - 3-5 Days
[2018-06-21 15:51] LABS: International Normalized Ratio 1.1
[2018-06-21 15:52] LABS: Partial Thromboplast Time 28.8 Seconds (24.1-36.2)
[2018-06-21 15:56] LABS: POSITIVE COUNT NO; POSITIVE DIFFERENTIAL NO; POSITIVE MORPHOLOGY NO
[2018-06-21 16:05] LABS: Anion Gap 7 (5-15); BUN 12 mg/dL (7-18); BUN/Creat Ratio 13.2 RATIO (10-20); Calcium,Total 8.4 mg/dL (8.5-10.1); Chloride 107 mmol/L (98-107); Creatinine, Serum 0.91 mg/dL (0.70-1.30); EST Glomerular Filtration Rate 93 mL/min (>60); Est Glom Filt Rate - Afr Amer 112 mL/min (>60); Estimated Creatinine Clearance 89.78 ml/min; Glucose 133 mg/dL (74-106); Potassium 3.5 mmol/L (3.5-5.1); Sodium Level 140 mmol/L (136-145)
[2018-06-21 16:09] LABS: Lactic Acid 1.5 mmol/L (0.4-2.0)
--- NOTE | 2018-06-21 16:55 | RAD_ITS ---
STUDY: X-RAY - ABDOMEN/PELVIS REASON FOR EXAM: Male, 53 years old. An NG tube placement. TECHNIQUE: Portable abdomen. COMPARISON: 01/07/2017 FINDINGS: Normal visualized lung bases. Nasogastric tube terminates in the left upper quadrant consistent with placement in the gastric cardia. The side-port lies above the level of the GE junction. Demonstrated abdomen shows no bowel obstruction. Demonstrated soft tissues and bony structures are unremarkable. RAD/Abdomen Single View (Portable) IMPRESSION: NG tube terminates in the gastric cardia with side-port above the GE junction. If the tube is to be used for feeding, it should be advanced approximately 10 cm. Electronically Signed: Blanca Cobb MD at 17:56 EST Tel , Service support ,
--- NOTE | 2018-06-21 17:48 | ED.RN ---
after confirming placement with MD- advanced approx 1 inch- then flushed with 120 ml sterile water. no return of blood or bile- flushed with an additional 240 ml with no return at this time.
--- NOTE | 2018-06-21 21:16 | ED.RN ---
NG tube removed per MD orders.
== END 2018-06-21 22:28 | disposition home or self-care (01) ==
PROVIDERS: Emergency Provider Emergency Medicine; Family Provider Family Medicine; PCP Family Medicine
DX: R07.89 Other chest pain (principal); R10.9 Unspecified abdominal pain; R11.2 Nausea with vomiting, unspecified; R19.7 Diarrhea, unspecified; E11.65 Type 2 diabetes mellitus with hyperglycemia; I26.99 Other pulmonary embolism without acute cor pulmonale; Z79.01 Long term (current) use of anticoagulants; Z79.891 Long term (current) use of opiate analgesic; Z79.899 Other long term (current) drug therapy
CPT/HCPCS: 71045; 74018; 80048; 83605; 84484; 85025; 85610; 85730; 93005; 99285

== ENCOUNTER → 2018-09-26 11:37 | Outpatient (CLI) | payer MEDICAID, SELFPAY ==
[2018-09-13 09:28] VITALS: BMI 34.0
[2018-09-26 13:49] LABS: Absolute Lymphocyte Count 2.25 X10^3/ul (0.83-4.51); Absolute Neutrophil Count 4.6 X10^3/uL (2.0-7.7); Basophil# 0.03 X10^3/uL; Basophil% 0.4 % (0-1); Eosinophil# 0.18 X10^3/uL; Eosinophils% 2.2 % (0-5); Hematocrit 41.6 % (40-54); Hemoglobin 13.5 g/dl (13.0-16.5); Lymphocyte # 2.25 X10^3/ul (4.0); Lymphocyte % 28.1 % (19-41); Mean Corp Hgb Conc 32.5 g/gl (32-36); Mean Corpuscular Hgb 28.9 pg (27.0-32.0); Mean Corpuscular Volume 89.1 fL (80-94); Mean Platelet Vol. 9.3 fl (6.2-12.0); Monocyte# 0.98 X10^3/uL; Monocyte% 12.2 % (0-10); Neutrophil # 4.58 X10^3/uL (2.7-7.7); Neutrophil % 57.1 % (47-70); Platelet Count 342 K/mm3 (150-450); RBC Distribution Width CV 14.7 % (11.6-14.6); RBC Distribution Width SD 47.5 fl (35.1-43.9); Red Blood Count 4.67 M/mm3 (4.6-6.2)
[2018-09-26 13:56] LABS: POSITIVE COUNT NO; POSITIVE DIFFERENTIAL NO; POSITIVE MORPHOLOGY NO
[2018-09-26 14:12] LABS: ALB/GLOB Ratio 0.9 RATIO (0.9-2.4); AST(SGOT) 16 U/L (15-37); Alanine Aminotransfer ALT/SGPT 28 U/L (16-61); Albumin, Serum 3.8 g/dL (3.2-5.0); Alkaline Phosphatase 51 U/L (45-117); Anion Gap 7 (5-15); BUN 11 mg/dL (7-18); BUN/Creat Ratio 12.2 RATIO (10-20); Calcium,Total 8.9 mg/dL (8.5-10.1); Chloride 104 mmol/L (98-107); EST Glomerular Filtration Rate 94 mL/min (>60); Est Glom Filt Rate - Afr Amer 113 mL/min (>60); Globulin 4.2 g/dL (2.2-4.2); Glucose 88 mg/dL (74-106); Potassium 3.9 mmol/L (3.5-5.1); Sodium Level 139 mmol/L (136-145)
[2018-09-29 06:07] LABS: HEPATITIS B SURFACE AG Negative (Negative); Hepatitis A AB, Total Negative (Negative); Hepatitis A IgM Antibody Negative (Negative); Hepatitis B Core AB IgM Negative (Negative); Hepatitis B Core Ab Total Negative (Negative); Hepatitis C Ab <0.1 s/co ratio (0.0-0.9); QNTFERON TB Mitogen Value > 10.00 IU/mL (.); QNTFERON TB Nil Value 0.03 IU/mL (.); QNTFERON TB1+ Ag Value 0.06 IU/mL (.); QNTFERON TB2+ Ag Value 0.05 IU/mL (.)
[2018-09-30 12:26] LABS: Hep B Surface Antibodies Non Reactive (.); QNTIFERON TB Positive Criteria Negative (Negative)
== END ==
PROVIDERS: Family Provider Family Medicine; PCP Family Medicine; Referring Provider Dermatology Pediatric Dermatology; Visit Provider Dermatology Pediatric Dermatology
DX: L40.0 Psoriasis vulgaris (principal); L40.59 Other psoriatic arthropathy; L60.1 Onycholysis; S50.912A Unspecified superficial injury of left forearm, initial encounter; S50.911A Unspecified superficial injury of right forearm, initial encounter; X58.XXXA Exposure to other specified factors, initial encounter; Y93.9 Activity, unspecified; Y92.9 Unspecified place or not applicable; Y99.9 Unspecified external cause status; Z79.899 Other long term (current) drug therapy
CPT/HCPCS: 36415; 80053; 85025; 86480; 86704; 86705; 86706; 86708; 86709; 86803; 87340

== ENCOUNTER 2018-11-18 10:00 | Outpatient (RCR) | payer MEDICAID, SELFPAY ==
[2018-09-13 09:28] VITALS: BMI 34.0
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
--- NOTE | 2018-11-18 11:57 | HP.PTDCSUM ---
HP - PT D/C Summary It has been my pleasure to treat LORENZA LEWIS under orders from Robert Hollis DO, for the diagnosis of Low back pain, L hip pain for a total of 9 visit(s). Discharge Date: 11/18/18 Please see the following information for a summary of their discharge status. - Subjective Subjective: Pt. reports being 50% better overall. Pt is more conserned about BLE swelling. Pt. reports falling due to his R leg giving out on him a few weeks ago and noticed increased swelling a few days ago. Pt. reports icnreased B knee pain as well. Pt. reports being HEP compliant with stretching. Pt. desires to follow up with physician to look at BLE edema. - Pain L hip Pain Intensity (Out of 10): 4 Lumbar spine Pain Intensity (Out of 10): 4 R knee Pain Intensity (Out of 10): 4 - Overall Improvement % Improvement: 75 - Objective Objective/Function: ROM: LLE- tightness in knee and hip. tight HS as well. RLE- same quad and HS tightness. MMT: LLE- 5/5 throughout; knee- ext 4+/5, flexion 4+/5; hip- flexion 4/5, abd 4/5, ext 4/5. RLE- 5/5 throughout; knee- ext 4+/5, flexion 4+/5; hip- flexion 4/5, abd 4/5, ext 4/5. Core- poor+. GAIT: pt. ambulates wit improve step length and controll with SPC. PT. reports some pain in B knee, but overall improved. STAIRS: reciporcal pattenr with 1 HR. - Goals Goal 1:: Pt. to be I with HEP. Goal Progress: Goal Met Goal 2:: Pt. to have increased core and BLE strength by 1/2 grade of all effected musculature. allowing for increase tolerance with functional mobility. Goal Progress: Goal Met Goal 3:: Pt. to ambulate unlimited distances with LRD with 0-2/10 pain. Goal Progress: Progressing Goal 4:: Pt. to sleep throughout the night with 0-2/10 pain allowing for icnrease quality of life. Goal Progress: Progressing Goal 5:: Pt. to have increased hip flexor and HS length to (20deg, and 75deg) respectively. Allowing for proper pelvic positioning. Goal Progress: Progressing - Plan Plan: Pt. to be DC to HEP at this point in time back to [facility]. Pt. is doing better with his LLE, but has some questions about his edema in BLEs. - D/C Information Discharge Comments: Pt. improved with PT in aquatic setting. Pt. has improved L hip and low back pain, but is now experiencing some increased B knee pain after falling on his steps a few weeks ago. Pt. wants to follow up with his physician to look at edema in BLEs, he has some, but non pitting. Pt. will be DC to HEP and physician at this point intime. If there are questions or concerns regarding this patient's physical therapy, please feel free to call me at [phone]. Thank you for the referral of this patient. Sincerely, ANASTASIYA KamaraT
== END 2018-11-18 15:24 | disposition home or self-care (01) ==
LOC: PT 10:00
PROVIDERS: Family Provider Family Medicine; PCP Family Medicine; Referring Provider Family Medicine; Visit Provider Family Medicine
DX: M47.16 Other spondylosis with myelopathy, lumbar region (principal); M25.552 Pain in left hip; G89.29 Other chronic pain; G58.9 Mononeuropathy, unspecified
CPT/HCPCS: 97113; 97161; 97530

== ENCOUNTER 2018-11-18 17:00 | Emergency (ER) | payer MEDICAID, SELFPAY ==
[2018-09-13 09:28] VITALS: BMI 34.0
[2018-11-18 17:01] VITALS: BP 124/93; PULSE 111; RESP 16; TEMP 36.3; O2SAT 96; BMI 30.4
--- NOTE | 2018-11-18 17:31 | EKG12_ITS ---
Test Reason : Blood Pressure : / mmHG Vent. Rate : 092 BPM Atrial Rate : 092 BPM P-R Int : 142 ms QRS Dur : 124 ms QT Int : 376 ms P-R-T Axes : 024 -54 045 degrees QTc Int : 464 ms Normal sinus rhythm Left anterior fascicular block Abnormal ECG Confirmed by JOSE CLINE, DAVE ([id number]), digital editor EDUIN VITALE ([id number]) on 11/21/2018 1:52:58 PM Referred By: PAULA Confirmed By:ABISAI GARCIA MD
[2018-11-18 17:49] LABS: Absolute Lymphocyte Count 2.69 X10^3/uL (0.83-4.51); Absolute Neutrophil Count 3.1 X10^3/uL (2.0-7.7); Basophil# 0.05 X10^3/uL; Basophil% 0.7 % (0-1); Eosinophil# 0.23 X10^3/uL; Eosinophils% 3.3 % (0-5); Hematocrit 40.1 % (40-54); Hemoglobin 13.3 g/dL (13.0-16.5); Lymphocyte # 2.69 X10^3/ul (4.0); Lymphocyte % 38.7 % (19-41); Mean Corp Hgb Conc 33.2 g/dL (32-36); Mean Corpuscular Volume 90.3 fL (80-94); Monocyte% 12.9 % (0-10); NRBC Flagged by Analyzer 0 % (0-5); Neutrophil # 3.06 X10^3/uL (2.7-7.7); Neutrophil % 44.1 % (47-70); Platelet Count 317 K/mm3 (150-450); RBC Distribution Width CV 13.8 % (11.6-14.6); RBC Distribution Width SD 46.3 fl (35.1-43.9); Red Blood Count 4.44 M/mm3 (4.6-6.2)
--- NOTE | 2018-11-18 17:57 | RAD_ITS ---
STUDY: X-RAY - RIGHT KNEE REASON FOR EXAM: Male, 53 years old. Knee pain and swelling TECHNIQUE: 4 view(s) of the knee. COMPARISON: None. FINDINGS: Normal visualized distal femur. Normal visualized proximal tibia and fibula. Normal proximal tibiofibular articulation. There is mild degenerative arthrosis of the medial femorotibial compartment. Normal lateral femorotibial compartment. There is mild degenerative arthrosis of the patellofemoral articulation. There is a moderate volume joint effusion. The soft tissue structures are unremarkable. RAD/Knee 4 or More Views IMPRESSION: Degenerative arthrosis. Electronically Signed: Ashwin Pryor MD at 18:23 EDT Tel , Service support ,
[2018-11-18 18:09] LABS: ALB/GLOB Ratio 0.9 RATIO (0.9-2.4); AST(SGOT) 11 U/L (15-37); Alanine Aminotransfer ALT/SGPT 22 U/L (16-61); Albumin, Serum 3.6 g/dL (3.2-5.0); Alkaline Phosphatase 48 U/L (45-117); Anion Gap 5 (5-15); BUN 11 mg/dL (7-18); BUN/Creat Ratio 12.1 RATIO (10-20); Chloride 105 mmol/L (98-107); Creatinine, Serum 0.91 mg/dL (0.70-1.30); EST Glomerular Filtration Rate 92 mL/min (>60); Est Glom Filt Rate - Afr Amer 111 mL/min (>60); Estimated Creatinine Clearance 89.78 ml/min; Globulin 3.9 g/dL (2.2-4.2); Glucose 104 mg/dL (74-106); Potassium 3.7 mmol/L (3.5-5.1); Protein, Total 7.5 g/dL (6.4-8.2); Sodium Level 138 mmol/L (136-145)
[2018-11-18 18:16] LABS: BNP,B-Type NATRIURETIC PEPTIDE 6.4 pg/mL (0-100)
[2018-11-18] MEDS: Acetaminophen 500 MG Tablet 1000 MG PO (18:30)
--- NOTE | 2018-11-18 18:47 | ED.VISSUMM ---
- ER Visit Summary Date of Service: 11/18/18 Chief Complaint: Bilateral leg swelling History of Present Illness: The patient is a [address] Gutierrez and Dr. Hollis. He reports he has bilateral leg swelling that began approximately a week ago. He denies any chest pain or shortness of breath. No abdominal pain. No fever or chills. Patient reports he also fell 2 weeks ago onto his right knee. He has a pain there this 8 out of 10 severity. He describes it as a throbbing, burning pain. It is increased with movement and relieved by elevating. Physical Examination: Vitals: Stable. Afebrile. General: Well-nourished and well-developed. Head: Normocephalic atraumatic. Neck: Supple, no lymphadenopathy. No JVD. Nontender. Cardiovascular: Regular rate and rhythm. No murmurs. Respiratory: No respiratory distress. Clear to auscultation bilaterally. Abdominal: Soft, nontender, nondistended, normal bowel sounds. No guarding, rebound, or peritoneal signs. Back: Nontender. Extremities: Right knee shows mild diffuse tender to palpation. There is no overlying erythema or warmth to suggest a septic joint. There is no effusion. He has pain, but no ligamentous instability with anterior/posterior drawer or medial/lateral stress., 1+ pitting edema of lower extremes bilaterally.. Skin: Normal color, no rash. Neurologic: Alert and oriented ?3. Cranial nerves II through XII are intact. Normal strength and sensation. Psych: Normal affect. Test Results: EKG is sinus at 92 with no acute changes. Troponin is negative. BNP is normal. LFTs show an AST of 11. Chem-7 is normal. CBC shows segmented neutrophils 44 lymphocytes 13. Right knee x-ray shows degenerative changes. Emergency Department Course and Treatment: Patient was treated with Tylenol and is resting comfortably. Treatment Plan: Patient will be discharged instructions to increase his dose of Lasix from 20 mill grams to 40 mg for the next 3 mornings. Use Tylenol for his knee. Ice his knee. Follow Dr. Hollis in 3 to 5 days for another exam. Return to the emergency department for any worsening symptoms. Disposition: To home in improved and stable condition. Impression: 1. Peripheral edema. 2. Right knee pain, acute care. This note was generated with Dragon dictation software. It may contain incorrect words, spelling, and punctuation that were not noted in review of the chart prior to signing ED Disposition - Plan for ED Patient: Disposition: Home or Assisted Living Instructions: ED Peripheral Edema, Bilateral Referrals: Robert Hollis, DO [Primary Care Provider] - 3-5 Days if not improving Additional Instructions: Take 2 lasix in the morning instead of 1 for the next 3 days.
[2018-11-18 19:24] VITALS: BP 130/80; BP 130/90; PULSE 83; RESP 18; O2SAT 96
== END 2018-11-18 19:26 | disposition home or self-care (01) ==
LOC: ED 17:45
PROVIDERS: Emergency Provider Emergency Medicine; Family Provider Family Medicine; PCP Family Medicine
DX: R60.0 Localized edema (principal); M25.561 Pain in right knee; R56.9 Unspecified convulsions; R19.7 Diarrhea, unspecified; I25.10 Atherosclerotic heart disease of native coronary artery without angina pectoris; I10 Essential (primary) hypertension; Z79.01 Long term (current) use of anticoagulants; Z79.899 Other long term (current) drug therapy; Z86.73 Personal history of transient ischemic attack (TIA), and cerebral infarction without residual deficits; Z95.5 Presence of coronary angioplasty implant and graft
CPT/HCPCS: 73564; 80053; 83880; 84484; 85025; 93005; 99285

== ENCOUNTER 2019-03-15 11:13 | Emergency (ER) | payer MEDICAID, SELFPAY ==
[2019-03-15 11:17] VITALS: BP 123/86; PULSE 94; RESP 20; TEMP 36.9; O2SAT 98; BMI 33.4
--- NOTE | 2019-03-15 11:58 | EKG12_ITS ---
Test Reason : GENERAL ILLNESS Blood Pressure : / mmHG Vent. Rate : 088 BPM Atrial Rate : 088 BPM P-R Int : 134 ms QRS Dur : 114 ms QT Int : 364 ms P-R-T Axes : 054 -55 055 degrees QTc Int : 440 ms Normal sinus rhythm Left anterior fascicular block Abnormal ECG Confirmed by JOSE CLINE, DAVE ([id number]), sound editor SYDNEE PINON ([id number]) on 03/17/2019 12:32:13 PM Referred By: PAULETTE Confirmed By:ABISAI GARCIA MD
--- NOTE | 2019-03-15 11:58 | CT_ITS ---
STUDY: CT BRAIN WITHOUT CONTRAST REASON FOR EXAM: Male, 54 years old. Left-sided weakness and pain for 2 weeks. Patient is on Coumadin. RADIATION DOSAGE (If Supplied By Facility): CTDIvol = ( 60.81 ) mGy, DLP = ( 1089.89 ) mGycm TECHNIQUE: Transaxial CT imaging of the brain was performed without administration of intravenous contrast material. Individualized dose optimization techniques were used for this CT. COMPARISON: Comparison is made with prior study dated April 06, 2018. FINDINGS: Normal soft tissue structures. Normal calvarium. Normal size ventricles and extra-axial spaces for the patient's age. Normal white matter tracts of the cerebral hemispheres. Normal basal ganglia and thalami. Normal brainstem. Normal cerebellum. There is no intracranial hemorrhage. There are no findings of an acute ischemic infarction. Normal visualized paranasal sinuses. CT/Brain/Head without Contrast IMPRESSION: Normal unenhanced CT scan of the brain. Electronically Signed: Francisco Javier Lockhart, at 12:42 EST , Service support ,
--- NOTE | 2019-03-15 12:00 | ED.VISSUMM ---
- ER Visit Summary Date of Service: 03/15/19 Chief Complaint: Left-sided pain. History of Present Illness: The patient is a 54 M reported history of a prior stroke, prior AK diagnosed on heart cath but no stents or bypass, insulin-dependent diabetes and prior seizures and migraine headaches. Patient states for the last 2 weeks has had left-sided pain. Really not specific weakness. He also has had is getting frequent headaches 3-4 times a day. Reportedly is on warfarin. Denies any head trauma or falls. States has not had these symptoms before. Physical Examination: Middle-aged male no acute distress vital signs are stable and afebrile. HEENT exam pupils are unreactive light. No facial droop. Normal speech. No signs of trauma to his face or scalp. Nontender. Neck nontender. Lungs are clear. Heart regular rhythm rate about 90 no murmur. Abdomen soft nontender. Normal bowel sounds no peritoneal signs. Patient is moving all 4 extremities. Neurovascular intact. Equal symmetrical 5 out of 5 rubber compounder mixer strength. Dorsi plantarflexion intact. Normal sensation. NIH score of 0. He is awake and alert answering questions and acting appropriately. Test Results: CT brain shows no acute abnormality read as normal by the radiologist reviewed by me. CBC normal white count of 6. Hemoglobin 13. Chemistries normal normal creatinine gap. Patient said he was on Wednesday of anticoagulation is not sure what his INR was normal. EKG sinus rhythm rate 88 with no acute signs of AK or ischemia or dysrhythmia. Emergency Department Course and Treatment: Patient complaining of left-sided pain and headaches. He has an unremarkable exam. An unremarkable neurologic exam. Repeat exam the patient is doing well at 1408 p.m. Treatment Plan: Follow-up with primary care physician. Disposition: Discharge Impression: Left-sided pain uncertain etiology. History of diabetes, migraine headaches and seizures This note was generated with [employer] software. It may contain incorrect words, spelling, and punctuation that were not noted in review of the chart prior to signing ED Disposition - Plan for ED Patient: Referrals: Robert Hollis DO [Primary Care Provider] -
[2019-03-15 12:47] LABS: Absolute Lymphocyte Count 2.05 X10^3/uL (0.83-4.51); Absolute Neutrophil Count 3.5 X10^3/uL (2.0-7.7); Basophil# 0.03 X10^3/uL; Basophil% 0.5 % (0-1); Eosinophils% 1.5 % (0-5); Lymphocyte # 2.05 X10^3/ul (4.0); Lymphocyte % 30.8 % (19-41); Mean Corp Hgb Conc 33.3 g/dL (32-36); Mean Corpuscular Hgb 31.5 pg (27.0-32.0); Mean Corpuscular Volume 94.4 fL (80-94); Mean Platelet Vol. 8.4 fl (6.2-12.0); Monocyte# 0.91 X10^3/uL; Monocyte% 13.7 % (0-10); NRBC Flagged by Analyzer 0 % (0-5); Neutrophil # 3.53 X10^3/uL (2.7-7.7); Neutrophil % 52.9 % (47-70); Platelet Count 300 K/mm3 (150-450); RBC Distribution Width SD 44.7 fl (35.1-43.9); Red Blood Count 4.13 M/mm3 (4.6-6.2); White Blood Count 6.7 K/mm3 (4.4-11.0)
[2019-03-15 12:54] LABS: International Normalized Ratio 1.1; Prothrombin Time (Protime)PT. 14.1 SECONDS (11.7-14.9)
[2019-03-15 13:07] LABS: Anion Gap 6 (5-15); BUN 16 mg/dL (7-18); BUN/Creat Ratio 17.7 RATIO (10-20); Calcium,Total 8.5 mg/dL (8.5-10.1); Chloride 105 mmol/L (98-107); EST Glomerular Filtration Rate 93 mL/min (>60); Est Glom Filt Rate - Afr Amer 112 mL/min (>60); Estimated Creatinine Clearance 89.72 ml/min; Glucose 93 mg/dL (74-106); Potassium 3.6 mmol/L (3.5-5.1); Sodium Level 137 mmol/L (136-145)
[2019-03-15 13:39] VITALS: BP 138/93; PULSE 96; RESP 22; O2SAT 93
--- NOTE | 2019-03-15 14:10 | ED.DEP ---
ED Disposition - Plan for ED Patient: Disposition: Home or Assisted Living Referrals: Robert Hollis DO [Primary Care Provider] - 3-5 Days Additional Instructions: Your evaluation today was unremarkable. Blood counts and electrolytes and EKGs and CAT scan were all unremarkable. Follow-up with your primary care physician.
[2019-03-15 14:15] VITALS: BP 152/93; PULSE 90; RESP 22; O2SAT 96
== END 2019-03-15 14:23 | disposition home or self-care (01) ==
PROVIDERS: Emergency Provider Emergency Medicine; Family Provider Family Medicine; PCP Family Medicine
DX: R10.9 Unspecified abdominal pain (principal); R11.2 Nausea with vomiting, unspecified; E11.9 Type 2 diabetes mellitus without complications; R56.9 Unspecified convulsions; G43.909 Migraine, unspecified, not intractable, without status migrainosus; J45.909 Unspecified asthma, uncomplicated; Z79.01 Long term (current) use of anticoagulants; Z79.899 Other long term (current) drug therapy; I25.2 Old myocardial infarction; Z86.73 Personal history of transient ischemic attack (TIA), and cerebral infarction without residual deficits
CPT/HCPCS: 70450; 80048; 85025; 85610; 93005; 99285; J7030

== ENCOUNTER 2019-06-26 08:39 | Emergency (ER) | payer MEDICAID, SELFPAY ==
[2019-06-01 14:04] VITALS: BMI 31.9
[2019-06-26 08:41] VITALS: BP 125/80; PULSE 108; RESP 21; TEMP 36.7; O2SAT 98; BMI 31.0
[2019-06-26 08:43] VITALS: PULSE 101; RESP 22; O2SAT 99
--- NOTE | 2019-06-26 08:49 | CT_ITS ---
STUDY: CT BRAIN WITHOUT CONTRAST REASON FOR EXAM: Male, 54 years old. Fell 4 days ago hitting head, + LOC. RADIATION DOSAGE (If Supplied By Facility): CTDIvol = ( 44.99 ) mGy, DLP = ( 812.98 ) mGycm TECHNIQUE: Transaxial CT imaging of the brain was performed without administration of intravenous contrast material. Individualized dose optimization techniques were used for this CT. COMPARISON: Comparison is made with prior examination dated March 15, 2019 and April 06, 2018. FINDINGS: Normal soft tissue structures. Normal calvarium. Normal size ventricles and extra-axial spaces for the patient''s age. Normal white matter tracts of the cerebral hemispheres. Normal basal ganglia and thalami. Normal brainstem. Normal cerebellum. There is no intracranial hemorrhage. There are no findings of an acute ischemic infarction. Normal visualized paranasal sinuses. CT/Brain/Head without Contrast IMPRESSION: Normal unenhanced CT scan of the brain. Electronically Signed: Francisco Javier Lockhart, at 9:37 EST , Service support ,
--- NOTE | 2019-06-26 08:49 | EKG12_ITS ---
Test Reason : SOB Blood Pressure : / mmHG Vent. Rate : 098 BPM Atrial Rate : 098 BPM P-R Int : 122 ms QRS Dur : 108 ms QT Int : 354 ms P-R-T Axes : 064 -63 052 degrees QTc Int : 451 ms Normal sinus rhythm Left anterior fascicular block Abnormal ECG Confirmed by KATERIN CLINE, ZABRINA ([id number]), editorial cartoonist SYDNEE PINON ([id number]) on 06/28/2019 1:27:10 PM Referred By: LAWSON Confirmed By:ZABRINA CONKLIN MD
--- NOTE | 2019-06-26 08:50 | RAD_ITS ---
STUDY: X-RAY CHEST REASON FOR EXAM: Male, 54 years old. PATIENT TO ED VIA EMS, PT HAD MECHANICAL FALL 4 DAYS AGO AND HIT HIS HEAD, +LOC, COMPLAINS OF LEFT HIP/TAILBONE PAIN FROM FALL. COUGH X4 DAYS WITH INCREASED SHORTNESS OF BREATH, HX [place], CHF TECHNIQUE: AP and lateral views of the chest. COMPARISON: Comparison is made with prior study dated June 21, 2018. FINDINGS: EKG electrodes are seen. Hyperinflation. There is no demonstrated pleural abnormality. There is mild cardiac enlargement. Normal mediastinum and shoaib. Normal visualized pulmonary arteries. Normal visualized aortic arch and descending thoracic aorta. Normal visualized thoracic spine. Normal visualized ribs, clavicles, and shoulders. There is no demonstrated abnormality of the visualized soft tissue structures of the upper abdomen. RAD/Chest PA and Lateral IMPRESSION: Mild cardiomegaly. The lungs are clear. Electronically Signed: Francisco Javier Lockhart, at 10:01 EST , Service support ,
--- NOTE | 2019-06-26 08:51 | RAD_ITS ---
STUDY: X-RAY - PELVIS AND LEFT HIP REASON FOR EXAM: Male, 54 years old. PATIENT TO ED VIA EMS, PT HAD MECHANICAL FALL 4 DAYS AGO AND HIT HIS HEAD, +LOC, COMPLAINS OF LEFT HIP/TAILBONE PAIN FROM FALL. COUGH X4 DAYS WITH INCREASED SHORTNESS OF BREATH, HX OK, CHF TECHNIQUE: 3 views of the pelvis and hip. COMPARISON: None. FINDINGS: There is a non-specific bowel gas pattern. Normal visualized soft tissue structures. Normal bilateral iliac wings, sacroiliac joints and visualized sacrum. Normal bilateral superior and inferior pubic rami. Normal pubic symphysis. Normal bilateral ischial tuberosities. The patient is status post left intramedullary marlee femoral fixation and compression screw fixation of the left femoral neck. There is evidence of a healed fracture of the proximal femoral shaft. No acute fracture is seen. RAD/HIP, UNI W/ Pelvis 2-3 Views IMPRESSION: Prior open reduction internal fixation of the proximal left femur. No acute abnormality is seen. Electronically Signed: Francisco Javier Lockhart, at 10:00 EST , Service support ,
--- NOTE | 2019-06-26 08:51 | RAD_ITS ---
STUDY: X-RAY - LUMBAR SPINE REASON FOR EXAM: Male, 54 years old. PATIENT TO ED VIA EMS, PT HAD MECHANICAL FALL 4 DAYS AGO AND HIT HIS HEAD, +LOC, COMPLAINS OF LEFT HIP/TAILBONE PAIN FROM FALL. COUGH X4 DAYS WITH INCREASED SHORTNESS OF BREATH, HX MN, CHF TECHNIQUE: 3 view(s) of the lumbar spine were obtained. COMPARISON: Comparison is made with prior study dated September 13, 2017. FINDINGS: There is straightening of the normal lumbar lordosis. There is no substantial scoliosis. Grade 2 anterior listhesis of L5 on S1 with spondylolysis of the pars interarticularis and with disc space narrowing and spondylosis at the L5-S1 level. Mild degree of loss of height of the L5 vertebrae. This may represent an old compression. Normal vertebral bodies and endplates. Disc space narrowing at the L5-S1 level. The soft tissue structures are unremarkable. RAD/Lumbar Spine 2 or 3 Views IMPRESSION: Grade 2 anterolisthesis of L5 on S1 with a spondylolysis of the pars interarticularis of the L5 vertebrae. Minimal loss of height of the L5 vertebra. This is slightly worse than on prior examination. Electronically Signed: Francisco Javier Lockhart, at 10:03 EST , Service support ,
--- NOTE | 2019-06-26 09:00 | ED.DCSUM_ITS ---
History of Present Illness Chief Complaint: Fall Narrative: Patient presenting secondary to multiple chief complaints. Patient reports that 4 days ago he suffered a mechanical fall when he slipped on some ice and struck his head. He states that he lost consciousness for a period of time and since then he has been having some issues with nausea vomiting headaches and generalized malaise. Patient also reports that when he fell he hurt his left hip. He reports that he has been having pain with ambulation. He also reports that he hurt his back and his tailbone. There is a moderate amount of pain in this area. He denies that he has any bowel or bladder incontinence. Patient also states that he has been dealing with a cough and exertional dyspnea recently. He reports that he has body aches, and diarrhea associated with this. He denies any abdominal pain. He denies any sick contacts or recent travel. I question the patient whether or not he is on anticoagulants, he states that he is but tells me that they are for my hypertension and cannot tell me which blood thinner he is on. Past Medical History - Allergies and Home Meds Allergies/Adverse Reactions: Allergies aspirin Allergy (Verified 06/26/19 08:40) Hives Penicillins Allergy (Verified 06/26/19 08:40) Swelling Primary Care Physician: Robert Hollis DO [Primary Care Provider] - Past Medical History: - - Seizure disorder, pulmonary embolism, hypertension, stroke Surgical History: - - Appendectomy, left hip repair status post fall with fracture, severe head lacerations with notable stitching performed, left hand surgery. Smoking Status: Never smoker - Family History Paternal Family History: Family History (Last Reviewed 06/01/19 @ 14:39 by APARNA Hernandez) Mother Heart disease Hypertension Lung cancer Laryngeal cancer Father Lung cancer Laryngeal cancer Bipolar 1 disorder Brother Bleeding disorder Sister Asthma Breast cancer Family History: Reports: Unknown - Patient notes that his father left when he was 7 [id number] and does not know any of his medical history. Maternal Family History: Family History (Last Reviewed 06/01/19 @ 14:39 by APARNA Hernandez) Mother Heart disease Hypertension Lung cancer Laryngeal cancer Father Lung cancer Laryngeal cancer Bipolar 1 disorder Brother Bleeding disorder Sister Asthma Breast cancer Family History: Reports: Heart Disease, Hypertension Review of Systems All systems negative except as indicated General: Reports: Chills, Fever, Malaise Eyes: Reports: Blurred Vision - bilaterally ENT: Denies: Sore throat Cardiovascular: Denies: Chest pain Respiratory: Reports: Dyspnea, Cough. Denies: Sputum Gastrointestinal: Reports: Nausea, Vomiting, Diarrhea Genitourinary: Denies: Dysuria, Hematuria, Frequency Musculoskeletal: Reports: Back pain, Extremity Pain Skin: Denies: Rash, Wounds Neurological: Reports: Headache. Denies: Weakness, Parasthesia Psych: Denies: Depression Endocrine: Denies: Polyuria Hematologic: Reports: Easy bleeding Allergy: Denies: Uticaria Physical Exam Vital Signs/Narrative: Vital Signs Temp Pulse Resp BP Pulse Ox 06/26/19 08:43 101 H 22 H 99 06/26/19 08:41 98.1 F 108 H 21 H 125/80 H 98 Inital Vital Signs reviewed: Yes General: Well nourished, Well developed, No Acute Distress Head: Normocephalic, Atraumatic Eyes: Perrl, EOMI ENT: Moist mucous membranes, No rhinorrhea Neck: Supple, Nontender Cardiovascular: Regular rhythm, No murmurs, Tachycardia Respiratory: No distress, CTA bilaterally, Chest nontender Abdomen: Soft, Nontender, Nondistended, Normal bowel sounds Back: Normal Inspection, Spinal tenderness - Lower lumbar spine and left paraspinal Extremities: Nontender, No edema, - - Patient complains of pain in his left hip but this is not reproducible with palpation and range of motion Skin: Normal color, No rash Neurological: Alert, Oriented x3, Cranial nerves II-XII grossly intact, Normal Strength, Normal Sensation Psychological: - - Somewhat anxious Diagnostic/Tx/Re-eval - EKG Initial EKG Interpretation: - - Sinus rhythm of 98 with left anterior fascicular block morphology. Isoelectric ST segments normal T waves. No evidence of acute ischemia or arrhythmia, no changes from prior EKG in February 2019. - Medical Decision Making Patient presented with multiple complaints. Broad work-up was obtained. CT imaging of the brain was found to be negative per radiology. Chest x-ray lumbar x-ray and hip x-ray by my personal interpretation as well as radiology showed only evidence of a compression fracture in the lumbar spine. Laboratory work-up was unremarkable flu swab was negative. Patient at this point has a nondescript cough, likely viral. He has symptoms of postconcussive syndrome, and he has a lumbar compression fracture. Patient will be sent home with analgesics. Patient was discharged in stable condition. ED Disposition - Plan for ED Patient: Disposition: Home or Assisted Living Diagnosis: Lumbar compression fracture, Postconcussive syndrome Instructions: FRACTURE, Vertebral Compression Prescriptions: Hydrocodone Bitart/Apap 5-325 [[place] 5MG-325MG] 1 tab PO Q6H PRN PRN 3 Days #12 tab PRN Reason: Pain Prescription Printed Referrals: Robert Hollis DO [Primary Care Provider] - 1 Week
[2019-06-26] MEDS: 0.9% Normal Saline 1,000 ML 1000 ML IV (09:07)
[2019-06-26] MEDS: Ondansetron 4 MG/2 ML Vial IV (09:08)
[2019-06-26] MEDS: Ketorolac 15 MG/ML Vial IV (09:08)
[2019-06-26 09:10] VITALS: O2SAT 99
[2019-06-26 09:11] VITALS: BP 125/80; PULSE 101; RESP 22; TEMP 36.7; O2SAT 99
[2019-06-26 09:11] LABS: Absolute Lymphocyte Count 1.92 X10^3/uL (0.83-4.51); Absolute Neutrophil Count 4.6 X10^3/uL (2.0-7.7); Basophil# 0.04 X10^3/uL; Basophil% 0.5 % (0-1); Eosinophil# 0.03 X10^3/uL; Eosinophils% 0.4 % (0-5); Hematocrit 43.8 % (40-54); Hemoglobin 14.9 g/dL (13.0-16.5); Lymphocyte # 1.92 X10^3/ul (4.0); Lymphocyte % 25.4 % (19-41); Mean Corpuscular Hgb 32.3 pg (27.0-32.0); Mean Corpuscular Volume 94.8 fL (80-94); Mean Platelet Vol. 8.3 fl (6.2-12.0); Monocyte# 0.95 X10^3/uL; Monocyte% 12.6 % (0-10); NRBC Flagged by Analyzer 0 % (0-5); Neutrophil # 4.57 X10^3/uL (2.7-7.7); Neutrophil % 60.4 % (47-70); Platelet Count 399 K/mm3 (150-450); RBC Distribution Width CV 12.5 % (11.6-14.6); RBC Distribution Width SD 43.6 fl (35.1-43.9); Red Blood Count 4.62 M/mm3 (4.6-6.2); White Blood Count 7.6 K/mm3 (4.4-11.0)
[2019-06-26 09:19] LABS: Prothrombin Time (Protime)PT. 13.2 SECONDS (11.7-14.9)
[2019-06-26 09:20] LABS: Partial Thromboplast Time 23.9 Seconds (24.1-36.2)
[2019-06-26 09:35] LABS: Anion Gap 12 (5-15); BUN 11 mg/dL (7-18); BUN/Creat Ratio 10.8 RATIO (10-20); Calcium,Total 9.5 mg/dL (8.5-10.1); Chloride 102 mmol/L (98-107); Creatinine, Serum 1.02 mg/dL (0.70-1.30); EST Glomerular Filtration Rate 81 mL/min (>60); Est Glom Filt Rate - Afr Amer 97 mL/min (>60); Estimated Creatinine Clearance 79.17 ml/min; Glucose 116 mg/dL (74-106); Potassium 4.3 mmol/L (3.5-5.1); Sodium Level 138 mmol/L (136-145)
[2019-06-26 10:39] VITALS: BP 147/87; PULSE 99; RESP 18
== END 2019-06-26 10:42 | disposition home or self-care (01) ==
PROVIDERS: Emergency Provider Emergency Medicine; PCP Family Medicine
DX: F07.81 Postconcussional syndrome (principal); S32.059A Unspecified fracture of fifth lumbar vertebra, initial encounter for closed fracture; M25.552 Pain in left hip; W00.0XXA Fall on same level due to ice and snow, initial encounter; Y93.9 Activity, unspecified; Y92.9 Unspecified place or not applicable; Y99.9 Unspecified external cause status; G40.909 Epilepsy, unspecified, not intractable, without status epilepticus; I10 Essential (primary) hypertension; R11.2 Nausea with vomiting, unspecified; R19.7 Diarrhea, unspecified; Z79.01 Long term (current) use of anticoagulants; Z79.899 Other long term (current) drug therapy; Z88.0 Allergy status to penicillin; Z86.711 Personal history of pulmonary embolism; Z86.73 Personal history of transient ischemic attack (TIA), and cerebral infarction without residual deficits
CPT/HCPCS: 70450; 71046; 72100; 73502; 80048; 84484; 85025; 85610; 85730; 87804; 93005; 96361; 96374; 96375; 99285; J7030; J2405

== ENCOUNTER 2019-11-19 14:18 | Emergency (ER) | payer MEDICAID, SELFPAY ==
[2019-11-19 14:20] VITALS: BP 122/59; PULSE 101; RESP 22; TEMP 36.4; O2SAT 96; BMI 30.9
--- NOTE | 2019-11-19 14:30 | ED.VIS.GEN ---
History of Present Illness Informant: Patient Onset: Days - 3 days Context: Gradual Onset Timing: Continuous Quality: throbbing Location: right great toe Current Severity: Severe Maximum Severity: Severe Worsened by: walking Relieved by: nothing Associated Symptoms: out of inhalers Narrative: 54-year-old male presents with 3 days of worsening pain redness and swelling of his right great toe. He denies any inciting injury or trauma or history of similar symptoms. No abrasions lacerations or wounds. No fevers. No leg pain or swelling. No vomiting or diarrhea. He is not lightheaded or dizzy. He denies history of gout. He does have a stent in this leg from peripheral vascular disease and he is concerned for cellulitis. He also notes that he has been out of his inhalers for the past month. He would like a refill of these. He gets dyspnea on exertion which is chronic for him. He is not acutely short of breath no cough no chest pain no fever no hemoptysis no sore throat or congestion Prior similar symptoms: No Recent Illness/Hospitalization: No <Sotero Michael - Last Filed: 11/19/19 14:55> <Alpa Cortez - Last Filed: 11/19/19 15:03> Chief Complaint: Cellulitis Past Medical History Prior records reviewed: Yes Past Medical History: - - Hypertension hyperlipidemia diabetes mellitus insulin-dependent peripheral vascular disease alcohol abuse syncope CVA COPD Surgical History: - - Appendectomy, left hip repair status post fall with fracture, severe head lacerations with notable stitching performed, left hand surgery. Smoking Status: Never smoker - Family History Paternal Family History: Family History (Last Reviewed 06/01/19 @ 14:39 by APARNA Hernandez) Mother Heart disease Hypertension Lung cancer Laryngeal cancer Father Lung cancer Laryngeal cancer Bipolar 1 disorder Brother Bleeding disorder Sister Asthma Breast cancer Family History: Reports: Unknown - Patient notes that his father left when he was 7 [id number] and does not know any of his medical history. Maternal Family History: Family History (Last Reviewed 06/01/19 @ 14:39 by APARNA Hernandez) Mother Heart disease Hypertension Lung cancer Laryngeal cancer Father Lung cancer Laryngeal cancer Bipolar 1 disorder Brother Bleeding disorder Sister Asthma Breast cancer Family History: Reports: Heart Disease, Hypertension <Sotero Michael - Last Filed: 11/19/19 14:55> - Family History Paternal Family History: Family History (Last Reviewed 06/01/19 @ 14:39 by APARNA Hernandez) Mother Heart disease Hypertension Lung cancer Laryngeal cancer Father Lung cancer Laryngeal cancer Bipolar 1 disorder Brother Bleeding disorder Sister Asthma Breast cancer Maternal Family History: Family History (Last Reviewed 06/01/19 @ 14:39 by APARNA Hernandez) Mother Heart disease Hypertension Lung cancer Laryngeal cancer Father Lung cancer Laryngeal cancer Bipolar 1 disorder Brother Bleeding disorder Sister Asthma Breast cancer <Alpa Cortez - Last Filed: 11/19/19 15:03> - Allergies and Home Meds Allergies/Adverse Reactions: Allergies aspirin Allergy (Verified 06/26/19 08:40) Hives Penicillins Allergy (Verified 06/26/19 08:40) Swelling Primary Care Physician: Robert Hollis DO [Primary Care Provider] - 1 Day Review of Systems All systems negative except as indicated General: Denies: Chills, Fever, Sweats Eyes: Denies: Visual changes - bilaterally, Blurred Vision - bilaterally, Diplopia ENT: Denies: Rhinorrhea, Sore throat Cardiovascular: Denies: Chest pain, Palpitations, Heart racing Respiratory: Reports: Dyspnea on exertion. Denies: Dyspnea, Cough, Sputum, Orthopnea, Paroxysmal nocturnal dyspnea Gastrointestinal: Denies: Abdominal pain, Nausea, Vomiting, Diarrhea, Melena, Hematochezia Genitourinary: Denies: Dysuria, Hematuria, Frequency Musculoskeletal: Reports: Swelling, Extremity Pain. Denies: Myalgias, Arthralgias, Neck pain, Back pain Skin: Denies: Rash, Wounds Neurological: Denies: Headache, Weakness, Parasthesia, Numbness <Sotero Michael - Last Filed: 11/19/19 14:55> Physical Exam Vital Signs/Narrative: Vital Signs Temp Pulse Resp BP Pulse Ox 11/19/19 14:20 97.5 F L 101 H 22 H 122/59 H 96 Inital Vital Signs reviewed: Yes General: Well nourished, Well developed, No Acute Distress Head: Normocephalic, Atraumatic Eyes: Perrl, EOMI ENT: Moist mucous membranes, No rhinorrhea Neck: Supple, Nontender Cardiovascular: Regular rate, Regular rhythm, No murmurs Respiratory: No distress, CTA bilaterally, Chest nontender Abdomen: Soft, Nontender, Nondistended, Normal bowel sounds Back: Nontender, Normal Inspection Extremities: - - Patient has redness swelling and warmth over his right first MTP joint. No abscess or wound is seen. His great toe nail is intact he has no redness or swelling of his toe there is no lymphatic streaking up his leg from his first MTP. Capillary refill and sensation of his great toe was normal. He is able to fully plantarflex and dorsiflex actively and he had normal active range of motion of his great toe. DP and PT pulses are both normal. There is no leg swelling asymmetrically or redness or palpable cords. Skin: Normal color, No rash Neurological: Alert, Oriented x3, Cranial nerves II-XII grossly intact, Normal Strength, Normal Sensation Psychological: Normal affect, Normal Mood <Sotero Michael - Last Filed: 11/19/19 14:55> Vital Signs/Narrative: Vital Signs Temp Pulse Resp BP Pulse Ox 11/19/19 14:20 97.5 F L 101 H 22 H 122/59 H 96 <Alpa Cortez - Last Filed: 11/19/19 15:03> Diagnostic/Tx/Re-eval - Medical Decision Making We checked the blood sugar after the patient stated that he had not been compliant with his insulin over the last month, it was only 98. Due to the patient's complex medical history with erythema and swelling of his toe we will treat him for potential gout as well as cellulitis. With a normal blood sugar we will give him a short course of prednisone we will also place him on doxycycline. He was given first doses in the emergency department. He was advised to have a repeat evaluation by his primary care in the next 2 to 3 days and he was also encouraged to follow-up to refill his medications. He was given return precautions. He was agreeable with plan of care. <Sotero Michael - Last Filed: 11/19/19 14:55> - Medical Decision Making Patient seen and evaluated with physicians trust manager assistant. Patient was independently interviewed and examined. Patient presents with swelling and redness to the right foot over the past 4 days. Area seems to be centered around the base of the right great toe. He denies any known injury. He does report a history of diabetes and has been out of his insulin for the past month. He has not been checking his sugars. He also reports being out of his inhalers for the past 2 months and having some shortness of breath. Patient sitting upright in bed no acute distress. He is nontoxic-appearing. Head and neck examination unremarkable. Heart is regular rate and rhythm. Sounds are clear. Abdomen is soft and nontender. Right lower extremity examination reveals focal tenderness at the first MTP joint of the right foot. He does have surrounding erythema and warmth. No tenderness at the ankle. No open wounds. Blood sugar obtained here is 98. Symptoms are concerning for gout. He will be treated with a burst of steroids and anti-inflammatories. Renal function was normal 3 months ago. Patient also be covered with doxycycline as he does have history of vascular disease and is high risk for infection. Refill on his inhalers are written he is encouraged to follow his PCP as soon as possible. <Alpa Cortez - Last Filed: 11/19/19 15:03> ED Disposition <Sotero Michael - Last Filed: 11/19/19 14:55> <Alpa Cortez - Last Filed: 11/19/19 15:03> - Plan for ED Patient: Disposition: Home or Assisted Living Diagnosis: Cellulitis of great toe of right foot, Gouty arthritis of right great toe, IDDM (insulin dependent diabetes mellitus), COPD (chronic obstructive pulmonary disease) Instructions: ED Cellulitis, ED ARTHRITIS Gout Prescriptions: Prednisone [Deltasone] 40 mg PO DAILY #10 tab Prescription Printed Doxycycline 100 mg PO BID #20 cap Prescription Printed Mometasone/Formoterol [Dulera] 2 puff INHALATION BID #1 inhaler Prescription Printed Albuterol Inhaler [Ventolin Hfa] 1 - 2 puff INHALATION Q4H PRN PRN #1 inhaler PRN Reason: Wheezing Prescription Printed Referrals: Robert Hollis DO [Primary Care Provider] - 1 Day
[2019-11-19 14:56] LABS: Bedside Glucose 98 mg/dL (70-110)
[2019-11-19] MEDS: Doxycycline 100 MG CAPSULE PO (15:07)
[2019-11-19] MEDS: predniSONE 20 MG Tablet 40 MG PO (15:07)
[2019-11-19 15:13] VITALS: BP 128/75; PULSE 87; RESP 18; TEMP 36.6; O2SAT 100
== END 2019-11-19 15:25 | disposition home or self-care (01) ==
PROVIDERS: Emergency Provider Physician Assistant Medical; PCP Family Medicine
DX: J44.9 Chronic obstructive pulmonary disease, unspecified (principal); M10.9 Gout, unspecified; L03.031 Cellulitis of right toe; E11.9 Type 2 diabetes mellitus without complications; E11.51 Type 2 diabetes mellitus with diabetic peripheral angiopathy without gangrene; Z86.73 Personal history of transient ischemic attack (TIA), and cerebral infarction without residual deficits; Z79.4 Long term (current) use of insulin; I10 Essential (primary) hypertension; E78.5 Hyperlipidemia, unspecified; Z79.899 Other long term (current) drug therapy; Z79.01 Long term (current) use of anticoagulants; Z91.14 Patient's other noncompliance with medication regimen
CPT/HCPCS: 82962; 99283

== ENCOUNTER → 2020-02-08 13:14 | Outpatient (CLI) | payer MEDICAID, SELFPAY ==
[2020-02-08 15:23] LABS: Absolute Lymphocyte Count 2.43 X10^3/uL (0.83-4.51); Absolute Neutrophil Count 4.3 X10^3/uL (2.0-7.7); Basophil# 0.04 X10^3/uL; Basophil% 0.5 % (0-1); Eosinophil# 0.21 X10^3/uL; Eosinophils% 2.6 % (0-5); Hemoglobin 14.7 g/dL (13.0-16.5); Lymphocyte # 2.43 X10^3/ul (4.0); Lymphocyte % 30.6 % (19-41); Monocyte# 0.91 X10^3/uL; Monocyte% 11.5 % (0-10); NRBC Flagged by Analyzer 0 % (0-5); Neutrophil # 4.32 X10^3/uL (2.7-7.7); Neutrophil % 54.5 % (47-70); Platelet Count 408 K/mm3 (150-450); RBC Distribution Width CV 12.3 % (11.6-14.6); RBC Distribution Width SD 44.3 fl (35.1-43.9); Red Blood Count 4.74 M/mm3 (4.6-6.2); White Blood Count 7.9 K/mm3 (4.4-11.0)
[2020-02-08 15:35] LABS: Hemoglobin A1c 5.8 % (3.8-5.6)
[2020-02-08 15:52] LABS: ALB/GLOB Ratio 0.9 RATIO (0.9-2.4); AST(SGOT) 18 U/L (15-37); Alanine Aminotransfer ALT/SGPT 31 U/L (16-61); Albumin, Serum 3.9 g/dL (3.2-5.0); Alkaline Phosphatase 48 U/L (45-117); Anion Gap 6 (5-15); BUN 20 mg/dL (7-18); BUN/Creat Ratio 20.1 RATIO (10-20); Calcium,Total 9.2 mg/dL (8.5-10.1); Chloride 104 mmol/L (98-107); Cholesterol 234 mg/dL (200); EST Glomerular Filtration Rate 82 mL/min (>60); Est Glom Filt Rate - Afr Amer 100 mL/min (>60); Globulin 4.3 g/dL (2.2-4.2); Glucose 111 mg/dL (74-106); High Density Lipoprotein 54 mg/dL; Potassium 3.9 mmol/L (3.5-5.1); Protein, Total 8.2 g/dL (6.4-8.2); Sodium Level 137 mmol/L (136-145); Triglycerides 358 mg/dL; Very Low Density Lipoprotein 72 mg/dL (5-40)
[2020-02-08 15:58] LABS: Vitamin D,25 Hydroxy 24.8 ng/mL
== END ==
PROVIDERS: PCP Family Medicine; Visit Provider Family Medicine
DX: Z00.00 Encounter for general adult medical examination without abnormal findings (principal); I10 Essential (primary) hypertension; R73.03 Prediabetes; Z12.5 Encounter for screening for malignant neoplasm of prostate
CPT/HCPCS: 36415; 80053; 80061; 82306; 83036; 84153; 85025; G0103

== ENCOUNTER → 2020-06-04 14:14 | Outpatient (CLI) | payer MEDICAID, SELFPAY ==
[2020-04-25 08:35] VITALS: BMI 33.1
[2020-06-04 17:37] LABS: Absolute Lymphocyte Count 2.55 X10^3/uL (0.83-4.51); Basophil# 0.06 X10^3/uL; Basophil% 0.8 % (0-1); Eosinophils% 3.8 % (0-5); Hematocrit 41.7 % (40-54); Hemoglobin 13.4 g/dL (13.0-16.5); Lymphocyte # 2.55 X10^3/ul (4.0); Lymphocyte % 32.7 % (19-41); Mean Corp Hgb Conc 32.1 g/dL (32-36); Mean Corpuscular Hgb 30.2 pg (27.0-32.0); Mean Corpuscular Volume 93.9 fL (80-94); Mean Platelet Vol. 9.7 fl (6.2-12.0); Monocyte# 0.88 X10^3/uL; Monocyte% 11.3 % (0-10); NRBC Flagged by Analyzer 0 % (0-5); Neutrophil # 4.01 X10^3/uL (2.7-7.7); Neutrophil % 51.3 % (47-70); Platelet Count 355 K/mm3 (150-450); RBC Distribution Width CV 12.4 % (11.6-14.6); Red Blood Count 4.44 M/mm3 (4.6-6.2); White Blood Count 7.8 K/mm3 (4.4-11.0)
[2020-06-04 17:56] LABS: AST(SGOT) 14 U/L (15-37); Alanine Aminotransfer ALT/SGPT 29 U/L (16-61); Albumin, Serum 3.8 g/dL (3.2-5.0); Alkaline Phosphatase 49 U/L (45-117); Anion Gap 5 (5-15); BUN 17 mg/dL (7-18); BUN/Creat Ratio 18.4 RATIO (10-20); CRP < 2.90 mg/L (0.0-3.0); Chloride 103 mmol/L (98-107); Creatinine, Serum 0.92 mg/dL (0.70-1.30); EST Glomerular Filtration Rate 90 mL/min (>60); Est Glom Filt Rate - Afr Amer 109 mL/min (>60); Glucose 80 mg/dL (74-106); Potassium 3.7 mmol/L (3.5-5.1); Protein, Total 7.8 g/dL (6.4-8.2); Sodium Level 138 mmol/L (136-145)
== END ==
PROVIDERS: PCP Family Medicine; Visit Provider Family Medicine
DX: R10.9 Unspecified abdominal pain (principal)
CPT/HCPCS: 36415; 80053; 85025; 86140

== ENCOUNTER → 2020-10-23 07:35 | Outpatient (CLI) | payer MEDICAID, SELFPAY ==
[2020-04-25 08:35] VITALS: BMI 33.1
--- NOTE | 2020-10-24 09:58 | PFT ---
INTRODUCTION: The patient is a 55-year-old male that presents for pulmonary function studies secondary to a diagnosis of pulmonary embolism. Respiratory therapy reports good patient effort. Bronchodilators were used during testing. INTERPRETATION: Forced expiration spirometry demonstrates no evidence of a large airways obstructive ventilatory defect. There was no significant response to aerosolized bronchodilators. Spirograms are of good quality and plateau normally. Body plethysmography was performed and revealed a decreased TLC to 4.67 L, 75% of predicted, indicative of a mild restrictive ventilatory impairment. Diffusing capacity by single breath CO was within normal limits at 90% of predicted. IMPRESSION: Isolated mild restrictive ventilatory impairment with preserved diffusing capacity.
== END ==
PROVIDERS: PCP Family Medicine; Referring Provider Internal Medicine Critical Care Medicine; Visit Provider Internal Medicine Critical Care Medicine
DX: J45.909 Unspecified asthma, uncomplicated (principal); Z86.711 Personal history of pulmonary embolism
CPT/HCPCS: 94060; 94726; 94729

== ENCOUNTER → 2020-11-07 07:58 | Outpatient (CLI) | payer MEDICAID, SELFPAY ==
[2020-10-31 07:37] VITALS: BMI 31.6
[2020-11-07 08:15] VITALS: PULSE 81; PULSE 84; PULSE 86; PULSE 87; PULSE 91; PULSE 92; PULSE 93; O2SAT 97; O2SAT 98; O2SAT 99
--- NOTE | 2020-11-07 08:36 | CPS ---
Pt paused at minutes 1,2 and 3 of walk for increased S.O.B.
--- NOTE | 2020-11-08 10:47 | PCM.PSN.6M ---
PSN 6 Minute Walk Test 6 Minute Walk Test 6 Minute Walk Test: 6 Minute Walk Test PSN:6-Minute Walk Test Start: 11/07/20 08:31 Freq: Status: Active Protocol: [id number].6MINW Document 11/07/20 08:15 [facility] (Rec: 11/07/20 08:39 [facility] [id number]) 6 Minute Walk Test Date Performed 11/07/20 Time Performed 08:15 Height 5 ft 8 in Weight: 99.79 kg Weight in Pounds 220.[address]: Tommy Assistive device used: None Pre-test Oxygen Delivery Method Room Air Pulse Ox (%) 98 Pulse Rate (60-100 beats/min) 81 Dyspnea Cely Scale (0-10) 1 Exertion Cely Scale (6-20) 0 1st minute Oxygen Delivery Method Room Air Pulse Ox (%) 98 Pulse Rate (60-100 beats/min) 92 Dyspnea Cely Scale (0-10) 2 Number of Rests Taken 1 Reported Symptoms Increased Work of Breathing 2nd minute Oxygen Delivery Method Room Air Pulse Ox (%) 98 Pulse Rate (60-100 beats/min) 87 Dyspnea Cely Scale (0-10) 2 Number of Rests Taken 1 Reported Symptoms Increased Work of Breathing 3rd minute Oxygen Delivery Method Room Air Pulse Ox (%) 97 Pulse Rate (60-100 beats/min) 92 Dyspnea Cely Scale (0-10) 2 Number of Rests Taken 1 Reported Symptoms Increased Work of Breathing 4th minute Oxygen Delivery Method Room Air Pulse Ox (%) 98 Pulse Rate (60-100 beats/min) 86 5th minute Oxygen Delivery Method Room Air Pulse Ox (%) 97 Pulse Rate (60-100 beats/min) 91 6th minute Oxygen Delivery Method Room Air Pulse Ox (%) 98 Pulse Rate (60-100 beats/min) 93 Dyspnea Cely Scale (0-10) 3 Exertion Cely Scale (6-20) 11 Reported Symptoms Increased Work of Breathing Post-test Oxygen Delivery Method Room Air Pulse Ox (%) 99 Pulse Rate (60-100 beats/min) 84 Full Laps Walked 12 Partial Lap, Number of Tiles Walked 10 Total Distance Walked (ft) 718 11/07/20 08:36 Cardiopulmonary Services by Trish Olson Pt paused at minutes 1,2 and 3 of walk for increased S.O.B. Initialized on 11/07/20 08:36 - END OF NOTE Interpretation Interpretation: The patient ambulated 718 feet over the course of 6 minutes beginning on room air without assistive devices. Pretesting oxygen saturation was noted to be 98% on room air. With ambulation, the raffi oxygen saturation was 97%. There was no significant exertional oxygen desaturation. Recommendations Recommendations: There is no indication for the use of supplemental oxygen at this time.
== END ==
PROVIDERS: PCP Family Medicine; Referring Provider Nurse Practitioner Acute Care; Visit Provider Nurse Practitioner Acute Care
DX: R06.00 Dyspnea, unspecified (principal)
CPT/HCPCS: 94618

== ENCOUNTER → 2020-11-19 07:51 | Outpatient (CLI) | payer MEDICAID, SELFPAY ==
[2020-10-31 07:37] VITALS: BMI 31.6
--- NOTE | 2020-11-19 07:55 | ECHOCS_ITS ---
Reason For Study: Dyspnea/SOB Procedure This was a 2D Doppler, Color Flow transthoracic echocardiogram. The study was technically difficult. Contrast injection was performed. Exam performed in department. Left Ventricle Normal LV size. Left ventricular systolic function is normal. The estimated ejection fraction is 60 %. Transmitral doppler flow suggestive of impaired relaxation of left ventricle. No regional wall motion abnormalities noted. Right Ventricle Normal RV size. Normal systolic function. Atria The left atrium is mildly enlarged. Normal right atrium. No doppler evidence for ASD. Bubble contrast study negative for right to left interatrial shunt. Mitral Valve There is no mitral annular calcification. Normal mitral valve. Trivial mitral valve insufficiency. Tricuspid Valve Normal tricuspid valve. Mild tricuspid valve insufficiency. Right ventricular systolic pressure estimated to be 28 mmHg. Aortic Valve Trisinus/trileaflet aortic valve. Normal aortic valve. Pulmonic Valve The pulmonic valve is not well visualized. Trivial pulmonic valve insufficiency. Great Vessels Normal sized aortic root. Pericardium/Pleural No pericardial effusion. Epicardial fat. Medication 22 gauge I.V. with prn adaptor inserted into right arm. Diluted definity 2ml given slow IV push to enhance endocardial definition. Performed a rapid injection of agitated mix of 9 cc saline and 1cc air to assess for atrial septal defect. MMode/2D Measurements & Calculations LVIDd: 5.0 cm IVSd: 1.2 cm Ao root diam: 3.5 cm LVIDs: 3.6 cm LVPWd: 1.2 cm LA dimension: 4.1 cm RVDd: 4.6 cm FS: 27.0 % LAV(MOD-bp): 58.6 ml LA A4 area: 21.0 cm2 RA A4 area: 19.4 cm2 LAV(MOD-bp) Indexed: 27.5 ml/m2 LAV(MOD-sp2): 58.1 ml LAV(MOD-sp4): 56.0 ml Time Measurements MV dec time: 0.22 sec Doppler Measurements & Calculations MV E max tim: 81.1 cm/sec Lat Peak E' Tim: 8.7 cm/sec Med Peak E' Tim: 7.3 cm/sec MV A max tim: 92.1 cm/sec E/E' lat: 9.3 E/E' med: 11.1 MV E/A: 0.88 MV V2 max: 99.8 cm/sec MV P1/2t max tim: 84.1 cm/sec Ao V2 max: 125.8 cm/sec MV max P.0 mmHg MV P1/2t: 83.0 msec Ao max P.3 mmHg MV V2 mean: 56.1 cm/sec MV dec slope: 297.0 cm/sec2 MV mean P.5 mmHg MV V2 VTI: 30.0 cm MVA(P1/2t): 2.7 cm2 LV V1 max: 114.9 cm/sec PA V2 max: 112.7 cm/sec TR max tim: 249.9 cm/sec LV V1 max P.3 mmHg TR max P.0 mmHg ECHO/Echo Complete W/ Contrast Interpretation Summary The study was technically difficult. Contrast injection was performed. Left ventricular systolic function is normal. The estimated ejection fraction is 60 %. The left atrium is mildly enlarged. Trivial mitral valve insufficiency. Mild tricuspid valve insufficiency. Trivial pulmonic valve insufficiency. Epicardial fat. Right ventricular systolic pressure estimated to be 28 mmHg. Transmitral doppler flow suggestive of impaired relaxation of left ventricle Ordering Physician: Concetta Troncoso Referring Physician: Robert Hollis Performed By: Arpit Laureano RCS
== END ==
PROVIDERS: PCP Family Medicine; Referring Provider Nurse Practitioner Acute Care; Visit Provider Nurse Practitioner Acute Care
DX: R06.00 Dyspnea, unspecified (principal); R06.02 Shortness of breath
CPT/HCPCS: 93306; Q9957; A4216; C8929; J3490

== ENCOUNTER 2021-10-22 15:38 | Emergency (ER) | payer MEDICAID, SELFPAY ==
[2021-10-22 15:39] VITALS: BP 124/80; PULSE 104; RESP 15; TEMP 37.8; O2SAT 97; BMI 30.4
--- NOTE | 2021-10-22 16:01 | EX.ED.DYSGE1 ---
HPI History of Present Illness Chief Complaint: Cough Informant: patient Narrative Narrative: 2-day history of nonproductive cough denies fevers or chills. Nausea and vomiting occasionally pain no hematemesis. No diarrhea. Changes in taste. COVID vaccinated without the booster no infections in the past. States 3 cousins were diagnosed with COVID and he was exposed to them. Denies dyspnea. Mild headache. History of seizure disorder, asthma. Prior similar symptoms: No PFSH PFSH Medical History (Updated 10/22/21 @ 17:[address] Mark Dooley DO) Abnormal chest CT Alcohol abuse Allergic rhinitis Anxiety disorder Asthma Bilateral leg edema CAD (coronary artery disease) Chest pain Chronic back pain Chronic headache CVA (cerebral vascular accident) Dizziness Dyspnea on exertion Epileptic seizure, generalized Episode of syncope Epistaxis Essential (primary) hypertension Generalized hypopigmentation of skin GERD (gastroesophageal reflux disease) Herniated cervical disc without myelopathy History of non-ST elevation myocardial infarction (NSTEMI) (2008) History of pulmonary embolus (PE) (12/25/14) Hypersomnia Hypomagnesemia Impaired fasting glucose Insomnia Lichen simplex chronicus Major depression JANELL (obstructive sleep apnea) Paresthesia Peripheral neuropathy Peripheral vascular occlusive disease Personality disorder PND (post-nasal drip) Pulmonary nodules/lesions, multiple Restless legs syndrome (RLS) Right lumbar radiculopathy Seizure disorder Shortness of breath Skull fracture Syncope and collapse Home Medications levetiracetam 750 mg tablet,extended release 24 hr 1,000 mg PO BID 05/05/16 [History Last Taken Unknown] docusate sodium 100 mg capsule 100 mg PO BID 04/23/17 [History Last Taken Unknown] fluoxetine 20 mg capsule (Prozac) 20 mg PO DAILY 10/21/17 [History Last Taken Unknown] omeprazole 20 mg capsule,delayed release 20 mg PO BID #180 caps 11/09/17 [Rx Last Taken Unknown] divalproex 500 mg tablet,delayed release 500 mg PO QHS 06/21/18 [History Last Taken Unknown] phenobarbital 16.2 mg tablet 16.2 mg PO BID 06/21/18 [History Last Taken Unknown] ropinirole 2 mg tablet,extended release 24 hr 2 mg PO QHS 06/21/18 [History Last Taken Unknown] clonazepam 2 mg tablet 2 mg PO BID 28 days #56 tabs 07/07/18 [History Last Taken Unknown] doxepin 25 mg capsule 25 mg PO DAILY 28 days #28 caps 07/07/18 [History Last Taken Unknown] furosemide 20 mg tablet 20 mg PO BID 07/07/18 [History Last Taken Unknown] loperamide 2 mg capsule 2 mg PO DAILY 4 days #16 caps 07/07/18 [History Last Taken Unknown] olanzapine 2.5 mg tablet 2.5 mg PO QHS 07/07/18 [History Last Taken Unknown] prazosin 1 mg capsule 1 mg PO BID 28 days #28 caps 07/07/18 [History Last Taken Unknown] rivaroxaban 15 mg tablet 15 mg PO BID 03/15/19 [History Last Taken Unknown] albuterol sulfate 90 mcg/actuation aerosol inhaler 1 - 2 puff inhalation Q4H PRN PRN Wheezing #18 grams 04/25/20 [Rx Last Taken Unknown] mometasone-formoterol HFA 200 mcg-5 mcg/actuation aerosol inhaler 2 puff inhalation BID #13 grams 04/25/20 [Rx Last Taken Unknown] nystatin 100,000 unit/mL oral suspension 5 ml mucous membrane TID #250 mL 10/31/20 [Rx Last Taken Unknown] fluticasone propionate 50 mcg/actuation nasal spray,suspension 2 spray intranasal DAILY #16 grams 03/26/21 [Rx Last Taken Unknown] molnupiravir 200 mg capsule (EUA) 800 mg PO Q12H 5 days #40 caps 10/22/21 [Rx Last Taken Unknown] ondansetron 4 mg disintegrating tablet 4 mg PO Q6H PRN nausea and vomiting #10 tabs 10/22/21 [Rx Last Taken Unknown] Allergy/AdvReac Type Severity Reaction Status Date / Time aspirin Allergy Hives Verified 10/22/21 15:39 Penicillins Allergy Swelling Verified 10/22/21 15:39 Family History Mother Heart disease Hypertension Lung cancer Laryngeal cancer Father Lung cancer Laryngeal cancer Bipolar 1 disorder Brother Bleeding disorder Sister Asthma Breast cancer Surgical History History of angioplasty of peripheral vessel History of left heart catheterization (04/14/17) History of open reduction and internal fixation (ORIF) procedure Hx of appendectomy Social History Smoking Status: Current every day smoker tobacco type: cigarettes second hand exposure: No alcohol intake: never substance use type: does not use caffeine: Yes Type: coffee Number of servings: 3 what type of physical activity do you participate in: walking frequency: 1-2 times per week ROS ROS ED Constitutional Constitutional ED: Denies chills, fever(s) or sweats Eyes Eyes: Denies change in vision ENT ENT ED: Denies dysphagia or sore throat Cardiovascular Cardiovascular: Denies chest pain, leg edema, palpitations or racing heartbeat Respiratory/Chest Respiratory/Chest: Reports cough; Denies dyspnea or dyspnea on exertion Gastrointestinal Gastrointestinal: Reports nausea and vomiting; Denies abdominal pain or diarrhea Genitourinary Genitourinary ED: Denies dysuria, hematuria or urinary frequency Musculoskeletal Musculoskeletal: Denies back pain, extremity pain or neck pain Integumentary Denies rash or wounds Neurologic Neurologic: Reports headache(s); Denies paresthesias or weakness EXAM Physical Exam Const Vital Signs: 10/22/21 15:39 10/22/21 16:09 Temperature 100.0 F H Temperature Source Temporal Pulse Rate 104 H Respiratory Rate 15 Respiratory Effort Short of Breath Blood Pressure 124/80 H Blood Pressure Mean 94 Pulse Ox 97 Oxygen Delivery Method Room Air Positive well nourished and well developed General Appearance ED: well developed and NAD HEENT Reports moist mucous membranes normocephalic and atraumatic Eyes PERRL, EOMs intact bilaterally and conjunctivae normal General Eye ED: Yes normal appearance of both eyes Neck no lymphadenopathy and supple Neck Narrative: No meningismus General: Negative for tenderness Chest Wall Chest: Negative for tenderness Resp normal respiratory effort and normal air movement Effort and Inspection: symmetric chest movement; Negative for respiratory distress Cardio regular rate, regular rhythm and no murmurs Peripheral Pulses: pulses 2+ throughout GI normal to inspection, nondistended, normoactive bowel sounds and non-tender Palpation: Negative for guarding or rebound tenderness present Back/Spine no CVA tenderness and no thoracic nor lumbar tenderness Extremity normal to inspection General Extremety ED: Negative for edema or tenderness General Extremity: Negative for edema Neuro oriented x3 and no sensory deficits noted Sensorium / Orientation: awake and alert Skin no rashes or lesions noted and no wounds MDM MDM MDM Narrative Medical decision making narrative: Patient nontoxic elevated temp of 100 on arrival denies any fevers or chills however. Slightly tachycardic on arrival. COVID exposure that with symptoms. Discussed with patient likely COVID infection. His pulse ox 97% on room air. Will check chest x-ray obtained COVID swab Will give Zofran and Tylenol. Will reevaluate. Chest x-ray 1 view reviewed by myself read by radiology shows no infiltrates. COVID testing positive. Patient in the treatment window. Due to being on antiepileptics he cannot do Paxlovid. Alternative treatment with Molnupirivar was written for 5 days. Prescription also for antiemetics. Return precautions discussed. All questions were answered. Radiography Diagnostic Testing: Clinical Impression(s) from Imaging Studies Chest X-Ray 10/22/21 16:09 IMPRESSION: Poor inspiration with some bibasilar atelectasis Electronically Signed: Ashwin Pryor MD at 16:19 EDT , Discharge Plan Triage Chief Complaint: Cough ED Provider: Mark Dooley Dx/Rx/DC Orders Clinical Impression: COVID-19 virus infection, Cough, History of seizure Instructions: Coronavirus Disease 2019 (COVID-19): Caring for Yourself or Others Prescriptions: New molnupiravir 200 mg capsule 800 mg PO Q12H 5 Days Qty: 40 0RF ondansetron 4 mg tablet,disintegrating 4 mg PO Q6H PRN (Reason: nausea and vomiting) Qty: 10 0RF No Action fluoxetine [Prozac] 20 mg capsule 20 mg PO DAILY olanzapine 2.5 mg tablet 2.5 mg PO QHS prazosin 1 mg capsule 1 mg PO BID 28 Days Qty: 28 loperamide 2 mg capsule 2 mg PO DAILY 4 Days Qty: 16 clonazepam 2 mg tablet 2 mg PO BID 28 Days Qty: 56 doxepin 25 mg capsule 25 mg PO DAILY 28 Days Qty: 28 mometasone-formoterol 200-5 mcg/actuation HFA aerosol inhaler 2 puff inhalation BID Qty: 13 6RF albuterol sulfate 90 mcg/actuation HFA aerosol inhaler 1 - 2 puff inhalation Q4H PRN PRN (Reason: Wheezing) Qty: 18 2RF nystatin 100,000 unit/mL suspension 5 ml mucous membrane TID Qty: 250 1RF Rx Instructions: swish and swallow 5 cc three times per day for 10 days levetiracetam 750 MG tablet extended release 24 hr 1,000 mg PO BID docusate sodium 100 MG capsule 100 mg PO BID divalproex 500 MG tablet,delayed release (DR/EC) 500 mg PO QHS phenobarbital 16.2 MG tablet 16.2 mg PO BID ropinirole 2 MG tablet extended release 24 hr 2 mg PO QHS furosemide 20 mg tablet 20 mg PO BID rivaroxaban 15 MG tablet 15 mg PO BID omeprazole 20 mg capsule,delayed release(DR/EC) 20 mg PO BID Qty: 180 2RF fluticasone propionate 50 mcg/actuation spray,suspension 2 spray INTRANASAL DAILY Qty: 16 3RF Primary Care Provider: Robert Hollis Referrals: Robert Hollis DO [Primary Care Provider] - 1 Week Activity Restrictions/Additional Instructions: Chest x-ray negative. Positive for COVID. Take antiviral as prescribed. Monitor your breathing and oxygenation. Return if any worsening symptoms. Disposition Disposition: Home, Self Care Discharge Date/Time: 10/22/21 17:18
[2021-10-22] MEDS: Acetaminophen 500 MG Tablet 1000 MG PO (16:07)
[2021-10-22] MEDS: Ondansetron ODT 4 MG Tablet PO (16:07)
--- NOTE | 2021-10-22 16:09 | RAD_ITS ---
STUDY: X-RAY CHEST REASON FOR EXAM: Male, 56 years old. cough TECHNIQUE: Single AP portable view of the chest. COMPARISON: 06/26/2019 FINDINGS: Poor inspiration with some bibasilar atelectasis. There is no demonstrated pleural abnormality. There is moderate cardiac enlargement. Normal mediastinum and shoaib. Normal visualized pulmonary arteries. Normal visualized aortic arch and descending thoracic aorta. Normal visualized thoracic spine. Normal visualized ribs, clavicles, and shoulders. There is no demonstrated abnormality of the visualized soft tissue structures of the upper abdomen. RAD/Chest 1 View (Portable) IMPRESSION: Poor inspiration with some bibasilar atelectasis Electronically Signed: Ashwin Pryor MD at 16:19 EDT ,
== END 2021-10-22 17:18 | disposition home or self-care (01) ==
PROVIDERS: Emergency Provider Emergency Medicine; PCP Family Medicine; Visit Provider Emergency Medicine
DX: U07.1 COVID-19 (principal); G40.909 Epilepsy, unspecified, not intractable, without status epilepticus; I25.10 Atherosclerotic heart disease of native coronary artery without angina pectoris; I10 Essential (primary) hypertension; M54.9 Dorsalgia, unspecified; J45.909 Unspecified asthma, uncomplicated; F41.9 Anxiety disorder, unspecified; K21.9 Gastro-esophageal reflux disease without esophagitis; G47.33 Obstructive sleep apnea (adult) (pediatric); F17.210 Nicotine dependence, cigarettes, uncomplicated; Z79.01 Long term (current) use of anticoagulants; Z79.899 Other long term (current) drug therapy; I25.2 Old myocardial infarction; Z86.73 Personal history of transient ischemic attack (TIA), and cerebral infarction without residual deficits; Z86.711 Personal history of pulmonary embolism
CPT/HCPCS: 71045; 87426; 99283

== ENCOUNTER 2021-10-30 10:17 | Emergency (ER) | payer MEDICAID, SELFPAY ==
[2021-10-30 10:17] VITALS: BP 97/47; PULSE 86; RESP 16; TEMP 36.3; O2SAT 100; BMI 33.4
[2021-10-30 10:29] VITALS: BP 115/77; PULSE 78; RESP 17; O2SAT 98
--- NOTE | 2021-10-30 10:33 | EX.ED.DYSGE1 ---
HPI <APARNA Sorto - Last Filed: 10/30/21 12:04> History of Present Illness Chief Complaint: Confusion Narrative Narrative: 56-year-old male presents with few day history of malaise, nausea, generalized weakness and cough. He states his cousin who lives across the street was concerned about him today and brought him to the ER. He has chills and a cough but denies fever. No vomiting, chest pain or shortness of breath. He has had decreased p.o. intake but reports normal bladder and bowel movements. Said his cousin was sick with COVID about a month ago but no recent sick contacts. He is vaccinated. He has history of epilepsy and takes Keppra and Depakote and has not had a seizure in months. [facility] <APARNA Sorto - Last Filed: 10/30/21 12:04> [facility] Medical History (Updated 10/30/21 @ 11:57 by APARNA Sorto) Abnormal chest CT Alcohol abuse Allergic rhinitis Anxiety disorder Asthma Bilateral leg edema CAD (coronary artery disease) Chest pain Chronic back pain Chronic headache CVA (cerebral vascular accident) Dizziness Dyspnea on exertion Epileptic seizure, generalized Episode of syncope Epistaxis Essential (primary) hypertension Generalized hypopigmentation of skin GERD (gastroesophageal reflux disease) Herniated cervical disc without myelopathy History of non-ST elevation myocardial infarction (NSTEMI) (2008) History of pulmonary embolus (PE) (12/25/14) Hypersomnia Hypomagnesemia Impaired fasting glucose Insomnia Lichen simplex chronicus Major depression JANELL (obstructive sleep apnea) Paresthesia Peripheral neuropathy Peripheral vascular occlusive disease Personality disorder PND (post-nasal drip) Pulmonary nodules/lesions, multiple Restless legs syndrome (RLS) Right lumbar radiculopathy Seizure disorder Shortness of breath Skull fracture Syncope and collapse Home Medications levetiracetam 750 mg tablet,extended release 24 hr 1,000 mg PO BID 05/05/16 [History Last Taken Unknown] docusate sodium 100 mg capsule 100 mg PO BID 04/23/17 [History Last Taken Unknown] fluoxetine 20 mg capsule (Prozac) 20 mg PO DAILY 10/21/17 [History Last Taken Unknown] omeprazole 20 mg capsule,delayed release 20 mg PO BID #180 caps 11/09/17 [Rx Last Taken Unknown] divalproex 500 mg tablet,delayed release 500 mg PO QHS 06/21/18 [History Last Taken Unknown] phenobarbital 16.2 mg tablet 16.2 mg PO BID 06/21/18 [History Last Taken Unknown] ropinirole 2 mg tablet,extended release 24 hr 2 mg PO QHS 06/21/18 [History Last Taken Unknown] clonazepam 2 mg tablet 2 mg PO BID 28 days #56 tabs 07/07/18 [History Last Taken Unknown] doxepin 25 mg capsule 25 mg PO DAILY 28 days #28 caps 07/07/18 [History Last Taken Unknown] furosemide 20 mg tablet 20 mg PO BID 07/07/18 [History Last Taken Unknown] loperamide 2 mg capsule 2 mg PO DAILY 4 days #16 caps 07/07/18 [History Last Taken Unknown] olanzapine 2.5 mg tablet 2.5 mg PO QHS 07/07/18 [History Last Taken Unknown] prazosin 1 mg capsule 1 mg PO BID 28 days #28 caps 07/07/18 [History Last Taken Unknown] rivaroxaban 15 mg tablet 15 mg PO BID 03/15/19 [History Last Taken Unknown] albuterol sulfate 90 mcg/actuation aerosol inhaler 1 - 2 puff inhalation Q4H PRN PRN Wheezing #18 grams 04/25/20 [Rx Last Taken Unknown] mometasone-formoterol HFA 200 mcg-5 mcg/actuation aerosol inhaler 2 puff inhalation BID #13 grams 04/25/20 [Rx Last Taken Unknown] nystatin 100,000 unit/mL oral suspension 5 ml mucous membrane TID #250 mL 10/31/20 [Rx Last Taken Unknown] fluticasone propionate 50 mcg/actuation nasal spray,suspension 2 spray intranasal DAILY #16 grams 03/26/21 [Rx Last Taken Unknown] molnupiravir 200 mg capsule (EUA) 800 mg PO Q12H 5 days #40 caps 10/22/21 [Rx Last Taken Unknown] ondansetron 4 mg disintegrating tablet 4 mg PO Q6H PRN nausea and vomiting #10 tabs 10/22/21 [Rx Last Taken Unknown] azithromycin 250 mg tablet See Rx Instructions PO .COMPLEX #6 tabs 10/30/21 [Rx Last Taken Unknown] Allergy/AdvReac Type Severity Reaction Status Date / Time aspirin Allergy Hives Verified 10/30/21 10:17 Penicillins Allergy Swelling Verified 10/30/21 10:17 Family History Mother Heart disease Hypertension Lung cancer Laryngeal cancer Father Lung cancer Laryngeal cancer Bipolar 1 disorder Brother Bleeding disorder Sister Asthma Breast cancer Surgical History History of angioplasty of peripheral vessel History of left heart catheterization (04/14/17) History of open reduction and internal fixation (ORIF) procedure Hx of appendectomy Social History Smoking Status: Current every day smoker tobacco type: cigarettes second hand exposure: No alcohol intake: never substance use type: does not use caffeine: Yes Type: coffee Number of servings: 3 what type of physical activity do you participate in: walking frequency: 1-2 times per week ROS <APARNA Sorto - Last Filed: 10/30/21 12:04> ROS ED ROS Narrative Constitutional: Positive chills, malaise. Negative for fever. Eyes: Negative for visual change. ENT: Negative for sore throat, ear pain, rhinorrhea. CVS: Negative for palpitations, chest pain, syncope. Respiratory: Positive for cough. Negative for shortness of breath, orthopnea. GI: Positive for nausea. Negative for abdominal pain, vomiting, diarrhea, constipation, melena, hematochezia. : Negative for dysuria, hematuria or frequency. Neuro: Negative for headache, motor/sensory dysfunction. Skin: Negative for rash, abscess, or wound. Musc: Negative for joint pain, swelling, trauma. Heme: Negative for easy bruising, bleeding, lymphadenopathy. EXAM <APARNA Sorto - Last Filed: 10/30/21 12:04> Physical Exam Narrative Exam Narrative: CONST: Patient sitting in no acute distress. EYES: Normal inspection. ENT: Normal inspection, dry mucous membranes. NECK: Normal inspection. RESP: No respiratory distress, CTAB. CVS: Regular rate and rhythm, no murmur, no gallop. ABD: Soft and nontender, no guarding or rebound, nondistended, no hepatosplenomegaly. SKIN: Color normal, no rash, warm, dry, intact. EXTREMITIES: Normal appearance, no pedal edema. NEURO: Oriented x4. PSYCH: Normal affect. Const Vital Signs: 10/30/21 10:17 10/30/21 10:29 10/30/21 12:12 Temperature 97.3 F L Temperature Source Temporal Pulse Rate 86 78 71 Respiratory Rate 16 17 Blood Pressure 97/47 L 115/77 157/74 H Blood Pressure Mean 63 89 Pulse Ox 100 98 Oxygen Delivery Method Room Air Room Air <Dr. Anshu River DO - Last Filed: 10/30/21 12:29> Physical Exam Const Vital Signs: 10/30/21 10:17 10/30/21 10:29 10/30/21 12:12 Temperature 97.3 F L Temperature Source Temporal Pulse Rate 86 78 71 Respiratory Rate 16 17 Blood Pressure 97/47 L 115/77 157/74 H Blood Pressure Mean 63 89 Pulse Ox 100 98 Oxygen Delivery Method Room Air Room Air MDM <Ariana Rollins PA - Last Filed: 10/30/21 12:04> MDM MDM Narrative Medical decision making narrative: Patient presents with malaise and cough. He is not confused as listed as a triage chief complaint, more so has malaise and generalized weakness. He appears well and nontoxic. Afebrile and vital signs within normal limits. He has dry mucous membranes with an otherwise benign exam. Lungs are clear. CBC, BMP, UA all unremarkable. CXR shows increased left lower lung markings possible developing infiltrate. He has had a cough so I suspect early infiltrate. COVID/influenza testing is negative. Patient will be treated for presumptive community-acquired pneumonia with a Z-Nicola. He was also given a liter of fluids here. He is comfortable going home and states his cousin will check in on him. He was discharged in stable condition. 1. Dehydration 2. Community-acquired pneumonia Lab Data Attestation: I reviewed the patient's lab results. Labs: Laboratory Results - last 24 hr 10/30/21 10/30/21 10/30/21 10:35 10:35 11:15 WBC 6.1 RBC 3.88 L Hgb 12.0 L Hct 36.6 L MCV 94.3 H MCH 30.9 MCHC 32.8 RDW Std Deviation 42.9 RDW Coeff of Sherrell 12.3 Plt Count 308 MPV 9.0 Immature Gran % (Auto) 0.300 Neut % (Auto) 51.8 Lymph % (Auto) 33.6 [place] % (Auto) 11.7 H Eos % (Auto) 2.3 Baso % (Auto) 0.3 Absolute Neuts (auto) 3.2 Absolute Lymphs (auto) 2.06 Nucleated RBC % 0 Sodium 140 Potassium 3.7 Chloride 107 Carbon Dioxide 28.0 Anion Gap 5 BUN 17 Creatinine 0.93 Estim Creat Clear Calc 84.78 Est GFR (MDRD) Af Amer 107 Est GFR (MDRD) Non-Af 89 BUN/Creatinine Ratio 18.2 Glucose 106 Calcium 8.5 Total Bilirubin 0.20 AST 17 ALT 34 Alkaline Phosphatase 44 L Total Protein 6.5 Albumin 3.2 Globulin 3.3 Albumin/Globulin Ratio 1.0 Urine Color Yellow Urine Clarity Clear Urine pH 6.5 Ur Specific [place] 1.010 Urine Protein Negative Urine Glucose (UA) Normal Urine Ketones Negative Urine Occult Blood Negative Urine Nitrite Negative Urine Bilirubin Negative Urine Urobilinogen 1 H Ur Leukocyte Esterase 25 H Urine RBC 0 SEEN Urine WBC 0-5 SEEN Ur Squamous Epith Cells 0 SEEN Urine Bacteria 0 SEEN Urine Mucus 0 SEEN Radiography Chest X-Ray - ED: 1 View, Read by ED Physician, Read by Radiologist, Normal, Heart, Mediastinum, Bony Structures and Left Infiltrate Diagnostic Testing: Clinical Impression(s) from Imaging Studies Chest X-Ray 10/30/21 10:48 IMPRESSION: Persistent mild increased markings at the left lung base suggestive of left basilar atelectasis and/or early infiltrate. Electronically Signed: Francisco Javier Lockhart MD at 11:11 EDT Reading Location ID and State: [address] [place] [address] , Service support , ED attending of chest x-ray shows normal heart size, slightly increased markings left lung base atelectasis versus infiltrate <Dr. Anshu River, DO - Last Filed: 10/30/21 12:29> [facility] MDM Narrative Medical decision making narrative: Patient presents with malaise and cough. He is not confused as listed as a triage chief complaint, more so has malaise and generalized weakness. He appears well and nontoxic. Afebrile and vital signs within normal limits. He has dry mucous membranes with an otherwise benign exam. Lungs are clear. CBC, BMP, UA all unremarkable. CXR shows increased left lower lung markings possible developing infiltrate. He has had a cough so I suspect early infiltrate. COVID/influenza testing is negative. Patient will be treated for presumptive community-acquired pneumonia with a Z-Nicola. He was also given a liter of fluids here. He is comfortable going home and states his cousin will check in on him. He was discharged in stable condition. 1. Dehydration 2. Community-acquired pneumonia I have personally performed a face to face assessment of the patient and have reviewed the GUSTAVO Note. I performed a substantive portion of the visit including all aspects of the following. My travis findings include: History: Patient is a 56-year-old male who presents with cough and malaise. Patient states he has been feeling weak all over. Patient states this has been gradually getting worse over the past couple days. Patient admits to a mild cough but denies any sputum production. Patient denies any fevers or chills. Patient denies any chest pain. Patient does admit to some mild upper abdominal pain. Exam: Vital signs are stable. Patient is afebrile. Patient is in no acute distress. Oral mucosa is pink and moist. Neck is supple. Trachea is midline. Is no JVD. Heart was regular rate and rhythm. Lungs were clear and equal bilaterally. There is adequate respiratory effort. Abdomen is soft. Bowel sounds are normal. There is no tenderness. There is no guarding or rebound noted. Cranial nerves II through XII are intact. There are no focal motor or sensory deficits noted. Medical Decision Making: CBC shows a mild anemia with a hemoglobin of 12.0 and hematocrit 36.6. Comprehensive metabolic profile was within normal limits. Urinalysis does not show any evidence of urinary tract infection or hematuria. Portable chest x-ray was obtained. There is 1 view. On my interpretation, there are increased markings in the left lower lobe consistent with atelectasis and/or infiltrate. There is no cardiomegaly. Bony thorax is normal. Radiologist also interpreted the x-ray and agrees. Patient was advised of his findings. Patient was given a prescription for Zithromax. Patient was instructed to follow-up with his primary care physician in 5 to 7 days. Patient understood and was agreeable with the plan. All questions were answered. Lab Data Labs: Laboratory Results - last 24 hr 10/30/21 10/30/21 10/30/21 10:35 10:35 11:15 WBC 6.1 RBC 3.88 L Hgb 12.0 L Hct 36.6 L MCV 94.3 H MCH 30.9 MCHC 32.8 RDW Std Deviation 42.9 RDW Coeff of Sherrell 12.3 Plt Count 308 MPV 9.0 Immature Gran % (Auto) 0.300 Neut % (Auto) 51.8 Lymph % (Auto) 33.6 [place] % (Auto) 11.7 H Eos % (Auto) 2.3 Baso % (Auto) 0.3 Absolute Neuts (auto) 3.2 Absolute Lymphs (auto) 2.06 Nucleated RBC % 0 Sodium 140 Potassium 3.7 Chloride 107 Carbon Dioxide 28.0 Anion Gap 5 BUN 17 Creatinine 0.93 Estim Creat Clear Calc 84.78 Est GFR (MDRD) Af Amer 107 Est GFR (MDRD) Non-Af 89 BUN/Creatinine Ratio 18.2 Glucose 106 Calcium 8.5 Total Bilirubin 0.20 AST 17 ALT 34 Alkaline Phosphatase 44 L Total Protein 6.5 Albumin 3.2 Globulin 3.3 Albumin/Globulin Ratio 1.0 Urine Color Yellow Urine Clarity Clear Urine pH 6.5 Ur Specific [place] 1.010 Urine Protein Negative Urine Glucose (UA) Normal Urine Ketones Negative Urine Occult Blood Negative Urine Nitrite Negative Urine Bilirubin Negative Urine Urobilinogen 1 H Ur Leukocyte Esterase 25 H Urine RBC 0 SEEN Urine WBC 0-5 SEEN Ur Squamous Epith Cells 0 SEEN Urine Bacteria 0 SEEN Urine Mucus 0 SEEN Radiography Diagnostic Testing: Clinical Impression(s) from Imaging Studies Chest X-Ray 10/30/21 10:48 IMPRESSION: Persistent mild increased markings at the left lung base suggestive of left basilar atelectasis and/or early infiltrate. Electronically Signed: Francisco Javier Lockhart MD at 11:11 EDT , Discharge Plan Triage Chief Complaint: Confusion ED Midlevel Provider: Ariana Rollins ED Provider: Provider,Ed Physician Dx/Rx/DC Orders Clinical Impression: Pneumonia Instructions: ED Pneumonia (Adult) Prescriptions: New azithromycin 250 mg tablet See Rx Instructions .ROUTE .COMPLEX Qty: 6 0RF Rx Instructions: For 250 mg dose pack: take 500 mg today (day 1), then 250 mg for 4 days (days 2-5) No Action fluoxetine [Prozac] 20 mg capsule 20 mg PO DAILY olanzapine 2.5 mg tablet 2.5 mg PO QHS prazosin 1 mg capsule 1 mg PO BID 28 Days Qty: 28 loperamide 2 mg capsule 2 mg PO DAILY 4 Days Qty: 16 clonazepam 2 mg tablet 2 mg PO BID 28 Days Qty: 56 doxepin 25 mg capsule 25 mg PO DAILY 28 Days Qty: 28 mometasone-formoterol 200-5 mcg/actuation HFA aerosol inhaler 2 puff inhalation BID Qty: 13 6RF albuterol sulfate 90 mcg/actuation HFA aerosol inhaler 1 - 2 puff inhalation Q4H PRN PRN (Reason: Wheezing) Qty: 18 2RF nystatin 100,000 unit/mL suspension 5 ml mucous membrane TID Qty: 250 1RF Rx Instructions: swish and swallow 5 cc three times per day for 10 days levetiracetam 750 MG tablet extended release 24 hr 1,000 mg PO BID docusate sodium 100 MG capsule 100 mg PO BID divalproex 500 MG tablet,delayed release (DR/EC) 500 mg PO QHS phenobarbital 16.2 MG tablet 16.2 mg PO BID ropinirole 2 MG tablet extended release 24 hr 2 mg PO QHS furosemide 20 mg tablet 20 mg PO BID rivaroxaban 15 MG tablet 15 mg PO BID molnupiravir 200 mg capsule 800 mg PO Q12H 5 Days Qty: 40 0RF ondansetron 4 mg tablet,disintegrating 4 mg PO Q6H PRN (Reason: nausea and vomiting) Qty: 10 0RF omeprazole 20 mg capsule,delayed release(DR/EC) 20 mg PO BID Qty: 180 2RF fluticasone propionate 50 mcg/actuation spray,suspension 2 spray INTRANASAL DAILY Qty: 16 3RF Primary Care Provider: Robert Hollis Referrals: Robert Hollis DO [Primary Care Provider] - Activity Restrictions/Additional Instructions: You are being treated for pneumonia with antibiotics. Rest and drink plenty of fluids. If any symptoms worsen or you feel more weak or dehydrated please come back to the ER immediately. Disposition Disposition: Home, Self Care
[2021-10-30 10:48] LABS: Absolute Lymphocyte Count 2.06 X10^3/uL (0.83-4.51); Absolute Neutrophil Count 3.2 X10^3/uL (2.0-7.7); Basophil# 0.02 X10^3/uL; Basophil% 0.3 % (0-1); Eosinophil# 0.14 X10^3/uL; Eosinophils% 2.3 % (0-5); Hematocrit 36.6 % (40-54); Lymphocyte # 2.06 X10^3/ul (0.83-4.51); Lymphocyte % 33.6 % (19-41); Mean Corp Hgb Conc 32.8 g/dL (32-36); Mean Corpuscular Hgb 30.9 pg (27.0-32.0); Mean Corpuscular Volume 94.3 fL (80-94); Monocyte# 0.72 X10^3/uL; Monocyte% 11.7 % (0-10); NRBC Flagged by Analyzer 0 % (0-5); Neutrophil # 3.18 X10^3/uL (2.7-7.7); Neutrophil % 51.8 % (47-70); Platelet Count 308 K/mm3 (150-450); RBC Distribution Width CV 12.3 % (11.6-14.6); RBC Distribution Width SD 42.9 fl (35.1-43.9); Red Blood Count 3.88 M/mm3 (4.6-6.2); White Blood Count 6.1 K/mm3 (4.4-11.0)
--- NOTE | 2021-10-30 10:48 | RAD_ITS ---
STUDY: X-RAY CHEST REASON FOR EXAM: Male, 56 years old. Weakness TECHNIQUE: Single AP portable view of the chest. COMPARISON: Comparison is made with prior study dated 10/22/2021. FINDINGS: EKG electrodes are seen. Stable mild increased markings at the left lung base suggestive of a left basilar atelectasis and/or early infiltrate. The right lung base is clear. There is no demonstrated pleural abnormality. There is borderline cardiomegaly. Normal mediastinum and shoaib. Normal visualized pulmonary arteries. Normal visualized aortic arch and descending thoracic aorta. Normal visualized thoracic spine. Normal visualized ribs, clavicles, and shoulders. There is no demonstrated abnormality of the visualized soft tissue structures of the upper abdomen. RAD/Chest 1 View (Portable) IMPRESSION: Persistent mild increased markings at the left lung base suggestive of left basilar atelectasis and/or early infiltrate. Electronically Signed: Francisco Javier Lockhart MD at 11:11 EDT ,
[2021-10-30] MEDS: 0.9% Normal Saline 1,000 ML 1000 ML IV (10:51)
[2021-10-30 11:03] LABS: Albumin, Serum 3.2 g/dL (3.2-5.0); BUN 17 mg/dL (7-18); BUN/Creat Ratio 18.2 RATIO (10-20); Creatinine, Serum 0.93 mg/dL (0.70-1.30); EST Glomerular Filtration Rate 89 mL/min (>60); Est Glom Filt Rate - Afr Amer 107 mL/min (>60); Estimated Creatinine Clearance 84.78 ml/min; Glucose 106 mg/dL (74-106); Protein, Total 6.5 g/dL (6.4-8.2)
[2021-10-30 11:04] LABS: AST(SGOT) 17 U/L (15-37); Alanine Aminotransfer ALT/SGPT 34 U/L (16-61); Alkaline Phosphatase 44 U/L (45-117); Anion Gap 5 (5-15); Calcium,Total 8.5 mg/dL (8.5-10.1); Chloride 107 mmol/L (98-107); Globulin 3.3 g/dL (2.2-4.2); Potassium 3.7 mmol/L (3.5-5.1); Sodium Level 140 mmol/L (136-145)
[2021-10-30 11:20] LABS: Bacteria 0 SEEN /hpf (None Seen); Mucous, Urine 0 SEEN /hpf (<or=2+); Red Blood Cells-Urine 0 SEEN /hpf (0-5); Squamous Epithelial Cells - UA 0 SEEN /hpf (0-5)
[2021-10-30 11:25] LABS: Color, Urine Yellow (Yellow); Glucose, Dipstick Normal (Normal); Ketone-Dipstick Negative (Negative); Leukocyte Esterase-Dipstick 25 /ul (Negative); Nitrite-Dipstick Negative (Negative); Occult Blood-Urine Negative /ul (Negative); Protein-Dipstick Negative (Negative); Urine Bilirubin Dipstick Negative (Negative); Urine Clarity Clear (Clear); Urine Urobilinogen 1 mg/dl (Normal); Urine pH 6.5 (5.0 - 8.0)
[2021-10-30 11:36] LABS: White Blood Cells 0-5 SEEN /hpf (0-5)
[2021-10-30 12:12] VITALS: BP 157/74; PULSE 71
== END 2021-10-30 12:28 | disposition home or self-care (01) ==
PROVIDERS: Physician Assistant; Emergency Provider Emergency Medicine; PCP Family Medicine; Visit Provider Emergency Medicine
DX: J18.9 Pneumonia, unspecified organism (principal); G40.909 Epilepsy, unspecified, not intractable, without status epilepticus; E86.0 Dehydration; R41.0 Disorientation, unspecified; Z20.822 Contact with and (suspected) exposure to COVID-19; I25.10 Atherosclerotic heart disease of native coronary artery without angina pectoris; I10 Essential (primary) hypertension; R10.10 Upper abdominal pain, unspecified; D64.9 Anemia, unspecified; M54.9 Dorsalgia, unspecified; J45.909 Unspecified asthma, uncomplicated; K21.9 Gastro-esophageal reflux disease without esophagitis; G47.33 Obstructive sleep apnea (adult) (pediatric); F41.9 Anxiety disorder, unspecified; I25.2 Old myocardial infarction; Z79.01 Long term (current) use of anticoagulants; Z79.899 Other long term (current) drug therapy; Z86.711 Personal history of pulmonary embolism; Z86.73 Personal history of transient ischemic attack (TIA), and cerebral infarction without residual deficits; F17.210 Nicotine dependence, cigarettes, uncomplicated
CPT/HCPCS: 71045; 80053; 81001; 85025; 87428; 96360; 99282; J7030; A4216

== ENCOUNTER → 2021-12-22 | Outpatient (CLI) | payer MEDICAID, SELFPAY ==
[2021-12-22 17:04] LABS: Absolute Lymphocyte Count 2.36 X10^3/uL (0.83-4.51); Absolute Neutrophil Count 3.8 X10^3/uL (2.0-7.7); Basophil# 0.06 X10^3/uL; Basophil% 0.8 % (0-1); Eosinophil# 0.21 X10^3/uL; Eosinophils% 2.8 % (0-5); Hematocrit 40.1 % (40-54); Hemoglobin 13.7 g/dL (13.0-16.5); Lymphocyte # 2.36 X10^3/ul (0.83-4.51); Lymphocyte % 31.8 % (19-41); Mean Corp Hgb Conc 34.2 g/dL (32-36); Mean Corpuscular Hgb 32.1 pg (27.0-32.0); Mean Corpuscular Volume 93.9 fL (80-94); Mean Platelet Vol. 9.6 fl (6.2-12.0); Monocyte# 0.93 X10^3/uL; Monocyte% 12.5 % (0-10); NRBC Flagged by Analyzer 0 % (0-5); Neutrophil # 3.84 X10^3/uL (2.7-7.7); Neutrophil % 51.8 % (47-70); Platelet Count 383 K/mm3 (150-450); RBC Distribution Width SD 44.7 fl (35.1-43.9); Red Blood Count 4.27 M/mm3 (4.6-6.2); White Blood Count 7.4 K/mm3 (4.4-11.0)
[2021-12-22 17:48] LABS: Vitamin D,25 Hydroxy 56.9 ng/mL
[2021-12-22 17:56] LABS: AST(SGOT) 23 U/L (15-37); Alanine Aminotransfer ALT/SGPT 31 U/L (16-61); Alkaline Phosphatase 48 U/L (45-117); Anion Gap 10 (5-15); BUN 12 mg/dL (7-18); BUN/Creat Ratio 10.7 RATIO (10-20); Calcium,Total 9.3 mg/dL (8.5-10.1); Chloride 100 mmol/L (98-107); Creatinine, Serum 1.12 mg/dL (0.70-1.30); EST Glomerular Filtration Rate 72 mL/min (>60); Est Glom Filt Rate - Afr Amer 87 mL/min (>60); Globulin 4.2 g/dL (2.2-4.2); Glucose 102 mg/dL (74-106); PSA,Total - Annual Screen 4.46 ng/mL (0.00-4.00); Potassium 3.7 mmol/L (3.5-5.1); Protein, Total 8.2 g/dL (6.4-8.2); Sodium Level 137 mmol/L (136-145); T4 Free Direct 0.84 ng/dL (0.76-1.46); Thyroid Stim Hormone (TSH) 2.14 uIU/mL (0.358-3.74)
== END | disposition home or self-care (01) ==
LOC: LAB 15:52
PROVIDERS: PCP Family Medicine; Visit Provider Family Medicine
DX: R97.20 Elevated prostate specific antigen [PSA] (principal); E55.9 Vitamin D deficiency, unspecified; R63.4 Abnormal weight loss; D64.9 Anemia, unspecified
CPT/HCPCS: 84153; 36415; 80053; 82306; 84439; 84443; 85025; G0103

== ENCOUNTER → 2022-01-05 | Outpatient (CLI) | payer MEDICAID, SELFPAY ==
--- NOTE | 2022-01-05 14:51 | CT_ITS ---
STUDY: CT Abdomen W/ Contrast Injection 01/05/2022 8:39 PM REASON FOR EXAM: Male, 56 years old. Abdominal pain ABD PAIN Individualized dose optimization techniques were used for this CT. COMPARISON: None. TECHNIQUE: CT Abdomen W/ Contrast Injection Oral and amp; IV Gastrografin and amp; 100mL [id number] FINDINGS: There are atherosclerotic calcifications of visualized coronary arteries. The visualized portions of the heart are within normal limits. Normal liver. Normal gallbladder and extrahepatic biliary system. Normal spleen. There is diffuse atrophy of the pancreas. Normal bilateral adrenal glands. No acute findings of the right kidney. No acute findings of the left kidney. Normal visualized stomach. Normal small intestine. Stool throughout the colon. The appendix is visualized and appears normal. There are calcifications of the abdominal aorta. This is consistent for atherosclerotic disease. There is NO abdominal aortic aneurysm. Vascular workup can be obtained based on clinical correlation. Normal inferior vena cava. Subcentimeter mesenteric lymph nodes. Normal abdominal wall. There are diffuse degenerative changes of the visualized lumbar spine. There are bilateral pars articularis defects at L5-S1. There is a Grade 1 anterolisthesis of L5 on S1. There is bilateral neural foraminal stenosis at L5-S1. CT/Abdomen WITH IV Contrast IMPRESSION: (NOT LISTED IN ORDER OF SIGNIFICANCE) There are no acute findings. There are bilateral pars articularis defects at L5-S1. There is a Grade 1 anterolisthesis of L5 on S1. There is bilateral neural foraminal stenosis at L4-5 and L5-S1. Other findings as above. Electronically Signed: Lisandro Robison MD at 20:41 EDT ,
== END | disposition home or self-care (01) ==
LOC: CT 14:49
PROVIDERS: PCP Family Medicine; Referring Provider Family Medicine; Visit Provider Family Medicine
DX: R10.9 Unspecified abdominal pain (principal); R11.2 Nausea with vomiting, unspecified; R63.4 Abnormal weight loss
CPT/HCPCS: 74160; Q9967; A4216

== ENCOUNTER → 2022-03-23 | Outpatient (CLI) | payer MEDICAID, SELFPAY ==
--- NOTE | 2022-03-23 16:10 | RAD_ITS ---
STUDY: X-RAY - ABDOMEN/PELVIS REASON FOR EXAM: Male, 57 years old. Vomiting. Constipation and lower abdominal pain for one and half weeks. TECHNIQUE: Two AP supine views of the abdomen and pelvis. COMPARISON: CT of the abdomen, January 05, 2022. FINDINGS: Normal visualized lung bases. There is gaseous distention of the colon with increased feces seen in the descending colon and rectum. Air is also noted in nondilated small bowel loops centrally within the abdomen. The visualized liver, spleen and kidneys are grossly normal in size and morphology. Normal soft tissue structures. Normal visualized osseous structures. RAD/Abdomen Single View IMPRESSION: Question ileus. Possibility of developing obstruction due to constipation cannot be ruled out Electronically Signed: Ede Araiza DO at 17:55 EST ,
== END | disposition home or self-care (01) ==
LOC: RAD 15:43
PROVIDERS: PCP Family Medicine; Referring Provider Family Medicine; Visit Provider Family Medicine
DX: R11.10 Vomiting, unspecified (principal); R10.30 Lower abdominal pain, unspecified
CPT/HCPCS: 74018

== ENCOUNTER → 2023-01-18 | Outpatient (CLI) | payer MEDICAID, SELFPAY ==
[2023-01-18 10:33] LABS: Absolute Lymphocyte Count 1.82 X10^3/uL (0.83-4.51); Absolute Neutrophil Count 3.2 X10^3/uL (2.0-7.7); Basophil# 0.04 X10^3/uL; Basophil% 0.7 % (0-1); Eosinophil# 0.13 X10^3/uL; Eosinophils% 2.2 % (0-5); Hematocrit 42.3 % (40-54); Hemoglobin 13.5 g/dL (13.0-16.5); Lymphocyte # 1.82 X10^3/ul (0.83-4.51); Lymphocyte % 31.4 % (19-41); Mean Corp Hgb Conc 31.9 g/dL (32-36); Mean Corpuscular Volume 100.2 fL (80-94); Mean Platelet Vol. 9.5 fl (6.2-12.0); Monocyte# 0.64 X10^3/uL; NRBC Flagged by Analyzer 0 % (0-5); Neutrophil # 3.15 X10^3/uL (2.7-7.7); Neutrophil % 54.4 % (47-70); Platelet Count 370 K/mm3 (150-450); RBC Distribution Width CV 12.7 % (11.6-14.6); Red Blood Count 4.22 M/mm3 (4.6-6.2); White Blood Count 5.8 K/mm3 (4.4-11.0)
[2023-01-18 10:47] LABS: Hemoglobin A1c 5.4 % (3.8-5.6)
[2023-01-18 11:11] LABS: ALB/GLOB Ratio 1.1 RATIO (0.9-2.4); AST(SGOT) 17 U/L (15-37); Alanine Aminotransfer ALT/SGPT 32 U/L (16-61); Albumin, Serum 3.9 g/dL (3.2-5.0); Alkaline Phosphatase 43 U/L (45-117); Anion Gap 6 (5-15); BUN 15 mg/dL (7-18); BUN/Creat Ratio 18.6 RATIO (10-20); Calcium,Total 9.1 mg/dL (8.5-10.1); Chloride 102 mmol/L (98-107); Cholesterol 180 mg/dL (200); Creatinine, Serum 0.81 mg/dL (0.70-1.30); EST Glomerular Filtration Rate 104 mL/min (>60); Est Glom Filt Rate - Afr Amer 126 mL/min (>60); Globulin 3.7 g/dL (2.2-4.2); Glucose 100 mg/dL (74-106); High Density Lipoprotein 76 mg/dL; Potassium 4.2 mmol/L (3.5-5.1); Protein, Total 7.6 g/dL (6.4-8.2); Sodium Level 140 mmol/L (136-145); T4 Free Direct 0.84 ng/dL (0.76-1.46); Thyroid Stim Hormone (TSH) 1.12 uIU/mL (0.358-3.74); Triglycerides 131 mg/dL; Very Low Density Lipoprotein 26 mg/dL (5-40)
[2023-01-19 14:09] LABS: Carbohydrate AG 19-9 19 U/mL (0-35); Endomysial Antibody IgA Negative (Negative); Immunoglobulin A 319 mg/dL (90-386); t-Transglutaminase IgA 3 U/mL (0-3)
== END | disposition home or self-care (01) ==
PROVIDERS: PCP Family Medicine; Referring Provider Family Medicine; Visit Provider Family Medicine
DX: Z00.00 Encounter for general adult medical examination without abnormal findings (principal); R63.4 Abnormal weight loss; R73.03 Prediabetes; Z12.5 Encounter for screening for malignant neoplasm of prostate
CPT/HCPCS: 84153; 36415; 80053; 80061; 82784; 83036; 83516; 84439; 84443; 85025; 86255; 86301; G0103

== ENCOUNTER 2023-02-01 23:47 | Emergency (ER) | payer MEDICAID, SELFPAY ==
[2023-02-01 23:49] VITALS: BP 129/80; PULSE 81; RESP 36; TEMP 36.4; O2SAT 99; BMI 23.7
--- NOTE | 2023-02-02 | EKG12_ITS ---
Test Reason : CP Blood Pressure : / mmHG Vent. Rate : 077 BPM Atrial Rate : 077 BPM P-R Int : 126 ms QRS Dur : 136 ms QT Int : 406 ms P-R-T Axes : 071 -62 037 degrees QTc Int : 459 ms Normal sinus rhythm Right bundle branch block Left anterior fascicular block Bifascicular block Abnormal ECG Confirmed by AYAN CLINE, PONCHO ([id number]), assignment editor SYDNEE PINON ([id number]) on 02/03/2023 10:55:01 AM Referred By: Tonya Confirmed By:PONCHO BOTELLO MD
--- NOTE | 2023-02-02 | RAD_ITS ---
STUDY: X-RAY CHEST REASON FOR EXAM: Male, 57 years old. chest pain TECHNIQUE: Single AP portable view of the chest. COMPARISON: 10/30/2022 FINDINGS: The lungs are clear and expanded. There is no demonstrated pleural abnormality. Normal size heart. Normal mediastinum and shoaib. Normal visualized pulmonary arteries. Normal visualized aortic arch and descending thoracic aorta. Normal visualized thoracic spine. Normal visualized ribs, clavicles, and shoulders. There is no demonstrated abnormality of the visualized soft tissue structures of the upper abdomen. RAD/Chest 1 View (Portable) IMPRESSION: Normal x-ray examination of the chest. Electronically Signed: Ashwin Pryor MD at 0:31 EDT ,
--- NOTE | 2023-02-02 00:19 | CT_ITS ---
EXAM: CT ANGIOGRAPHY CHEST, ABDOMEN AND PELVIS WITH INTRAVENOUS CONTRAST CLINICAL INDICATION: Dissection study, sudden left sided chest pain TECHNIQUE: Helically acquired angiography images were obtained of the chest, abdomen and pelvis with intravenous contrast. CTDIvol = ( 12.00 ) mGy, DLP = ( 868.46 ) mGycm This CT exam was performed using one or more of the following dose reduction techniques: automated exposure control, adjustment of the mA and/or kV according to patient size, and/or use of iterative reconstruction technique. MIP reconstructed images were created and reviewed. CONTRAST: IV 100mL [id number] COMPARISON: No relevant prior studies available. FINDINGS: VASCULATURE: AORTA: No acute findings. No aortic aneurysm or dissection. No acute trauma related pathology involving the aorta. PULMONARY ARTERIES: Unremarkable. Normal in caliber. No obvious central pulmonary embolism although this study was not performed with the pulmonary embolism protocol. No PE. GREAT VESSELS OF AORTIC ARCH: Unremarkable. Normal in caliber. No dissection. CELIAC TRUNK AND MESENTERIC ARTERIES: No acute findings. No occlusion or significant stenosis. No dissection. RENAL ARTERIES: No acute findings. No occlusion or significant stenosis. No dissection. ILIAC ARTERIES: No acute findings. No occlusion or significant stenosis. No dissection. CHEST: LUNGS AND PLEURAL SPACES: Unremarkable. No mass. No consolidation or edema. No pleural effusion or thickening. No pneumothorax. HEART: Unremarkable. Heart size is normal. No pericardial effusion. MEDIASTINUM: Small to moderate size hiatal hernia. Patulous esophagus containing fluid without wall thickening. No mediastinal or hilar adenopathy. THYROID: Unremarkable. No thyroid lesions. ABDOMEN: LIVER: Unremarkable. Homogeneous. No focal mass. GALLBLADDER AND BILE DUCTS: Unremarkable. No calcified gallstones. No gallbladder distention or wall edema. No intra- or extrahepatic biliary ductal dilation. PANCREAS: Unremarkable. No focal cystic or solid mass. SPLEEN: Unremarkable. Normal size without focal cystic or solid mass. ADRENALS: Unremarkable. No nodules. KIDNEYS AND URETERS: Unremarkable. Normal renal size and position. No hydronephrosis. STOMACH AND BOWEL: Fluid within nondistended loops of small bowel in the left abdomen without wall thickening or surrounding admission can be normal or can be seen with gastroenteritis in the appropriate clinical setting. Gas and stool throughout the colon. PELVIS: APPENDIX: No evidence of acute appendicitis. BLADDER: Unremarkable. REPRODUCTIVE: Unremarkable as visualized. No mass. CHEST, ABDOMEN and PELVIS: INTRAPERITONEAL SPACE: Unremarkable. No ascites or other fluid collection. No free air. BONES/JOINTS: Status post remote ORIF of a left proximal humeral fracture. Overlying soft tissues are unremarkable. 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 Moderate degenerative disease L5-S1. No suspicious lytic or blastic abnormality. SOFT TISSUES: Unremarkable. No discrete abdominal or pelvic wall hernia. LYMPH NODES: Unremarkable. No enlarged lymph nodes. OTHER FINDINGS: Elevated left hemidiaphragm. CT/CTA Chst, Abd, Pel W and/or WO IMPRESSION: 1. No aortic dissection. 2. Patulous esophagus containing fluid without wall thickening. 3. Fluid within nondistended loops of small bowel in the left abdomen without wall thickening or surrounding admission can be normal or can be seen with gastroenteritis in the appropriate clinical setting. 4. Additional ancillary findings as above. Electronically Signed: Akira Amaya MD at 1:42 EDT ,
[2023-02-02] MEDS: Morphine 4 MG/ML Syringe IV (00:23)
--- NOTE | 2023-02-02 00:31 | ED.VIS.CHEST ---
HPI History of Present Illness Chief Complaint: Chest Pain Informant: patient Onset/Context/Timing Onset: Today Narrative Narrative: 57-year-old male with history of seizures, coronary artery disease, GERD, stroke, PE (on Xarelto daily), peripheral vascular disease and personality disorder presenting for chest pain. Patient states he was getting ready for bed around 8 PM and lying down when he suddenly felt like he was being stabbed in the left side of his chest. He notes he started having pain going into his entire left side of his body (arms, trunk and leg). He waited a couple hours at home hoping it would go away but it was not relenting. He was able to walk to the kitchen to call EMS. He notes he also was feeling dizzy, lightheaded and short of breath. Pain is worse with movement. Has some nausea and small episode of vomiting in the ER. He states he is never had anything like this before. Denies a ripping or tearing sensation. 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 He does note that some more physical activity than he normally does. Do not take any for pain prior to arrival. EMS did give him nitro in route with no relief. He is allergic to aspirin but states he can have other NSAIDs. The chart states he has a history of alcohol abuse patient denies any recent alcohol, tobacco or illicit drug use. [facility] Medical History (Updated 02/02/23 @ 03:[address] Karina Garduno, ) Abnormal chest CT Alcohol abuse Allergic rhinitis Anxiety disorder Asthma Bilateral leg edema CAD (coronary artery disease) Chest pain Chronic back pain Chronic headache CVA (cerebral vascular accident) Dizziness Dyspnea on exertion Epileptic seizure, generalized Episode of syncope Epistaxis Essential (primary) hypertension Generalized hypopigmentation of skin GERD (gastroesophageal reflux disease) Herniated cervical disc without myelopathy History of non-ST elevation myocardial infarction (NSTEMI) (2008) History of pulmonary embolus (PE) (12/25/14) Hypersomnia Hypomagnesemia Impaired fasting glucose Insomnia Lichen simplex chronicus Major depression JANELL (obstructive sleep apnea) Paresthesia Peripheral neuropathy Peripheral vascular occlusive disease Personality disorder PND (post-nasal drip) Pulmonary nodules/lesions, multiple Restless legs syndrome (RLS) Right lumbar radiculopathy Seizure disorder Shortness of breath Skull fracture Syncope and collapse Home Medications levetiracetam 750 mg tablet,extended release 24 hr 1,000 mg PO BID 05/05/16 [History Last Taken Unknown] docusate sodium 100 mg capsule 100 mg PO BID 04/23/17 [History Last Taken Unknown] fluoxetine 20 mg capsule (Prozac) 20 mg PO DAILY 10/21/17 [History Last Taken Unknown] omeprazole 20 mg capsule,delayed release 20 mg PO BID #180 caps 11/09/17 [Rx Last Taken Unknown] divalproex 500 mg tablet,delayed release 500 mg PO QHS 06/21/18 [History Last Taken Unknown] phenobarbital 16.2 mg tablet 16.2 mg PO BID 06/21/18 [History Last Taken Unknown] ropinirole 2 mg tablet,extended release 24 hr 2 mg PO QHS 06/21/18 [History Last Taken Unknown] clonazepam 2 mg tablet 2 mg PO BID 28 days #56 tabs 07/07/18 [History Last Taken Unknown] doxepin 25 mg capsule 25 mg PO DAILY 28 days #28 caps 07/07/18 [History Last Taken Unknown] furosemide 20 mg tablet 20 mg PO BID 07/07/18 [History Last Taken Unknown] loperamide 2 mg capsule 2 mg PO DAILY 4 days #16 caps 07/07/18 [History Last Taken Unknown] olanzapine 2.5 mg tablet 2.5 mg PO QHS 07/07/18 [History Last Taken Unknown] prazosin 1 mg capsule 1 mg PO BID 28 days #28 caps 07/07/18 [History Last Taken Unknown] rivaroxaban 15 mg tablet 15 mg PO BID 03/15/19 [History Last Taken Unknown] nystatin 100,000 unit/mL oral suspension 5 ml mucous membrane TID #250 mL 10/31/20 [Rx Last Taken Unknown] fluticasone propionate 50 mcg/actuation nasal spray,suspension 2 spray intranasal DAILY #16 grams 03/26/21 [Rx Last Taken Unknown] molnupiravir 200 mg capsule (EUA) 800 mg (4 x 200 mg) PO Q12H 5 days #40 caps 10/22/21 [Rx Last Taken Unknown] ondansetron 4 mg disintegrating tablet 4 mg PO Q6H PRN nausea and vomiting #10 tabs 10/22/21 [Rx Last Taken Unknown] azithromycin 250 mg tablet See Rx Instructions PO .COMPLEX #6 tabs 10/30/21 [Rx Last Taken Unknown] albuterol sulfate 90 mcg/actuation aerosol inhaler 1 - 2 puff inhalation Q4H PRN PRN Wheezing #18 grams 03/26/22 [Rx Last Taken Unknown] mometasone-formoterol HFA 200 mcg-5 mcg/actuation aerosol inhaler 2 puff inhalation BID #13 grams 03/26/22 [Rx Last Taken Unknown] Allergy/AdvReac Type Severity Reaction Status Date / Time aspirin Allergy Hives Verified 02/01/23 23:48 Penicillins Allergy Swelling Verified 02/01/23 23:48 Family History Mother Heart disease Hypertension Lung cancer Laryngeal cancer Father Lung cancer Laryngeal cancer Bipolar 1 disorder Brother Bleeding disorder Sister Asthma Breast cancer Surgical History History of angioplasty of peripheral vessel History of left heart catheterization (04/14/17) History of open reduction and internal fixation (ORIF) procedure Hx of appendectomy Social History Smoking Status: Current every day smoker tobacco type: cigarettes second hand exposure: No alcohol intake: never substance use type: does not use caffeine: Yes Type: coffee Number of servings: 3 what type of physical activity do you participate in: walking frequency: 1-2 times per week ROS ROS ED Constitutional Constitutional ED: Reports other Details: Lightheaded, Dizzy ; Denies chills or fever(s) Cardiovascular Cardiovascular: Reports as per HPI and chest pain Respiratory/Chest Respiratory/Chest: Reports dyspnea; Denies cough Gastrointestinal Gastrointestinal: Reports abdominal pain, nausea and vomiting Genitourinary Genitourinary ED: Denies dysuria or hematuria Musculoskeletal Musculoskeletal: Denies arthralgias or back pain Integumentary Denies rash Neurologic Neurologic: Denies headache(s), paresthesias or weakness Hematologic/Lymphatic Hematologic/Lymphatic: Reports easy bleeding and easy bruising EXAM Physical Exam Const Vital Signs: 02/01/23 23:49 02/01/23 23:51 02/02/23 00:13 Temperature 97.6 F L Temperature Source Temporal Pulse Rate 81 Respiratory Rate 36 H Respiratory Effort Normal Respiratory Pattern Normal Blood Pressure 129/80 H Blood Pressure Mean 96 Pulse Ox 99 Oxygen Delivery Method Room Air Room Air 02/02/23 01:00 Temperature Temperature Source Pulse Rate 74 Respiratory Rate 11 L Respiratory Effort Respiratory Pattern Blood Pressure 125/70 H Blood Pressure Mean 83 Pulse Ox 98 Oxygen Delivery Method Positive well nourished and well developed General Appearance ED: well developed and NAD HEENT Reports moist mucous membranes Eyes PERRL and EOMs intact bilaterally Neck supple Neck Narrative: Positive JVD Chest Wall inspection of chest normal Chest Narrative: No chest wall deformity or crepitus. Tenderness palpation over the left mid chest wall Resp normal respiratory effort and clear to auscultation bilaterally Effort and Inspection: Negative for respiratory distress Auscultation: Negative for wheezes or diminished lung sounds Cardio regular rate, regular rhythm and no murmurs Peripheral Pulses: radial pulses present bilateral 2+ and dorsalis pedis pulses present bilateral 2+ GI normal to inspection, nondistended, normoactive bowel sounds, soft to palpation and non-tender Extremity normal to inspection General Extremety ED: Negative for edema General Extremity: Negative for edema Neuro oriented x3 Neuro Narrative: Tremulous?patient states this is baseline for him Sensorium / Orientation: awake and alert Motor Exam: Negative for general weakness Psych mental status grossly normal Mood & Affect: anxious Skin no rashes or lesions noted and no wounds Heart Score History: Slightly/Non-Suspicious ECG: Nonspecific Repolarization Age: >45 - <65 years Risk Factors: 1 or 2 Risk Factors Troponin: </= Normal Limit Score: 3 MDM MDM MDM Narrative Medical decision making narrative: StabEvaluate for sudden chest pain that radiates to the entire left side of his body. EMS gave him nitro in route with no improvement of symptoms. Vital signs significant for mild tachypnea upon arrival. Differential includes pneumothorax (less likely as he has bilateral breath sounds and no signs of pneumothorax on chest x-ray), aortic dissection (slightly less likely given equal peripheral pulses, normal neurologic exam and normal blood pressure), ACS as well as muscle skeletal pain given his recent physical activity today. Patient is given morphine for pain control. He is not given aspirin because of his history of rash with it. Cardiac work-up as well as CT of the chest abdomen pelvis is pending. Patient given dose of IV morphine as well as Zofran with improvement of symptoms. Work-up is largely negative including delta high-sensitivity troponin (it stable at 17 and 17). CBC, CMP, lipase and EtOH are all normal. He does have mild shift but he does not have a leukocytosis, fever or other other infectious symptoms. Dissection study is negative. He has incidental finding of patulous esophagus containing fluid without wall thickening as well as fluid within nondistended loops of small bowel in the left abdomen which can be seen with gastroenteritis in appropriate clinical setting. Patient does tell me that he has been having diarrhea for the past few days. He is not dehydrated have a leukocytosis. Is not having diarrhea in the ER. I do not think he requires admission for further work-up of this diarrhea. I do not think this is colitis I do not think he requires antibiotics at this time. From a cardiopulmonary standpoint I think he is stable for discharge home. I do not suspect dissection given a negative CTA, ACS, pneumonia, pneumothorax or more severe cause of his symptoms. Is possible this all could be muscle skeletal from the manual labor he was doing earlier today. Is counseled to take Tylenol [id number] as needed. He verbalizes agreement and understand this plan. His cousin will pick him up (he lives with her.) Lab Data Attestation: I reviewed the patient's lab results. Labs: Laboratory Results - last 24 hr 02/01/23 02/02/23 23:35 01:42 WBC 6.6 RBC 4.12 L Hgb 13.3 Hct 40.9 MCV 99.3 H MCH 32.3 H MCHC 32.5 RDW Std Deviation 45.6 H RDW Coeff of Sherrell 12.5 Plt Count 392 MPV 9.8 Immature Gran % (Auto) 1.400 H Neut % (Auto) 43.3 L Lymph % (Auto) 40.7 [facility] % (Auto) 11.6 H Eos % (Auto) 2.1 Baso % (Auto) 0.9 Absolute Neuts (auto) 2.9 Absolute Lymphs (auto) 2.70 Nucleated RBC % 0 Sodium 139 Potassium 3.9 Chloride 102 Carbon Dioxide 30.0 Anion Gap 7 BUN 13 Creatinine 0.85 Estim Creat Clear Calc 91.65 Est GFR (MDRD) Af Amer 119 Est GFR (MDRD) Non-Af 98 BUN/Creatinine Ratio 15.3 Glucose 100 Calcium 9.3 Total Bilirubin 0.20 Direct Bilirubin 0.08 AST 19 ALT 34 Alkaline Phosphatase 45 Troponin I High Sens 17 17 Total Protein 8.0 Albumin 4.1 Globulin 3.9 Lipase 13 Ethyl Alcohol < 3.0 Radiography Chest X-Ray - ED: 1 View, Read by ED Physician, Read by Radiologist and No Acute Disease Diagnostic Testing: Clinical Impression(s) from Imaging Studies Chest X-Ray 02/02/23 00:00 IMPRESSION: Normal x-ray examination of the chest. Electronically Signed: Ashwin Pryor MD at 0:31 EDT , Chest/Abdomen/Pelvis CTA 02/02/23 00:19 IMPRESSION: 1. No aortic dissection. 2. Patulous esophagus containing fluid without wall thickening. 3. Fluid within nondistended loops of small bowel in the left abdomen without wall thickening or surrounding admission can be normal or can be seen with gastroenteritis in the appropriate clinical setting. 4. Additional ancillary findings as above. Electronically Signed: Akira Amaya MD at 1:42 EDT , Rhythm Strip Rhythm Strip: Sinus Rhythm Rate: 77 Ectopy: None EKG Initial EKG: Attestation: I personally reviewed and interpreted this EKG as follows: Interpretation: Sinus Rhythm Comments: Normal sinus rhythm rate of 77 bpm Left axis deviation Bifascicular block with right bundle branch block and left anterior fascicular block Normal ST segments Compared to prior EKG on 06/26/2019 patient now has right bundle branch block Discharge Plan Triage Chief Complaint: Chest Pain ED Provider: Karina Garduno Dx/Rx/DC Orders Clinical Impression: Left-sided chest pain, Diarrhea Instructions: ED Chest Pain, Noncardiac, ED Diarrhea, Unknown Cause Prescriptions: No Action fluoxetine [Prozac] 20 mg capsule 20 mg PO DAILY olanzapine 2.5 mg tablet 2.5 mg PO QHS prazosin 1 mg capsule 1 mg PO BID 28 Days Qty: 28 loperamide 2 mg capsule 2 mg PO DAILY 4 Days Qty: 16 clonazepam 2 mg tablet 2 mg PO BID 28 Days Qty: 56 doxepin 25 mg capsule 25 mg PO DAILY 28 Days Qty: 28 nystatin 100,000 unit/mL suspension 5 ml mucous membrane TID Qty: 250 1RF Rx Instructions: swish and swallow 5 cc three times per day for 10 days mometasone-formoterol 200-5 mcg/actuation HFA aerosol inhaler 2 puff inhalation BID Qty: 13 11RF albuterol sulfate 90 mcg/actuation HFA aerosol inhaler 1 - 2 puff inhalation Q4H PRN PRN (Reason: Wheezing) Qty: 18 2RF levetiracetam 750 MG tablet extended release 24 hr 1,000 mg PO BID docusate sodium 100 MG capsule 100 mg PO BID divalproex 500 MG tablet,delayed release (DR/EC) 500 mg PO QHS phenobarbital 16.2 MG tablet 16.2 mg PO BID ropinirole 2 MG tablet extended release 24 hr 2 mg PO QHS furosemide 20 mg tablet 20 mg PO BID rivaroxaban 15 MG tablet 15 mg PO BID molnupiravir 200 mg capsule 800 mg PO Q12H 5 Days Qty: 40 0RF ondansetron 4 mg tablet,disintegrating 4 mg PO Q6H PRN (Reason: nausea and vomiting) Qty: 10 0RF azithromycin 250 mg tablet See Rx Instructions .ROUTE .COMPLEX Qty: 6 0RF Rx Instructions: For 250 mg dose pack: take 500 mg today (day 1), then 250 mg for 4 days (days 2-5) omeprazole 20 mg capsule,delayed release(DR/EC) 20 mg PO BID Qty: 180 2RF fluticasone propionate 50 mcg/actuation spray,suspension 2 spray INTRANASAL DAILY Qty: 16 3RF Primary Care Provider: Robert Hollis Referrals: Robert Hollis DO [Primary Care Provider] - Activity Restrictions/Additional Instructions: Patient drinking plenty of fluids. You can take [id number] antidiarrheal medicines as needed. Continue taking your medications as prescribed. Your and lung work-up was largely normal. It is possible that your muscles hurting from all the DED did today. You may take Tylenol as needed for this.
[2023-02-02 00:37] LABS: Absolute Neutrophil Count 2.9 X10^3/uL (2.0-7.7); Basophil# 0.06 X10^3/uL; Basophil% 0.9 % (0-1); Eosinophil# 0.14 X10^3/uL; Eosinophils% 2.1 % (0-5); Hematocrit 40.9 % (40-54); Hemoglobin 13.3 g/dL (13.0-16.5); Lymphocyte % 40.7 % (19-41); Mean Corp Hgb Conc 32.5 g/dL (32-36); Mean Corpuscular Hgb 32.3 pg (27.0-32.0); Mean Corpuscular Volume 99.3 fL (80-94); Mean Platelet Vol. 9.8 fl (6.2-12.0); Monocyte# 0.77 X10^3/uL; Monocyte% 11.6 % (0-10); NRBC Flagged by Analyzer 0 % (0-5); Neutrophil # 2.88 X10^3/uL (2.7-7.7); Neutrophil % 43.3 % (47-70); Platelet Count 392 K/mm3 (150-450); RBC Distribution Width CV 12.5 % (11.6-14.6); RBC Distribution Width SD 45.6 fl (35.1-43.9); Red Blood Count 4.12 M/mm3 (4.6-6.2); White Blood Count 6.6 K/mm3 (4.4-11.0)
[2023-02-02 00:39] LABS: Anion Gap 7 (5-15); BUN 13 mg/dL (7-18); BUN/Creat Ratio 15.3 RATIO (10-20); Calcium,Total 9.3 mg/dL (8.5-10.1); Chloride 102 mmol/L (98-107); Creatinine, Serum 0.85 mg/dL (0.70-1.30); EST Glomerular Filtration Rate 98 mL/min (>60); Est Glom Filt Rate - Afr Amer 119 mL/min (>60); Estimated Creatinine Clearance 91.65 ml/min; Glucose 100 mg/dL (74-106); Potassium 3.9 mmol/L (3.5-5.1); Sodium Level 139 mmol/L (136-145); Troponin-I HS (w/2H Reflex) 17 pg/mL (3.0-78.0)
[2023-02-02 00:46] LABS: Lipase 13 U/L (13-75)
[2023-02-02 00:50] LABS: AST(SGOT) 19 U/L (15-37); Alanine Aminotransfer ALT/SGPT 34 U/L (16-61); Albumin, Serum 4.1 g/dL (3.2-5.0); Alkaline Phosphatase 45 U/L (45-117); Bilirubin, Direct 0.08 mg/dL (0.00-0.30); Globulin 3.9 g/dL (2.2-4.2)
[2023-02-02] MEDS: Ondansetron 4 MG/2 ML Vial IV (00:51)
[2023-02-02 01:00] VITALS: BP 125/70; PULSE 74; RESP 11; O2SAT 98
[2023-02-02 02:00] VITALS: PULSE 81; RESP 16; O2SAT 98
[2023-02-02 02:11] LABS: Reflex Troponin-HS? (from REC) Y
[2023-02-02 02:14] LABS: Alcohol, Blood (Medical)-Serum < 3.0 mg/dL
[2023-02-02 02:34] LABS: Troponin-I HS 17 pg/mL (3.0-78.0)
[2023-02-02 03:00] VITALS: BP 129/74; PULSE 80; RESP 16; O2SAT 98
[2023-02-02 03:02] VITALS: PULSE 80; RESP 16; O2SAT 98
== END 2023-02-02 03:13 | disposition home or self-care (01) ==
PROVIDERS: Emergency Provider Emergency Medicine; PCP Family Medicine; Visit Provider Emergency Medicine
DX: R07.9 Chest pain, unspecified (principal); I73.9 Peripheral vascular disease, unspecified; G40.409 Other generalized epilepsy and epileptic syndromes, not intractable, without status epilepticus; M79.605 Pain in left leg; M79.602 Pain in left arm; I10 Essential (primary) hypertension; R06.02 Shortness of breath; R19.7 Diarrhea, unspecified; M54.9 Dorsalgia, unspecified; I25.10 Atherosclerotic heart disease of native coronary artery without angina pectoris; K21.9 Gastro-esophageal reflux disease without esophagitis; R42 Dizziness and giddiness; R11.2 Nausea with vomiting, unspecified; F17.210 Nicotine dependence, cigarettes, uncomplicated; Z79.01 Long term (current) use of anticoagulants; Z79.899 Other long term (current) drug therapy; Z88.6 Allergy status to analgesic agent; Z86.711 Personal history of pulmonary embolism; Z86.73 Personal history of transient ischemic attack (TIA), and cerebral infarction without residual deficits
CPT/HCPCS: 71045; 71275; 74174; 80048; 80076; 82077; 83690; 84484; 85025; 93005; 96374; 96375; 99285; Q9967; A4216; J2405

== ENCOUNTER 2023-02-09 06:24 | Day surgery (SDC) | payer MEDICAID, SELFPAY ==
--- NOTE | 2023-02-09 | GASB_PTH ---
PATIENT: LORENZA LEWIS LOC: EN U#:[id number] AGE/SX: 57/M ROOM: RE02/09/[address]: Dr. Sotero Sanchez MD : 1965 BED: DIS: 02/09/2023 SPEC #: [id number] RECD: 02/09/23 11:36 STATUS: TRACEY REVicki #: [id number] JIMMY: 02/09/23 00:[address]: Sotero Sanchez DEPT: SURGICAL PATHOLOGY RECD BY: Lalito Meza ENTERED: 02/09/23 11:37 SP TYPE: Gastric Bx OTHR DR: Dr. Robert Hollis, Tissues: A - Gastric mucous membrane B - COLON BIOPSY Procedures: Surgery Specimen Level IV HEADER OPERATION: Colonoscopy, EGD, biopsy PRE-OP DIAGNOSIS: Diarrhea, weight loss TISSUE SUBMITTED: A - Antrum biopsy for histo and H. pylori, B - Random colonic biopsy MICROSCOPIC DIAGNOSIS A. Antrum, biopsy: Mild gastritis. See microscopic description and comment. B. Colon, random biopsy: Fragments of colonic mucosa, no pathologic diagnosis. NORBERTO:dina 02/10/2023 COMMENT A. The results of immunohistochemistry for Helicobacter pylori will be reported separately ([id number]). MICROSCOPIC DESCRIPTION Slides are reviewed. A. The specimen shows fragments of gastric mucosa with chronic inflammatory cell infiltrates in the lamina propria consisting of lymphocytes and plasma cells, consistent with mild chronic gastritis. GROSS DESCRIPTION A - Received in fixative is one container labeled with the patient's name and designated antrum biopsy. The specimen consists of two irregular fragments of light rivera soft tissue that in aggregate measure 0.5 x 0.5 x 0.1 cm. The specimen is totally submitted in one cassette. B - Received in fixative is one container labeled with the patient's name and designated random colonic biopsy. The specimen consists of multiple irregular fragments of light rivera soft tissue that in aggregate measure 2.0 x 0.5 x 0.1 cm. The specimen is totally submitted in one cassette. / NORBERTO:dina 02/09/2023 TC:3 CPT: 69927 x2
[2023-02-09 06:48] VITALS: BP 124/80; PULSE 58; RESP 16; TEMP 36.7; O2SAT 100; BMI 24.3
[2023-02-09] MEDS: Lactated Ringers 1,000 ML 15 ML IV (06:49)
--- NOTE | 2023-02-09 07:03 | PCM.HP.BLA ---
History and Physical Intake Vital Signs 03/26/2207:53 02/01/2323:49 02/02/2314:53 Height 5 ft 8 in 5 ft 8 in 5 ft 8 in Weight: 160 lb BMI 24.3 BP 149/79 H Blood Pressure Location Rt brachial Position Sitting Respiration 17 Pulse 65 Pulse Source Monitor Pulse Oximetry (%) 99 Oxygen Delivery Method room air Intake Visit Reasons: COLONOSCOPY, ABNORMAL WEIGHT LOSS Chief Complaint: colonoscopy, wt loss Is patient in pain?: No Allergies aspirin Allergy (Verified 02/02/23 14:54) HivesPenicillins Allergy (Verified 02/02/23 14:54) Swelling Medications docusate sodium 100 mg capsule 100 mg PO BID 04/23/17 [History Confirmed 02/02/23] fluoxetine 20 mg capsule (Prozac) 20 mg PO DAILY 10/21/17 [History Confirmed 02/02/23] omeprazole 20 mg capsule,delayed release 20 mg PO BID #180 caps 11/09/17 [Rx Confirmed 02/02/23] divalproex 500 mg tablet,delayed release 500 mg PO QHS 06/21/18 [History Confirmed 02/02/23] phenobarbital 16.2 mg tablet 16.2 mg PO BID 06/21/18 [History Confirmed 02/02/23] fluticasone propionate 50 mcg/actuation nasal spray,suspension 2 spray intranasal DAILY #16 grams 03/26/21 [Rx Confirmed 02/02/23] albuterol sulfate 90 mcg/actuation aerosol inhaler 1 - 2 puff inhalation Q4H PRN PRN Wheezing #18 grams 03/26/22 [Rx Confirmed 03/26/22] mometasone-formoterol HFA 200 mcg-5 mcg/actuation aerosol inhaler 2 puff inhalation BID #13 grams 03/26/22 [Rx Confirmed 02/02/23] levetiracetam 500 mg tablet 1,000 mg PO DAILY 02/02/23 [History Confirmed 02/02/23] [facility] Medical History (Updated 02/02/23 @ 14:[address] Sotero Sanchez MD) Abnormal chest CT Alcohol abuse Allergic rhinitis Anxiety disorder Asthma Bilateral leg edema CAD (coronary artery disease) Chest pain Chronic back pain Chronic headache CVA (cerebral vascular accident) Dizziness Dyspnea on exertion Epileptic seizure, generalized Episode of syncope Epistaxis Essential (primary) hypertension Generalized hypopigmentation of skin GERD (gastroesophageal reflux disease) Herniated cervical disc without myelopathy History of non-ST elevation myocardial infarction (NSTEMI) (2008) History of pulmonary embolus (PE) (12/25/14) Hypersomnia Hypomagnesemia Impaired fasting glucose Insomnia Lichen simplex chronicus Major depression JANELL (obstructive sleep apnea) Paresthesia Peripheral neuropathy Peripheral vascular occlusive disease Personality disorder PND (post-nasal drip) Pulmonary nodules/lesions, multiple Restless legs syndrome (RLS) Right lumbar radiculopathy Seizure disorder Shortness of breath Skull fracture Syncope and collapse Surgical History History of angioplasty of peripheral vessel History of left heart catheterization (04/14/17) History of open reduction and internal fixation (ORIF) procedure Hx of appendectomy Family History Mother Heart disease Hypertension Lung cancer Laryngeal cancerFather Lung cancer Laryngeal cancer Bipolar 1 disorderBrother Bleeding disorderSister Asthma Breast cancer Social History Smoking Status: Current every day smoker tobacco type: cigarettes second hand exposure: No alcohol intake: never substance use type: does not use caffeine: Yes Type: coffee Number of servings: 3 what type of physical activity do you participate in: walking frequency: 1-2 times per week HPI HPI HPI: Patient is a 57-year-old male here for diarrhea and weight loss. The patient has been having diarrhea to the point where he goes and has a bowel movement 15 minutes after eating no matter what he eats. Is been going on for few months but the patient's caregiver also wonders if it is due to taking him off of a lot of his psych meds. He denies any blood in his stool. He says he has some mid abdominal pain but it does not change based on what he is doing or what he is eating or if he has to go to the bathroom or not. He is currently on a PPI. ROS General General: Yes weight change and fatigue; No appetite, colon cancer, breast cancer or weakness HEENT HEENT: No difficulty swallowing, eye injury, eye surgery, swollen glands or hoarseness Endo Endocrine: No thyroid disease, diabetes mellitus, thyroid cancer, Hair loss, heat intolerance or cold intolerance Skin Skin: No rash or changing moles Musc Musculoskeletal: Yes gout; No back problems, arthritis, rheumatoid arthritis or joint pain Cardio Cardiovascular: No murmur, pacemaker, heart disease, atrial fibrillation, high blood pressure, heart attack, heart stent, palpitations, shortness of breat with exertion or chest pain Psych Psychiatric: No depression, anxiety or hearing voices Resp Respiratory: No shortness of breath, Yes sleep apnea, No cough, No COPD, Yes asthma, No emphysema and No wheezing Gastro Gastrointestinal: No abdominal pain, No nausea or vomiting, Yes diarrhea, No constipation, No blood in stool, Yes acid reflux, No hemorrhoids, No ulcers, No gallbladder problem and No black,tarry stools Marco Antonio Hematologic: No blood thinners, No blood disorders, No bleeding, No anemia and No blood clots Neuro Neurologic: No system reviewed and no additional complaints, except as documented, No as per HPI, No abnormal gait, No abnormal hearing, No abnormal movements, No abnormal speech, No behavioral changes, No burning sensations, No confusion, No convulsions, No disequilibrium, No dizziness, No localized weakness, No frequent falls, No headache(s), No lack of coordination, No loss of vision, No memory loss, No numbness, No other visual disturbances, No radicular pain, No restless legs, No sensory deficit, No syncope, No tingling, No tremor(s), No weakness and Yes other (seizures) Exam Const General: cooperative Orientation: alert and oriented x3 HENMT Head: normal to inspection Neck Neck: normal visual inspection and full ROM Chest Chest palpation & inspection: normal inspection of the chest Resp Effort & Inspection: normal respiratory effort Auscultation: clear to auscultation bilaterally Cardio Rate: regular rate Rhythm: regular rhythm GI Inspection: non-distended Palpation: soft and nontender Skin General: no rashes or lesions noted Neuro General: patient alert and patient oriented x3 Extrem General: full ROM Psych Appearance: grossly normal Mental Status: mental status grossly normal Assessment and Plan Assessment and Plan (1) Diarrhea: Status: Acute Qualifiers: Diarrhea type: unspecified type Qualified Code(s): R19.7 - Diarrhea, unspecified (2) Weight loss: Status: Acute Orders: Orders Colonoscopy Today EGD Today Plan The patient has been having diarrhea and weight loss. My differential diagnosis would include gastritis or microscopic colitis. I would like to perform an EGD and colonoscopy to check for malignancy as well. I will do random biopsies of the stomach and the colon. I explained endoscopy in detail to the patient. I explained the risks including but not limited to stroke or heart attack with anesthesia, perforation of the GI tract, bleeding, infection. I explained that any of these could necessitate further emergency surgery. The patient understands and all questions were answered sufficiently. The patient wishes to proceed with procedure. Sotero Sanchez MD Pager: [facility] [address] [place] [address] [address] [place] [address] Office: I have examined the patient and the H&P has been reviewed. There are no clinical changes since date of exam.
--- NOTE | 2023-02-09 07:30 | IMM_PTH ---
PATIENT: LORENZA LEWIS LOC: EN U#:[id number] AGE/SX: 57/M ROOM: RE02/09/[address]: Dr. Sotero Sanchez MD : 1965 BED: DIS: 02/09/2023 SPEC #: [id number] RECD: 02/09/23 14:22 STATUS: TRACEY REQ #: [id number] JIMMY: 02/09/23 07:[address]: Sotero Sanchez DEPT: IMMUNOHISTOCHEMISTRY RECD BY: Jo Beavers ENTERED: 02/09/23 14:22 SP TYPE: IMMUNO OTHR DR: Dr. Robert Hollis, Tissues: A - Stomach, NOS Procedures: H Pylori (initial) PHYSICIAN & INSTITUTION [place] [address] SPECIMEN INFORMATION: Tissue Source: A - Antrum Clinical Info: Diarrhea, weight loss Specimen Number: [id number] CPT code: 37764 METHODOLOGY: Deparaffinized sections of prefer/formalin-fixed tissue or PAP/DQ stained slides are incubated with monoclonal/polyclonal antibodies/oligonucleotide probes. Localization is made via biotin free immunoperoxidase method. Appropriate controls are performed and reacted as expected. Results on target cell population are indicated in the following table: RESULTS: ANTIBODY / CLONE RESULT Block A H Pylori (polyclonal) negative These tests were developed and their performance characteristics determined by [facility]. They may not have been cleared or approved by the U.S. Food and Drug Administration. The FDA has determined that such clearance or approval is not necessary. The above immunohistochemical/dualISH markers are ordered and reviewed by the Pathologist. INTERPRETATION: A. Antrum, biopsy: Negative for Helicobacter pylori organisms. SJ:dina 02/10/2023
[2023-02-09 08:15] VITALS: BP 124/80; BP 86/52; PULSE 58; RESP 16; TEMP 36.1; O2SAT 96
[2023-02-09 08:20] VITALS: BP 124/80; BP 89/60; PULSE 56; RESP 16; O2SAT 100
--- NOTE | 2023-02-09 08:22 | OP.EGD_ITS ---
Patient Name: Dixon Correa Procedure Date: 02/09/2023 7:17 AM Date of : 1965 Age: 57 Procedure: Upper GI endoscopy Indications: Diarrhea, Weight loss Providers: Sotero Sanchez MD Referring MD: Sotero Sanchez MD Medicines: Monitored Anesthesia Care Patient Profile: This is a 57 year old male. Refer to note in patient chart for documentation of history and physical. Complications: No immediate complications. Estimated blood loss: Minimal. Procedure: Pre-Anesthesia Assessment: - Prior to the procedure, a History and Physical was performed, and patient medications and allergies were reviewed. The patient's tolerance of previous anesthesia was also reviewed. The risks and benefits of the procedure and the sedation options and risks were discussed with the patient. All questions were answered, and informed consent was obtained. Prior Anticoagulants: The patient has taken no anticoagulant or antiplatelet agents. After reviewing the risks and benefits, the patient was deemed in satisfactory condition to undergo the procedure. After obtaining informed consent, the endoscope was passed under direct vision. Throughout the procedure, the patient's blood pressure, pulse, and oxygen saturations were monitored continuously. The Endoscope was introduced through the mouth, and advanced to the fourth part of duodenum. The upper GI endoscopy was accomplished without difficulty. The patient tolerated the procedure well. Scope In: 7:30:19 AM Scope Out: 7:32:36 AM Total Procedure Duration Time 0 hours 2 minutes 17 seconds Findings: The esophagus was normal. The stomach was normal. The examined duodenum was normal. Biopsies were taken with a cold forceps in the gastric antrum for Helicobacter pylori testing. Impression: - Normal esophagus. - Normal stomach. - Normal examined duodenum. - Biopsies were taken with a cold forceps for Helicobacter pylori testing. Recommendation: - Discharge patient to home. - Resume previous diet. - Continue present medications. - Await pathology results. Procedure Code(s): --- Professional --- 14621, Esophagogastroduodenoscopy, flexible, transoral; with biopsy, single or multiple Diagnosis Code(s): --- Professional --- R19.7, Diarrhea, unspecified R63.4, Abnormal weight loss CPT copyright 2021 [employer]. All rights reserved. The codes documented in this report are preliminary and upon direct selling counselor review may be revised to meet current compliance requirements. Sotero Sanchez MD 02/09/2023 8:21:53 AM This report has been signed electronically. Number of Addenda: 0 Note Initiated On: 02/09/2023 7:17 AM
--- NOTE | 2023-02-09 08:22 | OP.CCLET_ITS ---
02/09/2023 Robert Hollis [address] [place] [address] Re : Upper GI endoscopy procedure for Dixon Correa Dear Dr. Hollis This procedure was performed on Thursday, February 09, 2023. My impressions and recommendations are as follows: Impressions : - Normal esophagus. - Normal stomach. - Normal examined duodenum. - Biopsies were taken with a cold forceps for Helicobacter pylori testing. Recommendations : - Discharge patient to home. - Resume previous diet. - Continue present medications. - Await pathology results. My findings are described in the full procedure note, which is enclosed. If I can be of further assistance, please feel free to contact me at Doctor phone number(s): , Work: . Sincerely, Sotero Sanchez MD 02/09/2023 8:21:53 AM This report has been signed electronically.
--- NOTE | 2023-02-09 08:23 | OP.COLON_ITS ---
Patient Name: Dixon Correa Procedure Date: 02/09/2023 7:34 AM Date of : 1965 Age: 57 Procedure: Colonoscopy Indications: Chronic diarrhea, Weight loss Providers: Sotero Sanchez MD Referring MD: Sotero Sanchez MD Medicines: Monitored Anesthesia Care Patient Profile: This is a 57 year old male. Refer to note in patient chart for documentation of history and physical. Last Colonoscopy: more than 10 years ago. Complications: No immediate complications. Estimated blood loss: Minimal. Procedure: Pre-Anesthesia Assessment: - Prior to the procedure, a History and Physical was performed, and patient medications and allergies were reviewed. The patient's tolerance of previous anesthesia was also reviewed. The risks and benefits of the procedure and the sedation options and risks were discussed with the patient. All questions were answered, and informed consent was obtained. Prior Anticoagulants: The patient has taken no anticoagulant or antiplatelet agents. After reviewing the risks and benefits, the patient was deemed in satisfactory condition to undergo the procedure. After I obtained informed consent, the scope was passed under direct vision. Throughout the procedure, the patient's blood pressure, pulse, and oxygen saturations were monitored continuously. The Colonoscope was introduced through the anus and advanced to the cecum, identified by appendiceal orifice and ileocecal valve. The colonoscopy was performed without difficulty. The patient tolerated the procedure well. The quality of the bowel preparation was good. The ileocecal valve, appendiceal orifice, and rectum were photographed. Scope In: 7:35:21 AM Scope Withdrawal Time 0 hours 5 minutes 18 seconds Scope Out: 8:10:28 AM Total Procedure Duration Time 0 hours 35 minutes 7 seconds Findings: The entire examined colon appeared normal on direct and retroflexion views. Biopsies for histology were taken with a cold forceps from the entire colon for evaluation of microscopic colitis. Impression: - The entire examined colon is normal on direct and retroflexion views. - Biopsies were taken with a cold forceps from the entire colon for evaluation of microscopic colitis. Recommendation: - Discharge patient to home. - Resume previous diet. - Continue present medications. - Await pathology results. - Repeat colonoscopy in 10 years for surveillance based on pathology results. Procedure Code(s): --- Professional --- 62226, Colonoscopy, flexible; with biopsy, single or multiple Diagnosis Code(s): --- Professional --- K52.9, Noninfective gastroenteritis and colitis, unspecified R63.4, Abnormal weight loss CPT copyright 2021 [employer]. All rights reserved. The codes documented in this report are preliminary and upon signal tester review may be revised to meet current compliance requirements. Sotero Sanchez MD 02/09/2023 8:23:27 AM This report has been signed electronically. Number of Addenda: 0 Note Initiated On: 02/09/2023 7:34 AM
--- NOTE | 2023-02-09 08:23 | OP.CCLET_ITS ---
02/09/2023 Robert Hollis [address] [place] [address] Re : Colonoscopy procedure for Dixon Correa Dear Dr. Hollis This procedure was performed on Thursday, February 09, 2023. My impressions and recommendations are as follows: Impressions : - The entire examined colon is normal on direct and retroflexion views. - Biopsies were taken with a cold forceps from the entire colon for evaluation of microscopic colitis. Recommendations : - Discharge patient to home. - Resume previous diet. - Continue present medications. - Await pathology results. - Repeat colonoscopy in 10 years for surveillance based on pathology results. My findings are described in the full procedure note, which is enclosed. If I can be of further assistance, please feel free to contact me at Doctor phone number(s): , Work: . Sincerely, Sotero Sanchez MD 02/09/2023 8:23:27 AM This report has been signed electronically.
[2023-02-09 08:25] VITALS: BP 124/80; BP 98/61; PULSE 52; RESP 16; O2SAT 100
[2023-02-09 08:30] VITALS: BP 110/66; BP 124/80; PULSE 64; RESP 16; TEMP 36.1; O2SAT 98
[2023-02-09 08:52] VITALS: BP 124/80
== END 2023-02-09 08:53 | disposition home or self-care (01) ==
LOC: EN 06:25 → AC 06:26
PROVIDERS: PCP Family Medicine; Referring Provider Family Medicine; Visit Provider Surgery
PROC: 0DJD8ZZ Inspection of Lower Intestinal Tract, Via Natural or Artificial Opening Endoscopic (ICD-10-PCS; CPT 45378; principal; 2023-02-09 07:25)
DX: K29.70 Gastritis, unspecified, without bleeding (principal); I10 Essential (primary) hypertension; I25.10 Atherosclerotic heart disease of native coronary artery without angina pectoris; J45.909 Unspecified asthma, uncomplicated; K21.9 Gastro-esophageal reflux disease without esophagitis; F17.210 Nicotine dependence, cigarettes, uncomplicated; Z79.899 Other long term (current) drug therapy
CPT/HCPCS: 45380; 43239; 88305; 88342; J7120; J2405

== ENCOUNTER → 2023-05-14 | Outpatient (CLI) | payer MEDICAID, SELFPAY ==
--- OUTSIDE RECORDS SUMMARY | 2023-05-14 10:49 | XMS RPT_ITS | CCD ---
Author Name Unknown Address [id number] [place] [address] Organization [facility] Care Team Providers Care [place] Name Role Phone Norris Hannah Unavailable Unavailable Sabe, Ahmed A Unavailable Unavailable Oleghe, Efewongbe Unavailable Unavailable JAMES, LIDA Unavailable Unavailable JAMES, LIDA Unavailable Unavailable NO REFERRING DR Unavailable Unavailable JAMES, LIDA Unavailable Unavailable JAMES, LIDA Unavailable Unavailable NO REFERRING DR Unavailable Unavailable JAMES, LIDA Unavailable Unavailable [facility] Unavailable Unavailable JAMES, LIDA Unavailable Unavailable [facility] Unavailable Unavailable JAMES, LIDA Unavailable Unavailable [facility] Unavailable Unavailable [facility] Unavailable Unavailable JAMES, LIDA Unavailable Unavailable JAMES, LIDA Unavailable Unavailable JAMES, LIDA Unavailable Unavailable JAMES, LIDA Unavailable Unavailable JAMES, LIDA Unavailable Unavailable JAMES, LIDA Unavailable Unavailable JAMES, LIDA Unavailable Unavailable SHAD MURRAY JR. Unavailable Unavailable ANNABEL CARBAJAL Unavailable Unavailable Marianna Perdomo Attending Unavailab le *SELF, REFERRED Referring Unavailable UNKNOWN, PCP Primary Care Unavailable Steffi Beaver Attending Unavailable Marianna Perdomo Referring Unavailab le UNKNOWN, PCP Primary Care Unavailable YADIRA LUND Attending Unavailable *SELF, REFERRED Referring Unavailable UNKNOWN, PCP Primary Care Unavailable Marianna Perdomo Attending Unavailab le *SELF, REFERRED Referring Unavailable UNKNOWN, PCP Primary Care Unavailable Marianna Perdomo Attending Unavailab le *SELF, REFERRED Referring Unavailable UNKNOWN, PCP Primary Care Unavailable Allergies Allergy Classification Reported Allergen(s) Allergy Type Date of Onset Reaction(s) Facility (1 source) aspirin; Translations: [ASPIRIN] Drug Allergy [facility] Repository (2 sources) Penicillins; Translations: [PENICILLINS] Propensity to adverse reactions (disorder) 6 AOF [facility] Repository (2 sources) salicylic acid; Translations: [SALICYLATES] Drug Allergy 6 [facility] Repository Problems Active Problems Problem Classification Problem Date Documented Date Episodic/Chronic Acute cerebrovascular disease (1 source) Cerebral infarction, unspecified; Translations: [Cerebral infarction, unspecified] Onset: 08-03-2014 Chronic Coronary atherosclerosis and other heart disease (3 sources) Atherosclerotic heart disease of [place] coronary artery without angina pectoris; Translations: [ASHD MEKORYUK CA W/O ANGIN] Onset: 12-07-2016 Chronic Disorders of lipid metabolism (1 source) Mixed hyperlipidemia; Translations: [Mixed hyperlipidemia] Onset: 06-01-2017 Chronic Essential hypertension (2 sources) Essential (primary) hypertension; Translations: [ESSENTIAL PRIMARY HYPERT] Onset: 08-03-2014 Chronic Heart valve disorders (2 sources) Rheumatic tricuspid insufficiency; Translations: [Nonrheumatic mitral (valve) insufficiency] Onset: 01-01-2017 Chronic Pulmonary heart disease (1 source) Other secondary pulmonary hypertension; Translations: [OTHER SECOND PULMONARY H] Onset: 01-01-2017 Chronic Unclassified (2 sources) Obstructive sleep apnea (adult) (pediatric); Translations: [Dependence on other enabling machines and devices] Onset: 06-01-2017 Chronic Past or Other Problems Problem Classification Problem Date Documented Da te Episodic/Chronic Epilepsy; convulsions (1 source) Unspecified convulsions; Translations: [Unspecified convulsions] Onset: 06-01-2017 Episodic Nonspecific chest pain (1 source) Chest pain Onset: 04-14-2017 Episodic Syncope (4 sources) Syncope and collapse; Translations: [SYNCOPE AND COLLAPSE] Onset: 12-07-2016 Episodic Unclassified (2 sources) Unknown / UNK(Unknown) Onset: 12-07-2016 Results Test Name Value Interpretation Reference Range Facil ity Encounters Encounter Date Encounter Type Care Provider Facility Start: 05-31-2018 [id number] Start: 04-20-2018 [id number] Start: 04-18-2018 Patient encounter procedure YADIRA LUND Facility:[id number] Start: 03-30-2018 [id number] Start: 03-30-2018 Patient encounter procedure Steffi Beaver Facility:[id number] Start: 06-29-2017 Evaluation and management of inpatient Pravin Pollard Facility:[facility] Start: 06-01-2017 End: 06-01-2017 Ambulatory [facility] Facility:[facility] Start: 05-14-2017 Ambulatory [facility] Facility:[facility] Start: 05-13-2017 Ambulatory [facility] Facility:[facility] Start: 04-14-2017 Evaluation and management of inpatient Norrismukul Hannah Facility:[facility] Start: 02-04-2017 End: 02-05-2017 Ambulatory [facility] Start: 01-20-2017 End: 01-21-2017 Ambulatory SHAD MURRAY Facility:[facility] Start: 01-07-2017 End: 01-08-2017 Ambulatory [facility] Facility:[facility] Start: 01-01-2017 End: 01-02-2017 Ambulatory [facility] Facility:[facility] Payers Date Payer Category Payer Unknown [id number] 1965 Unknown [id number] 2.. [id number] 1965 Unknown [id number] 2.. [id number] 1965 Unknown [id number] 2.. [id number] 1965 Unknown [id number] 2.. [id number] 1965 Unknown [id number] 2. [id number] Clinical Note 06-22-2020 Note Date & Type Note Facility 06-22-2020 Note Patient Outreach ([facility]) DEBBIELORENZA ([id number]) 1965 M Date Time Provider Department 06/22/20 CIARA, BELEN LEIVA During your visit today, we recorded the following information about you: Allergies As of Date: 06/22/2020 Noted Allergy Reaction ASA (SALICYLATES) 11/23/2005 4 - Hives 7 - Swelling PENICILLINS 11/23/2005 7 - Swelling Date Reviewed: 08/02/2018 Reviewed by: Sarah Lynch LPN - Fully Assessed Order(s):SARS-COVID VACCINE 1ST DOSE APPT [[id number]] Order #: [id number] FUTURE Prescriptions as of 06/22/2020 Sig: DUPILUMAB 300 MG/2 ML SUBCUTA* Inject subcutaneously 2 syrin* Patient not taking: Reported on 08/02/2018 DUPILUMAB 300 MG/2 ML SUBCUTA* Inject 2 mL subcutaneously ev* Patient not taking: Reported on 08/02/2018 CRISABOROLE 2 % TOPICAL OINTM* Apply 1 [...] Take 1-2 tablets every 4-6 ho* MUPIROCIN CALCIUM 2 % TOPICAL* Apply 1 application to affect* EMOLLIENT COMBINATION NO.101 * Apply 1 application to affect* Patient not taking: Reported on 08/02/2018 TRIAMCINOLONE ACETONIDE 0.1 %* APPLY TO ITCHY [...] four t* Problem List As Of Date 06/22/2020 Noted Resolved Dysphagia, unspecified [R13.10] 04/30/2011 Esophagitis, unspecified [K20.90] 04/30/2011 Acute gastritis without mention of hemorrhage [*04/30/2011 Seizure disorder [G40.909] 09/01/2011 Anxiety [F41.9] 02/18/2012 Headache [R51] 05/09/2012 More... Chronic migraine [G43.709] 08/15/2012 Chronic daily headache [R51.9] 08/15/2012 Medication overuse headache [G44.40] 08/15/2012 Abdominal pain [R10.9] HTN (hypertension) [I10] 08/03/2014 Asthma [J45.909] 08/03/2014 Stroke (cerebrum) ([facility]) [I63.9] 08/03/2014 Abdominal pain, unspecified site [R10.9] 08/09/2014 Syncope [R55] [place] (myocardial infarction) ([facility]) [I21.9] 04/26/2008 Coronary artery disease [I25.10] Encounter Status:Closed by EPIC, PRODUSER on 06/25/20 [facility] Summary Purpose Family History No Family History Records FoundNo Family History Records FoundNo Family History Records FoundNo Family History Records FoundNo Family History Records FoundNo Family History Records Found Advance Directives No Advanced Directives Records FoundNo Advanced Directives Records FoundNo Advanced Directives Records FoundNo Advanced Directives Records FoundNo Advanced Directives Records FoundNo Advanced Directives Records Found Additional Source Comments (unrecognized sect ion and content) No Status Records FoundNo Status Records FoundNo Status Records FoundNo Status Records FoundNo Status Records FoundNo Status Records Found INFORMATION SOURCE (unrecogn ized section and content) DATE CREATED AUTHOR AUTHOR'S ORGANIZ ATION 10/18/2017 [facility] DATE CREATED AUTHOR AUTHOR'S ORGANIZ ATION 10/18/2017 [facility] DATE CREATED AUTHOR AUTHOR'S ORGANIZ ATION 10/20/2017 [facility] ([place]) DATE CREATED AUTHOR AUTHOR'S ORGANIZ ATION [facility] DATE CREATED AUTHOR AUTHOR'S ORGANIZ ATION 06/06/2021 [facility] FOR RECORDS PERTAINING TO PATIENTS WHO ARE OR HAVE BEEN ENROLLED IN A CHEMICAL DEPENDENCY/SUBSTANCEABUSE PROGRAM, SOME INFORMATION MAY BE OMITTED. This clinical summary was aggregated from multiple sources. Caution should be exercised in using it in the provision of clinical care. This summary normalizes information from multiple sources, and as a consequence, information in this document may materially change the coding, format and clinical context of patient data. In addition, data may be omitted in some cases. CLINICAL DECISIONS SHOULD BE BASED ON THE PRIMARY CLINICAL RECORDS. [facility]. provides no warranty or guarantee of the accuracy or completeness of information in this document.
--- NOTE | 2023-05-17 10:29 | PFT ---
INTRODUCTION: The patient is a 58-year-old male who presents for pulmonary function studies secondary to a diagnosis of dyspnea. Respiratory therapy reported good patient effort. Bronchodilators were used during testing. INTERPRETATION: Forced expiration spirometry demonstrates no evidence of a large airways obstructive ventilatory defect. There was no significant response to aerosolized bronchodilators. Body plethysmography was performed and revealed a decreased TLC to 5.26 L, 78% of predicted, indicative of a mild restrictive ventilatory impairment. Diffusing capacity by single breath CO was within normal limits. IMPRESSION: Mild restrictive ventilatory impairment with preserved diffusing capacity.
== END | disposition home or self-care (01) ==
LOC: PSN 10:31
PROVIDERS: PCP Family Medicine; Referring Provider Internal Medicine Critical Care Medicine; Visit Provider Internal Medicine Critical Care Medicine
DX: R06.00 Dyspnea, unspecified (principal); J45.909 Unspecified asthma, uncomplicated
CPT/HCPCS: 94060; 94726; 94729

== ENCOUNTER → 2023-08-16 | Outpatient (CLI) | payer MEDICAID, SELFPAY | END | disposition home or self-care (01) | LOC: BFHLAB 10:01 → LABSPEC 10:04 | PROVIDERS: PCP Family Medicine; Referring Provider Family Medicine; Visit Provider Family Medicine | DX: J34.0 Abscess, furuncle and carbuncle of nose (principal) | CPT/HCPCS: 87070; 87077; 87186; 87205 ==

== ENCOUNTER → 2024-02-14 | Outpatient (CLI) | payer MEDICAID, SELFPAY ==
[2024-02-14 12:41] LABS: Vitamin B12 422 pg/mL (211-911)
[2024-02-14 13:28] LABS: AST(SGOT) 19 U/L (15-37); Alanine Aminotransfer ALT/SGPT 25 U/L (16-61); Albumin, Serum 3.5 g/dL (3.2-5.0); Alkaline Phosphatase 45 U/L (45-117); Anion Gap 5 (5-15); BUN 17 mg/dL (7-18); BUN/Creat Ratio 23.1 RATIO (10-20); Calcium,Total 9.2 mg/dL (8.5-10.1); Chloride 103 mmol/L (98-107); Creatinine, Serum 0.74 mg/dL (0.70-1.30); EST Glomerular Filtration Rate 115 mL/min (>60); Est Glom Filt Rate - Afr Amer 139 mL/min (>60); Globulin 3.5 g/dL (2.2-4.2); Glucose 92 mg/dL (74-106); Potassium 3.6 mmol/L (3.5-5.1); Sodium Level 139 mmol/L (136-145)
[2024-02-14 15:08] LABS: Hemoglobin A1c 5.6 % (3.8-5.6)
== END | disposition home or self-care (01) ==
LOC: BFHLAB 09:36
PROVIDERS: PCP Family Medicine; Referring Provider Family Medicine; Visit Provider Family Medicine
DX: R81 Glycosuria (principal); I10 Essential (primary) hypertension; R20.2 Paresthesia of skin
CPT/HCPCS: 36415; 80053; 82607; 83036

== ENCOUNTER → 2024-04-13 | Outpatient (CLI) | payer MEDICAID, SELFPAY ==
[2024-04-13 12:51] LABS: Anion Gap 5 (5-15); BUN 22 mg/dL (7-18); BUN/Creat Ratio 24.7 RATIO (10-20); Calcium,Total 9.5 mg/dL (8.5-10.1); Chloride 100 mmol/L (98-107); Creatinine, Serum 0.89 mg/dL (0.70-1.30); EST Glomerular Filtration Rate 93 mL/min (>60); Est Glom Filt Rate - Afr Amer 112 mL/min (>60); Glucose 124 mg/dL (74-106); Potassium 3.8 mmol/L (3.5-5.1); Sodium Level 134 mmol/L (136-145)
== END | disposition home or self-care (01) ==
LOC: BFHLAB 09:43
PROVIDERS: PCP Family Medicine; Visit Provider Family Medicine
DX: I10 Essential (primary) hypertension (principal)
CPT/HCPCS: 36415; 80048

== ENCOUNTER → 2024-08-17 | Outpatient (CLI) | payer MEDICAID, SELFPAY ==
[2024-08-17 16:34] LABS: ALB/GLOB Ratio 1.4 RATIO (0.9-2.4); AST(SGOT) 26 U/L (<=37); Alanine Aminotransfer ALT/SGPT 22 U/L (<=46); Albumin, Serum 4.4 g/dL (3.4-4.8); Alkaline Phosphatase 40 U/L (40-129); Anion Gap 14 (5-15); BUN 21 mg/dL (4-19); BUN/Creat Ratio 21.7 RATIO (10-20); Calcium,Total 9.7 mg/dL (7.6-11.0); Chloride 97 mmol/L (98-108); Creatinine, Serum 0.96 mg/dL (0.70-1.20); EST Glomerular Filtration Rate 91 (>60); Globulin 3.1 g/dL (2.2-4.2); Glucose 88 mg/dL (70-99); Magnesium 2.1 mg/dL (1.5-2.2); PSA,Total- Diagnostic 4.59 ng/mL (0.00-4.00); Potassium 3.4 mmol/L (3.3-5.1); Protein, Total 7.5 g/dL (5.9-8.4); Sodium Level 136 mmol/L (133-145); Total Bilirubin 0.41 mg/dL (0.00-1.30)
== END | disposition home or self-care (01) ==
LOC: BFHLAB 11:02
PROVIDERS: PCP Family Medicine; Referring Provider Family Medicine; Visit Provider Family Medicine
DX: I10 Essential (primary) hypertension (principal); R19.7 Diarrhea, unspecified; R25.2 Cramp and spasm; Z12.5 Encounter for screening for malignant neoplasm of prostate
CPT/HCPCS: 36415; 80053; 83735; 84153; 84443